=== PATIENT | male | born 1940 | race Caucasian/White ===

== ENCOUNTER → 2018-05-25 08:41 | Outpatient (CLI) | payer MEDICARE, OTHER, SELFPAY ==
--- NOTE | 2018-05-25 | DI.MRI.S_ITS ---
PROCEDURE: MR HEAD/BRAIN WO CON INDICATIONS: DIPLOPIA TECHNIQUE: Non-contrast axial T1 spin echo, axial T2 fast spin echo, sagittal and axial FLAIR, coronal T2 fast spin echo, axial gradient echo, axial diffusion and ADC through the brain. COMPARISON: [facility], CT, HEAD WITHOUT CONTRAST, 11/04/2014, 10:54. FINDINGS: Image quality: Excellent. CSF spaces: Ventricles appear symmetric in size and shape. Basal cisterns are patent. No extra-axial fluid collections. Brain: No intracranial bleeds or mass effects. There is cerebral volume loss for age. There are periventricular and deep white matter chronic small vessel ischemic changes. Brainstem appears normal. Diffusion-weighted images show no acute ischemic insults. No chronic ischemic insults. Normal intravascular flow voids are present. Skull and face: Calvarial bone marrow is normal in signal. Orbits are normal. Sinuses: Sinuses and mastoids are clear. IMPRESSION: 1. No acute intracranial process. 2. Moderate atrophy and chronic microvascular ischemic changes. Dictated by: Milagro Palmer M.D. on 05/25/2018 at 11:21 Approved by: Milagro Palmer M.D. on 05/25/2018 at 11:26
--- NOTE | 2018-05-25 | DI.US.S_ITS ---
PROCEDURE: US CAROTID DOPPLER BI INDICATIONS: DIPLOPIA TECHNIQUE: Color and pulse Doppler interrogation was performed of both carotid systems, with image documentation and velocity measurements. COMPARISON: None. FINDINGS: Stenosis calculations are based on SRU (Society of Radiologists in Ultrasound) criteria. Right side: Brachial blood pressure: 139/80 mm Hg. Common carotid artery peak systolic velocity: 84 cm/sec. Internal carotid artery peak systolic velocity: 57 cm/sec. Internal carotid artery end diastolic velocity: 8 cm/sec. External carotid artery peak systolic velocity: 108 cm/sec. ICA/CCA peak systolic ratio: 1.3. Trivedi scale imaging description: Minimal plaque. Percent internal carotid artery stenosis: Less than 50%. Vertebral artery: Flow direction is antegrade. Left side: Brachial blood pressure: 136/81 mm Hg. Common carotid artery peak systolic velocity: 90 cm/sec. Internal carotid artery peak systolic velocity: 76 cm/sec. Internal carotid artery end diastolic velocity: 17 cm/sec. External carotid artery peak systolic velocity: 98 cm/sec. ICA/CCA peak systolic ratio: 0.9. Trivedi scale imaging description: Moderate plaque. Percent internal carotid artery stenosis: Less than 50%. Vertebral artery: Flow direction is antegrade. IMPRESSION: Less than 50% bilateral internal carotid artery stenosis. Dictated by: Michael Hairston [facility] Interpreted: Vincent Valiente MD on 05/25/2018 at 10:46 Approved by: Michele Valiente M.D. on 05/25/2018 at 12:19
== END ==
PROVIDERS: Family Provider Family Medicine; PCP Family Medicine; Visit Provider Family Medicine
DX: H53.2 Diplopia (principal)
CPT/HCPCS: 70551; 93880

== ENCOUNTER 2019-03-31 11:46 | Day surgery (SDC) | payer MEDICARE, OTHER, SELFPAY ==
[2019-03-24 08:25] VITALS: BMI 34.1
[2019-03-31] VITALS (8 sets, daily range): BP systolic 105–151; BP diastolic 60–82; PULSE 20–113; RESP 12–96; TEMP 36.1–37.1; O2SAT 89–96; BMI 32.8
[2019-03-31] MEDS: metroNIDAZOLE 500 MG/100 ML PIGGYBACK 100 MG IV (05:00)
[2019-03-31] MEDS: LACTATED RINGERS 1,000 ML 42 ML IV (14:23)
[2019-03-31] MEDS: CEFTRIAXONE 2 GM/50 ML FROZ.PIGGY IV (14:54)
--- NOTE | 2019-03-31 15:18 | SUR.OPER ---
Prone on padded OR bed, head in foam head support, gel chest rolls, gel pad under knees, pillow under lower legs, toes free of pressure, arms secured on padded arm boards at <90 degrees abduction. Safety belt at thigh.
[2019-03-31] MEDS: BUPIVACAINE 0.25% W/ EPI (PF) 10 ML VIAL 20 ML INJ (15:30)
[2019-03-31] MEDS: LIDOCAINE 5% OINT 35 GM 1 APPLIC TOP (15:50)
--- NOTE | 2019-03-31 16:35 | PM.OP.1 ---
Operative Date/Time/Diagnoses Date of procedure: 03/31/19 Time of procedure: 14:00 Pre-op diagnosis: External hemorrhoids Post-op diagnosis: same Procedure & Clinicians Procedure: Two: James hemorrhoidectomy of the right posterior and left lateral columns Same procedure as scheduled: Yes Indications: 78-year-old man with history of prolapsing hemorrhoids with intermittent bleeding Surgeon: Wilmer Colon Click Yes if Unassisted: Yes Anesthesia Type: General Operative Notes Findings: No masses within the anal canal, quite large left lateral hemorrhoid. Moderately large right posterior hemorrhoid Closure Type: primary Specimen(s): none sent Estimated Blood Loss (mL): 25 Procedure in detail: Patient was taken to the operating room he was intubated without incident he was rolled into the prone arvin-knife position. The buttock was taped open he was prepped and draped in usual sterile fashion. A time-out was completed. using a lubricated finger digital rectal exam was performed there was a soft fleshy tissue of the left hemorrhoidal column head that had been previously identified in the office. No other masses identified a small gauze sponge was inserted into the anal canal in its entirely and slowly drawn out. This demonstrated significantly prolapsing of the left lateral hemorrhoidal column and a small amount of prolapsing of the right posterior column. Using a Johnson retractor the anus was closely inspected the left lateral hemorrhoidal column was quite large and we proceeded to excise it. taking a small wedge of anoderm a section of tissue including the hemorrhoid was sequentially removed from a superficial to deep direction. just after the anal verge was careful to identify and preserve the fibers of the internal anal sphincter. Care was taken to remove the minimal amount of anal mucosa so as to not stenose the anal canal. I progressed until I was below the level of the dentate line. at this point the hemorrhoidal column attached proximally was grasped at its base with a right angle clamp including the hemorrhoidal vessels. these were then ligated with 2 0 Vicryl utilizing stick tie method. Other hemorrhoidal column was then amputated. The mucosa was then closed using a simple continuous running 2 0 Vicryl suture taking bites of either side of the mucosa as well as the deep side of the underlying tissue to assist in hemostasis. prior to closure hemostasis was excellent, I then inspected the anal canal again. Due to the size of the right posterior column I performed a several layer hemorrhoidectomy using identical technique. A perianal block was then performed using a total of 60 mL of 0.25% bupivacaine with epinephrine. A rolled Gelfoam plug was then placed into the anus with copious amounts 5% lidocaine gel Complications: none Condition: stable Disposition: PACU
[2019-03-31] MEDS: BENZOCAINE/MENTHOL 1 LOZ PKT 1 EACH PO (16:48)
--- NOTE | 2019-03-31 17:16 | SUR.PHASEII ---
Frequent hoarse cough. Throat lozenge provided with some improvement. Anterior lobes clear. IS provided. Verbal instructions given. Pt able to reach 2100. Spouse at bedside.
[2019-03-31] MEDS: ALBUTEROL 2.5 MG/3 ML NEB (ADULT) INH (17:29)
--- NOTE | 2019-03-31 17:29 | SUR.PHASEII ---
Dr. Nuno notified regarding patient status by Gerri. MURRAY for Albuterol neb, which was given.
--- NOTE | 2019-03-31 17:53 | SUR.PHASEII ---
o2 sat 92% RA, Dr Nuno and Isaiah notified. Pt denied dyspnea. OK for patient to discharge. Exp wheeze to rory bases. IS and deep breaths/cough encouraged.
== END 2019-03-31 17:56 | disposition home or self-care (01) ==
PROVIDERS: Family Provider Family Medicine; PCP Family Medicine; Visit Provider Surgery
PROC: (CPT 46260; principal; 2019-03-31 13:00)
DX: K64.2 Third degree hemorrhoids (principal); K64.8 Other hemorrhoids; I25.10 Atherosclerotic heart disease of native coronary artery without angina pectoris; Z87.891 Personal history of nicotine dependence
CPT/HCPCS: 46260; J0696; J1100; J2250; J2704; J3010; J7613

== ENCOUNTER 2019-04-01 12:24 | Emergency (ER) | payer MEDICARE, OTHER, SELFPAY ==
[2019-04-01 12:39] VITALS: BP 142/73; PULSE 56; RESP 20; TEMP 36.8; O2SAT 95; BMI 32.2
--- NOTE | 2019-04-01 13:26 | ED.MALEGU ---
HPI - Male Genitourinary <Valencia Uribe PA-C - Last Filed: 04/01/19 21:39> General Chief complaint: Urogenital-Male Stated complaint: unable to urinate, came for a cath Time Seen by Provider: 04/01/19 13:26 Source: patient Mode of arrival: ambulatory Limitations: no limitations History of Present Illness HPI Narrative: This 78-year-old gentleman had external hemorrhoidectomy done yesterday general anesthesia. He also had a perianal block. He to urinate before he went home yesterday but did not think to mention this, unable to urinate all night and now is feeling significant bladder pressure. He denies any fever, abdominal pain, vomiting, or other new complaints on systems review. Catheter has been placed and he is feeling much better, UO 1250 thus far. Related Data Home Medications Medication Instructions Recorded Confirmed amlodipine 5 mg tablet 5 mg PO BID 03/10/19 04/01/19 simvastatin 40 mg tablet 40 mg PO BEDTIME 03/10/19 04/01/19 aspirin 81 mg tablet,delayed 81 mg PO QPM 03/23/19 04/01/19 release celecoxib 200 mg capsule 200 mg PO QPM cap 03/23/19 04/01/19 doxazosin 8 mg PO QPM 04/01/19 04/01/19 metoprolol tartrate 25 mg PO DAILY 04/01/19 04/01/19 olmesartan [Benicar] 20 mg PO QPM 04/01/19 04/01/19 olmesartan-hydrochlorothiazide 1 tab PO QAM 04/01/19 04/01/19 testosterone cypionate 100 mg IM Q2W 04/01/19 04/01/19 [Depo-Testosterone] Previous Rx's Medication Instructions Recorded acetaminophen 1,000 mg PO Q6H #60 cap 03/31/19 gabapentin 600 mg PO BEDTIME #6 tab 03/31/19 oxycodone See Rx Instructions .ROUTE 03/31/19 .COMPLEX PRN #20 cap polyethylene glycol 3350 [Miralax] 17 gram PO BID #255 gram 03/31/19 Allergies Allergy/AdvReac Type Severity Reaction Status Date / Time No Known Drug Allergies Allergy Verified 03/31/19 12:03 Review of Systems <Valencia rUibe PA-C - Last Filed: 04/01/19 21:39> Review of Systems ROS Unobtainable: All systems reviewed & are unremarkable except as noted in HPI and below PFSH <Valencia Uribe PA-C - Last Filed: 04/01/19 21:39> Medical History Arthritis (Acute) Diverticulosis (Acute) Former smoker (Acute) Hematemesis (Acute ~03/2015) Ulcer (Acute) CAD (coronary artery disease) (Chronic) HLD (hyperlipidemia) (Chronic) History of back problems (Chronic) Hypertension (Chronic) Kidney stones (Chronic 07/10/15) Non-Hodgkin lymphoma (Chronic) GI bleed (Resolved ~03/2015) H. pylori infection (Resolved ~03/2015) Internal hemorrhoid (Resolved) Surgical History S/P hemorrhoidectomy (Acute) H/O wrist surgery (Resolved ~1972) Hx of heart artery stent (Resolved ~2010) Hx of laminectomy (Resolved 09/07/15) Hx of lymph node excision (Resolved ~1988) Previous back surgery (Resolved ~2014) Family History (Updated 03/10/19 @ 12:45 by Margie Jerez RN) Father Hypertension Heart disease Sister Cancer Mother Hypertension Social History (Updated 03/23/19 @ 09:47 by Rina Albrecht LPN) marital status: household members: spouse occupational status: previously employed Smoking Status: Former smoker alcohol intake: current substance use type: does not use Family History (Updated 03/10/19 @ 12:45 by Margie Jerez RN) Father Hypertension Heart disease Sister Cancer Mother Hypertension Social History marital status: household members: spouse occupational status: previously employed Smoking Status: Former smoker alcohol intake: current substance use type: does not use Exam <Valencia Uribe PA-C - Last Filed: 04/01/19 21:39> Narrative Exam Narrative: GENERAL APPEARANCE: Patient sitting comfortably, in no distress. LUNGS: Clear to auscultation bilaterally. HEART: Rate and rhythm regular without murmur, normal S1 and S2, no S3 or S4. ABDOMEN: Soft, nontender, nondistended, +bowel sounds x4 quadrants : Catheter draining dark yellow, clear urine EXTREMITIES: No edema Initial Vital Signs Initial Vital Signs: Vital Signs Temperature 98.3 F 04/01/19 12:39 Pulse Rate 56 L 04/01/19 12:39 Respiratory Rate 20 04/01/19 12:39 Blood Pressure 142/73 H 04/01/19 12:39 Pulse Oximetry 95 04/01/19 12:39 <Francisca Mcmahan DO - Last Filed: 04/03/19 08:29> Initial Vital Signs Initial Vital Signs: Vital Signs Temperature 98.3 F 04/01/19 12:39 Pulse Rate 56 L 04/01/19 12:39 Respiratory Rate 20 04/01/19 12:39 Blood Pressure 142/73 H 04/01/19 12:39 Pulse Oximetry 95 04/01/19 12:39 Course <Valencia Uribe PA-C - Last Filed: 04/01/19 21:39> Additional Information: I have spoken with , who is on-call for Dr. Cui, and he advised patient should be able to be seen for follow-up and voiding trial tomorrow and to call in the morning. Patient is agreeable Orders Ordered: ED Orders 04/01/19 13:24 Urinalysis and Microscopic Stat Vital Signs - 8 hr 04/01/19 14:52 Pulse Rate 72 Respiratory Rate 18 Blood Pressure 131/76 Pulse Oximetry 93 <DO Thao Young Last Filed: 04/03/19 08:29> Orders Ordered: ED Orders 04/01/19 13:24 Urinalysis and Microscopic Stat Vital Signs - 8 hr 04/01/19 14:52 Pulse Rate 72 Respiratory Rate 18 Blood Pressure 131/76 Pulse Oximetry 93 MDM - Male Genitourinary <YAEL Pena Last Filed: 04/01/19 21:39> Lab Data Lab Results 04/01/19 Range/Units 13:24 Urine Color Yellow Urine Appearance Clear Urine pH 5.0 (4.5-8.0) Ur Specific Emmett 1.020 (1.000-1.035) Urine Protein Negative (Negative) Urine Glucose (UA) Negative (Negative) g/dL Urine Ketones Negative (NEGATIVE) Urine Occult Blood Trace-lysed (Negative) Urine Nitrate Negative (Negative) Urine Bilirubin Negative (NEGATIVE) Urine Urobilinogen 0.2 (0.2) E.U./dL Ur Leukocyte Esterase Negative (NEGATIVE) Urine RBC None seen (0-5/HPF) Urine WBC None seen (0-5/HPF) Urine Bacteria None seen (None) Ur Culture Indicated? Cult not indicated Micro UA Comment Microscopic normal <Francisca Marj, DO - Last Filed: 04/03/19 08:29> Lab Data Lab Results 04/01/19 Range/Units 13:24 Urine Color Yellow Urine Appearance Clear Urine pH 5.0 (4.5-8.0) Ur Specific Emmett 1.020 (1.000-1.035) Urine Protein Negative (Negative) Urine Glucose (UA) Negative (Negative) g/dL Urine Ketones Negative (NEGATIVE) Urine Occult Blood Trace-lysed (Negative) Urine Nitrate Negative (Negative) Urine Bilirubin Negative (NEGATIVE) Urine Urobilinogen 0.2 (0.2) E.U./dL Ur Leukocyte Esterase Negative (NEGATIVE) Urine RBC None seen (0-5/HPF) Urine WBC None seen (0-5/HPF) Urine Bacteria None seen (None) Ur Culture Indicated? Cult not indicated Micro UA Comment Microscopic normal Discharge Plan Departure Patient Disposition: Home Clinical Impression: Acute retention of urine Discharge Date/Time: 04/01/19 14:52 Interventions: ED Discharge Assessment Last Done: 04/01/19 14:52 Instructions: DI for Urinary Retention in Men Activity Restrictions/Additional Instructions: I think that your retaining urine due to anesthesia yesterday. Please keep the catheter in. Call your primary care office and let them know that you were seen in the emergency room we spoke with Dr. Richter today and he said that they could see you tomorrow. Return if you have any problems with the catheter or new symptoms in the interim (there was no problem found on your urinalysis today). You last saw Dr. Mcdowell in 2017 so if you do need to see a urologist you are still an established patient with [facility]. Prescriptions: No Action amlodipine 5 mg tablet 5 mg PO BID RF: 0 simvastatin 40 mg tablet 40 mg PO BEDTIME RF: 0 celecoxib [Celebrex] 200 mg capsule 200 mg PO QPM RF: 0 aspirin [Adult Aspirin Regimen] 81 mg tablet,delayed release (DR/EC) 81 mg PO QPM RF: 0 acetaminophen 500 mg capsule 1,000 mg PO Q6H Qty: 60 RF: 0 oxycodone 5 mg capsule See Rx Instructions .ROUTE .COMPLEX PRN (Reason: pain) Qty: 20 RF: 0 gabapentin 600 mg tablet 600 mg PO BEDTIME Qty: 6 RF: 0 polyethylene glycol 3350 [Miralax] 17 gram/dose powder 17 gram PO BID Qty: 255 RF: 0 doxazosin 8 mg tablet 8 mg PO QPM RF: 0 testosterone cypionate [Depo-Testosterone] 200 mg/mL oil 100 mg IM Q2W RF: 0 olmesartan [Benicar] 20 mg tablet 20 mg PO QPM RF: 0 metoprolol tartrate 25 mg tablet 25 mg PO DAILY RF: 0 olmesartan-hydrochlorothiazide 20-12.5 mg tablet 1 tab PO QAM RF: 0 Referrals: Dusty Cui MD [Primary Care Provider] - <Francisca Mcmahan DO - Last Filed: 04/03/19 08:29> Cosign ED Attending Cosignature Attestation: I was immediately available in the department for consultation. Documentation has been reviewed. I agree with assessment and plan.
[2019-04-01 13:50] LABS: Bacteria Urine None Seen; RBC Urine None Seen (0-5/HPF); WBC Urine None Seen (0-5/HPF)
[2019-04-01 13:51] LABS: Appearance Urine UA CLEAR; Bilirubin Urine UA NEGATIVE (NEGATIVE); Color Urine UA YELLOW; Glucose Urine UA NEGATIVE (Negative); Ketones Urine UA NEGATIVE (NEGATIVE); Leukocyte Esterase Urine UA NEGATIVE (NEGATIVE); Nitrite Urine UA NEGATIVE (Negative); Occult Blood Urine UA TRACE-LYSED (Negative); Protein Urine UA NEGATIVE (Negative); Urobilinogen Urine UA 0.2 E.U./dL (0.2)
[2019-04-01 13:57] LABS: Culture Indicated Urine Cult Not Indicated; Urine Comments Microscopic Normal
--- NOTE | 2019-04-01 14:46 | PC.NURSE ---
catheter teaching to and pt.. leg bag placed on pt.. pt verbalized an understanding.
[2019-04-01 14:52] VITALS: BP 131/76; PULSE 72; RESP 18; O2SAT 93
== END 2019-04-01 14:52 | disposition home or self-care (01) ==
PROVIDERS: Emergency Provider Internal Medicine; Family Provider Family Medicine; PCP Family Medicine
DX: R33.8 Other retention of urine (principal)
CPT/HCPCS: 51701; 81001; 99283

== ENCOUNTER 2019-04-07 19:08 | Emergency (ER) | payer MEDICARE, OTHER, SELFPAY ==
[2019-04-07 19:19] VITALS: BP 183/100; PULSE 104; RESP 16; TEMP 37.2; O2SAT 93; BMI 33.7
--- NOTE | 2019-04-07 19:35 | ED.MALEGU ---
HPI - Male Genitourinary <DAY Marrero - Last Filed: 04/07/19 20:27> General Chief complaint: Urogenital-Male Stated complaint: STATES NEEDS A CATHETER PUT IN Time Seen by Provider: 04/07/19 19:25 Source: patient and family Mode of arrival: ambulatory Limitations: no limitations History of Present Illness HPI Narrative: The patient is a 78-year-old male former smoker with history hemorrhoids and urinary retention who presents with the chief complaint urinary retention. He states his catheter was removed this morning and has not urinated since. He complains of abdominal and bladder pressure. He states that the catheter has been in since last week in chart reveal a straight that he was here 4 days ago for urinary retention. He denies any fevers nausea vomiting or diarrhea. He denies any flank pain. Related Data Home Medications Medication Instructions Recorded Confirmed amlodipine 5 mg tablet 5 mg PO BID 03/10/19 04/01/19 simvastatin 40 mg tablet 40 mg PO BEDTIME 03/10/19 04/01/19 aspirin 81 mg tablet,delayed 81 mg PO QPM 03/23/19 04/01/19 release celecoxib 200 mg capsule 200 mg PO QPM cap 03/23/19 04/01/19 doxazosin 8 mg PO QPM 04/01/19 04/01/19 metoprolol tartrate 25 mg PO DAILY 04/01/19 04/01/19 olmesartan [Benicar] 20 mg PO QPM 04/01/19 04/01/19 olmesartan-hydrochlorothiazide 1 tab PO QAM 04/01/19 04/01/19 testosterone cypionate 100 mg IM Q2W 04/01/19 04/01/19 [Depo-Testosterone] Previous Rx's Medication Instructions Recorded acetaminophen 1,000 mg PO Q6H #60 cap 03/31/19 gabapentin 600 mg PO BEDTIME #6 tab 03/31/19 oxycodone See Rx Instructions .ROUTE 03/31/19 .COMPLEX PRN #20 cap polyethylene glycol 3350 [Miralax] 17 gram PO BID #255 gram 03/31/19 Allergies Allergy/AdvReac Type Severity Reaction Status Date / Time No Known Drug Allergies Allergy Verified 03/31/19 12:03 Review of Systems <DAY Marrero - Last Filed: 04/07/19 20:27> Review of Systems GENERAL: Denies chills, fatigue, malaise, fever, sweats. HEENT: Denies sinus pain, ear pain, sore throat, difficulty swallowing, dizziness. RESPIRATORY: Denies dyspnea, cough, wheezing, hemoptysis, sputum. CARDIOVASCULAR: Denies chest pain, palpitations, orthopnea, edema, GASTROINTESTINAL: See HPI : See HPI MUSCULOSKELETAL: denies weakness, joint pain, or bony pain SKIN: Denies rash, skin lesions, or other NEUROLOGIC: Denies weakness, headache, numbness, change in speech, confusion, seizures, incoordination. PSYCHIATRIC: No concerning psychosocial issues. 12 point review of systems is negative except for those stated above PFS <DAY Marrero - Last Filed: 04/07/19 20:27> Medical History Arthritis (Acute) Diverticulosis (Acute) Former smoker (Acute) Hematemesis (Acute ~03/2015) Ulcer (Acute) CAD (coronary artery disease) (Chronic) HLD (hyperlipidemia) (Chronic) History of back problems (Chronic) Hypertension (Chronic) Kidney stones (Chronic 07/10/15) Non-Hodgkin lymphoma (Chronic) GI bleed (Resolved ~03/2015) H. pylori infection (Resolved ~03/2015) Internal hemorrhoid (Resolved) Surgical History S/P hemorrhoidectomy (Acute) H/O wrist surgery (Resolved ~1972) Hx of heart artery stent (Resolved ~2010) Hx of laminectomy (Resolved 09/07/15) Hx of lymph node excision (Resolved ~1988) Previous back surgery (Resolved ~2014) Family History (Updated 03/10/19 @ 12:45 by Margie Jerez RN) Father Hypertension Heart disease Sister Cancer Mother Hypertension Social History marital status: household members: spouse occupational status: previously employed Smoking Status: Former smoker alcohol intake: current substance use type: does not use Family History Father Hypertension Heart disease Sister Cancer Mother Hypertension Social History marital status: household members: spouse occupational status: previously employed Smoking Status: Former smoker alcohol intake: current substance use type: does not use Exam <DAY Marrero - Last Filed: 04/07/19 20:27> Narrative Exam Narrative: GENERAL: This is a well-nourished, well-developed patient, no acute distress HEAD: Atraumatic. Normocephalic. No temporal or scalp tenderness. EYES: Pupils equal round and reactive. Extraocular motions intact. No scleral icterus. No injection or drainage. NECK: Trachea midline. No JVD or lymphadenopathy. Supple, nontender, no meningeal signs. CARDIOVASCULAR: Regular rate and rhythm RESPIRATORY: Clear to auscultation. Breath sounds equal bilaterally. no cough. No increased respiratory effort. GASTROINTESTINAL: Abdomen soft, non-tender, nondistended. No hepato-splenomegaly, or palpable masses. No guarding. active bowel sounds. Evans in place draining clear yellow urine. EXTREMITIES: No clubbing, cyanosis, or edema. No joint tenderness, effusion, or edema noted. BACK: Nontender without deformity or crepitance. No flank tenderness. NEURO: AOx3. SKIN: No rash or erythema. Initial Vital Signs Initial Vital Signs: Vital Signs Temperature 98.9 F 04/07/19 19:19 Pulse Rate 104 H 04/07/19 19:19 Respiratory Rate 16 04/07/19 19:19 Blood Pressure 183/100 H 04/07/19 19:19 Pulse Oximetry 93 04/07/19 19:19 <Francisca Mcmahan DO - Last Filed: 04/08/19 03:02> Initial Vital Signs Initial Vital Signs: Vital Signs Temperature 98.9 F 04/07/19 19:19 Pulse Rate 104 H 04/07/19 19:19 Respiratory Rate 16 04/07/19 19:19 Blood Pressure 183/100 H 04/07/19 19:19 Pulse Oximetry 93 04/07/19 19:19 Course <DAY Marrero - Last Filed: 04/07/19 20:27> Orders Ordered: ED Orders 04/07/19 19:40 Urinalysis and Microscopic Stat Vital Signs - 8 hr 04/07/19 19:19 04/07/19 20:48 Temperature 98.9 F Pulse Rate 104 H 87 Respiratory Rate 16 16 Blood Pressure 183/100 H 166/86 H Pulse Oximetry 93 99 <Francisca Mcmahan DO - Last Filed: 04/08/19 03:02> Orders Ordered: ED Orders 04/07/19 19:40 Urinalysis and Microscopic Stat Vital Signs - 8 hr 04/07/19 19:19 04/07/19 20:48 Temperature 98.9 F Pulse Rate 104 H 87 Respiratory Rate 16 16 Blood Pressure 183/100 H 166/86 H Pulse Oximetry 93 99 MDM - Male Genitourinary <CATRINA Marrero-BC - Last Filed: 04/07/19 20:27> Lab Data Lab Results 04/07/19 Range/Units 19:40 Urine Color Yellow Urine Appearance Clear Urine pH 5.5 (4.5-8.0) Ur Specific [place] 1.015 (1.000-1.035) Urine Protein Negative (Negative) Urine Glucose (UA) Negative (Negative) g/dL Urine Ketones Negative (NEGATIVE) Urine Occult Blood Trace-lysed (Negative) Urine Nitrate Negative (Negative) Urine Bilirubin Negative (NEGATIVE) Urine Urobilinogen 0.2 (0.2) E.U./dL Ur Leukocyte Esterase Negative (NEGATIVE) Urine RBC 5-10/hpf H (0-5/HPF) Urine WBC 0-1/hpf (0-5/HPF) Ur Squamous Epith Cells 0-1 /hpf (0-5/HPF) Urine Bacteria Occasional (0-1) (None) Urine Mucus 1+ H (Negative) Ur Culture Indicated? Cult not indicated MDM Narrative Medical decision making narrative: The patient is a 78-year-old male who presents with chief complaint of urinary retention after having a Evans catheter removed this morning. A Evans was inserted with immediate return of over 1200 cc of clear yellow urine. Urinalysis was obtained and has no signs of infection. Discussed at length follow up with his primary care provider, is discussed referring him to a urologist. Patient has no questions or concerns upon discharge. Discussed return precautions to the emergency department. Hemodynamically stable throughout his stay in the ER. <Francisca Mcmahan DO - Last Filed: 04/08/19 03:02> Lab Data Lab Results 04/07/19 Range/Units 19:40 Urine Color Yellow Urine Appearance Clear Urine pH 5.5 (4.5-8.0) Ur Specific [place] 1.015 (1.000-1.035) Urine Protein Negative (Negative) Urine Glucose (UA) Negative (Negative) g/dL Urine Ketones Negative (NEGATIVE) Urine Occult Blood Trace-lysed (Negative) Urine Nitrate Negative (Negative) Urine Bilirubin Negative (NEGATIVE) Urine Urobilinogen 0.2 (0.2) E.U./dL Ur Leukocyte Esterase Negative (NEGATIVE) Urine RBC 5-10/hpf H (0-5/HPF) Urine WBC 0-1/hpf (0-5/HPF) Ur Squamous Epith Cells 0-1 /hpf (0-5/HPF) Urine Bacteria Occasional (0-1) (None) Urine Mucus 1+ H (Negative) Ur Culture Indicated? Cult not indicated Discharge Plan Departure Patient Disposition: Home Clinical Impression: Acute retention of urine Discharge Date/Time: 04/07/19 20:49 Interventions: ED Discharge Assessment Last Done: 04/07/19 20:48 Instructions: How to Care for Your Evans Catheter -- Male, DI for Urinary Retention in Men Activity Restrictions/Additional Instructions: A removing your Evans catheter this morning did not have the anticipated result. We inserted another Evans catheter. Please keep it clean. We sent off a urine to make sure there is no infection. Please follow up with primary care provider in the morning. I think he had a good idea when he brought up a urology referral. Please come back to the emergency department for any acute concerns. Prescriptions: No Action amlodipine 5 mg tablet 5 mg PO BID RF: 0 simvastatin 40 mg tablet 40 mg PO BEDTIME RF: 0 celecoxib [Celebrex] 200 mg capsule 200 mg PO QPM RF: 0 aspirin [Adult Aspirin Regimen] 81 mg tablet,delayed release (DR/EC) 81 mg PO QPM RF: 0 acetaminophen 500 mg capsule 1,000 mg PO Q6H Qty: 60 RF: 0 oxycodone 5 mg capsule See Rx Instructions .ROUTE .COMPLEX PRN (Reason: pain) Qty: 20 RF: 0 gabapentin 600 mg tablet 600 mg PO BEDTIME Qty: 6 RF: 0 polyethylene glycol 3350 [Miralax] 17 gram/dose powder 17 gram PO BID Qty: 255 RF: 0 doxazosin 8 mg tablet 8 mg PO QPM RF: 0 testosterone cypionate [Depo-Testosterone] 200 mg/mL oil 100 mg IM Q2W RF: 0 olmesartan [Benicar] 20 mg tablet 20 mg PO QPM RF: 0 metoprolol tartrate 25 mg tablet 25 mg PO DAILY RF: 0 olmesartan-hydrochlorothiazide 20-12.5 mg tablet 1 tab PO QAM RF: 0 Referrals: Dusty Cui MD [Primary Care Provider] - <Francisca Mcmahan DO - Last Filed: 04/08/19 03:02> Cosign ED Attending Saraiature Attestation: I was immediately available in the department for consultation. Documentation has been reviewed. I agree with assessment and plan.
--- NOTE | 2019-04-07 19:52 | PC.NURSE ---
Placed by ines Weeks RN
[2019-04-07 19:57] LABS: Appearance Urine UA CLEAR; Bilirubin Urine UA NEGATIVE (NEGATIVE); Color Urine UA YELLOW; Glucose Urine UA NEGATIVE (Negative); Ketones Urine UA NEGATIVE (NEGATIVE); Leukocyte Esterase Urine UA NEGATIVE (NEGATIVE); Nitrite Urine UA NEGATIVE (Negative); Occult Blood Urine UA TRACE-LYSED (Negative); Protein Urine UA NEGATIVE (Negative); Specific Gravity Urine UA 1.015 (1.000-1.035); Urobilinogen Urine UA 0.2 E.U./dL (0.2); pH Urine UA 5.5 (4.5-8.0)
[2019-04-07 20:11] LABS: Bacteria Urine Occasional (0-1); Culture Indicated Urine Cult Not Indicated; Mucus Urine 1+ (Negative); RBC Urine 5-10/HPF (0-5/HPF); Squamous Epithelial Cell Urine 0-1 /HPF (0-5/HPF); WBC Urine 0-1/HPF (0-5/HPF)
--- NOTE | 2019-04-07 20:47 | PC.NURSE ---
Patient given leg bag, gloves, caps, chloraprep swabs, and teaching regarding archuleta care.
[2019-04-07 20:48] VITALS: BP 166/86; PULSE 87; RESP 16; O2SAT 99
== END 2019-04-07 20:49 | disposition home or self-care (01) ==
PROVIDERS: Emergency Provider Nurse Practitioner Family; Family Provider Family Medicine; PCP Family Medicine
DX: R33.8 Other retention of urine (principal)
CPT/HCPCS: 51701; 51798; 81001; 99283

== ENCOUNTER 2019-04-12 14:13 | Inpatient (IN) | payer MEDICARE, OTHER, SELFPAY ==
[2019-04-12] VITALS (17 sets, daily range): BP systolic 116–139; BP diastolic 47–77; PULSE 77–112; RESP 15–96; TEMP 37.7–39.3; O2SAT 24–95; BMI 31.7
--- NOTE | 2019-04-12 14:38 | PM.HP.1 ---
History of Present Illness Date Patient Seen: 04/12/19 Time Patient Seen: 14:39 Chief complaint: SEPSIS Narrative: 78M POD 12 s/p two column Fergusson hemorrhidectomy, post operatively he developed urinary retention POD2 and recieved a catheter in ER. This was temporarily removed but pt was unable to void well and 5 days ago underwent recatheterizaiton - bladder scan showed retained amount of nearly 800ml. This morning pts general course of improvement was reversed he felt quite poor with sweats and fatigue. Temp at home 101.5. Pts called clinic and same day appt was made - There he was febrile to 101.2 with HR 126 on BB, and 142/80. He appeared ill. Pt reports his post op perianal pain has continued to improve nearly each day. Some trismus today but does not feel worse than prior days. Endorses feeling frankly ill. No back ache, no coughs, no sore throat, no rashes, no abdominal pain Walked over to ICU from clinic Patient History Family & Social History Social History: household members spouse Tobacco & Substance use: Tobacco type cigarettes Smoking Status Former smoker alcohol intake current alcohol intake frequency a few times a week Substance Use Type does not use Meds Home Medications Medication Instructions Recorded Confirmed Type amlodipine 5 mg tablet 5 mg PO BID 03/10/19 04/12/19 History simvastatin 40 mg tablet 40 mg PO BEDTIME 03/10/19 04/12/19 History aspirin 81 mg tablet,delayed 81 mg PO QPM 03/23/19 04/12/19 History release celecoxib 200 mg capsule 200 mg PO QPM cap 03/23/19 04/12/19 History acetaminophen 1,000 mg PO Q6H #60 cap 03/31/19 04/12/19 Rx gabapentin 600 mg PO BEDTIME #6 tab 03/31/19 04/12/19 Rx oxycodone See Rx Instructions .ROUTE 03/31/19 04/12/19 Rx .COMPLEX PRN #20 cap polyethylene glycol 3350 [Miralax] 17 gram PO BID #255 gram 03/31/19 04/12/19 Rx doxazosin 8 mg PO QPM 04/01/19 04/12/19 History metoprolol tartrate 25 mg PO DAILY 04/01/19 04/12/19 History olmesartan [Benicar] 20 mg PO QPM 04/01/19 04/12/19 History olmesartan-hydrochlorothiazide 1 tab PO QAM 04/01/19 04/12/19 History testosterone cypionate 100 mg IM Q2W 04/01/19 04/12/19 History [Depo-Testosterone] Allergies Allergy/AdvReac Type Severity Reaction Status Date / Time No Known Drug Allergies Allergy Verified 04/12/19 13:45 Review of Systems Constitutional Constitutional: Denies fever(s) Eyes Eyes: Denies bulging eyes ENT Ears, Nose, Mouth, and Throat: No lip swelling Cardiovascular Cardiovascular: Denies generalize swelling Respiratory Respiratory: Denies stridor Gastrointestinal Gastrointestinal: Denies coffee ground emesis Musculoskeletal Musculoskeletal: Denies loss of height Integumentary/Breasts Skin/Breast: Denies wounds Neurologic Neurologic: Denies abnormal speech and Denies confusion Psychiatric Psychiatric: Denies confusion Endocrine Endocrine: Denies deepening of the voice Hematologic/Lymphatic Hematologic/Lymphatic: Denies lymphadenopathy Allergic/Immunologic Allergic/Immunologic: Denies lip swelling Exam Const General: cooperative and other (fully oriented to time and place) Orientation: alert HENNM Head: normal to inspection Nose: nares normal Mouth: oral mucosae normal and lip normal Eyes Eyelids: eyelids normal Conjunctivae: conjunctivae normal Sclera: sclerae normal Neck Neck: supple and other (No thyromegally) Chest Chest: other (LCTAB , regular respiratory effort) Cardio Heart Sounds: S1 normal, S2 normal, no gallops, no murmurs, no rubs and other (notable tackycardia) GI Other: Rectus diastatis, abd non distetended, dull to percussion, normoactive BS, no HSM, nontender, no masses. perianal skin errythemitous adjacent to hemorrdectomy wounds - appropreate amount. on JONATHON no masses, flutuance or significant tenderness to anal canal. Other: Evans in place, glans reddened. urine concentrated in leg bag. no CVA tenderness Skin General: no rashes or lesions noted and other (flushed) Neuro General: alert and awake Psych Appearance: grossly normal Affect: normal affect Assessment & Plan (1) Sepsis: Current visit: Yes Status: Acute Assessment & Plan narrative: 78 yo man s/p multiple urinary catheterizations for urinary retention since open fergusson hemorrhoidectomy 12 days ago who now presents with fevers, tackycardia on BB, and feeling markedly unwell with concern for infectious source diagnostic of sepsis. He is on 4 antihypertensives at home and remains normotensive, mentating well. Source is ddx urinary/pylonephritis vs perianal. Given overall improvement of perianal pain and abscess of tenderness or fullness on exam - do not strongly suspect post op perianal abscess/infection. Suspect urinary source. Plan: Admit to hosp - in ICU to mobilize resources IV with 1L fluid bolus Blood and urine culture UA CBC, BMP, Mag, LACTATE Starting IV Ceftriaxone and metronidazole after cultures obtained Continue ASA and BB with cardiac status. holding all other antihypertensives Continue catheterization IVF LR 125 after bolus, NPO until trajactory clear Proph - does not meet criteria for PPI, Heparin SQ for DVT
[2019-04-12 15:01] LABS: Hematocrit 55.7 % (41-53); Hemoglobin 18.7 g/dL (13.5-17.5); Mean Corpuscular HGB Conc 33.6 % (30-36); Mean Corpuscular Hemoglobin 34.1 PG (26-34); Mean Corpuscular Volume 101.4 fL (80-100); Platelet Count 167 X10^3/uL (150-400); Red Blood Cell Count 5.49 X10^6/uL (4.5-5.9); White Blood Cell Count 19.5 X10^3/uL (4.5-11.0)
[2019-04-12 15:03] LABS: BUN Creatinine Ratio 17.1 (6-22); Blood Urea Nitrogen 24 mg/dL (9-20); Calcium 9.2 mg/dL (8.4-10.2); Carbon Dioxide 27 mmol/L (22-32); Chloride 98 mmol/L (98-107); Estimated Glomerular Filt Rate 48.9 mL/min (>60); Glucose 155 mg/dL (80-110); Magnesium 1.9 mg/dL (1.6-2.3); Sodium 137 mmol/L (137-145)
[2019-04-12] MEDS: LACTATED RINGERS 1,000 ML 1000 ML IV (15:03)
[2019-04-12 15:04] LABS: Lactate (Lactic Acid) 1.4 mmol/L (0.7-2.1)
[2019-04-12 15:06] LABS: HEMOLYSIS 63 (0-50)
[2019-04-12 15:08] LABS: Potassium 4.1 mmol/L (3.4-5.1)
--- NOTE | 2019-04-12 15:22 | PC.NURSE ---
Direct admit to 101 from surgery office. Pt is AAO x3. Mildly tremulous to BUE ( states he is somewhat tremulous at home but more so presently). Reports not feeling well having fevers at home. He feels this is related to the indwelling catheter he has had since a surgical procedure almost 2 weeks ago. He is making his needs known with clear, logical speech and following commands. T 101.9, HR 110, RR 19, BP 139/77. Oriented to room, bedside shift report, call light.
[2019-04-12] MEDS: LACTATED RINGERS 1,000 ML 125 ML IV (15:34)
[2019-04-12] MEDS: CEFTRIAXONE 2 GM/50 ML FROZ.PIGGY IV (15:34)
[2019-04-12 15:37] LABS: Appearance Urine UA CLEAR; Bilirubin Urine UA NEGATIVE (NEGATIVE); Color Urine UA YELLOW; Glucose Urine UA NEGATIVE (Negative); Ketones Urine UA NEGATIVE (NEGATIVE); Leukocyte Esterase Urine UA 1+ (NEGATIVE); Nitrite Urine UA POSITIVE (Negative); Occult Blood Urine UA 3+ (Negative); Protein Urine UA 1+ (Negative); Urobilinogen Urine UA 0.2 E.U./dL (0.2)
[2019-04-12 15:40] LABS: Add Manual Diff / Slide Review YES
[2019-04-12 15:46] LABS: Neutrophils Absolute Manual 17355 /uL (3000-5900); Total Cells Counted 100
[2019-04-12 15:49] LABS: Macrocytosis 1+
[2019-04-12 15:59] LABS: Bacteria Urine Many (>30); Culture Indicated Urine Specimen Cultured; RBC Urine 5-10/HPF (0-5/HPF); WBC Urine 5-10/HPF (0-5/HPF)
[2019-04-12] MEDS: LACTOBACILLUS ACIDOPHILUS TABLET 1 EACH PO (16:22)
[2019-04-12] MEDS: ACETAMINOPHEN 325 MG TABLET 650 MG PO (16:22)
[2019-04-12] MEDS: metroNIDAZOLE 500 MG/100 ML PIGGYBACK 100 MG IV ×2 (16:22→22:12)
[2019-04-12] MEDS: LACTATED RINGERS 1,000 ML 500 ML IV (16:30)
[2019-04-12] MEDS: ASPIRIN EC 81 MG TABLET PO (18:46)
[2019-04-12] MEDS: OXYCODONE IR 5 MG TABLET PO (19:24)
[2019-04-12] MEDS: IBUPROFEN 200 MG TABLET PO (21:12)
[2019-04-12] MEDS: METOPROLOL IR 25 MG TABLET 12.5 MG PO (21:15)
[2019-04-12] MEDS: HEPARIN 5,000 UNIT/ML VIAL 5000 UNIT SUBCUT (22:12)
--- NOTE | 2019-04-12 22:32 | PC.NURSE ---
Pt received sitting up in bed. Pt alert and oriented. Pt initially tachycardic, given total 2 L LR bolus followed by LR at 125, HR then down to high 90s. Pt febrile throughout shift, up to 102.8, given tylenol and then ibuprofen with temperature down to 100.0. Pt complaining of pain in L buttock. Given tylenol, ice and repositioned with no relief. MD notified and order received for 5 mg PO oxycodone. Given with pain down from 03/10 to 01/10. Pt reports that buttock pain started after hemmorhoidectomy surgery ~ 2 weeks ago. Pt otherwise with no complaints, archuleta catheter in place and draining clear yellow urine. Will continue to monitor, notify MD with changes.
[2019-04-12] MEDS: ACETAMINOPHEN 325 MG TABLET 975 MG PO (23:43)
[2019-04-13] VITALS (12 sets, daily range): BP systolic 125–144; BP diastolic 59–81; PULSE 65–92; RESP 16–25; TEMP 36.8–37.8; O2SAT 92–95
[2019-04-13] MEDS: LACTATED RINGERS 1,000 ML 1250 ML IV (02:46)
[2019-04-13] MEDS: ACETAMINOPHEN 325 MG TABLET 975 MG PO ×4 (06:06→23:57)
[2019-04-13] MEDS: HEPARIN 5,000 UNIT/ML VIAL 5000 UNIT SUBCUT ×3 (06:07→22:06)
[2019-04-13] MEDS: metroNIDAZOLE 500 MG/100 ML PIGGYBACK 100 MG IV (06:48)
[2019-04-13 08:22] LABS: Add Manual Diff / Slide Review NO; Basophils Absolute Auto 100 /uL (0-100); Basophils Percent Auto 0.3 % (0-2); Eosinophils Absolute Auto 0 /uL (0-450); Hematocrit 49.3 % (41-53); Hemoglobin 16.9 g/dL (13.5-17.5); Lymphocytes Absolute Auto 900 /uL (1100-4500); Lymphocytes Percent Auto 3.7 % (25-40); Mean Corpuscular HGB Conc 34.3 % (30-36); Mean Corpuscular Hemoglobin 34.7 PG (26-34); Mean Corpuscular Volume 101.1 fL (80-100); Monocytes Absolute Auto 1400 /uL (0-900); Monocytes Percent Auto 5.6 % (3-14); Neutrophils Absolute Auto 22600 /uL (1500-7000); Neutrophils Percent Auto 90.4 % (50-75); Platelet Count 145 X10^3/uL (150-400); Red Blood Cell Count 4.88 X10^6/uL (4.5-5.9); Red Cell Distribution Width 14.2 % (11.6-14.8)
[2019-04-13 08:46] LABS: BUN Creatinine Ratio 16.4 (6-22); Blood Urea Nitrogen 23 mg/dL (9-20); Calcium 8.4 mg/dL (8.4-10.2); Carbon Dioxide 28 mmol/L (22-32); Chloride 100 mmol/L (98-107); Estimated Glomerular Filt Rate 48.9 mL/min (>60); Glucose 117 mg/dL (80-110); HEMOLYSIS 15 (0-50); Potassium 3.9 mmol/L (3.4-5.1); Sodium 136 mmol/L (137-145)
[2019-04-13] MEDS: OXYCODONE IR 5 MG TABLET PO (08:50)
[2019-04-13] MEDS: DOXAZOSIN 4 MG TABLET 8 MG PO (08:50)
[2019-04-13] MEDS: LACTOBACILLUS ACIDOPHILUS TABLET 1 EACH PO ×2 (08:51→17:36)
[2019-04-13] MEDS: LACTATED RINGERS 500 ML 1000 ML IV (09:30)
--- NOTE | 2019-04-13 10:23 | PM.PN.1 ---
Subjective Date Patient Seen: 04/13/19 Time Patient Seen: 10:23 Interval history: 78-year-old man HD2 admitted with sepsis yesterday. Currently feeling much improved with resolution of tachycardia and fevers overnight. Urine culture now growing gram-negative bacilli in the setting of UA reflecting urinary tract infection. He reports his perianal pain on the left side has also improved. No difficulty eating No abdominal pain Exam Vital Signs (past 8 hours): - 04/13/19 06:01 04/13/19 07:44 04/13/19 08:00 Temperature 99.3 F 98.3 F Pulse Rate 92 H 69 Respiratory Rate 17 16 Blood Pressure 125/59 L Pulse Oximetry 95 95 95 04/13/19 08:14 Temperature Pulse Rate 69 Respiratory Rate 17 Blood Pressure Pulse Oximetry 94 Oxygen Delivery Method Nasal Cannula Oxygen Flow Rate 1.5 Narrative Exam Narrative: Well appearing Mentating well, processing complex thoughts LCTAB RRR Abd soft nontender Urine clear yellow, somewhat concentrated Objective Labs Result Diagrams: 04/13/19 08:10 04/13/19 08:10 Labs: Laboratory Results - last 24 hr 04/12/19 04/12/19 04/12/19 14:20 14:20 14:20 WBC 19.5 H RBC 5.49 Hgb 18.7 H Hct 55.7 H MCV 101.4 H MCH 34.1 H MCHC 33.6 RDW 14.0 Plt Count 167 Neut % (Auto) Not Reportable Lymph % (Auto) Not Reportable [place] % (Auto) Not Reportable Eos % (Auto) Not Reportable Baso % (Auto) Not Reportable Neut # (Auto) Lymph # (Auto) Not Reportable [place] # (Auto) Not Reportable Eos # (Auto) Baso # (Auto) Not Reportable Total Counted 100 Seg Neutrophils % 80.0 H Band Neutrophils % 9.0 H Lymphocytes % (Manual) 7.0 L Monocytes % (Manual) 3.0 Basophils % (Manual) 1.0 Neutrophils # (Manual) 31495 H Nucleated RBCs Not Reportable RBC Morphology Not Reportable Macrocytosis 1+ H Sodium 137 Potassium 4.1 Chloride 98 Carbon Dioxide 27 BUN 24 H Creatinine 1.40 H Estimated GFR 48.9 L BUN/Creatinine Ratio 17.1 Glucose 155 H Lactate 1.4 Calcium 9.2 Magnesium 1.9 Urine Color Urine Appearance Urine pH Ur Specific [place] Urine Protein Urine Glucose (UA) Urine Ketones Urine Occult Blood Urine Nitrate Urine Bilirubin Urine Urobilinogen Ur Leukocyte Esterase Urine RBC Urine WBC Urine Bacteria Ur Culture Indicated? Nasal Screen MRSA (PCR) 04/12/19 04/12/19 04/13/19 14:29 15:20 08:10 WBC RBC Hgb Hct MCV MCH MCHC RDW Plt Count Neut % (Auto) Lymph % (Auto) [place] % (Auto) Eos % (Auto) Baso % (Auto) Neut # (Auto) Lymph # (Auto) [place] # (Auto) Eos # (Auto) Baso # (Auto) Total Counted Seg Neutrophils % Band Neutrophils % Lymphocytes % (Manual) Monocytes % (Manual) Basophils % (Manual) Neutrophils # (Manual) Nucleated RBCs RBC Morphology Macrocytosis Sodium 136 L Potassium 3.9 Chloride 100 Carbon Dioxide 28 BUN 23 H Creatinine 1.40 H Estimated GFR 48.9 L BUN/Creatinine Ratio 16.4 Glucose 117 H Lactate Calcium 8.4 Magnesium Urine Color Yellow Urine Appearance Clear Urine pH 5.0 Ur Specific [place] 1.020 Urine Protein 1+ H Urine Glucose (UA) Negative Urine Ketones Negative Urine Occult Blood 3+ H Urine Nitrate Positive Urine Bilirubin Negative Urine Urobilinogen 0.2 Ur Leukocyte Esterase 1+ H Urine RBC 5-10/hpf H Urine WBC 5-10/hpf H Urine Bacteria Many (>30) H Ur Culture Indicated? Specimen cultured Nasal Screen MRSA (PCR) Negative for mrsa 04/13/19 08:10 WBC 25.0 H RBC 4.88 Hgb 16.9 Hct 49.3 MCV 101.1 H MCH 34.7 H MCHC 34.3 RDW 14.2 Plt Count 145 L Neut % (Auto) 90.4 H Lymph % (Auto) 3.7 L [place] % (Auto) 5.6 Eos % (Auto) 0.0 L Baso % (Auto) 0.3 Neut # (Auto) 59787 H Lymph # (Auto) 900 L [place] # (Auto) 1400 H Eos # (Auto) 0 Baso # (Auto) 100 Total Counted Seg Neutrophils % Band Neutrophils % Lymphocytes % (Manual) Monocytes % (Manual) Basophils % (Manual) Neutrophils # (Manual) Nucleated RBCs RBC Morphology Macrocytosis Sodium Potassium Chloride Carbon Dioxide BUN Creatinine Estimated GFR BUN/Creatinine Ratio Glucose Lactate Calcium Magnesium Urine Color Urine Appearance Urine pH Ur Specific [place] Urine Protein Urine Glucose (UA) Urine Ketones Urine Occult Blood Urine Nitrate Urine Bilirubin Urine Urobilinogen Ur Leukocyte Esterase Urine RBC Urine WBC Urine Bacteria Ur Culture Indicated? Nasal Screen MRSA (PCR) Assessment & Plan Assessment & Plan narrative: 78 yo M HD2 admitted for sepsis with source a catheter associated presumed pylonephritis - Cather in place at time of admission - marked urinary retention after hemorrhoidectomy 13days ago. 1) Sepsis - physiology resolved, a febrile, BM normal, no longer tacky - fluid bolus this am for Low UOP - urine cultures growing gram neg bacilus - stopped metronidazole as urinary source now confirmed, continue ceftriaxone daily - WBC trending up but in setting of improving pt will continue to monitor 2) urinary retention - continue archuleta - restarting hm alpha radha on heparin for DVT proph
[2019-04-13] MEDS: METOPROLOL IR 25 MG TABLET 12.5 MG PO ×2 (11:22→20:38)
[2019-04-13] MEDS: POLYETHYLENE GLYCOL 3350 17 GM POWD.PACK PO ×2 (11:24→20:38)
[2019-04-13] MEDS: ASPIRIN EC 81 MG TABLET PO (11:25)
[2019-04-13] MEDS: LACTATED RINGERS 1,000 ML 125 ML IV ×2 (12:10→20:46)
--- NOTE | 2019-04-13 12:58 | PC.NURSE ---
Addendum entered by Neeraj Cortés R.N. 04/13/19 14:22: RA trial done this AM. SPO2 88% after 20 minutes. Pt is asymptomatic. Reapplied O2 at 1.5LPM via NC. SPO2 94% with O2. Original Note: 0800- SBA up to chair for breakfast. Pt c/o L buttock and rectal pain. Placed a pillow for comfort. After breakfast, pt back to bed r/t pain. Administered PRN oxycodone with good effect. on rounds 09. Reported low UOP, lab results, prelim UA results. Orders received for LR 500 ML IV bolus now. MD states maintaining indwelling catheter for now. Pt reports feeling better today compared to yesterday. Walked to for medium soft/formed BM with small pink elongated clotlike strand. at bedside. Updated on plan of care.
--- NOTE | 2019-04-13 13:48 | P.OP.ENDO_ITS ---
Operative Date/Time/Diagnoses Date of procedure: 04/13/19 Time of procedure: 13:42 Pre-op diagnosis: Colorectal cancer screening Post-op diagnosis: other (Colon polyp times) Procedure & Clinicians Study performed: Screening colonoscopy, cold biopsy forcep polypectomy x1 -left colon Same procedure as scheduled: No (As above) Indications: 78 yo man last screening colonoscopy over 10 years ago, no colon polyps. Presents for routine colon screening Procedure Notes SCOAP/Timeout: completed Procedure in detail: Patient was brought to the endoscopy suite, a time-out was completed. He was sedated with fentanyl and midazolam. The anoderm was in spected there were no significant lesions. A digital rectal exam was performed noting a enlarged but soft prostate. No masses or polyps felt within the canal. 160 cm and the scope was advanced through the rectum rectosigmoid junction into the sigmoid colon. There was substantial diverticular disease within the sigmoid colon. Scope was advanced through the left colon up through the splenic flexure across the triangular folds of the transverse colon through the hepatic flexure and down to the level of the cecum. Patient was status post appendectomy no appendiceal orifice was clearly identified but there was a small recess that I believe was the historic orifice. The gross foot was seen as well as the ileocecal valve. The scope was then slowly withdrawn with the scope withdrawal time of 13 minutes. A small sessile polyp was identified at the distal left colon -which was removed with cold biopsy forceps Prep was adequate Scope withdrawal time: 13 minutes Sedation minutes: 38 Findings: diverticulosis (Extensive within sigmoid colon) and polyp Specimen(s): other (Left colon polyp) Complications: none Impression: -enlarged prostate -sigmoid diverticulosis-marked -single left colon polyp (possibly hamartomatous will evaluate on the Path) Recommendations: Colonscopy in 5 years Plan for aftercare: PACU and home Follow up: as needed Disposition: PACU
[2019-04-13] MEDS: CEFTRIAXONE 2 GM/50 ML FROZ.PIGGY IV (17:36)
[2019-04-13] MEDS: PSYLLIUM HUSK 1 PACKET PO ×2 (17:36→20:38)
--- NOTE | 2019-04-13 19:46 | PC.NURSE ---
1945 - Pt with multiple attempts to have a BM. +Flatus, scant amount of blood with pericare. MD aware of pt urge to have BM, Meds ordered. PT SOB with activity. Using IS independently.
[2019-04-13] MEDS: SIMVASTATIN 40 MG TABLET PO (20:38)
[2019-04-14] VITALS (15 sets, daily range): BP systolic 137–158; BP diastolic 52–89; PULSE 68–92; RESP 15–26; TEMP 36.9–37.6; O2SAT 92–96
[2019-04-14] MEDS: HYDROMORPHONE 0.5 MG INJ IV ×2 (01:53→08:28)
[2019-04-14] MEDS: OXYCODONE IR 5 MG TABLET PO (04:13)
[2019-04-14] MEDS: LACTATED RINGERS 1,000 ML 125 ML IV (04:38)
[2019-04-14 05:17] LABS: Add Manual Diff / Slide Review NO; Basophils Absolute Auto 100 /uL (0-100); Basophils Percent Auto 0.3 % (0-2); Eosinophils Absolute Auto 0 /uL (0-450); Hematocrit 49.1 % (41-53); Hemoglobin 16.5 g/dL (13.5-17.5); Lymphocytes Absolute Auto 1100 /uL (1100-4500); Lymphocytes Percent Auto 4.8 % (25-40); Mean Corpuscular HGB Conc 33.5 % (30-36); Mean Corpuscular Hemoglobin 34.3 PG (26-34); Mean Corpuscular Volume 102.5 fL (80-100); Monocytes Absolute Auto 1300 /uL (0-900); Monocytes Percent Auto 5.7 % (3-14); Neutrophils Absolute Auto 19800 /uL (1500-7000); Neutrophils Percent Auto 89.2 % (50-75); Platelet Count 129 X10^3/uL (150-400); White Blood Cell Count 22.3 X10^3/uL (4.5-11.0)
[2019-04-14 05:24] LABS: BUN Creatinine Ratio 15.4 (6-22); Blood Urea Nitrogen 20 mg/dL (9-20); Calcium 8.3 mg/dL (8.4-10.2); Carbon Dioxide 26 mmol/L (22-32); Chloride 101 mmol/L (98-107); Estimated Glomerular Filt Rate 53.3 mL/min (>60); Glucose 120 mg/dL (80-110); HEMOLYSIS 22 (0-50); Potassium 3.9 mmol/L (3.4-5.1); Sodium 136 mmol/L (137-145)
[2019-04-14] MEDS: HEPARIN 5,000 UNIT/ML VIAL 5000 UNIT SUBCUT ×3 (06:10→21:47)
--- NOTE | 2019-04-14 06:46 | PC.NURSE ---
NOC Shift: Pleasant pt. w/urosepsis AAOX3, having difficulty w/urinating has chronic archuleta until he can be seen by urology in May. Recieving IVF's and IV ABX. VSS, SR 1 AVB on tele. Having difficulty w/bowels, up and down OOB through shift attempting to have bowel movement, only to pass gas and smears. Is on appropriate bowel medications. Has left buttock pain which may be related to enlarged prostrate or prior back injuries. Pt ambulates well w/one PA. Remains on 1.5L NC O2 for decreased sats with acitivity and sleep. TM through shift 99.9.
[2019-04-14] MEDS: ASPIRIN EC 81 MG TABLET PO (08:13)
[2019-04-14] MEDS: METOPROLOL IR 25 MG TABLET 12.5 MG PO ×2 (08:14→20:46)
[2019-04-14] MEDS: LACTOBACILLUS ACIDOPHILUS TABLET 1 EACH PO ×2 (08:14→16:54)
[2019-04-14] MEDS: POLYETHYLENE GLYCOL 3350 17 GM POWD.PACK PO ×2 (08:18→20:46)
[2019-04-14] MEDS: PSYLLIUM HUSK 1 PACKET PO ×3 (08:35→20:46)
--- NOTE | 2019-04-14 09:59 | P.PN_ITS ---
Subjective Date Patient Seen: 04/14/19 Time Patient Seen: 09:58 Interval history: Constitutionally feeling well. Main concern is feeling of marked tenesmus. Often on toilet but evacuating minimal amount. ON JONATHON last night no areas of flucutance or inflamatory masses on anus or distal rectum. tolerates exam. prostate is quite tender. BM soft when they do occur Tolerating a regular diet Passing gas Exam Vital Signs (past 8 hours): - 04/14/19 04:10 04/14/19 04:13 04/14/19 07:25 Temperature 98.9 F 98.9 F 99.7 F H Pulse Rate 85 89 Respiratory Rate 26 H 15 Blood Pressure 137/83 147/83 H Pulse Oximetry 95 93 04/14/19 07:45 Temperature Pulse Rate Respiratory Rate Blood Pressure Pulse Oximetry 95 Oxygen Delivery Method Nasal Cannula Oxygen Flow Rate 1.5 Narrative Exam Narrative: Some diaphoresis, mentating well Crackles at pulm bases on 1.5L NC RRR abd soft nontender minimally distended Objective Labs Result Diagrams: 04/14/19 04:45 04/14/19 04:45 Labs: Laboratory Results - last 24 hr 04/14/19 04/14/19 04:45 04:45 WBC 22.3 H RBC 4.80 Hgb 16.5 Hct 49.1 MCV 102.5 H MCH 34.3 H MCHC 33.5 RDW 14.0 Plt Count 129 L Neut % (Auto) 89.2 H Lymph % (Auto) 4.8 L [place] % (Auto) 5.7 Eos % (Auto) 0.0 L Baso % (Auto) 0.3 Neut # (Auto) 23406 H Lymph # (Auto) 1100 [place] # (Auto) 1300 H Eos # (Auto) 0 Baso # (Auto) 100 Sodium 136 L Potassium 3.9 Chloride 101 Carbon Dioxide 26 BUN 20 Creatinine 1.30 H Estimated GFR 53.3 L BUN/Creatinine Ratio 15.4 Glucose 120 H Calcium 8.3 L Assessment & Plan Assessment & Plan narrative: 78 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 1) pylonephritis - sepsis resolved - continue ceftriaxone and probiotic - cultures with GNR awaiting speciation and sensitivity to narrow abx - WBC falling today 2) urinary retention - on Hm alpha blockade - [facility] of archuleta removal at 0200 04/14/19, if continues to retain can address during day tomorrow 3) TONE - improving with CR falling - Holding ACEI 4)Tenesmus - multiple rectal exams without worrysome features. Considering prostatitis given tenderness DVT - Heparin on heparin for DVT proph
--- NOTE | 2019-04-14 10:51 | CM.DANOTE ---
DCP: Case received, EMR reviewed and met with patient. Introduced self and role. Information regarding baseline health and needs obtained by patient. DCP template completed with information currently available. Patient is a 78 year old male who admitted 04/12 to the care of the hospitalist team. Patient is currently under surgeon's care at this time. PCP: Dr. Cui. Payer: confirmed: Medicare/[employer]. Patient came to hospital secondary to urinary retention and fever. Patient is noted to have Pylonephritis/Sepsis. Met with patient in his room. Alert and oriented, was having some discomfort. Asked patient if he lives alone. Stated that he lives with his , Abby. Had left a message initially before talking to patient, for daughter, Marvin, who is also listed as contact, for patient had been sleeping earlier when this correctional case manager attempted to assess. Patient will be moving to a upstairs room today. P: DCP to continue to follow closely and offer any resources if needed. Fernanda Trevino RN/Elementary Science Teacher
--- NOTE | 2019-04-14 11:35 | PC.NURSE ---
Reviewing lab results for clinical assignment.
[2019-04-14] MEDS: OXYCODONE IR 5 MG TABLET 10 MG PO ×3 (12:13→23:38)
--- NOTE | 2019-04-14 14:22 | PC.NURSE ---
0945- Dr. Rendon on rounds at bedside. Reported pt c/o pain to left buttock; requested modification of pain med regimen. Reported pt with exertional dyspnea and audible wheezing after getting up to bathroom. Reported pt with frequent small BMs. Discussed labs. Reported temperatures and VS. Dr. Rendon ordered decreased rate in IVF. Plan is to remove archuleta catheter tomorrow at 0200 and monitor urination. Cont. IV abx until sensitivities are back.
[2019-04-14] MEDS: LACTATED RINGERS 1,000 ML 50 ML IV (14:39)
[2019-04-14] MEDS: CEFTRIAXONE 2 GM/50 ML FROZ.PIGGY IV (16:54)
[2019-04-14] MEDS: SIMVASTATIN 40 MG TABLET PO (20:46)
[2019-04-14] MEDS: DOXAZOSIN 4 MG TABLET 8 MG PO (20:47)
--- NOTE | 2019-04-14 20:55 | PC.NURSE ---
2044 - Pt continues with frequent trips to the bathroom for BM. Reports repeated small results, some liquid and some small hard formed stool. Bowel meds proved. Reviewed constipation/urge issues with MD. Discussed BPH meds and archuleta removal with pt. Pt verbalized understanding. Call light in reach.
[2019-04-15] VITALS (25 sets, daily range): BP systolic 107–159; BP diastolic 51–91; PULSE 64–130; RESP 13–25; TEMP 35.9–37.8; O2SAT 92–97
--- NOTE | 2019-04-15 | DI.ECHO.S_ITS ---
[place] +---------+ Hospital +---------+ : : [address] : : : : [id number] : : : : Phone: [phone]+ Echocardiogram Report + + :Name: NITA OLIVA Study Date: 04/15/2019 Height: 68 in : :[facility] Exam Location: [facility] Weight: 221 lb : : Gender: Male BSA: 2.1 m2 : :: 1940 Age: 78 yrs BP: 129/66 mmHg: :Reason For Study: AFIB : : Performed By: Andrez Garcia : + + Interpretation Summary The patient was in atrial fibrillation with controlled ventricular rate during the exam. The left ventricle is normal in size. The ejection fraction is estimated to be 55-60%. The right ventricle is borderline dilated. Right ventricular systolic function is mild to moderately reduced. The left atrium is moderately dilated. There is mild to moderate mitral regurgitation. There is mild to moderate tricuspid regurgitation. The right ventricular systolic pressure is estimated to be at least 28 mmHg based on an estimated right atrial pressure of 8 mm Hg. The ascending aorta is mildly enlarged. Procedure: A two-dimensional transthoracic echocardiogram with color flow and Doppler was performed. The study quality was technically adequate. There is no prior echocardiogram noted for this patient. The patient was in atrial fibrillation with controlled ventricular rate during the exam. The patient had a heart rate of 57-88 beats per minute. Left Ventricle: The left ventricle is normal in size. Left ventricular wall thickness is borderline increased. Proximal septal thickening is noted. There is no echo evidence for significant left ventricular outflow tract obstruction. There is no thrombus. The ejection fraction is estimated to be 55-60%. There are no focal wall motion abnormalities. E/E' med: 11.6. Right Ventricle: The right ventricle is borderline dilated. Right ventricular systolic function is mild to moderately reduced. Atria: The left atrium is moderately dilated. Right atrial size is normal. The interatrial septum is intact with no evidence for an atrial septal defect. Mitral Valve: The mitral valve leaflets are slightly calcified. There is mild to moderate mitral annular calcification. There is mild to moderate mitral regurgitation. Aortic Valve: The aortic valve is trileaflet. The aortic valve opens well. There is mild aortic valve sclerosis. There is no aortic valve stenosis. There is trace aortic regurgitation. Tricuspid Valve: The tricuspid valve is normal. There is mild to moderate tricuspid regurgitation. The right ventricular systolic pressure is estimated to be at least 28 mmHg based on an estimated right atrial pressure of 8 mm Hg. Pulmonic Valve: The pulmonic valve is normal in structure and function. There is trace pulmonic regurgitation. Great Vessels: The aortic root is normal size. The ascending aorta is mildly enlarged. The aortic arch is at the upper limits of normal in size. The pulmonary artery is normal size. The IVC is dilated (diameter is greater than 2.1 cm) yet it collapses greater than 50% with a sniff. This suggests a right atrial pressure of 8 mm Hg. Pericardium/ Pleura There is no pericardial effusion. There is no pleural effusion. MMode/2D Measurements & Calculations LVIDd: 4.9 cm LVOT diam: 2.4 cm LVIDs: 3.0 cm Ao root diam: 4.3 cm FS: 39.7 % Aortic Jxn: 3.6 cm EPSS: 1.5 cm asc Aorta Diam: 4.0 cm IVSd: 1.1 cm Ao Arch Diam (Prox Trans): 3.3 cm LVPWd: 1.1 cm LV vega. diameter/BSA (cm/m^2): 2.3 LV sys. diameter/BSA (cm/m^2): 1.4 LA dimension: 4.5 cm RA long axis: 5.6 cm LA A2 area: 24.5 cm2 RA area: 19.4 cm2 LA A4 area: 26.9 cm2 RA vol: 56.6 ml LA length (vol): 6.1 cm RA : 26.5 ml/m2 LA vol: 92.0 ml IVC diam: 2.6 cm LA vol index: 43.1 ml/m2 RVD1 (basal): 4.6 cm RVD2 (mid): 4.6 cm Doppler Measurements & Calculations Ao V2 max: 112.2 cm/sec LVOT Max Jayson: 93.2 cm/sec Ao V2 mean: 83.9 cm/sec LV V1 max P.5 mmHg Ao max P.1 mmHg LV V1 VTI: 17.3 cm Ao mean P.1 mmHg SHERYL(I,D): 3.6 cm2 Ao V2 VTI: 22.7 cm SHERYL(V,D): 3.9 cm2 sev ratio: 0.76 SHERYL indexed to BSA (cm^2/m^2): 1.7 MV E max jayson: 90.6 cm/sec TR max jayson: 222.2 cm/sec MV A max jayson: 2.1 cm/sec TR max P.8 mmHg MV E/A: 43.0 PA V2 max: 82.4 cm/sec Med Peak E' Jayson: 7.8 cm/sec PA V2 mean: 58.7 cm/sec E/E' med: 11.6 PA mean P.5 mmHg Lat Peak E' Jayson: 8.8 cm/sec PA pr(Accel): 51.6 mmHg E/E' lat: 10.2 PA Accel Time: 0.08 sec E/e' average: 10.9 MV dec time: 0.22 sec SV(LVOT): 81.3 ml Reading Physician:CHRISTIAN
--- NOTE | 2019-04-15 | DI.US.S_ITS ---
PROCEDURE: US PERIPH VENOUS LOW EXTREM BI INDICATIONS: EVAL FOR DVT, ON ECHO SOME FEATURES OF PE BUT CR ELEVATED TECHNIQUE: Real-time imaging, as well as color and pulse Doppler interrogation, were performed of the deep veins of both legs from the inguinal ligament to the popliteal fossa. COMPARISON: None. FINDINGS: Right: The common femoral, femoral and popliteal veins are normally compressible, and free of intraluminal thrombus. Color and pulse Doppler demonstrate normal phasic intravascular flow. There is normal augmentation response to distal compression maneuver. Left: The common femoral, femoral and popliteal veins are normally compressible, and free of intraluminal thrombus. Color and pulse Doppler demonstrate normal phasic intravascular flow. There is normal augmentation response to distal compression maneuver. IMPRESSION: No evidence of DVT in visualized bilateral upper extremity veins. Dictated by: Guru Sanchez M.D. on 04/15/2019 at 17:29 Approved by: Guru Sanchez M.D. on 04/15/2019 at 17:30
--- NOTE | 2019-04-15 02:45 | PC.NURSE ---
Addendum entered by Marcy Vásquez R.N. 04/15/19 07:10: 0600 Pt spontaneously went into Afib/Atrial flutter RVR w/trigeminal PVC's HR >130, SBP stable 130's, pt denies S/S, is more SOB, wheezy when OOB to bathroom, directed to use bedside commode only when up due to arrythmia. 12 lead EKG ordered to confirm rythm change, stat BMP ordered w/mag level. Dr. Colon notified by phone of pt condition, rythm change orders recieved to start Diltiazem gtt per protocol no bolus to be given. Pt inpatient status changed to ICU care per protocol Diltiazem gtt. Discussed and informed patient, pt understands. MD to come in to eval. Addendum entered by Marcy Vásquez R.N. 04/15/19 02:55: 0215 Evans catheter D/C'd per MD order. No complications. Original Note: NOC Shift: Pt AAOx3, appearing more fatigued tonight, has been OOB frequently throughout eves shift to the bathroom attempting to have bowel movements, passing small smears and gas only. Continues to have exertional dyspnea with activity, wheezing. Remains on 1.5 L NC. Continues to have left buttock pain, medicated with oxycodone. VSS, SR 1 AVB on tele. Evans patent, to be removed at 0200 per MD order. Pt aware.
[2019-04-15] MEDS: HYDROMORPHONE 0.5 MG INJ IV (03:51)
[2019-04-15] MEDS: SODIUM CHLORIDE 0.9% FLUSH 10 ML IV (03:53)
[2019-04-15 05:47] LABS: Add Manual Diff / Slide Review NO; Basophils Absolute Auto 100 /uL (0-100); Basophils Percent Auto 0.3 % (0-2); Eosinophils Absolute Auto 100 /uL (0-450); Eosinophils Percent Auto 0.7 % (2-4); Hematocrit 52.1 % (41-53); Hemoglobin 17.7 g/dL (13.5-17.5); Lymphocytes Absolute Auto 1700 /uL (1100-4500); Lymphocytes Percent Auto 10.2 % (25-40); Mean Corpuscular HGB Conc 33.9 % (30-36); Mean Corpuscular Hemoglobin 34.6 PG (26-34); Mean Corpuscular Volume 102.3 fL (80-100); Monocytes Absolute Auto 1500 /uL (0-900); Monocytes Percent Auto 8.8 % (3-14); Neutrophils Absolute Auto 13300 /uL (1500-7000); Platelet Count 144 X10^3/uL (150-400); White Blood Cell Count 16.6 X10^3/uL (4.5-11.0)
[2019-04-15 06:10] LABS: BUN Creatinine Ratio 16.9 (6-22); Blood Urea Nitrogen 22 mg/dL (9-20); Carbon Dioxide 27 mmol/L (22-32); Chloride 99 mmol/L (98-107); Estimated Glomerular Filt Rate 53.3 mL/min (>60); Glucose 101 mg/dL (80-110); HEMOLYSIS 50 (0-50); Potassium 4.4 mmol/L (3.4-5.1); Sodium 137 mmol/L (137-145)
[2019-04-15] MEDS: HEPARIN 5,000 UNIT/ML VIAL 5000 UNIT SUBCUT (06:10)
[2019-04-15] MEDS: OXYCODONE IR 5 MG TABLET 10 MG PO ×3 (06:17→20:43)
[2019-04-15 06:45] LABS: Magnesium 1.9 mg/dL (1.6-2.3)
[2019-04-15] MEDS: dilTIAZem 125 MG in DEXTROSE 5 % IN WATER 100 ML IV (06:57)
[2019-04-15] MEDS: PSYLLIUM HUSK 1 PACKET PO ×3 (08:07→22:39)
[2019-04-15] MEDS: POLYETHYLENE GLYCOL 3350 17 GM POWD.PACK PO ×2 (08:07→22:38)
[2019-04-15] MEDS: METOPROLOL IR 25 MG TABLET 12.5 MG PO (08:08)
[2019-04-15] MEDS: LACTOBACILLUS ACIDOPHILUS TABLET 1 EACH PO ×2 (08:08→17:15)
[2019-04-15] MEDS: MAGNESIUM SULFATE 2 GM/50 ML PIGGYBACK IV (08:08)
[2019-04-15] MEDS: ASPIRIN EC 81 MG TABLET PO (08:08)
[2019-04-15] MEDS: LACTATED RINGERS 1,000 ML 50 ML IV (10:45)
[2019-04-15 10:56] LABS: Creatine Kinase 79 U/L (55-170)
[2019-04-15 11:09] LABS: Troponin I 0.056 ng/mL (0.01-0.034)
--- NOTE | 2019-04-15 11:58 | CM.DPC ---
DCP Cont: Met briefly with , Abby, who was in room with patient. Patient was up using commode, then going back to bed. Introduced self and let her know this case finisher's role. Name still on board. Let her and patient know that this case finisher is available for any resources that may be needed. Unclear at this time what discharge needs will be, for he is currently medically unstable. He has been having some heart irregularities as well. P: DCP to continue to follow closely. Briefly explained home health versus skilled, but converstation did not go any further. Anticipate that patient will be here for several more days. At this time, does not have P.T. orders. Will see if this is something that he will need when he becomes more medically stable. Fernanda Trevino RN/Juvenile Counselor
--- NOTE | 2019-04-15 12:02 | PM.PN.1 ---
Subjective Date Patient Seen: 04/15/19 Time Patient Seen: 07:00 Interval history: Events 1) first ever episode of Afib with RVR early this am - Dilt gtt started with good rate control 2) Failed trial of void with bladder volume over 500ml Feeling fatigued, continues to have tenismus, bowl movements soft and partly liquid. passing flatus feeling creases buttock pain with sitting Exam Vital Signs (past 8 hours): - 04/15/19 06:02 04/15/19 06:45 04/15/19 06:51 Temperature 96.7 F L Pulse Rate 130 H 103 H 101 H Respiratory Rate 24 22 24 Blood Pressure 134/51 L 138/70 138/70 Pulse Oximetry 92 93 04/15/19 06:57 04/15/19 07:00 04/15/19 08:00 Temperature Pulse Rate 93 H 82 Respiratory Rate 13 Blood Pressure 138/70 107/58 L Pulse Oximetry 93 95 04/15/19 08:16 04/15/19 09:02 04/15/19 10:00 Temperature Pulse Rate 96 H 67 Respiratory Rate 19 16 Blood Pressure 136/90 138/61 Pulse Oximetry 93 95 94 04/15/19 11:06 Temperature 98.3 F Pulse Rate 64 Respiratory Rate 17 Blood Pressure 129/66 Pulse Oximetry 93 Oxygen Delivery Method Nasal Cannula Oxygen Flow Rate 2 Narrative Exam Narrative: looks fatigueded breathing comfortably Irregularly irregular HR abd soft nontender nondistend Repeat rectal exam: again no significant perianal tenderness - prostate continues to be quite tender. Objective Labs Result Diagrams: 04/15/19 04:55 04/15/19 05:00 Labs: Laboratory Results - last 24 hr 04/15/19 04/15/19 04/15/19 04:55 05:00 10:30 WBC 16.6 H RBC 5.10 Hgb 17.7 H Hct 52.1 MCV 102.3 H MCH 34.6 H MCHC 33.9 RDW 14.0 Plt Count 144 L Neut % (Auto) 80.0 H Lymph % (Auto) 10.2 L [place] % (Auto) 8.8 Eos % (Auto) 0.7 L Baso % (Auto) 0.3 Neut # (Auto) 06250 H Lymph # (Auto) 1700 [place] # (Auto) 1500 H Eos # (Auto) 100 Baso # (Auto) 100 Sodium 137 Potassium 4.4 Chloride 99 Carbon Dioxide 27 BUN 22 H Creatinine 1.30 H Estimated GFR 53.3 L BUN/Creatinine Ratio 16.9 Glucose 101 Calcium 9.0 Magnesium 1.9 Total Creatine Kinase 79 CK-MB (CK-2) TNP CK-MB (CK-2) Rel Index TNP Troponin I 0.056 H Assessment & Plan Assessment & Plan narrative: 78 yo M HD4 admitted for sepsis with source a catheter associated presumed pylonephritis - Cather in place at time of admission - marked urinary retention after hemorrhoidectomy 15days ago. Now with new onset Afib with RVR and concern for prostatitis 1) UTI - continue ceftriaxone and probiotic - cultures with GNR - Hafnia, rare pathogen but 10^6 orgs on catheter culture - real organizm. spoke with lab - speciated 2x to be sure. - abx emprically working, will reach out to ID Spoke with Dr Haider of urology re case - shares concern for prostatits given post procedural urinary retention has now gone on over 2 weeks, explains tenesmus and tender exam. Rec tx for full 6 weeks with abx. Start detrol for spasms. Next trial of void in 2 weeks 14day course for complicated urinary tract infection. Stop detrol 48hrs prior to catheter removal. Continuing doxazosin 2) Afib with RVR cardiology consulted obtaining TSH, trop, echo Continue dilt gtt DVT - Heparin
[2019-04-15 12:18] LABS: Alanine Aminotransferase 30 IU/L (21-72); Albumin 3.2 g/dL (3.5-5.0); Alkaline Phosphatase 93 U/L (38-126); Aspartate Aminotransferase 55 IU/L (17-59); Bilirubin Total 0.5 mg/dL (0.2-1.3); Bilirubin Unconjugated 0.2 mg/dL (0.0-1.1); Globulin 3.2 g/dL (1.7-4.1); HEMOLYSIS 38 (0-50); Total Protein 6.4 g/dL (6.3-8.2)
[2019-04-15] MEDS: TOLTERODINE 1 MG TABLET 2 MG PO ×2 (12:29→22:40)
--- NOTE | 2019-04-15 12:50 | P.CONS_ITS ---
History of Present Illness Date Patient Seen: 04/15/19 Chief complaint: SEPSIS Reason for consult: For atrial fibrillation Narrative: This 78 years old with history of CAD status post drug coated stent placement to the proximal LAD at [facility], essential hypertension, hyperlipidemia, history of non-Hodgkin's lymphoma in 80s status post chemotherapy, recently had hemorrhoidectomy and after the surgery he developed urinary retention which required Evans catheter insertion, got admitted on April 12, 2019 with symptoms of urinary tract infection, developed atrial fibrillation with fast ventricular rate today in a.m. he was started on Cardizem drip. He was transferred to ICU. According to the patient does not feel much palpitation. No previous history of atrial fibrillation. No resting shortness of breath or active chest pain or bleeding or stroke-like symptoms. At present he denies any fever cough. No history of excessive alcohol intake or sleep apnea. He had 2D echo which revealed preserved LV systolic function however right ventricular function mild to moderately reduced without any significant dilatation. Pulmonary artery systolic pressure appears to be 28 mm of mercury. Right atrial pressure was about 8 mm of mercury. There was [id number] MR and [id number] TR. Left atrium is about moderately dilated. [facility] Medical History Arthritis (Acute) Diverticulosis (Acute) Former smoker (Acute) Hematemesis (Acute ~03/2015) Ulcer (Acute) CAD (coronary artery disease) (Chronic) HLD (hyperlipidemia) (Chronic) History of back problems (Chronic) Hypertension (Chronic) Kidney stones (Chronic 07/10/15) Non-Hodgkin lymphoma (Chronic) GI bleed (Resolved ~03/2015) H. pylori infection (Resolved ~03/2015) Internal hemorrhoid (Resolved) Surgical History S/P hemorrhoidectomy (Acute) H/O wrist surgery (Resolved ~1972) Hx of heart artery stent (Resolved ~2010) Hx of laminectomy (Resolved 09/07/15) Hx of lymph node excision (Resolved ~1988) Previous back surgery (Resolved ~2014) Family History Father Hypertension Heart disease Sister Cancer Mother Hypertension Social History marital status: household members: spouse occupational status: previously employed Smoking Status: Former smoker alcohol intake: current substance use type: does not use Family History Father Hypertension Heart disease Sister Cancer Mother Hypertension Social History marital status: household members: spouse occupational status: previously employed Smoking Status: Former smoker alcohol intake: current substance use type: does not use Meds Home Medications Medication Instructions Recorded Confirmed Type amlodipine 5 mg tablet 5 mg PO BID 03/10/19 04/12/19 History simvastatin 40 mg tablet 40 mg PO BEDTIME 03/10/19 04/12/19 History aspirin 81 mg tablet,delayed 81 mg PO QPM 03/23/19 04/12/19 History release celecoxib 200 mg capsule 200 mg PO QPM cap 03/23/19 04/12/19 History acetaminophen 1,000 mg PO Q6H #60 cap 03/31/19 04/12/19 Rx oxycodone See Rx Instructions .ROUTE 03/31/19 04/12/19 Rx .COMPLEX PRN #20 cap polyethylene glycol 3350 [Miralax] 17 gram PO BID #255 gram 03/31/19 04/12/19 Rx doxazosin 8 mg PO QPM 04/01/19 04/12/19 History metoprolol tartrate 25 mg PO DAILY 04/01/19 04/12/19 History olmesartan 20 mg PO QPM 04/01/19 04/12/19 History olmesartan-hydrochlorothiazide 1 tab PO QAM 04/01/19 04/12/19 History testosterone cypionate 100 mg IM Q2W 04/01/19 04/12/19 History Allergies Allergy/AdvReac Type Severity Reaction Status Date / Time No Known Drug Allergies Allergy Verified 04/12/19 13:45 Review of Systems Review of Systems Ten points review of systems were obtained and negative except as stated above. Exam Vital Signs (past 8 hours): - 04/15/19 06:02 04/15/19 06:45 04/15/19 06:51 Temperature 96.7 F L Pulse Rate 130 H 103 H 101 H Respiratory Rate 24 22 24 Blood Pressure 134/51 L 138/70 138/70 Pulse Oximetry 92 93 04/15/19 06:57 04/15/19 07:00 04/15/19 08:00 Temperature Pulse Rate 93 H 82 Respiratory Rate 13 Blood Pressure 138/70 107/58 L Pulse Oximetry 93 95 04/15/19 08:16 04/15/19 09:02 04/15/19 10:00 Temperature Pulse Rate 96 H 67 Respiratory Rate 19 16 Blood Pressure 136/90 138/61 Pulse Oximetry 93 95 94 04/15/19 11:06 04/15/19 12:00 Temperature 98.3 F Pulse Rate 64 Respiratory Rate 17 21 Blood Pressure 129/66 149/80 H Pulse Oximetry 93 94 Oxygen Delivery Method Nasal Cannula Oxygen Flow Rate 2 Const Other: At present not in significant distress. Eyes Other: No significant anemia or jaundice. Neck Other: No apparent JVD. Chest Other: No chest wall tenderness. Resp Other: No obvious crepitations or rhonchi. Cardio Other: S1 variable, P2 not loud, no S3 no S4 no significant murmur. GI Other: Abdomen obese, no significant hepatosplenomegaly or pulsatile mass. Neuro Other: No gross motor or sensory deficit. Extrem Other: Mild bilateral pedal edema. Psych Other: Alert oriented time place and person. Objective Imaging ECG: My impression: EKG on April 15, 2019 at about 5:49 p.m. showed atrial fibrillation with ventricular rate about 105, intermittent PVCs and nonspecific ST-T changes. QTC 451 milliseconds. Labs Result Diagrams: 04/15/19 04:55 04/15/19 05:00 Labs: Laboratory Results - last 24 hr 04/15/19 04/15/19 04/15/19 04:55 05:00 10:30 WBC 16.6 H RBC 5.10 Hgb 17.7 H Hct 52.1 MCV 102.3 H MCH 34.6 H MCHC 33.9 RDW 14.0 Plt Count 144 L Neut % (Auto) 80.0 H Lymph % (Auto) 10.2 L [place] % (Auto) 8.8 Eos % (Auto) 0.7 L Baso % (Auto) 0.3 Neut # (Auto) 32345 H Lymph # (Auto) 1700 [place] # (Auto) 1500 H Eos # (Auto) 100 Baso # (Auto) 100 Sodium 137 Potassium 4.4 Chloride 99 Carbon Dioxide 27 BUN 22 H Creatinine 1.30 H Estimated GFR 53.3 L BUN/Creatinine Ratio 16.9 Glucose 101 Calcium 9.0 Magnesium 1.9 Total Bilirubin Conjugated Bilirubin Unconjugated Bilirubin AST ALT Alkaline Phosphatase Total Creatine Kinase 79 CK-MB (CK-2) TNP CK-MB (CK-2) Rel Index TNP Troponin I 0.056 H Total Protein Albumin Globulin Albumin/Globulin Ratio 04/15/19 10:30 WBC RBC Hgb Hct MCV MCH MCHC RDW Plt Count Neut % (Auto) Lymph % (Auto) [place] % (Auto) Eos % (Auto) Baso % (Auto) Neut # (Auto) Lymph # (Auto) [place] # (Auto) Eos # (Auto) Baso # (Auto) Sodium Potassium Chloride Carbon Dioxide BUN Creatinine Estimated GFR BUN/Creatinine Ratio Glucose Calcium Magnesium Total Bilirubin 0.5 Conjugated Bilirubin 0.0 Unconjugated Bilirubin 0.2 AST 55 ALT 30 Alkaline Phosphatase 93 Total Creatine Kinase CK-MB (CK-2) CK-MB (CK-2) Rel Index Troponin I Total Protein 6.4 Albumin 3.2 L Globulin 3.2 Albumin/Globulin Ratio 1.0 Assessment & Plan (1) Atrial fibrillation: Current visit: Yes Status: Acute (2) New onset atrial fibrillation: Current visit: Yes Status: Acute (3) Coronary artery disease: Current visit: Yes Status: Acute (4) Essential hypertension: Current visit: Yes Status: Acute (5) Dyslipidemia: Current visit: Yes Status: Acute Assessment & Plan narrative: Patient developed AFib with fast ventricular rate this morning. Most likely trigger is underlying urinary tract infection. He denies any history of sleep apnea. His troponin I was abnormal however on 2D echo there is no significant wall motion abnormalities. LV function is preserved. Patient has mild to moderately reduced RV function without any significant pulmonary hypertension. At present he is not hypoxic or tachypneic. Troponin elevation is likely due to demand ischemia. Patient denies any typical anginal pain. Clinically is not in significant heart failure. He has chronic lower extremity swelling. He is on amlodipine. Which can cause lower extremity swelling. No calf tenderness. Patient is more than 74 years old with known history of coronary disease and hypertension hence his CHADS2 vascular s core is 4 and will require anticoagulation for stroke prevention. I discussed the plan with the patient, his as well as our surgery team. We will start him on Eliquis 5 mg twice a day. As duration of AFib less than 48 hours, decided to use IV amiodarone for possible chemical cardioversion. Because of underlying coronary artery disease class 1 C agents are contraindicated. I had discussion regarding CT angio chest however patient has underlying renal insufficiency and clinical suspicion for pulmonary embolism is low hence decided to consider lower extremity venous Doppler to make sure there is no DVT. He was on simvastatin 40 mg a day along with amlodipine at home. To avoid any in teraction with amlodipine and simvastatin will stop simvastatin and replaced with atorvastatin 40 mg daily. Put him back on aspirin 81 mg daily as well. Start metoprolol succinate 25 mg daily to begin with. Hopefully rate will get better with better control of infection. If patient remains in AFib, then it is reasonable to pursue a rate control strategy plus anticoagulation and after at least 3 weeks of anticoagulation, consider DC cardioversion are needed sooner, consider JOANIE cardioversion. All those options were discussed with the patient. Tomorrow my associated Dr. Sebastian will follow the patient. We will also recommend checking TSH. Patient will benefit with perfusion study for CAD risk stratification which can be done later on. Thanks for the cardiology consult.
[2019-04-15] MEDS: APIXABAN 5 MG TABLET PO ×2 (13:20→22:39)
[2019-04-15] MEDS: AMIODARONE 150 MG/100 ML PIGGYBACK 600 MG IV (13:20)
[2019-04-15] MEDS: AMIODARONE 360 MG/200 ML PIGGYBACK 33.333 MG IV (13:35)
--- NOTE | 2019-04-15 14:57 | PC.NURSE ---
Day Shift Note On diltiazem gtt on AM assessment, aflutter RVR in the 110-120s, diltiazem gtt titrated up to 15 mg/hr with rate decreasing to 58-64 bpm. Diltiazem gtt titrated to off at 1015. Unable to void - bladder scan result at 0945 was 568 ml and order then received to place Evans catheter. Catheter placed without issue and secured to left leg due to visible skin breakdown to right side of urethra from previous catheter presence. Up several times this shift with loose stools. Receiving oxycodone for pain control - pain reported to left buttocks. Amiodarone gtt started at [address] Miller - rate continues in the 70-80s aflutter with frequent PVCs. Call light within reach.
[2019-04-15] MEDS: CEFTRIAXONE 2 GM/50 ML FROZ.PIGGY IV (17:15)
[2019-04-15] MEDS: ACETAMINOPHEN 325 MG TABLET 975 MG PO (17:15)
[2019-04-15 17:53] LABS: Creatine Kinase 79 U/L (55-170)
[2019-04-15 18:06] LABS: Troponin I 0.049 ng/mL (0.01-0.034)
[2019-04-15 18:25] LABS: Thyroid Stimulating Hormone 0.92 uIU/mL (0.47-4.68)
[2019-04-15] MEDS: AMIODARONE 360 MG/200 ML PIGGYBACK 16.667 MG IV (19:35)
[2019-04-15] MEDS: ATORVASTATIN 20 MG TABLET 40 MG PO (22:39)
[2019-04-15] MEDS: DOXAZOSIN 4 MG TABLET 8 MG PO (22:39)
--- NOTE | 2019-04-15 23:01 | PC.NURSE ---
halina note pt up to BSC frequently due to urge to have stool. Very small amounts of brown mucoid loose stools. Pt c/o pain in buttocks/rectum area, left more than right. Pt converted to SR with first degree AV block. Currently on Amiodarone gtt at 0.5 mg/min.
[2019-04-15 23:33] LABS: Creatine Kinase 71 U/L (55-170)
[2019-04-16] VITALS (19 sets, daily range): BP systolic 118–170; BP diastolic 52–99; PULSE 66–95; RESP 15–20; TEMP 37.2–38.2; O2SAT 92–95
[2019-04-16] MEDS: HYDROMORPHONE 0.5 MG INJ IV ×2 (03:59→13:46)
[2019-04-16] MEDS: HYDRALAZINE 20 MG/ML VIAL 5 MG IV (05:24)
[2019-04-16] MEDS: OXYCODONE IR 5 MG TABLET 10 MG PO ×2 (06:32→13:17)
--- NOTE | 2019-04-16 06:58 | PC.NURSE ---
c/o intense anal/rectal burning pain. Med with 0.5mg of dilaudid with good relief for 1.5hr, ice pack with questionable results and given which iftikhar swab with poor results. Med this am with 10mg Percolone with questioable results.
[2019-04-16] MEDS: AMIODARONE 360 MG/200 ML PIGGYBACK 16.667 MG IV (07:04)
[2019-04-16 08:26] LABS: Add Manual Diff / Slide Review NO; Basophils Absolute Auto 100 /uL (0-100); Basophils Percent Auto 0.6 % (0-2); Eosinophils Absolute Auto 200 /uL (0-450); Eosinophils Percent Auto 2.3 % (2-4); Hematocrit 46.4 % (41-53); Hemoglobin 15.8 g/dL (13.5-17.5); Lymphocytes Absolute Auto 900 /uL (1100-4500); Lymphocytes Percent Auto 9.4 % (25-40); Mean Corpuscular HGB Conc 34.1 % (30-36); Mean Corpuscular Hemoglobin 34.4 PG (26-34); Monocytes Absolute Auto 800 /uL (0-900); Monocytes Percent Auto 8.5 % (3-14); Neutrophils Absolute Auto 7500 /uL (1500-7000); Neutrophils Percent Auto 79.2 % (50-75); Platelet Count 155 X10^3/uL (150-400); Red Cell Distribution Width 14.3 % (11.6-14.8); White Blood Cell Count 9.5 X10^3/uL (4.5-11.0)
[2019-04-16 08:37] LABS: BUN Creatinine Ratio 16.7 (6-22); Blood Urea Nitrogen 20 mg/dL (9-20); Calcium 8.8 mg/dL (8.4-10.2); Carbon Dioxide 28 mmol/L (22-32); Chloride 100 mmol/L (98-107); Estimated Glomerular Filt Rate 58.4 mL/min (>60); Glucose 111 mg/dL (80-110); HEMOLYSIS < 15 (0-50); Magnesium 2.2 mg/dL (1.6-2.3); Potassium 3.9 mmol/L (3.4-5.1); Sodium 135 mmol/L (137-145)
[2019-04-16] MEDS: TOLTERODINE 1 MG TABLET 2 MG PO ×2 (09:03→21:46)
[2019-04-16] MEDS: POLYETHYLENE GLYCOL 3350 17 GM POWD.PACK PO ×2 (09:03→21:44)
[2019-04-16] MEDS: METOPROLOL ER 25 MG TABLET PO (09:03)
[2019-04-16] MEDS: APIXABAN 5 MG TABLET PO ×2 (09:04→21:45)
[2019-04-16] MEDS: ASPIRIN EC 81 MG TABLET PO (09:04)
--- NOTE | 2019-04-16 10:26 | P.PN_ITS ---
Subjective Date Patient Seen: 04/16/19 Time Patient Seen: 10:25 Interval history: Events: Seen by cardiology yesterday - attempting chemical cardioversion with amiodarone for new onset A fib, newly anticoagulated on Apixaban, Echo with normal LV function, ACS rule out complete S: detrol has reduced sensation of tenesmus significantly. Feeling more comfortably. Up ambulating. Feeling increasingly distended - passing flatus, still with bowel movement but reduced frequency. perianal/ perinal pain about the same mild to moderate. Exam Vital Signs (past 8 hours): - 04/16/19 03:00 04/16/19 04:00 04/16/19 05:00 Temperature 99.0 F Pulse Rate 66 85 87 Respiratory Rate 18 Blood Pressure 118/66 163/91 H 170/99 H Pulse Oximetry 94 04/16/19 05:24 04/16/19 06:00 04/16/19 06:23 Temperature Pulse Rate 86 87 87 Respiratory Rate Blood Pressure 170/99 H 148/85 H 148/85 H Pulse Oximetry 04/16/19 07:34 04/16/19 08:56 Temperature Pulse Rate Respiratory Rate Blood Pressure Pulse Oximetry 95 94 Oxygen Delivery Method Nasal Cannula Oxygen Flow Rate 2 Narrative Exam Narrative: moderatly well appering LcTAB irregular HR abd distended, tympanitic, non tender, soft Periphery warm Evans in place with clear yellow urine Objective Labs Result Diagrams: 04/16/19 08:15 04/16/19 08:15 Labs: Laboratory Results - last 24 hr 04/15/19 04/15/19 04/15/19 10:30 10:30 17:25 WBC RBC Hgb Hct MCV MCH MCHC RDW Plt Count Neut % (Auto) Lymph % (Auto) [place] % (Auto) Eos % (Auto) Baso % (Auto) Neut # (Auto) Lymph # (Auto) [place] # (Auto) Eos # (Auto) Baso # (Auto) Sodium Potassium Chloride Carbon Dioxide BUN Creatinine Estimated GFR BUN/Creatinine Ratio Glucose Calcium Magnesium Total Bilirubin 0.5 Conjugated Bilirubin 0.0 Unconjugated Bilirubin 0.2 AST 55 ALT 30 Alkaline Phosphatase 93 Total Creatine Kinase 79 CK-MB (CK-2) TNP CK-MB (CK-2) Rel Index TNP Troponin I 0.056 H Total Protein 6.4 Albumin 3.2 L Globulin 3.2 Albumin/Globulin Ratio 1.0 TSH 0.92 04/15/19 04/15/19 04/16/19 17:25 23:10 08:15 WBC RBC Hgb Hct MCV MCH MCHC RDW Plt Count Neut % (Auto) Lymph % (Auto) [place] % (Auto) Eos % (Auto) Baso % (Auto) Neut # (Auto) Lymph # (Auto) [place] # (Auto) Eos # (Auto) Baso # (Auto) Sodium 135 L Potassium 3.9 Chloride 100 Carbon Dioxide 28 BUN 20 Creatinine 1.20 Estimated GFR 58.4 L BUN/Creatinine Ratio 16.7 Glucose 111 H Calcium 8.8 Magnesium 2.2 Total Bilirubin Conjugated Bilirubin Unconjugated Bilirubin AST ALT Alkaline Phosphatase Total Creatine Kinase 79 71 CK-MB (CK-2) TNP TNP CK-MB (CK-2) Rel Index TNP TNP Troponin I 0.049 H 0.040 H Total Protein Albumin Globulin Albumin/Globulin Ratio TSH 04/16/19 08:15 WBC 9.5 RBC 4.60 Hgb 15.8 Hct 46.4 MCV 101.0 H MCH 34.4 H MCHC 34.1 RDW 14.3 Plt Count 155 Neut % (Auto) 79.2 H Lymph % (Auto) 9.4 L [place] % (Auto) 8.5 Eos % (Auto) 2.3 Baso % (Auto) 0.6 Neut # (Auto) 7500 H Lymph # (Auto) 900 L [place] # (Auto) 800 Eos # (Auto) 200 Baso # (Auto) 100 Sodium Potassium Chloride Carbon Dioxide BUN Creatinine Estimated GFR BUN/Creatinine Ratio Glucose Calcium Magnesium Total Bilirubin Conjugated Bilirubin Unconjugated Bilirubin AST ALT Alkaline Phosphatase Total Creatine Kinase CK-MB (CK-2) CK-MB (CK-2) Rel Index Troponin I Total Protein Albumin Globulin Albumin/Globulin Ratio TSH Assessment & Plan Assessment & Plan narrative: 78M HD5 admitted for now resolved sepsis with source a catheter associated UTI - Cather in place at time of admission - marked urinary retention after hemorrhoidectomy 03/31/19 Now increasingly clear pt has prostatitis - exquisitely tender prostate on exam - primarly source of perineal discomfort and tenesmus, UA with over 10^6 orgs, explains failure to resolve post procedural urinary retention after 2 weeks. New onset Afib with catacholamines with resolved sepsis and infection Developing ileus from infection/new afib - no hx of abd/pelvic surgery to sugg est pSBO 1) UTI/prostatitis - cultures with GNR - Hafnia, rare pathogen, awaiting UW sensitivities to guide PO abx choice - until this continue ceftriaxone - working well emprically WBC normalized today. - Will need total of 6 week course of abx with prostatitis - On detrol for prostate/rectal spasms - improving - Will attempt catheter removal in 2 weeks after infection well into treatment - Evans stays until then, continue doxazosin Spoke with Dr Haider of urology is assisting by phone 2) Afib with RVR cardiology involved, amiodarone for chemical conversion on Apixaban. From surgery perspective is OK for cardioversion with sedation at cards discression ACS rule out complete TSH nml 3) Ileus in setting of 1 and 2 Starting clear liquid diet Mild enough does not need NGT , no nausea DVT - on full anticoagulation
--- NOTE | 2019-04-16 10:37 | PC.NURSE ---
Addendum entered by Poornmia Lerma R.N. 04/16/19 14:13: left buttock pain intensified to 6-8 even after oxycodone 10mg po. Dilaudid 0.5mg IV given and ice bag to buttock. at bedside Original Note: Dr. jenkins in to see pt. pt stands at bedside for change of position and relieve buttock pain. amiodarone gtt at 16.7ml/hr. HR 90-120's depending on activity. pt denies SOB; some SOB when getting OOB.
[2019-04-16] MEDS: SODIUM CHLORIDE 0.9% FLUSH 10 ML IV (13:46)
--- NOTE | 2019-04-16 16:07 | PM.PN.1 ---
Subjective Date Patient Seen: 04/16/19 Time Patient Seen: 16:07 Interval history: Patient converted to normal sinus rhythm, last night around 9pm. He denies any shortness of breath or chest discomfort. He was asymptomatic while in atrial fibrillation. Echo showed normal ejection fraction and a moderately dilated left atrium.Lower extremity duplex was negative for DVT. Exam Vital Signs (past 8 hours): - 04/16/19 08:24 04/16/19 08:56 04/16/19 13:00 Temperature 98.9 F Pulse Rate 95 H Respiratory Rate 20 Blood Pressure 155/65 H Pulse Oximetry 92 94 92 Oxygen Delivery Method Nasal Cannula Oxygen Flow Rate 1 Narrative Exam Narrative: Ill-appearing pleasant gentleman, in no distress HENMT Head: normocephalic Neck Other: No JVD Resp Effort & Inspection: normal respiratory effort Auscultation: clear to auscultation bilaterally Cardio Rate: regular rate Rhythm: regular rhythm Heart Sounds: no murmurs GI Other: Abdomen is distended Skin Other: No obvious lesions Extrem General: no pedal edema Objective Labs Result Diagrams: 04/16/19 08:15 04/16/19 08:15 Labs: Laboratory Results - last 24 hr 04/15/19 04/15/19 04/15/19 17:25 17:25 23:10 WBC RBC Hgb Hct MCV MCH MCHC RDW Plt Count Neut % (Auto) Lymph % (Auto) [place] % (Auto) Eos % (Auto) Baso % (Auto) Neut # (Auto) Lymph # (Auto) [place] # (Auto) Eos # (Auto) Baso # (Auto) Sodium Potassium Chloride Carbon Dioxide BUN Creatinine Estimated GFR BUN/Creatinine Ratio Glucose Calcium Magnesium Total Creatine Kinase 79 71 CK-MB (CK-2) TNP TNP CK-MB (CK-2) Rel Index TNP TNP Troponin I 0.049 H 0.040 H TSH 0.92 04/16/19 04/16/19 08:15 08:15 WBC 9.5 RBC 4.60 Hgb 15.8 Hct 46.4 MCV 101.0 H MCH 34.4 H MCHC 34.1 RDW 14.3 Plt Count 155 Neut % (Auto) 79.2 H Lymph % (Auto) 9.4 L [place] % (Auto) 8.5 Eos % (Auto) 2.3 Baso % (Auto) 0.6 Neut # (Auto) 7500 H Lymph # (Auto) 900 L [place] # (Auto) 800 Eos # (Auto) 200 Baso # (Auto) 100 Sodium 135 L Potassium 3.9 Chloride 100 Carbon Dioxide 28 BUN 20 Creatinine 1.20 Estimated GFR 58.4 L BUN/Creatinine Ratio 16.7 Glucose 111 H Calcium 8.8 Magnesium 2.2 Total Creatine Kinase CK-MB (CK-2) CK-MB (CK-2) Rel Index Troponin I TSH Assessment & Plan Assessment & Plan narrative: This gentleman has converted back tyo normal sinus rhythm on IV amiodarone. His ECG shows normal QTc. I will switch him to oral amiodarone with 400 mg bid for a week followed by 200 mg bid for a week and 200 mg daily afterwards. Since he was asymptomatic with his atrial fibrillation, it is possible that he's had paroxysmal atrial fibrillation in the past and given his high CHA2DS@Vasc score, recommend continuing anticoagulation. He is currently on apixaban 5 mg bid. Regarding his troponin elevation, without evidence of angina or ECG changes, this could be potentially secondary to renal insufficiency. However, close follow up with his primary public welfare director both for decision making regarding long-term use of amiodarone (likely unnecessary), anticoagulation (potentially lifetime) and outpatient stress test is recommended. Cardiology will sign off. Please call with any questions or concerns.
--- NOTE | 2019-04-16 16:11 | P.PN_ITS ---
Subjective Date Patient Seen: 04/16/19 Time Patient Seen: 16:07 Interval history: Patient converted to normal sinus rhythm, last night around 9pm. He denies any shortness of breath or chest discomfort. He was asymptomatic while in atrial fibrillation. Echo showed normal ejection fraction and a moderately dilated left atrium.Lower extremity duplex was negative for DVT. Exam Vital Signs (past 8 hours): - 04/16/19 08:24 04/16/19 08:56 04/16/19 13:00 Temperature 98.9 F Pulse Rate 95 H Respiratory Rate 20 Blood Pressure 155/65 H Pulse Oximetry 92 94 92 Oxygen Delivery Method Nasal Cannula Oxygen Flow Rate 1 Narrative Exam Narrative: Ill-appearing pleasant gentleman, in no distress HENMT Head: normocephalic Neck Other: No JVD Resp Effort & Inspection: normal respiratory effort Auscultation: clear to auscultation bilaterally Cardio Rate: regular rate Rhythm: regular rhythm Heart Sounds: no murmurs GI Other: Abdomen is distended Skin Other: No obvious lesions Extrem General: no pedal edema Objective Labs Result Diagrams: 04/16/19 08:15 04/16/19 08:15 Labs: Laboratory Results - last 24 hr 04/15/19 04/15/19 04/15/19 17:25 17:25 23:10 WBC RBC Hgb Hct MCV MCH MCHC RDW Plt Count Neut % (Auto) Lymph % (Auto) [place] % (Auto) Eos % (Auto) Baso % (Auto) Neut # (Auto) Lymph # (Auto) [place] # (Auto) Eos # (Auto) Baso # (Auto) Sodium Potassium Chloride Carbon Dioxide BUN Creatinine Estimated GFR BUN/Creatinine Ratio Glucose Calcium Magnesium Total Creatine Kinase 79 71 CK-MB (CK-2) TNP TNP CK-MB (CK-2) Rel Index TNP TNP Troponin I 0.049 H 0.040 H TSH 0.92 04/16/19 04/16/19 08:15 08:15 WBC 9.5 RBC 4.60 Hgb 15.8 Hct 46.4 MCV 101.0 H MCH 34.4 H MCHC 34.1 RDW 14.3 Plt Count 155 Neut % (Auto) 79.2 H Lymph % (Auto) 9.4 L [place] % (Auto) 8.5 Eos % (Auto) 2.3 Baso % (Auto) 0.6 Neut # (Auto) 7500 H Lymph # (Auto) 900 L [place] # (Auto) 800 Eos # (Auto) 200 Baso # (Auto) 100 Sodium 135 L Potassium 3.9 Chloride 100 Carbon Dioxide 28 BUN 20 Creatinine 1.20 Estimated GFR 58.4 L BUN/Creatinine Ratio 16.7 Glucose 111 H Calcium 8.8 Magnesium 2.2 Total Creatine Kinase CK-MB (CK-2) CK-MB (CK-2) Rel Index Troponin I TSH Assessment & Plan Assessment & Plan narrative: This gentleman has converted back tyo normal sinus rhythm on IV amiodarone. His ECG shows normal QTc. I will switch him to oral amiodarone with 400 mg bid for a week followed by 200 mg bid for a week and 200 mg daily afterwards. Since he was asymptomatic with his atrial fibrillation, it is possible that he's had paroxysmal atrial fibrillation in the past and given his high CHA2DS@Vasc score, recommend continuing anticoagulation. He is c urrently on apixaban 5 mg bid. Regarding his troponin elevation, without evidence of angina or ECG changes, this could be potentially secondary to renal insufficiency. However, close follow up with his primary industrial engineering analyst both for decision making regarding long- term use of amiodarone (likely unnecessary), anticoagulation (potentially lifetime) and outpatient stress test is recommended. Cardiology will sign off. Please call with any questions or concerns.
[2019-04-16] MEDS: LACTOBACILLUS ACIDOPHILUS TABLET 1 EACH PO (16:34)
[2019-04-16] MEDS: ACETAMINOPHEN 325 MG TABLET 975 MG PO (16:34)
[2019-04-16] MEDS: AMIODARONE 200 MG TABLET 400 MG PO (17:10)
[2019-04-16] MEDS: CEFTRIAXONE 2 GM/50 ML FROZ.PIGGY IV (17:11)
[2019-04-16] MEDS: POTASSIUM CHLORIDE 20 MEQ/15 ML UDC PO (18:39)
[2019-04-16] MEDS: PSYLLIUM HUSK 1 PACKET PO (21:44)
[2019-04-16] MEDS: DOXAZOSIN 4 MG TABLET 8 MG PO (21:45)
[2019-04-16] MEDS: ATORVASTATIN 20 MG TABLET 40 MG PO (21:45)
--- NOTE | 2019-04-16 22:12 | PC.NURSE ---
admit nurse note pt arrived from ER with IVF at 150 ml/hr and diltiazem gtt at 10 mg/hr; HR 140s. Diltiazem gtt increased to 15 mg/hr, but B/P down to 90s from 140s. Called Dr. Lopez and received orders for IV digoxin. IV diltiazem reduced to 10 mg/hr due to hypotension. HR mostly in 90s, some 80s at rest but up to 140 with standing to void. HR dropping into 60s at 22:15; diltiazem gtt stopped.
--- NOTE | 2019-04-16 22:23 | PC.NURSE ---
halina note Amio gtt stopped after po Amio given. Pt only had a few drops of liquid stool. Pt reports lots of flatus.
[2019-04-17] VITALS (17 sets, daily range): BP systolic 127–182; BP diastolic 62–106; PULSE 69–92; RESP 16–20; TEMP 36.9–37.7; O2SAT 90–96
--- NOTE | 2019-04-17 | DI.RAD.S_ITS ---
PROCEDURE: XR KUB INDICATIONS: distension, eval for constipation TECHNIQUE: One view of the abdomen acquired. COMPARISON: None. FINDINGS: Surgical changes and devices: None. Bowel: Multiple moderately distended air-filled loops of small bowel are identified throughout the abdomen, measuring up to 3.7 cm in diameter. There is relative paucity of gas within the colon compared to the gas within the small bowel. No definite pneumoperitoneum is appreciated. However, the entire upper abdomen is not included on this exam. Soft tissues: No suspicious abdominal calcifications. Visualized solid organ contours appear normal in size. Bones: No suspicious bony lesions. Degenerative changes of the lumbosacral spine and bilateral hips are at least moderate in nature, but not well characterized. IMPRESSION: Small bowel ileus versus developing small bowel obstruction. If the patient's symptoms persist, please consider CT of the abdomen and pelvis with oral and intravenous contrast. Dictated by: Tru Couch M.D. on 04/17/2019 at 13:34 Approved by: Tru Couch M.D. on 04/17/2019 at 13:36
[2019-04-17] MEDS: OXYCODONE IR 5 MG TABLET 10 MG PO ×3 (01:06→10:14)
[2019-04-17] MEDS: LACTATED RINGERS 1,000 ML 50 ML IV ×2 (02:44→22:37)
[2019-04-17] MEDS: HYDRALAZINE 20 MG/ML VIAL 5 MG IV (04:54)
--- NOTE | 2019-04-17 05:06 | PC.NURSE ---
Med for continued anal burning pain x2 and for diastolic of 106.
[2019-04-17] MEDS: SODIUM CHLORIDE 0.9% FLUSH 10 ML IV (08:03)
[2019-04-17] MEDS: HYDROMORPHONE 0.5 MG INJ IV ×2 (08:03→10:45)
[2019-04-17] MEDS: LACTOBACILLUS ACIDOPHILUS TABLET 1 EACH PO ×2 (08:04→18:13)
[2019-04-17] MEDS: AMIODARONE 200 MG TABLET 400 MG PO ×2 (08:52→18:14)
[2019-04-17] MEDS: POTASSIUM CHLORIDE 20 MEQ/15 ML UDC PO (08:52)
[2019-04-17] MEDS: PSYLLIUM HUSK 1 PACKET PO ×3 (08:53→20:58)
[2019-04-17] MEDS: TOLTERODINE 1 MG TABLET 2 MG PO ×2 (08:53→20:58)
[2019-04-17] MEDS: METOPROLOL ER 25 MG TABLET PO (08:53)
[2019-04-17] MEDS: ASPIRIN EC 81 MG TABLET PO (08:53)
[2019-04-17] MEDS: APIXABAN 5 MG TABLET PO ×2 (08:53→20:58)
[2019-04-17] MEDS: POLYETHYLENE GLYCOL 3350 17 GM POWD.PACK PO ×2 (08:53→20:58)
[2019-04-17] MEDS: ACETAMINOPHEN 325 MG TABLET 975 MG PO (12:00)
--- NOTE | 2019-04-17 14:30 | P.PN_ITS ---
Subjective Date Patient Seen: 04/17/19 Time Patient Seen: 12:10 Interval history: 78yo M with complex recent history. Converted to NSR and has remained; cardiology detailed plans going forward and have signed off. Leukocytosis resolving, pt still with quite a bit of pain and discomfort. Abd distended, lots of flatus and some loose stools with poor regulation, no nausea. Pt says he does not know if his abd is bigger than normal as he does have a protuberant abd at baseline. Does not feel SOB but oxygentation poor, to 88% on RA, so now on 2 LNC. Does c/o heartburn and asks for tums. Often feels better standing and OOB than laying. Exam Vital Signs (past 8 hours): - 04/17/19 07:21 04/17/19 09:44 04/17/19 12:00 Temperature 98.9 F 99.8 F H Pulse Rate 87 Respiratory Rate 20 Blood Pressure 136/65 Pulse Oximetry 94 96 04/17/19 12:02 04/17/19 12:53 Temperature 98.4 F Pulse Rate 92 H Respiratory Rate 20 Blood Pressure 127/62 Pulse Oximetry 91 93 Oxygen Delivery Method Nasal Cannula Oxygen Flow Rate 2 Narrative Exam Narrative: AAO, NAD but uncomfortable, overweight male EOMI, MMM, no scleral icterus unlabored 2 LNC protuberant, nt, distended with some tautness, no peritoneal signs MAEW visible skin dry and intact Objective Labs Result Diagrams: 04/16/19 08:15 04/16/19 08:15 Labs: Laboratory Results - last 24 hr 04/17/19 05:06 Magnesium 2.0 Assessment & Plan Assessment & Plan narrative: 78M HD6 admitted for now resolved sepsis with source a catheter associated UTI - Cather in place at time of admission - marked urinary retention after hemorrhoidectomy 03/31/19 -Prostatitis & UTI --> on ceftriaxone, plan for 6 week course --> adding toradol for inflammatory pain --> archuleta to remain in place due to urinary retention for 2 weeks; prn topical lidocaine and neosporin for skin breakdown --> on doxasosin & tolterodine - New onset Afib --> likely 2/2 sepsis --> appreciate cardiology assistance, pt now in sinus rhythm and remains slightly tachycardic, likely due to ongoing discomfort --> per recs, on oral amiodarone taper (400mg BID X1 week, 200mg BID x1 week, and 200mg daily thereafter pending outpatient call center nurse's recs) --> 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 --> ECHO shows normal EF and moderate dilation of L atrium; recs include outpatient stress test --> pt has home call center nurse with whom he can follow up -Ileus from infection/new afib - no hx of abd/pelvic surgery to suggest pSBO --> CLD for now --> abd distended but not uncomfortable for pt, no nausea; is passing quite a bit of flatus and has intermittent episodes of incontinent liquid stools --> will check KUB to ensure no significant stool back up in setting of his prolonged course, decreased activity, and pelvic pain --> encouraged ambulation -Hypoxemia --> 88% SaO2 on RA today so placed on 2 LNC with improvement to 94% while I was in room --> pt awake, alert, and speaking comfortably; this may be in part due to his distended abdomen, no apparent resp depression from meds - encouraged OOB, ambulation
--- NOTE | 2019-04-17 14:35 | CM.DPC ---
DCP: continued: case discuss in Team Rounds with care team wondering about a hospitalist consult. Pt is under care of General Surgery: admitted for urosepis after urinary retention s/p hemorrhoidectomy 03/31/19. Cardiology has been consulting. Surgeon Dr. Ashby was here today and notes that a rare pathogen is growing in the urine with the following for sensitivities: expect need for 6 weeks of antibiotics (unclear if oral or IV will be needed) and a archuleta catheter to remain in at least 2 weeks during this treatment. She also notes ileus and with pt starting on clears. RN coordinator Amina was going to followup re ? of hospitalist consult as well as ? of OT/PT need (if pt medically stable for same). Unclear of outcome...have a message out to her for update. Spoke now with [employer]ERMAN Jen. She reports that Dr. Ashby was approached about consideration of hospitalist consult but she said this was not felt to be needed at this time. Plan: DCP team would welcome an update by the rounding surgeon tomorrow in order to have a clearer sense of what pt will need at d/c. He is under Medicare insurance so home with Iv antibiotics would not be covered (unless there is some coverage by his secondary: for [employer]) Would like PT and OT orders if pt is medically stable for same. Will check in with ICU staff tomorrow morning and follow closely.
[2019-04-17] MEDS: LIDOCAINE 2% (UROJET) 5 ML GEL TOP (16:06)
[2019-04-17] MEDS: KETOROLAC 15 MG/ML VIAL IV ×2 (16:06→22:36)
[2019-04-17] MEDS: NEOMYCIN/POLYMYX/BACITRAC 28.35 GM OINT 1 APPLIC TOP ×2 (16:06→20:58)
[2019-04-17 18:09] LABS: BUN Creatinine Ratio 11.7 (6-22); Blood Urea Nitrogen 14 mg/dL (9-20); Calcium 8.7 mg/dL (8.4-10.2); Carbon Dioxide 29 mmol/L (22-32); Chloride 99 mmol/L (98-107); Estimated Glomerular Filt Rate 58.4 mL/min (>60); Glucose 177 mg/dL (80-110); HEMOLYSIS < 15 (0-50); Potassium 3.8 mmol/L (3.4-5.1); Sodium 136 mmol/L (137-145)
[2019-04-17] MEDS: CEFTRIAXONE 2 GM/50 ML FROZ.PIGGY IV (18:14)
[2019-04-17] MEDS: CALCIUM CARBONATE 500 MG TAB PO (19:03)
--- NOTE | 2019-04-17 19:34 | PC.NURSE ---
Addendum entered by Sara Waller R.N. 04/17/19 22:49: 2230 - Pt with 300cc out of archuleta catheter. A decrease from two prior shifts. Pt denies feeling distention. Archuleta patent without loops or kinks. Pt states well, I don't think I drank as much today. Catheter care provided. Lidocaine and abx ointment applied to meatus. Monitor. Original Note: 1900 - Pt resting in bed. Report heartburn without nausea. RX provided as ordered. Discussed activity. Pt again reports being agreeable to ambulate. States that following next trip to the bathroom. O2 tank available. BP elevated. 182/94, HR 80's. Denies headache. Monitor. Call light in reach.
[2019-04-17] MEDS: ATORVASTATIN 20 MG TABLET 40 MG PO (20:57)
[2019-04-17] MEDS: DOXAZOSIN 4 MG TABLET 8 MG PO (20:57)
[2019-04-18] VITALS (11 sets, daily range): BP systolic 145–169; BP diastolic 67–101; PULSE 65–84; RESP 16–20; TEMP 37–37.4; O2SAT 93–97
--- NOTE | 2019-04-18 | DI.RAD.S_ITS ---
PROCEDURE: XR CHEST 1V INDICATIONS: inc O2 needs TECHNIQUE: One view of the chest was acquired. COMPARISON: [facility], CT, IVP (ABD & PEL WWO CONTRAST), 05/16/2015, 7:22. [facility], CR, CHEST 2 VIEW, 01/21/2017, 9:30. FINDINGS: Surgical changes and devices: None. Lungs and pleura: There is no lung volumes, which does result in difficulty evaluating the lung bases. Vague areas of increased attenuation within the lung bases are present. No lobar consolidation, large effusion, or pneumothorax is identified. There may be a hiatal hernia. Mediastinum: Mediastinal contours appear normal. Heart size is mildly enlarged. The pulmonary vascular markings appear to be slightly increased. There is aortic atherosclerosis. Bones and chest wall: No suspicious bony lesions. Overlying soft tissues appear unremarkable. IMPRESSION: 1. Bibasilar atelectasis versus pneumonia. Aspiration cannot be excluded. 2. Cardiomegaly with mild vascular congestion. 3. Possible hiatal hernia. Dictated by: Tru Couch M.D. on 04/18/2019 at 10:31 Approved by: Tru Couch M.D. on 04/18/2019 at 10:33
[2019-04-18 05:22] LABS: BUN Creatinine Ratio 12.3 (6-22); Blood Urea Nitrogen 16 mg/dL (9-20); Calcium 8.6 mg/dL (8.4-10.2); Carbon Dioxide 30 mmol/L (22-32); Chloride 99 mmol/L (98-107); Estimated Glomerular Filt Rate 53.3 mL/min (>60); Glucose 98 mg/dL (80-110); HEMOLYSIS < 15 (0-50); Potassium 4.1 mmol/L (3.4-5.1); Sodium 136 mmol/L (137-145)
[2019-04-18] MEDS: KETOROLAC 15 MG/ML VIAL IV ×3 (05:49→23:28)
[2019-04-18] MEDS: AMIODARONE 200 MG TABLET 400 MG PO ×2 (08:47→17:34)
[2019-04-18] MEDS: NEOMYCIN/POLYMYX/BACITRAC 28.35 GM OINT 1 APPLIC TOP ×3 (08:47→21:03)
[2019-04-18] MEDS: LACTOBACILLUS ACIDOPHILUS TABLET 1 EACH PO ×2 (08:47→17:34)
[2019-04-18] MEDS: METOPROLOL ER 25 MG TABLET PO (08:47)
[2019-04-18] MEDS: TOLTERODINE 1 MG TABLET 2 MG PO ×2 (08:47→21:03)
[2019-04-18] MEDS: APIXABAN 5 MG TABLET PO ×2 (08:48→21:04)
[2019-04-18] MEDS: POLYETHYLENE GLYCOL 3350 17 GM POWD.PACK PO ×2 (08:48→21:04)
[2019-04-18] MEDS: PSYLLIUM HUSK 1 PACKET PO ×3 (08:48→21:04)
[2019-04-18] MEDS: ASPIRIN EC 81 MG TABLET PO (08:48)
[2019-04-18] MEDS: ACETAMINOPHEN 325 MG TABLET 975 MG PO ×2 (08:49→19:25)
--- NOTE | 2019-04-18 09:11 | CM.DANOTE ---
Addendum entered by Ale Capps LPN 04/18/19 12:55: Spoke with CHANDNI Pickard who reported that Dr. Ashby was seeing pt today but said that Dr. Ashby had not talked with ID specialist and thus would need to defer any questions re the antibiotic plan after hospital d/c to the surgeon who would be seeing pt tomorrow. Will alert the DC shoe planner taking over case tomorrow to same. PT and OPT orders are now in place. Original Note: DCP: continued. Dr. Ashby's progress note from yesterday afternoon is reviewed and would seem to indicate that pt will need a 6 week course of current IV antibiotic. Nursing is to mobilize pt. Met now with pt for discussion of d/c issues and options. Pt and CHANDNI Pickard both say they think that the surgeon will be discharging him in a few days on oral antibiotics but this is a bit uncertain. Requested that both alert this DC Nursery Hand when Dr. Ashby or partner arrives. Plan to discuss dc POC so that appropriate d/c disposition can be set. Went over HH and SNF options with pt so that he is aware and can discuss further with his . Pt may benefit from PT/OT still even though he was up yesterday in the ICU area with nursing. Pt still with resolving ileus, archuleta catheter that will be in place post d/c and a rare infection. P: SNF vs home: Need to discuss POC with the surgeon.
--- NOTE | 2019-04-18 10:20 | PC.NURSE ---
Pt reports pain improving, actually able to sleep last night. Ambulated to BR with slow/steady gait and SBA. Had large/soft BM. Tolerating clear liquids. Denies abd pain and/or tenderness on palpation. C/o pain/irritation at meatus. Applied [place]/lidocaine. Continues to require 2L NC for SPO2 93% at rest. Reports dry cough, non productive. Dr. Ashby rounded. Reported VS, BP, home BP meds not ordered, UOP, cr and GFR, IVF rate. Requested clarification for ICU status. VORB to transfer pt to acute care status, maintain telemetry monitoring. Plan is to mobilize with physical therapy, obtain CXR r/t cont O2 need, wean O2 as tolerated, advance diet. Pt verbalizes understanding of plan. Awaiting orders.
--- NOTE | 2019-04-18 11:13 | P.PN_ITS ---
Subjective Date Patient Seen: 04/18/19 Time Patient Seen: 10:05 Interval history: Feels somewhat better today after a large BM and passing lots of flatus last night. Pt notes some streaks of mucousy blood in this. Slept better last night. Pelvic pain still intermittent. Odin CLD well, drinking quite a bit; good UOP. Exam Vital Signs (past 8 hours): - 04/18/19 04:37 04/18/19 08:00 04/18/19 09:30 Temperature 99.1 F 99.3 F Pulse Rate 65 74 Respiratory Rate 16 16 Blood Pressure 145/73 H 169/101 H Pulse Oximetry 93 93 93 04/18/19 09:39 04/18/19 10:21 Temperature Pulse Rate 84 Respiratory Rate 19 Blood Pressure 159/67 H Pulse Oximetry 93 93 Oxygen Delivery Method Nasal Cannula Oxygen Flow Rate 2 Narrative Exam Narrative: AAO, NAD, obese male EOMI, MMM, no scleral icterus unlabored 2 LNC soft, nt, minimal distension with generally protuberant abdomen MAEW visible skin dry and intact Objective Labs Result Diagrams: 04/16/19 08:15 04/18/19 04:29 Labs: Laboratory Results - last 24 hr 04/17/19 04/18/19 17:48 04:29 Sodium 136 L 136 L Potassium 3.8 4.1 Chloride 99 99 Carbon Dioxide 29 30 BUN 14 16 Creatinine 1.20 1.30 H Estimated GFR 58.4 L 53.3 L BUN/Creatinine Ratio 11.7 12.3 Glucose 177 H 98 Calcium 8.7 8.6 Assessment & Plan Assessment & Plan narrative: 78M HD6 admitted for now resolved sepsis with source a catheter associated UTI - Cather in place at time of admission - marked urinary retention after hemorrhoidectomy 03/31/19 -Prostatitis & UTI --> sepsis resolved, no leukocystosis and afebrile --> on ceftriaxone, plan for 6 week course --> added toradol for inflammatory pain; Cr minimally inc from normal range 1.2 to 1.3 today, will recheck tomorrow --> archuleta to remain in place due to urinary retention for 2 weeks; prn topical lidocaine and neosporin for skin breakdown --> on doxasosin & tolterodine - New onset Afib --> likely 2/2 sepsis --> appreciate cardiology assistance, pt now in sinus rhythm and tachycardia has resolved to 70s --> per recs, on oral amiodarone taper (400mg BID X1 week, 200mg BID x1 week, and 200mg daily thereafter pending outpatient train conductor's recs) --> 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 --> ECHO shows normal EF and moderate dilation of L atrium; recs include outpatient stress test --> pt has home train conductor with whom he can follow up -Ileus from infection/new afib --> had large volume BM and distension is much improved- to FLD & HLIV --> will check incision if more blood in stool, described as bright red streaks, pt comfortable in chair and reticent to move currently --> encouraged ambulation -Hypoxemia --> 93-95% SaO2 on 2 LNC --> pt awake, alert, and speaking comfortably; no apparent resp depression from meds, presumed related to his quite distended abdomen yesterday - check CXR to ensure no contributing pathology - encouraged OOB, ambulation - try to wean O2 today - HTN --> increasing since yesterday, will restart home amlodipine to add to home metoprolol --> still has olmesartan + HCTZ which may also need restarting pending response - reasonable for transfer to floor bed, keep tele while in unit - PT to see for discharge planning eval
[2019-04-18] MEDS: AMLODIPINE 5 MG TABLET PO ×2 (13:27→21:07)
[2019-04-18] MEDS: DOCUSATE 100 MG CAPSULE PO ×2 (13:27→21:05)
--- NOTE | 2019-04-18 14:45 | PT.IIE ---
Current Diagnoses Sepsis, unspecified organism (04/12/19) Hyperlipidemia, unspecified (04/12/19) Essential (primary) hypertension (04/12/19) Atherosclerotic heart disease of [place] coronary artery without angina pectoris (04/12/19) Unspecified atrial fibrillation (04/12/19) Surgical History (Last Reviewed 04/15/19 @ 16:46 by Milly Miller MD) S/P hemorrhoidectomy (Acute) H/O wrist surgery (Resolved ~1972) Hx of heart artery stent (Resolved ~2010) Hx of laminectomy (Resolved 09/07/15) Hx of lymph node excision (Resolved ~1988) Previous back surgery (Resolved ~2014) Medical History (Last Reviewed 04/15/19 @ 16:46 by Milly Miller MD) Arthritis (Acute) Diverticulosis (Acute) Former smoker (Acute) Hematemesis (Acute ~03/2015) Ulcer (Acute) CAD (coronary artery disease) (Chronic) HLD (hyperlipidemia) (Chronic) History of back problems (Chronic) Hypertension (Chronic) Kidney stones (Chronic 07/10/15) Non-Hodgkin lymphoma (Chronic) GI bleed (Resolved ~03/2015) H. pylori infection (Resolved ~03/2015) Internal hemorrhoid (Resolved) Physical Therapy Inpatient Evaluation/Re-Eval M1 PT/OT-IP Prior Functional Status Start: 04/18/19 15:16 Freq: NEEDED Status: Active Protocol: Document 04/18/19 14:45 [facility] (Rec: 04/18/19 15:25 [facility] [id number]) Medical Review Prior Functional Status Mobility and Gait indep. community gait without device Activities of Daily Living and IADL's indep I/ADLs Social History Household Members spouse Living Arrangements House Number of Floors (Floors) 3 or More Floors Number of Stairs To Enter/Railing? 2 SE from garage no rails; 6 steps down no rails to rec room and BR with WI shower; 10 steps up to bedroom with rail on L ascending, but final 2 steps rail ends. Home Environment High Toilet Walk in Shower Tub/Shower Home Equipment Straight Cane Additional Social History Comment Pt presented to ER with fever, sweats, fatigue, found to be septic secondary to catheter associated UTI. Abdominal radiograph showed small bowel ileus or developing SBO. Chest radiograph showed bibasilar atelectasis vs pneumonia. Negative findings for DVT. M2 PT-IP Current Condition Start: 04/18/19 15:16 Freq: NEEDED Status: Active Protocol: Document 04/18/19 14:45 [facility] (Rec: 04/18/19 15:25 [facility] [id number]) Physical Therapy Current Condition Current Condition Evaluation Date 04/18/19 Treatment Diagnosis sepsis, impaired activity tolerance Precautions Other Precautions telemetry, monitor O2 M3 PT-IP Subjective Start: 04/18/19 15:16 Freq: NEEDED Status: Active Protocol: Document 04/18/19 14:45 [facility] (Rec: 04/18/19 15:25 [facility] [id number]) Subjective Physical Therapy Visit Type Type Initial Evaluation Visit Start Time 14:45 Visit Stop Time 15:05 Total Visit Minutes 20 Number of BOX OFFICE AGENT Visits 0 Physical Therapy Visit Comments Patient Comments Denies use of AD, denies pain. Patient Goals to go home M4 PT-IP Mobility and Gait Start: 04/18/19 15:16 Freq: NEEDED Status: Active Protocol: Document 04/18/19 14:45 [facility] (Rec: 04/18/19 15:25 [facility] [id number]) PT-Bed Mobility Assessment Supine to Sit Supine to Sit Independent Sit to Supine Sit to Supine Independent Scooting Scooting to Edge of Bed Independent PT-Transfer Assessment Sit to and From Stand Sit to and from Stand Independent Equipment Transfer Assistive Device Gait Belt Transfers Transfer Destination Bed Transfer Technique Stand Step Pivot Transfer Ability Level of Assist Standby Assistance Gait Assessment Gait Gait Assistance Required: Standby Assistance Distance (Feet) 250 Assistive Devices Assistive Device Gait Belt Gait Deviations General Gait Pattern Within Normal Limits Factors Limiting Gait Function Factors Limiting Gait Function Decreased Activity Tolerance Stair Climbing Assessment Evaluation Level of Assist On Stairs Contact Guard Assistance Devices Stair Climbing Assistive Devices None Technique/Endurance Stair Climbing Direction Ascend and Descend Stair Climbing Technique Step to Step Number of Steps Climbed 3 Query Text: Stair Climbing Set # Repetitions (reps) 1 PT-Balance Assessment Sitting Balance and Reactions Static Sitting Balance Ability Good Dynamic Sitting Balance Ability Good Standing Balance and Reactions Static Standing Balance Ability Fair Dynamic Standing Balance Ability Fair Device Used none M5 PT-IP Objective Assessments Start: 04/18/19 15:16 Freq: NEEDED Status: Active Protocol: Document 04/18/19 14:45 [facility] (Rec: 04/18/19 15:25 [facility] [id number]) Orientation Orientation/Cognition Level of Alertness Alert Gross Range of Motion Lower Extremity ROM Assessment Within Functional Limits Strength Lower Extremity Strength Assessment Within Functional Limits Coordination Assessment Gross Coordination Gross Coordination WNL Sensation Assessment Comments Sensation Comments 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 Muscle Tone Muscle Tone WNL Yes M6 PT-IP Treatment Start: 04/18/19 15:16 Freq: NEEDED Status: Active Protocol: Document 04/18/19 14:45 [facility] (Rec: 04/18/19 15:25 [facility] [id number]) Physical Therapy Treatment Education Education Provided Safety M7 PT-IP Assessment and Plan Start: 04/18/19 15:16 Freq: NEEDED Status: Active Protocol: Document 04/18/19 14:45 [facility] (Rec: 04/18/19 15:25 [facility] [id number]) PT Summary Assessment and Plan Potential Rehabilitation Potential Good Status of Condition at Evaluation Stable Summary Impairments Balance Activity Tolerance Progress Towards Goals Safe For Discharge Assessment Summary Pt with O2 saturation ranging from 91-94% on RA during gait, and NC 86-94 bpm. Pt without loss of balance with level gait. Pt able to tolerate stair without a railing. At this time, pt appears to be near his prior level of function. He may benefit from outpatient physical therapy to progress his activity tolerance and balance, but no further acute PT needs at this time. He is cleared to d/c home when medically stable. Frequency of Treatment Frequency Of Treatment Discharge Recommendations To Nursing Amount of Assist Needed 1 Person Assist Discharge Recommendations PT Discharge Recommendations Home with Assistance Outpatient PT
--- NOTE | 2019-04-18 14:48 | PC.NURSE ---
Addendum entered by Neeraj Cortés R.N. 04/18/19 14:57: Ambulated around nurses station with PT on RA. O2 sat 93-94% while walking. HR 90s-105. Original Note: Removed O2 at 1330. Pt was assisted up to bathroom and to shower on RA. He denies shortness of breath despite being tachypneic mid 20s. Upon finishing with hygiene care, pt has O2 sat 95% on RA with RR 26 and labored but decreases to 19 after resting for a minute. Resting O2 sat on RA ranges between 90-93%. Encouraged pt to use incentive spirometer. He was able to get up to 2000 with 5 consecutive breaths.
[2019-04-18] MEDS: CEFTRIAXONE 2 GM/50 ML FROZ.PIGGY IV (17:33)
[2019-04-18] MEDS: ATORVASTATIN 20 MG TABLET 40 MG PO (21:04)
[2019-04-18] MEDS: DOXAZOSIN 4 MG TABLET 8 MG PO (21:04)
--- NOTE | 2019-04-18 21:25 | PC.NURSE ---
2100 - Pt has been on RA this evening. Sats 92% or greater. Continues to appear SOB with activity. Pt with multiple BM, scant amount of bloody drainage with freeman-care. Pt agreeable to ambulate. SBA, steady gait. Able to take PO medication without difficulty. Catheter care. Meatus with decreased erythema, abx cream with lidocaine applied. Pain and pressure reduced with APAP. Assist to position for comfort. Call light in reach.
[2019-04-19] VITALS (7 sets, daily range): BP systolic 151–159; BP diastolic 72–89; PULSE 66–77; RESP 17–18; TEMP 37–37.5; O2SAT 93–97
[2019-04-19 05:03] LABS: Add Manual Diff / Slide Review NO; Basophils Absolute Auto 100 /uL (0-100); Basophils Percent Auto 0.7 % (0-2); Eosinophils Absolute Auto 300 /uL (0-450); Eosinophils Percent Auto 4.7 % (2-4); Hematocrit 49.4 % (41-53); Hemoglobin 16.8 g/dL (13.5-17.5); Lymphocytes Absolute Auto 1000 /uL (1100-4500); Lymphocytes Percent Auto 13.4 % (25-40); Mean Corpuscular Hemoglobin 34.2 PG (26-34); Mean Corpuscular Volume 100.7 fL (80-100); Monocytes Absolute Auto 1000 /uL (0-900); Monocytes Percent Auto 13.4 % (3-14); Neutrophils Absolute Auto 5000 /uL (1500-7000); Neutrophils Percent Auto 67.8 % (50-75); Platelet Count 190 X10^3/uL (150-400); White Blood Cell Count 7.3 X10^3/uL (4.5-11.0)
[2019-04-19 05:10] LABS: BUN Creatinine Ratio 12.3 (6-22); Blood Urea Nitrogen 16 mg/dL (9-20); Calcium 8.8 mg/dL (8.4-10.2); Carbon Dioxide 32 mmol/L (22-32); Chloride 100 mmol/L (98-107); Estimated Glomerular Filt Rate 53.3 mL/min (>60); Glucose 103 mg/dL (80-110); HEMOLYSIS < 15 (0-50); Sodium 137 mmol/L (137-145)
[2019-04-19] MEDS: KETOROLAC 15 MG/ML VIAL IV ×2 (05:35→14:13)
[2019-04-19] MEDS: LACTOBACILLUS ACIDOPHILUS TABLET 1 EACH PO ×2 (08:43→17:17)
[2019-04-19] MEDS: PSYLLIUM HUSK 1 PACKET PO ×3 (08:43→21:30)
[2019-04-19] MEDS: TOLTERODINE 1 MG TABLET 2 MG PO ×2 (08:43→21:30)
[2019-04-19] MEDS: POLYETHYLENE GLYCOL 3350 17 GM POWD.PACK PO ×2 (08:43→21:30)
[2019-04-19] MEDS: AMLODIPINE 5 MG TABLET PO ×2 (08:43→20:33)
[2019-04-19] MEDS: AMIODARONE 200 MG TABLET 400 MG PO ×2 (08:43→17:18)
[2019-04-19] MEDS: METOPROLOL ER 25 MG TABLET PO (08:44)
[2019-04-19] MEDS: APIXABAN 5 MG TABLET PO ×2 (08:44→20:33)
[2019-04-19] MEDS: DOCUSATE 100 MG CAPSULE PO ×2 (08:44→20:32)
[2019-04-19] MEDS: ASPIRIN EC 81 MG TABLET PO (08:44)
[2019-04-19] MEDS: NEOMYCIN/POLYMYX/BACITRAC 28.35 GM OINT 1 APPLIC TOP ×4 (08:45→21:29)
[2019-04-19] MEDS: OLMESARTAN 20 MG TABLET PO (10:16)
--- NOTE | 2019-04-19 13:03 | OT.IP.TRT ---
Current Diagnoses Sepsis, unspecified organism (04/12/19) Hyperlipidemia, unspecified (04/12/19) Essential (primary) hypertension (04/12/19) Atherosclerotic heart disease of [place] coronary artery without angina pectoris (04/12/19) Unspecified atrial fibrillation (04/12/19) Occupational Therapy Treatment Note M3 OT- IP Subjective and Pain Start: 04/19/19 13:01 Freq: Status: Active Protocol: Document 04/19/19 13:01 [facility] (Rec: 04/19/19 13:03 [facility] [id number]) OT- Subjective Occupational Therapy Visit Type Type Administrative Note Notes Pt independent in the room , only OT suggestion was that pt may want to consider having a shower chair at home, especially since pt still not feeling 100%. Pt has a very supportive to assist pt at home. Therefore discharge OT eval orders. No charge.
--- NOTE | 2019-04-19 14:34 | PC.NURSE ---
Pt transferred to rm 216 via w/c at 1430 in no distress accompanied by coordinator. All belongings gathered and sent with pt. Pt states he will notify his of room change. Report given to CHANDNI Mukherjee.
--- NOTE | 2019-04-19 14:52 | CM.DPC ---
DCP Cont: Spoke to surgeon this morning regarding discharge planning. He stated that it would be hopeful that he can be discharged home on oral antibiotics. He stated that this is pending what the culture shows. P: DCP to continue to follow closely and be available for any resources that may be needed at discharge. Fernanda Trevino RN/Medical Reimbursement Specialist
--- NOTE | 2019-04-19 15:33 | PC.NURSE ---
NO S/SX'S OF DISTRESS. PATIENT HAD LOOSE FLAKEY BROWN STOOL. UP IN RECLINER. REPORT GIVEN TO CHANDNI LOCK FOR LISANDRO SHIFT.
[2019-04-19] MEDS: CEFTRIAXONE 2 GM/50 ML FROZ.PIGGY IV (17:16)
--- NOTE | 2019-04-19 18:01 | PC.NURSE ---
Addendum entered by Therese Muñoz R.N. 04/19/19 21:09: Pt ambulated hallway w/staff w/o incidence. Denies any discomfort HL x 2 intact/patent. F/C patent clear yellow urine. Relatively uneventful evening. Call light w/in reach, pt calls appropriately for needs. Continue w/plan of care. Original Note: Pt sitting in chair. Denies any discomfort. Lungs clear, SpO2 97% RA. Tele showing NSR/first degree AVB per ICU staff. HL x 2 RFA intact/patent. Ambulated loop of hallway. Evans cath patent clear urine. Call light w/in reach. Pt call appropriately for needs.
--- NOTE | 2019-04-19 18:54 | P.PN_ITS ---
Subjective Date Patient Seen: 04/19/19 Time Patient Seen: 08:00 Interval history: Feeling much better after the weekend, having well formed BM, passing flatus, perianal pain resolving. No in NSR on amiodarone. No longer feels distended Exam Vital Signs (past 8 hours): - 04/19/19 11:49 04/19/19 15:30 04/19/19 17:00 Temperature 99 F 98.6 F Pulse Rate 67 69 Respiratory Rate 17 18 Blood Pressure 155/84 H 152/79 H Pulse Oximetry 93 96 97 Oxygen Delivery Method Room Air Oxygen Flow Rate 0 Narrative Exam Narrative: looks well breathing comfortably on RA RRR Abd soft nontender nondistended JONATHON - prostate much less tender, hemrrhoidal excisional sites intact. no perianal erythema. no masses. periphery warm Objective Labs Result Diagrams: 04/19/19 04:45 04/19/19 04:45 Labs: Laboratory Results - last 24 hr 04/19/19 04/19/19 04:45 04:45 WBC 7.3 RBC 4.90 Hgb 16.8 Hct 49.4 MCV 100.7 H MCH 34.2 H MCHC 34.0 RDW 14.0 Plt Count 190 Neut % (Auto) 67.8 Lymph % (Auto) 13.4 L [place] % (Auto) 13.4 Eos % (Auto) 4.7 H Baso % (Auto) 0.7 Neut # (Auto) 5000 Lymph # (Auto) 1000 L [place] # (Auto) 1000 H Eos # (Auto) 300 Baso # (Auto) 100 Sodium 137 Potassium 4.0 Chloride 100 Carbon Dioxide 32 BUN 16 Creatinine 1.30 H Estimated GFR 53.3 L BUN/Creatinine Ratio 12.3 Glucose 103 Calcium 8.8 Assessment & Plan Assessment & Plan narrative: 78M HD7 admitted for now resolved sepsis with source a catheter associated UTI - Cather in place at time of admission - marked urinary retention after hemorrhoidectomy 03/31/19 -Prostatitis & UTI by prostate exam clearly improving - awaiting sensitivities for hafnia organism to send on PO Total of 6 weeks of abx planned CR seems to be at baseling Evans remains for additional w weeks doxazosin and tolterodine helping spasms/obstruction - New onset Afib - now resolved Per cards oral amiodarone taper (400mg BID X1 week, 200mg BID x1 week, and 200mg daily thereafter pending outpatient enterprise applications manager's recs) Anticoagulated on apixaban - Ileus Resolving OK for general diet - HTN progressively adding back home antihypertensives restarting olmesartan PT IS FLOOR STATUS - PLEASE TRANSFER TO ACUTE IF ANY NEED FOR ICU BEDS
[2019-04-19] MEDS: ATORVASTATIN 20 MG TABLET 40 MG PO (20:33)
[2019-04-19] MEDS: DOXAZOSIN 4 MG TABLET 8 MG PO (20:34)
[2019-04-20] VITALS (12 sets, daily range): BP systolic 147–163; BP diastolic 77–90; PULSE 65–77; RESP 18–20; TEMP 36.9–37.2; O2SAT 92–96
--- NOTE | 2019-04-20 01:35 | PC.NURSE ---
Addendum entered by Nayeli Alcala R.N. 04/20/19 06:18: Up to bathroom x 3 this shift for loose brown stool. Complains of 4/10 rectal pain this morning and medicated with scheduled Toradol and barrier cream applied to rectal area. BP improved at 148/82 Original Note: Patient is alert and oriented. Breath sounds CTA with RA sat of 94%. HRR and was SR w/1st degree AVB on 0000 telemetry reading. BP elevated at 162/90. Denies nausea. BT present; up to bathroom and had small loose stool. Indwelling catheter is patent with clear dark yellow urine (catheter due to urinary retention); bleeding from meatus. Able to turn self in bed. Up to bathroom with SBA. Fall risk score is moderate and calls for assist appropriately. Complains of 1/10 burning rectal pain due to hemorrhoidectomy earlier this month but declines offer of any intervention.
[2019-04-20] MEDS: KETOROLAC 15 MG/ML VIAL IV (05:45)
[2019-04-20] MEDS: SODIUM CHLORIDE 0.9% FLUSH 10 ML IV ×3 (05:46→21:17)
--- NOTE | 2019-04-20 08:24 | PM.PN.1 ---
Subjective Date Patient Seen: 04/20/19 Time Patient Seen: 08:24 Interval history: Feeling well. ate quite a bit of food yesterday and now feeling somewhat bloated. Still having flatus. Exam Vital Signs (past 8 hours): - 04/20/19 01:00 04/20/19 01:27 04/20/19 01:35 Temperature 98.5 F Pulse Rate 73 Respiratory Rate 19 Blood Pressure 162/90 H 149/77 H Pulse Oximetry 93 94 04/20/19 05:55 Temperature 98.7 F Pulse Rate 77 Respiratory Rate 19 Blood Pressure 148/82 H Pulse Oximetry 95 Oxygen Delivery Method Room Air Oxygen Flow Rate 0 Narrative Exam Narrative: looks well breathing comfortably RRR Abd soft, nontender, midly distended - not to the degree as was in past days Objective Labs Result Diagrams: 04/19/19 04:45 04/19/19 04:45 Assessment & Plan Assessment & Plan narrative: 78M HD8 admitted for now resolved sepsis with source a catheter associated UTI - Cather in place at time of admission - marked urinary retention after hemorrhoidectomy 03/31/19 -Prostatitis & UTI by prostate exam clearly improving - awaiting sensitivities for hafnia organism to send hm on PO Total of 6 weeks of abx planned CR seems to be at baseline Evans remains for additional 1.5 weeks doxazosin and tolterodine helping spasms/obstruction - New onset Afib - now resolved Per cards oral amiodarone taper (400mg BID X1 week, 200mg BID x1 week, and 200mg daily thereafter 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
[2019-04-20] MEDS: ACETAMINOPHEN 325 MG TABLET 975 MG PO ×2 (09:06→17:38)
[2019-04-20] MEDS: AMIODARONE 200 MG TABLET 400 MG PO ×2 (09:08→17:38)
[2019-04-20] MEDS: LACTOBACILLUS ACIDOPHILUS TABLET 1 EACH PO ×2 (09:08→17:38)
[2019-04-20] MEDS: ASPIRIN EC 81 MG TABLET PO (09:09)
[2019-04-20] MEDS: APIXABAN 5 MG TABLET PO ×2 (09:09→21:17)
[2019-04-20] MEDS: AMLODIPINE 5 MG TABLET PO ×2 (09:09→21:17)
[2019-04-20] MEDS: DOCUSATE 100 MG CAPSULE PO ×2 (09:10→21:17)
[2019-04-20] MEDS: METOPROLOL ER 25 MG TABLET PO (09:10)
[2019-04-20] MEDS: hydroCHLOROthiazide 25 MG TABLET PO (09:10)
[2019-04-20] MEDS: OLMESARTAN 20 MG TABLET PO (09:11)
[2019-04-20] MEDS: PSYLLIUM HUSK 1 PACKET PO ×2 (09:13→21:17)
[2019-04-20] MEDS: TOLTERODINE 1 MG TABLET 2 MG PO ×2 (09:13→21:17)
[2019-04-20] MEDS: NEOMYCIN/POLYMYX/BACITRAC 28.35 GM OINT 1 APPLIC TOP ×2 (09:14→21:17)
[2019-04-20] MEDS: CEFTRIAXONE 2 GM/50 ML FROZ.PIGGY IV (17:38)
--- NOTE | 2019-04-20 18:57 | PC.NURSE ---
Evening notes: Patient sitting up in recliner eating meal, denies chest pain or SOB. Tele SR with 1st degree AVB. RA oxygen mid 90's. He had large BM and then ambulated in hallway with student nurse assist in hallway at 1515. Reports pain to buttocks and urethral meatus while sitting in recliner, will plan to assist him in repositioning for comfort after he finishes meal. IV antibiotic infusing to RFA IV with no difficulty. IV is patent with no redness or swelling. This IV is , IV restart attempted by 2 RN's this evening with no success. He is oriented x 3 & to situation, using call button appropriately for assistance. Fall precautions in place.
--- NOTE | 2019-04-20 20:28 | PC.NURSE ---
Addendum entered by Nikia Esquivel R.N. 04/20/19 20:43: New IV placed by Ila HERNANDEZ RN was in LF hand not RT hand Addendum entered by Nikia Esquivel R.N. 04/20/19 20:39: Ila HERNANDEZ RN able to get IV in RT hand after 2nd attempt. Original Note: Patient needing a new IV placed d/t one that he has now is . This RN tried to place one x2 without success and Gay Segura RN also attempted x3 to get a new IV in patient without any success. Will see if someone from the ED can get one placed. Patient thinks he will be here until Friday and he has iv antibiotics ordered.
--- NOTE | 2019-04-20 20:42 | PC.NURSE ---
New IV placed by Ila HERNANDEZ RN was LF hand not RT hand.
[2019-04-20] MEDS: DOXAZOSIN 4 MG TABLET 8 MG PO (21:16)
[2019-04-20] MEDS: ATORVASTATIN 20 MG TABLET 40 MG PO (21:16)
[2019-04-20] MEDS: POLYETHYLENE GLYCOL 3350 17 GM POWD.PACK PO (21:17)
--- NOTE | 2019-04-20 23:00 | PC.NURSE ---
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 Reports pain 3/10 to urethral meatus/penis as well as his buttocks. Cath care done tonight, antibiotic ointment applied to end of penis where erythemic. Lidocaine ointment tube is empty, I notified night pharmacy that we need more for cath care. Pt reports penis very painful with movement/cath care. Clean pull-up on. Medicated with Tylenol which he reports is sufficient for pain. Pt sat up in chair for majority of evening shift, now back in bed. Fall precautions in place, reminded him to call for any needs/concerns.
[2019-04-21] VITALS (9 sets, daily range): BP systolic 132–158; BP diastolic 71–92; PULSE 63–80; RESP 19–20; TEMP 36.6–37.2; O2SAT 92–97
[2019-04-21] MEDS: ACETAMINOPHEN 325 MG TABLET 975 MG PO ×3 (01:59→16:09)
--- NOTE | 2019-04-21 02:10 | PC.NURSE ---
Addendum entered by Nayeli Alcala R.N. 04/21/19 06:51: Slept well. States pain only 2/10 this morning and declines pain medication. Up to bathroom and had small formed stool small amount dark red blood noted in toilet and small amounts of bright red blood on wipes after wiping. Noted flat rash on back with some scabbed spots; states he has been scratching at back. Original Note: Patient is alert and oriented. Breath sounds CTA with RA sat of 95%. HRR on telemetry with 0000 reading of SR w/1st degree AVB. Denies nausea. No further loose stools; states last BM had form to it but still not normal. Indwelling catheter is patent. Penis is reddened around meatus but without breakdown; intermittent bleeding noted but urine is clear lavelle. Independent with bed mobility. Up to bathroom with SBA and is steady on feet. Fall risk score is moderate. Does complain of 2/10 rectal pain so medicated with Tylenol.
[2019-04-21] MEDS: ASPIRIN EC 81 MG TABLET PO (09:48)
[2019-04-21] MEDS: AMLODIPINE 5 MG TABLET PO ×2 (09:48→20:21)
[2019-04-21] MEDS: OLMESARTAN 20 MG TABLET PO (09:48)
[2019-04-21] MEDS: AMIODARONE 200 MG TABLET 400 MG PO ×2 (09:50→17:43)
[2019-04-21] MEDS: METOPROLOL ER 25 MG TABLET PO (09:52)
[2019-04-21] MEDS: hydroCHLOROthiazide 25 MG TABLET PO (09:52)
[2019-04-21] MEDS: LACTOBACILLUS ACIDOPHILUS TABLET 1 EACH PO ×2 (09:52→17:43)
[2019-04-21] MEDS: TOLTERODINE 1 MG TABLET 2 MG PO ×2 (09:52→20:24)
[2019-04-21] MEDS: APIXABAN 5 MG TABLET PO ×2 (09:53→20:22)
[2019-04-21] MEDS: DOCUSATE 100 MG CAPSULE PO ×2 (09:53→20:21)
[2019-04-21] MEDS: POLYETHYLENE GLYCOL 3350 17 GM POWD.PACK PO ×2 (09:54→20:23)
[2019-04-21] MEDS: PSYLLIUM HUSK 1 PACKET PO ×3 (09:54→20:23)
[2019-04-21] MEDS: NEOMYCIN/POLYMYX/BACITRAC 28.35 GM OINT 1 APPLIC TOP ×3 (09:55→20:25)
[2019-04-21] MEDS: SODIUM CHLORIDE 0.9% FLUSH 10 ML IV ×2 (09:55→20:23)
[2019-04-21] MEDS: LIDOCAINE 2% (UROJET) 5 ML GEL TOP (11:22)
[2019-04-21] MEDS: CEFTRIAXONE 2 GM/50 ML FROZ.PIGGY IV (16:04)
--- NOTE | 2019-04-21 16:29 | PM.PN.1 ---
Subjective Date Patient Seen: 04/21/19 Time Patient Seen: 16:29 Interval history: Well hungery back to baseline Exam Vital Signs (past 8 hours): - 04/21/19 08:30 04/21/19 10:32 04/21/19 12:39 Temperature 98.5 F 98.3 F Pulse Rate 69 80 Respiratory Rate 20 20 Blood Pressure 158/85 H 142/85 H Pulse Oximetry 93 94 97 04/21/19 15:25 Temperature 98.4 F Pulse Rate 66 Respiratory Rate 20 Blood Pressure 139/74 Pulse Oximetry 93 Oxygen Delivery Method Room Air Oxygen Flow Rate 0 Narrative Exam Narrative: NAD RRR Abd soft nontender rotund Objective Labs Result Diagrams: 04/19/19 04:45 04/19/19 04:45 Assessment & Plan Assessment & Plan narrative: 78M HD8 admitted for now resolved sepsis with source a catheter associated UTI - Cather in place at time of admission - marked urinary retention after hemorrhoidectomy 03/31/19 AWAITING SENSITIVITIES - ONCE HAVE CAN DC HOME -Prostatitis & UTI by prostate exam clearly improving - awaiting sensitivities for hafnia organism to send on PO Total of 6 weeks of abx planned CR seems to be at baseline Evans remains for additional 1.5 weeks doxazosin and tolterodine helping spasms/obstruction - New onset Afib - now resolved Per cards oral amiodarone taper (400mg BID X1 week, 200mg BID x1 week, and 200mg daily thereafter 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
[2019-04-21] MEDS: ATORVASTATIN 20 MG TABLET 40 MG PO (20:22)
[2019-04-21] MEDS: DOXAZOSIN 4 MG TABLET 8 MG PO (20:22)
[2019-04-22] VITALS (10 sets, daily range): BP systolic 123–157; BP diastolic 60–84; PULSE 67–72; RESP 18–20; TEMP 36.9–37.1; O2SAT 91–95
--- NOTE | 2019-04-22 00:18 | PC.NURSE ---
Addendum entered by Nayeli Alcala R.N. 04/22/19 05:56: Had blood on wipes and in toilet again tonight when had a BM. Currently states rectal pain burning with severity of 5/10 so medicated with Tylenol (did not want to take Oxycodone). Original Note: Patient is alert and oriented. Breath sounds CTA with RA sat of 92%. HRR with last telemetry reading of SR w/1st degree AVB. Denies nausea. BT present and having formed stools but still mildly distended. Noted to still have rash on back as noted yesterday morning; reports mild itching. Having 2/10 rectal pain but declines pain med. States he is still having some small amounts of bleeding with BM. Indwelling catheter is patent with clear, yellow urine. Independent with bed mobility and is up with SBA; no device to walk. Fall risk score is moderate.
[2019-04-22] MEDS: ACETAMINOPHEN 325 MG TABLET 975 MG PO (05:51)
[2019-04-22] MEDS: ASPIRIN EC 81 MG TABLET PO (09:16)
[2019-04-22] MEDS: AMLODIPINE 5 MG TABLET PO ×2 (09:16→21:59)
[2019-04-22] MEDS: APIXABAN 5 MG TABLET PO (09:16)
[2019-04-22] MEDS: hydroCHLOROthiazide 25 MG TABLET PO (09:16)
[2019-04-22] MEDS: AMIODARONE 200 MG TABLET 400 MG PO ×2 (09:16→17:18)
[2019-04-22] MEDS: LACTOBACILLUS ACIDOPHILUS TABLET 1 EACH PO ×2 (09:16→17:18)
[2019-04-22] MEDS: METOPROLOL ER 25 MG TABLET PO (09:16)
[2019-04-22] MEDS: DOCUSATE 100 MG CAPSULE PO ×2 (09:16→21:59)
[2019-04-22] MEDS: NEOMYCIN/POLYMYX/BACITRAC 28.35 GM OINT 1 APPLIC TOP ×2 (09:17→17:25)
[2019-04-22] MEDS: TOLTERODINE 1 MG TABLET 2 MG PO ×2 (09:17→21:58)
[2019-04-22] MEDS: OLMESARTAN 20 MG TABLET PO (09:17)
[2019-04-22] MEDS: SODIUM CHLORIDE 0.9% FLUSH 10 ML IV ×2 (09:18→22:00)
[2019-04-22] MEDS: PSYLLIUM HUSK 1 PACKET PO ×3 (09:18→22:00)
[2019-04-22] MEDS: POLYETHYLENE GLYCOL 3350 17 GM POWD.PACK PO ×2 (09:18→22:00)
--- NOTE | 2019-04-22 17:51 | P.PN_ITS ---
Subjective Date Patient Seen: 04/22/19 Time Patient Seen: 08:00 Interval history: Events - sensitivities of Hafnia returned - oddly R to ceftriaxone, though pt has had a good clinical response to his initial sepsis and prostatitis. Org is sensitive to levofloxacin and TMP/SMX S - feeling well but with intermitent rectal bleeding after large more firm than usual BM, has bleed multiple tablespoons today with BM throughout the day. No pain. Exam Vital Signs (past 8 hours): - 04/22/19 11:52 04/22/19 15:40 Temperature 98.8 F 98.7 F Pulse Rate 72 67 Respiratory Rate 18 18 Blood Pressure 123/70 137/74 Pulse Oximetry 95 94 Oxygen Delivery Method Room Air Oxygen Flow Rate 0 Narrative Exam Narrative: looks well LCTAB RRR - strong regular pulse - not irreguler abd soft nontneder Blood in anal canal , ozing. Objective Labs Result Diagrams: 04/19/19 04:45 04/19/19 04:45 Labs: Laboratory Results - last 24 hr 04/12/19 14:29 Ref Test (Refrig) Assessment & Plan Assessment & Plan narrative: 78M HD9 admitted for now resolved sepsis with source a catheter associated UTI - Cather in place at time of admission - marked urinary retention after hemorrhoidectomy 03/31/19 -Prostatitis & UTI prostate minimally tender Starting TMP/SMX based on hafnia sensitivities Total of 6 weeks of abx planned Evans remains for additional 1 week doxazosin and tolterodine helping spasms/obstruction - New onset Afib - now resolved Per cards oral amiodarone taper (400mg BID X1 week, 200mg BID x1 week, and 200mg daily thereafter 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 - HTN home antihypertensives Will keep overnight to ensure bleeding stops
[2019-04-22] MEDS: TRIMETH/SULFA 160/800 (DS) TABLET 1 TAB PO (21:58)
[2019-04-22] MEDS: DOXAZOSIN 4 MG TABLET 8 MG PO (21:59)
[2019-04-22] MEDS: ATORVASTATIN 20 MG TABLET 40 MG PO (21:59)
--- NOTE | 2019-04-22 23:53 | PC.NURSE ---
Addendum entered by Nayeli Alcala R.N. 04/23/19 06:31: Has slept entire night. No stools, rectal bleeding or pain. Addendum entered by Nayeli Alcala R.N. 04/22/19 23:56: Also, still has rash on back and remains unchanged. Original Note: Patient is alert and oriented. Breath sounds CTA with RA sat of 95%. HRR and was SR w/1st degree AVB on most recent telemetry reading. Denies nausea. BT present and abdomen is soft. Has been having stools with rectal bleeding but states bleeding lessened since Eliquis d'cd earlier today. Indwelling catheter is patent with pale, yellow urine in bag. Penile tip no longer appears irritated. Currently denies pain. Turns self in bed and receives SBA when out of bed. Fall risk score is moderate; patient calls for assistance appropriately.
[2019-04-23 04:35] VITALS: BP 112/57; PULSE 63; RESP 18; TEMP 37; O2SAT 95
[2019-04-23 08:28] VITALS: O2SAT 96
--- NOTE | 2019-04-23 08:42 | P.DS_ITS ---
History of Present Illness Chief complaint: SEPSIS Narrative: 78M POD 12 s/p two column Ferg[place]on hemorrhidectomy, post operatively he developed urinary retention POD2 and recieved a catheter in ER. This was temporarily removed but pt was unable to void well and 5 days ago underwent recatheterizaiton - bladder scan showed retained amount of nearly 800ml. This morning pts general course of improvement was reversed he felt quite poor with sweats and fatigue. Temp at home 101.5. Pts called clinic and same day appt was made - There he was febrile to 101.2 with HR 126 on BB, and 142/80. He appeared ill. Pt reports his post op perianal pain has continued to improve nearly each day. Some trismus today but does not feel worse than prior days. Endorses feeling frankly ill. No back ache, no coughs, no sore throat, no rashes, no abdominal pain Walked over to ICU from clinic Discharge Providers Date of admission: 04/12/19 14:13 Discharge Date: 04/23/19 Primary care physician: Dusty Evans MD Consults: 04/12/19 15:10 Consult to Respiratory Therapy Evaluate & Treat Comment: Physician Instructions: Evaluate and treat 04/18/19 11:14 Consult to Physical Therapy Evaluate & Treat Comment: Physician Instructions: Evaluate and Treat 04/18/19 12:54 Consult to Occupational Therapy Evaluate & Treat Comment: Physician Instructions: Evaluate and treat Discharge provider: Wilmer Colon Summary Discharge Diagnosis: 1) sepsis without shock 2) Catheter associated UTI (catheter present on admission) with Hafnia 3) Prostatitis 4) Urinary retention 5) New onset non-vavular Afib 6) ileus - resolved 7) HTN Hospital Course: 78 yo man admitted directly from clinic for sepsis - on 03/31/19 he had a 2 column Fergusson hemorroidectomy for large symptomatic external hemorrhoids. He developed post procedural urinary retention and was instramented 2x with archuleta - failed initial attempt at removal. He presented to clinic febrile, tackycardic, and appering acutely ill POD12. He was admitted and given early goal directed therapy for sepsis - he was started on ceftriaxone and he septic physiology resolved within 24hrs. Blood cultures neg x2, urine culture from catheter >10^6 CFU of Hafnia - a GNR. Sensitivies took 1 week to obtain from send out - Sensitive to TMP/SMX and levofloxacin. Pt had significant perineal discomfort and marked tenesmus initially - on JONATHON his operative sites were minimally tender - his prostate was enlarged and markedly tender. His exam and culture + uti in the setting of much longer than expected urinary retention - lead to the dx of prostatitis. During his hospitalization original cath removed - failed void trail and silicone cath inserted. After 1 week tx exam repeated - prostate no longer tender. Required tolterodine for rectal spasms/to tolerate archuleta. Pt had new onset of nonvavular afib thought to be realated to sepsis and infection. ACS rule out completed. Echo showed good LV function with deminished RV function. He was chemically converted by to NSR w amiodarone gtt and switched to PO. Started on BID apixaban for high CHADS2 score. later developed rectal bleeding from hard stool w/ recent anal surgery. Stoppe for 3 days with plans to resume. D/c Plan Hafnia Prostatitis - plan to tx for 6 weeks total (addition 5 weeks po TMP/SMX) Urinary Catheterization - has urology appt 05/04/[address] until then - stop tolterodine 72hrs before New onset afib/anticoag - needs f/u with cards Exam Vital Signs (past 8 hours): - 04/21/19 08:30 04/21/19 10:32 04/21/19 12:39 Temperature 98.5 F 98.3 F Pulse Rate 69 80 Respiratory Rate 20 20 Blood Pressure 158/85 H 142/85 H Pulse Oximetry 93 94 97 04/21/19 15:25 Temperature 98.4 F Pulse Rate 66 Respiratory Rate 20 Blood Pressure 139/74 Pulse Oximetry 93 Oxygen Delivery Method Room Air Oxygen Flow Rate 0 Narrative Exam Narrative: well appearing Abd soft nontender non distended RRR , strong radial pulse Objective Labs Result Diagrams: 04/19/19 04:45 04/19/19 04:45 Discharge Plan Discharge Plan Patient Disposition: Home Discharge Med Rec/Prescriptions Prescriptions: New Bacid (L. acidophilus) 1 billion cell- 250 mg tablet 1 tab PO BIDWM 90 Days Qty: 90 RF: 0 amiodarone 200 mg Tablet 200 mg PO BIDWM Qty: 12 RF: 0 amiodarone 200 mg Tablet 200 mg PO DAILY Qty: 30 RF: 3 atorvastatin [Lipitor] 20 mg Tablet 40 mg PO BEDTIME Qty: 60 RF: 3 metoprolol succinate 25 mg Tablet Extended Release 24 Hr 25 mg PO DAILY Qty: 30 RF: 3 polyethylene glycol 3350 17 gram Powder In Packet 17 gram PO TID Qty: 1 RF: 3 Metamucil Fiber Singles 3.4 gram Powder In Packet 1 packet PO TID Qty: 44 RF: 3 tolterodine [Detrol] 1 mg Tablet 2 mg PO BID Qty: 16 RF: 0 sulfamethoxazole-trimethoprim 800-160 mg Tablet 1 tab PO BID Qty: 70 RF: 0 apixaban 5 mg tablet 5 mg PO BID Qty: 60 RF: 0 Continued amlodipine 5 mg tablet 5 mg PO BID RF: 0 aspirin [Adult Aspirin Regimen] 81 mg tablet,delayed release (DR/EC) 81 mg PO QPM RF: 0 acetaminophen 500 mg capsule 1,000 mg PO Q6H Qty: 60 RF: 0 oxycodone 5 mg capsule See Rx Instructions .ROUTE .COMPLEX PRN (Reason: pain) Qty: 20 RF: 0 doxazosin 8 mg tablet 8 mg PO QPM RF: 0 testosterone cypionate 200 mg/mL oil 100 mg IM Q2W RF: 0 olmesartan 20 mg tablet 20 mg PO QPM RF: 0 olmesartan-hydrochlorothiazide 20-12.5 mg tablet 1 tab PO QAM RF: 0 Discontinued simvastatin 40 mg tablet 40 mg PO BEDTIME RF: 0 celecoxib [Celebrex] 200 mg capsule 200 mg PO QPM RF: 0 polyethylene glycol 3350 [Miralax] 17 gram/dose powder 17 gram PO BID Qty: 255 RF: 0 metoprolol tartrate 25 mg tablet 25 mg PO DAILY RF: 0 Follow up/Referrals: Dusty Evans MD [Primary Care Provider] - (please schedule follow up appo intment with dr evans ) Wilmer Colon MD [Physician] - Discharge Data Primary Care Provider: Dusty Evans Attending Provider: Wilmer Colon Admit Date/Time: 04/12/19 14:13
[2019-04-23] MEDS: AMIODARONE 200 MG TABLET 400 MG PO (08:53)
[2019-04-23] MEDS: LACTOBACILLUS ACIDOPHILUS TABLET 1 EACH PO (09:04)
[2019-04-23] MEDS: METOPROLOL ER 25 MG TABLET PO (09:05)
[2019-04-23] MEDS: ASPIRIN EC 81 MG TABLET PO (09:05)
[2019-04-23] MEDS: DOCUSATE 100 MG CAPSULE PO (09:05)
[2019-04-23] MEDS: hydroCHLOROthiazide 25 MG TABLET PO (09:05)
[2019-04-23] MEDS: AMLODIPINE 5 MG TABLET PO (09:05)
[2019-04-23 09:06] VITALS: BP 125/65; PULSE 72; RESP 19; O2SAT 92
[2019-04-23] MEDS: POLYETHYLENE GLYCOL 3350 17 GM POWD.PACK PO (09:06)
[2019-04-23] MEDS: PSYLLIUM HUSK 1 PACKET PO (09:06)
[2019-04-23] MEDS: TOLTERODINE 1 MG TABLET 2 MG PO (09:06)
[2019-04-23] MEDS: SODIUM CHLORIDE 0.9% FLUSH 10 ML IV (09:07)
[2019-04-23] MEDS: OLMESARTAN 20 MG TABLET PO (09:07)
[2019-04-23] MEDS: TRIMETH/SULFA 160/800 (DS) TABLET 1 TAB PO (09:57)
--- NOTE | 2019-04-23 11:17 | PC.NURSE ---
Day shift: Pt left unit at approx 1115 to private car driven by his spouse. Paperwork signed and all questions answered. Pt has all MD scrips and all personal belongings.
--- NOTE | 2019-04-23 13:00 | CM.DPC ---
DCP: continued: Case received, EMR reviewed and d/c to home order noted. No d/c summary is available but review of yesterday's progress note from Dr. Colon shows that appropriate oral antibiotic therapy is identified and pt was ok'd for home with followup appts if rectal bleeding stopped. Went to room to check in with pt and his and followup on the d/c plan. Room cleaned. CHANDNI Liang confirmed pt did d/c home with his about 1130.
== END 2019-04-23 11:18 | disposition home or self-care (01) | DRG 698 ==
LOC: ICU 04-19 13:25 → AC 04-19 14:07
PROVIDERS: Internal Medicine Cardiovascular Disease; Surgery; Admitting Provider Surgery; Family Provider Family Medicine; PCP Family Medicine; Visit Provider Surgery
DX: T83.511A Infection and inflammatory reaction due to indwelling urethral catheter, initial encounter (principal); A41.9 Sepsis, unspecified organism; R65.20 Severe sepsis without septic shock; N10 Acute pyelonephritis; N17.9 Acute kidney failure, unspecified; N41.0 Acute prostatitis; K56.7 Ileus, unspecified; K62.5 Hemorrhage of anus and rectum; I48.91 Unspecified atrial fibrillation; R09.02 Hypoxemia; Z98.890 Other specified postprocedural states; Z87.891 Personal history of nicotine dependence; R33.9 Retention of urine, unspecified; R19.8 Other specified symptoms and signs involving the digestive system and abdomen; I25.10 Atherosclerotic heart disease of native coronary artery without angina pectoris; I10 Essential (primary) hypertension; E78.5 Hyperlipidemia, unspecified
CPT/HCPCS: 36415; 36592; 71045; 74018; 80048; 80076; 81001; 82550; 83605; 83735; 84443; 84484; 85025; 87040; 87077; 87086; 87797; 93005; 93010; 93306; 93970; 94760; 97161; J0282; J0360; J0696; J1170; J1644; J1885

== ENCOUNTER 2020-01-12 19:31 | Inpatient (IN) | payer MEDICARE, OTHER, SELFPAY ==
[2020-01-12 19:33] VITALS: BMI 31.7
[2020-01-12 19:44] VITALS: BP 129/90; PULSE 110; RESP 20; TEMP 36.7; O2SAT 88; BMI 31.9
[2020-01-12 20:00] VITALS: BP 139/86; PULSE 109; RESP 17; O2SAT 97
[2020-01-12 20:00] LABS: Add Manual Diff / Slide Review NO; Basophils Absolute Auto 100 /uL (0-100); Basophils Percent Auto 0.7 % (0-2); Eosinophils Absolute Auto 0 /uL (0-450); Eosinophils Percent Auto 0.1 % (2-4); Hematocrit 54.7 % (41-53); Hemoglobin 18.4 g/dL (13.5-17.5); Lymphocytes Absolute Auto 1200 /uL (1100-4500); Lymphocytes Percent Auto 8.1 % (25-40); Mean Corpuscular HGB Conc 33.5 % (30-36); Mean Corpuscular Hemoglobin 33.2 PG (26-34); Monocytes Absolute Auto 1800 /uL (0-900); Monocytes Percent Auto 12.2 % (3-14); Neutrophils Absolute Auto 11500 /uL (1500-7000); Neutrophils Percent Auto 78.9 % (50-75); Platelet Count 210 X10^3/uL (150-400); Red Blood Cell Count 5.52 X10^6/uL (4.5-5.9); Red Cell Distribution Width 14.7 % (11.6-14.8); White Blood Cell Count 14.6 X10^3/uL (4.5-11.0)
[2020-01-12 20:01] LABS: INR 1.2 (0.9-1.3); Prothrombin Time 13.8 SECONDS (10.1-12.7)
[2020-01-12 20:02] LABS: PTT Partial Thromboplastin Tim 29 SECONDS (26.4-36.2)
[2020-01-12 20:08] LABS: Alanine Aminotransferase 25 IU/L (<50); Albumin 4.1 g/dL (3.5-5.0); Albumin Globulin Ratio 1.2 (1.0-2.8); Alkaline Phosphatase 92 U/L (38-126); Aspartate Aminotransferase 43 IU/L (17-59); BUN Creatinine Ratio 30.5 (6-22); Bilirubin Total 0.8 mg/dL (0.2-1.3); Blood Urea Nitrogen 64 mg/dL (9-20); Carbon Dioxide 32 mmol/L (22-32); Chloride 103 mmol/L (98-107); Estimated Glomerular Filt Rate 30.5 mL/min (>60); Globulin 3.5 g/dL (1.7-4.1); Glucose 147 mg/dL (80-110); Potassium 3.8 mmol/L (3.4-5.1); Sodium 143 mmol/L (137-145); Total Protein 7.6 g/dL (6.3-8.2)
[2020-01-12] MEDS: SODIUM CHLORIDE 0.9% 500 ML 1000 ML IV (20:08)
[2020-01-12 20:14] LABS: Fractionated Inspired Oxygen 28; HCO3 ABG 32 mmol/L (22-26); Oxygen Saturation ABG 98 % (95-100); PCO2 ABG 42.3 mmHg (35-45); PO2 ABG 96 mmHg (80-100); TCO2 ABG 33 mmol/L (21-31); pH ABG 7.48 (7.35-7.45)
[2020-01-12 20:15] LABS: HEMOLYSIS 49 (0-50)
--- NOTE | 2020-01-12 20:22 | DI.CT.S_ITS ---
PROCEDURE: CT CHEST ABD PEL W CON INDICATIONS: mental status change, weakness, GI bleed, hyperCa++, mets? TECHNIQUE: After the administration of intravenous contrast, 5 mm thick sections acquired from the lung apices to the symphysis. 5 mm coronal and sagittal reformats were performed, with additional 7 mm MIP reformats through the lungs. For radiation dose reduction, the following was used: automated exposure control, adjustment of mA and/or kV according to patient size. COMPARISON: None. FINDINGS: Image quality: Excellent. CHEST: Lungs and pleura: No acute airspace opacities. No pleural effusions or pneumothorax. Central and peripheral airways appear patent and normal in caliber. Mediastinum: Heart size is normal. There is calcification of the coronary vasculature. No pericardial effusion. No mediastinal or hilar adenopathy by size criteria. Thoracic aorta and central pulmonary arteries are normal in size. Esophagus is normal in caliber. No hiatal hernia. Chest wall: No axillary or supraclavicular adenopathy by size criteria. Thyroid gland demonstrates small bilateral nodules bilateral nodules, largest of which is in the right lobe anteriorly measuring 23 mm. Lipoma within the left shoulder girdle is present. ABDOMEN: Solid organs: Liver is normal in size. Multiple low-density hepatic lesions are present, largest of which is in the right hepatic dome laterally measuring 17 mm. Gallbladder is within normal limits. Biliary system is non dilated. Pancreas enhances normally. Spleen is normal in size and enhancement. No adrenal nodules. Kidneys demonstrate normal size and enhancement, without hydronephrosis. Peritoneum and bowel: There is a small hiatal hernia. Stomach and small bowel are within normal limits. Colon is nondistended. Normal appendix. There is moderate thickening of the distal sigmoid colon and rectum. There is mild surrounding pericolonic fat stranding. Nodes and vessels: No retroperitoneal or mesenteric adenopathy by size criteria. Aorta and inferior vena cava are normal in size. Miscellaneous: No ventral hernias. PELVIS: Genitourinary: Bladder wall thickness is normal. Prostate is enlarged. Miscellaneous: No inguinal hernias or adenopathy. Bones: No suspicious bony lesions. Mild chronic appearing L2 and L3 compression fractures are present. There is a 24 mm lucent mass within the right L4 vertebral body. There is a 20 mm lucent focus within the right L5 vertebral body. Scattered smaller low-density foci are seen throughout the remainder of the thoracolumbar spine, pelvis, and proximal femora. 33 mm lucent focus within the right anterior iliac wing. No acute appearing vertebral body compression fractures. IMPRESSION: 1. Bilateral thyroid nodules, which could be further assessed with nonemergent thyroid ultrasound, if clinically indicated. 2. Coronary artery disease. 3. Multiple indeterminate hepatic lesions, suggestive of metastatic disease versus atypical infection (e.g., fungal infection) versus lymphoma. 4. Thickening of the distal sigmoid colon and rectum. Differential considerations include ischemia, infection, inflammation, and neoplasm. Colonoscopy is recommended for further assessment. 5. Multiple lucent foci within the visualized Schwab, consistent with metastatic disease versus multiple myeloma. The Dictated by: Mohan Aguirre M.D. on 01/12/2020 at 21:25 Approved by: Mohan Aguirre M.D. on 01/12/2020 at 21:30
--- NOTE | 2020-01-12 20:22 | DI.CT.S_ITS ---
PROCEDURE: CT HEAD/BRAIN WO CON INDICATIONS: mental status change TECHNIQUE: Noncontrast 4.5 mm thick angled axial sections acquired from the foramen magnum to the vertex, with coronal and sagittal reformats. For radiation dose reduction, the following was used: automated exposure control, adjustment of mA and/or kV according to patient size. COMPARISON: [facility], CT, HEAD WITHOUT CONTRAST, 11/04/2014, 10:54. FINDINGS: Image quality: Excellent. CSF spaces: Basal cisterns are patent. No extra-axial fluid collections. The ventricles are symmetric in size and shape. Brain: No intracranial bleeds or masses. There is cerebral volume loss for age, with resultant ventricular and sulcal prominence. There are periventricular and deep white matter chronic small vessel ischemic changes. There is intracranial internal carotid artery atherosclerosis. Skull and face: Calvarium and visualized facial bones appear intact, without suspicious lesions. Sinuses: Visualized sinuses and mastoids are clear. IMPRESSION: No acute intracranial abnormality. Dictated by: Mohan Aguirre M.D. on 01/12/2020 at 21:24 Approved by: Mohan Aguirre M.D. on 01/12/2020 at 21:24
[2020-01-12 20:30] VITALS: BP 148/90; PULSE 103; RESP 12; O2SAT 95
[2020-01-12 20:33] LABS: NT-proBNP (BNP-Adult 18+) 59 pg/mL (<450)
[2020-01-12 20:38] LABS: Alkaline Phosphatase 92 U/L (38-126); Magnesium 1.6 mg/dL (1.6-2.3); Phosphorous 3.7 mg/dL (2.3-3.7)
[2020-01-12 20:46] LABS: Lactate (Lactic Acid) 1.5 mmol/L (0.7-2.1)
--- NOTE | 2020-01-12 20:56 | ED_ITS ---
HPI - Neuro Symptoms/Deficit General Chief Complaint: Neuro Symptoms/Deficit Stated Complaint: Altered LOC Time Seen by Provider: 01/12/20 19:35 Source: patient, family and EMS Mode of arrival: EMS Limitations: no limitations History of Present Illness HPI Narrative: 79-year-old male former smoker with a history of hypertension, non-Hodgkin's lymphoma, retention of urine, AFib on Eliquis presents by EMS for evaluation of 3 days of rapidly declining mental status and generalized weakness. The patient has had no fever or chills nor nausea, vomiting or diarrhea. He has had 3-4 episodes of dark black stools but denies any emesis. He denies any abdominal pain nor problems urinating. He was recently seen by [facility] primary for worsening back pain and had a referral to Orthopedics. They ended up ordering an MRI which demonstrated some abnormalities that will require an upcoming bone scan. The patient has no known history of cancer. He has no focal neurologic findings such as numbness, tingling or localized weakness. He denies any injury or trauma. He has had no new medications. Patient normally is responsible for pain all the pills at home and ambulates with a cane but has been a bit confused and has required significant assistance with ambulation for the past few days Onset (ago): day(s) Timing confirmed by: spouse Location: altered and other History of same: No Severity: moderate Quality: weak Relieving factors: none Exacerbating factors: none On Anticoagulants: Yes (eliquis) Associated symptoms: confusion Treatments Prior to Arrival: none Related Data Home Medications Medication Instructions Recorded Confirmed amlodipine 5 mg tablet 5 mg PO BID 03/10/19 01/13/20 aspirin 81 mg tablet,delayed 81 mg PO QPM 03/23/19 01/13/20 release doxazosin 8 mg PO QPM 04/01/19 01/13/20 olmesartan 20 mg PO QPM 04/01/19 01/13/20 olmesartan-hydrochlorothiazide 1 tab PO QAM 04/01/19 01/13/20 testosterone cypionate 100 mg IM Q2W 04/01/19 01/13/20 Previous Rx's Medication Instructions Recorded acetaminophen 1,000 mg PO Q6H #60 cap 03/31/19 oxycodone See Rx Instructions .ROUTE 03/31/19 .COMPLEX PRN #20 cap amiodarone 200 mg PO BIDWM #12 tab 04/23/19 amiodarone 200 mg PO DAILY #30 tab 04/23/19 apixaban 5 mg PO BID #60 tab 04/23/19 atorvastatin [Lipitor] 40 mg PO BEDTIME #60 tab 04/23/19 metoprolol succinate 25 mg PO DAILY #30 tab 04/23/19 polyethylene glycol 3350 17 gram PO TID #1 each 04/23/19 psyllium husk (aspartame) 1 packet PO TID #44 each 04/23/19 [Metamucil Fiber Singles] sulfamethoxazole-trimethoprim 1 tab PO BID #70 tab 04/23/19 tolterodine [Detrol] 2 mg PO BID #16 tab 04/23/19 Allergies Allergy/AdvReac Type Severity Reaction Status Date / Time No Known Drug Allergies Allergy Verified 04/12/19 13:45 Review of Systems Constitutional Constitutional: Denies chills, Denies fatigue, Denies fever(s), Denies frequent falls, Denies lethargy and Reports weakness Eyes Eyes: Denies change in vision, Denies eye discharge, Denies irritation and Denies loss of vision ENT Ears, Nose, Mouth, and Throat: Denies change in voice, Denies dizziness, Denies neck pain, Denies sore throat and Denies throat swelling Cardiovascular Cardiovascular: Denies chest pain, Denies irregular heart rhythm, Denies lightheadedness, Denies palpitations, Denies dyspnea, Denies dyspnea on exertion and Denies orthopnea Respiratory Respiratory: Denies cough, Denies dyspnea, Denies dyspnea on exertion and Denies wheezing Gastrointestinal Gastrointestinal: Denies abdominal pain, Denies change in bowel habits, Denies diarrhea, Denies nausea and Denies vomiting Comments: dark stools Genitourinary Genitourinary: Denies hematuria, Denies flank pain, Denies urinary incontinence and Denies urinary urgency Musculoskeletal Musculoskeletal: Reports abnormal gait, Denies back pain, Denies muscle weakness, Denies neck pain, Denies numbness and Denies tingling Integumentary/Breasts Skin/Breast: Denies pruritus, Denies erythema, Denies rash and Denies wounds Neurologic Neurologic: Reports abnormal gait, Denies behavioral changes, Denies confusion, Denies dizziness, Denies frequent falls, Denies loss of vision, Denies numbness, Denies tingling and Reports weakness Psychiatric Psychiatric: Denies anxiety, Denies behavioral changes, Denies confusion, Denies depression, Denies homicidal ideation and Denies suicidal ideation Endocrine Endocrine: Denies fatigue, Denies flushing and Denies palpitations Hematologic/Lymphatic Hematologic/Lymphatic: Denies easy bruising Allergic/Immunologic Allergic/Immunologic: Denies urticaria, Denies throat swelling and Denies wheezing Patient History Medical History Arthritis (Acute) CAD (coronary artery disease) (Chronic) Diverticulosis (Acute) Former smoker (Acute) GI bleed (Resolved ~03/2015) H. pylori infection (Resolved ~03/2015) Hematemesis (Acute ~03/2015) History of back problems (Chronic) HLD (hyperlipidemia) (Chronic) Hypertension (Chronic) Internal hemorrhoid (Resolved) Kidney stones (Chronic 07/10/15) Non-Hodgkin lymphoma (Chronic) Ulcer (Acute) Surgical History H/O wrist surgery (Resolved ~1972) Hx of heart artery stent (Resolved ~2010) Hx of laminectomy (Resolved 09/07/15) Hx of lymph node excision (Resolved ~1988) Previous back surgery (Resolved ~2014) S/P hemorrhoidectomy (Acute) Family History Father Hypertension Heart disease Sister Cancer Mother Hypertension Social History marital status: household members: spouse occupational status: previously employed Smoking Status: Former smoker alcohol intake: current substance use type: does not use Smoking Status: Former smoker alcohol intake frequency: a few times a week Substance Use Type: does not use Exam Narrative Exam Narrative: GENERAL: [79] year old patient appears stated age. He appears unwell, and dry mucous membranes, some confused responses and delayed responses which is abnormal per his HEAD: Atraumatic. Normocephalic. EYES: Pupils equal round and reactive. Extraocular motions intact. No scleral icterus. No injection or drainage. ENT: Dry mucous membranes Nose without bleeding, purulent drainage. Throat without erythema, tonsillar hypertrophy or exudate. Airway patent. NECK: Trachea midline. Non tender CARDIOVASCULAR: tachycardic with regular rhythm without murmurs, gallops, or rubs. RESPIRATORY: Clear to auscultation. Breath sounds equal bilaterally. No wheezes, rales, or rhonchi. GASTROINTESTINAL: Abdomen soft, non-tender, nondistended. RECTAL: heme positive (dark stool) EXTREMITIES: No edema or joint tenderness. BACK: Nontender without deformity or crepitance. No flank tenderness. SKIN: Tenting No rash or erythema of visible areas Initial Vital Signs Initial Vital Signs: Vital Signs Temperature 98.0 F 01/12/20 19:44 Pulse Rate 110 H 01/12/20 19:44 Respiratory Rate 01/12/20 19:44 Blood Pressure 129/90 01/12/20 19:44 Pulse Oximetry 88 L 01/12/20 19:44 Scores GCS [place] coma scale eye opening: Spontaneous [place] coma scale verbal response: Confused [place] coma scale motor response: Obey commands [place] coma scale total score: 14 Course Orders Ordered: ED Orders 01/12/20 19:40 Alkaline Phosphatase Stat Complete Blood Count AUTO DIFF Stat Comprehensive Metabolic Panel Stat Lactate (Lactic Acid) Stat Magnesium Stat NT-proBNP (BNP-Adult 18+) Stat Partial Thromboplastin Time Stat Phosphorous Stat Prothrombin Time INR Stat Type and Screen Stat 01/12/20 19:59 EKG-12 Lead Stat 01/12/20 20:05 Arterial Blood Gas Stat 01/12/20 20:22 CT chest abd pel w con Stat CT head/brain wo con Stat 01/12/20 20:30 Blood Culture Stat Ionized Calcium Stat 01/12/20 21:05 Influenza A & B (PCR) Stat 01/12/20 22:50 Calcium Stat Creatinine & eGFR Stat Sodium Chloride (Normal Saline 0.9%) 1,000 mls @ 125 mls/hr IV CONT BRYANNA Last Admin: 01/13/20 01:57 Dose: 125 mls/hr Documented by: JOHN Discontinued Medications Furosemide (Lasix) 40 mg IV NOW ONE Stop: 01/12/20 22:59 Last Admin: 01/12/20 23:14 Dose: 40 mg Documented by: ARTEM Furosemide (Lasix) 40 mg IV NOW ONE Stop: 01/13/20 01:43 Last Admin: 01/13/20 01:56 Dose: 40 mg Documented by: JOHN Sodium Chloride (Normal Saline 0.9%) 500 mls @ 1,000 mls/hr IV BOLUS ONE Stop: 01/12/20 20:20 Last Infusion: 01/12/20 21:03 Dose: 0 mls/hr Documented by: Admin: 01/12/20 20:08 Dose: 1,000 mls/hr Documented by: ARTEM Sodium Chloride (Normal Saline 0.9%) 1,000 mls @ 1,000 mls/hr IV BOLUS ONE Stop: 01/12/20 23:27 Last Infusion: 01/12/20 23:23 Dose: 0 mls/hr Documented by: Admin: 01/12/20 22:20 Dose: 1,000 mls/hr Documented by: ARTEM Sodium Chloride (Normal Saline 0.9%) 1,000 mls @ 1,000 mls/hr IV BOLUS ONE Stop: 01/13/20 00:23 Last Admin: 01/12/20 23:26 Dose: 1,000 mls/hr Documented by: ARTEM Vital Signs Vital signs: Vital Signs - 8 hr 01/12/20 19:44 01/12/20 20:00 01/12/20 20:30 Temperature 98.0 F Pulse Rate 110 H 109 H 103 H Respiratory Rate 20 17 12 Blood Pressure 129/90 Blood Pressure [Right Arm] 139/86 148/90 H Pulse Oximetry 88 L 97 95 01/12/20 21:56 01/12/20 23:04 Temperature Pulse Rate 103 H 102 H Respiratory Rate 15 15 Blood Pressure Blood Pressure [Right Arm] 162/99 H 171/105 H Pulse Oximetry 97 96 MDM - Neuro Symptoms/Deficit Lab Data Result diagrams: 01/12/20 19:40 01/12/20 22:50 Labs: Lab Results 01/12/20 01/12/20 01/12/20 Range/Units 19:40 19:40 19:40 WBC 14.6 H (4.5-11.0) X10^3/uL RBC 5.52 (4.5-5.9) X10^6/uL Hgb 18.4 H (13.5-17.5) g/dL Hct 54.7 H (41-53) % MCV 99.0 (80-100) fL MCH 33.2 (26-34) PG MCHC 33.5 (30-36) % RDW 14.7 (11.6-14.8) % Plt Count 210 (150-400) X10^3/uL Neut % (Auto) 78.9 H (50-75) % Lymph % (Auto) 8.1 L (25-40) % [place] % (Auto) 12.2 (3-14) % Eos % (Auto) 0.1 L (2-4) % Baso % (Auto) 0.7 (0-2) % Neut # (Auto) 28190 H (5215-4314) /uL Lymph # (Auto) 1200 (6772-7271) /uL [place] # (Auto) 1800 H (0-900) /uL Eos # (Auto) 0 (0-450) /uL Baso # (Auto) 100 (0-100) /uL PT 13.8 H (10.1-12.7) SECONDS INR 1.2 (0.9-1.3) APTT 29 (26.4-36.2) SECONDS ABG pH (7.35-7.45) ABG pCO2 (35-45) mmHg ABG pO2 (80-100) mmHg ABG HCO3 (22-26) mmol/L ABG Total CO2 (21-31) mmol/L ABG O2 Saturation (95-100) % ABG Base Excess (-2-2) mmol/L FiO2 Sodium 143 (137-145) mmol/L Potassium 3.8 (3.4-5.1) mmol/L Chloride 103 (98-107) mmol/L Carbon Dioxide 32 (22-32) mmol/L BUN 64 H (9-20) mg/dL Creatinine 2.10 H (0.66-1.25) mg/dL Estimated GFR 30.5 L (>60) mL/min BUN/Creatinine Ratio 30.5 H (6-22) Glucose 147 H (80-110) mg/dL Lactate (0.7-2.1) mmol/L Calcium 17.0 H* (8.4-10.2) mg/dL Phosphorus (2.3-3.7) mg/dL Magnesium (1.6-2.3) mg/dL Total Bilirubin 0.8 (0.2-1.3) mg/dL AST 43 (17-59) IU/L ALT 25 (<50) IU/L Alkaline Phosphatase 92 (38-126) U/L NT-Pro-B Natriuret Pep (<450) pg/mL Total Protein 7.6 (6.3-8.2) g/dL Albumin 4.1 (3.5-5.0) g/dL Globulin 3.5 (1.7-4.1) g/dL Albumin/Globulin Ratio 1.2 (1.0-2.8) Influenza A (RT-PCR) (NEGATIVE) Influenza B (RT-PCR) (NEGATIVE) Blood Type Antibody Screen 01/12/20 01/12/20 01/12/20 Range/Units 19:40 19:40 19:40 WBC (4.5-11.0) X10^3/uL RBC (4.5-5.9) X10^6/uL Hgb (13.5-17.5) g/dL Hct (41-53) % MCV (80-100) fL MCH (26-34) PG MCHC (30-36) % RDW (11.6-14.8) % Plt Count (150-400) X10^3/uL Neut % (Auto) (50-75) % Lymph % (Auto) (25-40) % [place] % (Auto) (3-14) % Eos % (Auto) (2-4) % Baso % (Auto) (0-2) % Neut # (Auto) (8453-0378) /uL Lymph # (Auto) (9361-3210) /uL [place] # (Auto) (0-900) /uL Eos # (Auto) (0-450) /uL Baso # (Auto) (0-100) /uL PT (10.1-12.7) SECONDS INR (0.9-1.3) APTT (26.4-36.2) SECONDS ABG pH (7.35-7.45) ABG pCO2 (35-45) mmHg ABG pO2 (80-100) mmHg ABG HCO3 (22-26) mmol/L ABG Total CO2 (21-31) mmol/L ABG O2 Saturation (95-100) % ABG Base Excess (-2-2) mmol/L FiO2 Sodium (137-145) mmol/L Potassium (3.4-5.1) mmol/L Chloride (98-107) mmol/L Carbon Dioxide (22-32) mmol/L BUN (9-20) mg/dL Creatinine (0.66-1.25) mg/dL Estimated GFR (>60) mL/min BUN/Creatinine Ratio (6-22) Glucose (80-110) mg/dL Lactate 1.5 (0.7-2.1) mmol/L Calcium (8.4-10.2) mg/dL Phosphorus (2.3-3.7) mg/dL Magnesium (1.6-2.3) mg/dL Total Bilirubin (0.2-1.3) mg/dL AST (17-59) IU/L ALT (<50) IU/L Alkaline Phosphatase (38-126) U/L NT-Pro-B Natriuret Pep 59 (<450) pg/mL Total Protein (6.3-8.2) g/dL Albumin (3.5-5.0) g/dL Globulin (1.7-4.1) g/dL Albumin/Globulin Ratio (1.0-2.8) Influenza A (RT-PCR) (NEGATIVE) Influenza B (RT-PCR) (NEGATIVE) Blood Type O Positive Antibody Screen Negative 01/12/20 01/12/20 01/12/20 Range/Units 19:40 20:05 21:05 WBC (4.5-11.0) X10^3/uL RBC (4.5-5.9) X10^6/uL Hgb (13.5-17.5) g/dL Hct (41-53) % MCV (80-100) fL MCH (26-34) PG MCHC (30-36) % RDW (11.6-14.8) % Plt Count (150-400) X10^3/uL Neut % (Auto) (50-75) % Lymph % (Auto) (25-40) % [place] % (Auto) (3-14) % Eos % (Auto) (2-4) % Baso % (Auto) (0-2) % Neut # (Auto) (1434-0620) /uL Lymph # (Auto) (2288-6742) /uL [place] # (Auto) (0-900) /uL Eos # (Auto) (0-450) /uL Baso # (Auto) (0-100) /uL PT (10.1-12.7) SECONDS INR (0.9-1.3) APTT (26.4-36.2) SECONDS ABG pH 7.48 H (7.35-7.45) ABG pCO2 42.3 (35-45) mmHg ABG pO2 96 (80-100) mmHg ABG HCO3 32 H (22-26) mmol/L ABG Total CO2 33 H (21-31) mmol/L ABG O2 Saturation 98 (95-100) % ABG Base Excess 8.0 H (-2-2) mmol/L FiO2 28 Sodium (137-145) mmol/L Potassium (3.4-5.1) mmol/L Chloride (98-107) mmol/L Carbon Dioxide (22-32) mmol/L BUN (9-20) mg/dL Creatinine (0.66-1.25) mg/dL Estimated GFR (>60) mL/min BUN/Creatinine Ratio (6-22) Glucose (80-110) mg/dL Lactate (0.7-2.1) mmol/L Calcium (8.4-10.2) mg/dL Phosphorus 3.7 (2.3-3.7) mg/dL Magnesium 1.6 (1.6-2.3) mg/dL Total Bilirubin (0.2-1.3) mg/dL AST (17-59) IU/L ALT (<50) IU/L Alkaline Phosphatase 92 (38-126) U/L NT-Pro-B Natriuret Pep (<450) pg/mL Total Protein (6.3-8.2) g/dL Albumin (3.5-5.0) g/dL Globulin (1.7-4.1) g/dL Albumin/Globulin Ratio (1.0-2.8) Influenza A (RT-PCR) Flu a negative (NEGATIVE) Influenza B (RT-PCR) Flu b negative (NEGATIVE) Blood Type Antibody Screen 01/12/20 Range/Units 22:50 WBC (4.5-11.0) X10^3/uL RBC (4.5-5.9) X10^6/uL Hgb (13.5-17.5) g/dL Hct (41-53) % MCV (80-100) fL MCH (26-34) PG MCHC (30-36) % RDW (11.6-14.8) % Plt Count (150-400) X10^3/uL Neut % (Auto) (50-75) % Lymph % (Auto) (25-40) % [place] % (Auto) (3-14) % Eos % (Auto) (2-4) % Baso % (Auto) (0-2) % Neut # (Auto) (3973-9359) /uL Lymph # (Auto) (5109-7100) /uL [place] # (Auto) (0-900) /uL Eos # (Auto) (0-450) /uL Baso # (Auto) (0-100) /uL PT (10.1-12.7) SECONDS INR (0.9-1.3) APTT (26.4-36.2) SECONDS ABG pH (7.35-7.45) ABG pCO2 (35-45) mmHg ABG pO2 (80-100) mmHg ABG HCO3 (22-26) mmol/L ABG Total CO2 (21-31) mmol/L ABG O2 Saturation (95-100) % ABG Base Excess (-2-2) mmol/L FiO2 Sodium (137-145) mmol/L Potassium (3.4-5.1) mmol/L Chloride (98-107) mmol/L Carbon Dioxide (22-32) mmol/L BUN (9-20) mg/dL Creatinine 2.10 H (0.66-1.25) mg/dL Estimated GFR 30.5 L (>60) mL/min BUN/Creatinine Ratio (6-22) Glucose (80-110) mg/dL Lactate (0.7-2.1) mmol/L Calcium 15.7 H* (8.4-10.2) mg/dL Phosphorus (2.3-3.7) mg/dL Magnesium (1.6-2.3) mg/dL Total Bilirubin (0.2-1.3) mg/dL AST (17-59) IU/L ALT (<50) IU/L Alkaline Phosphatase (38-126) U/L NT-Pro-B Natriuret Pep (<450) pg/mL Total Protein (6.3-8.2) g/dL Albumin (3.5-5.0) g/dL Globulin (1.7-4.1) g/dL Albumin/Globulin Ratio (1.0-2.8) Influenza A (RT-PCR) (NEGATIVE) Influenza B (RT-PCR) (NEGATIVE) Blood Type Antibody Screen Point of Care Testing Stool Occult Blood Positive ECG Data Interpretation: sinus tachy, prolonged ND. No ischemia such as ST elevation or depression MDM Narrative Medical decision making narrative: 79-year-old male with a few days of progressive weakness and some confusion is found to be dehydrated with acute kidney injury and critically elevated calcium. Recently he has had significant back pain with referral to Orthopedics who ordered MRI which suggests possibly bony lesions in the lumbar spine. He has taken no new medications, denies any volume loss. Patient given fluids and Lasix with Nephrology consult. Patient does not meet criteria for dialysis or even transfer per Nephrology. Calcium has improved (decreased) during visit. Hospitalist to accept. Will need Medical Oncology consult and perhaps a general surgery consult to address dark rectal blood Critical Care Time Critical Care Time Critical Care Time: Yes Total Critical Care Time: 35 Attestation: The high probability of a clinically significant, sudden or life threatening deterioration of the [CV, renal] system(s) required my full and direct attention, intervention and personal management. The aggregate critical care time was [35] minutes. This time is in addition to time spent performing reported procedures but includes the following: [x] Data Review and interpretation [x] Patient assessment and monitoring of vital signs [x] Documentation [x] Medication orders and management Discharge Plan Departure Patient Disposition: Admitted As Inpatient Clinical Impression: Acute kidney injury, Hypercalcemia, Acute dehydration GI bleed Qualifiers: GI bleed type/associated pathology: unspecified gastrointestinal hemorrhage type Qualified Code(s): K92.2 - Gastrointestinal hemorrhage, unspecified Discharge Date/Time: 01/13/20 00:35 Admit Date/Time: 01/12/20 23:30 Admit Provider: Christina Nunez
[2020-01-12 21:40] LABS: Influenza A - CEPHEID Flu A NEGATIVE (NEGATIVE); Influenza B - CEPHEID Flu B NEGATIVE (NEGATIVE)
[2020-01-12 21:56] VITALS: BP 162/99; PULSE 103; RESP 15; O2SAT 97
[2020-01-12] MEDS: SODIUM CHLORIDE 0.9% 1,000 ML 1000 ML IV ×2 (22:20→23:26)
--- NOTE | 2020-01-12 22:29 | PC.NURSE ---
Pt arrived via [facility]. Pt poor historian. appears to have dried blood on lips, mucus membranes dry. tachycardic.reports bloody stool x 3 days, increased weakness and fatigue. Somulent. easily rouses to voice. oriented x 3. PERRL. h/o afib and takes Eliquis daily. Lives at home with . HR 110's and regular with frequent PVC's, abd SNT. IV in place by EMS and labs drawn and pt T&S'd. +occult blood on guiac by , critical Ca+ level per lab. NS bolus infusing. pt calm and cooperative. incontinent x 1. Oral care provided. Resting in bed eyes closed at side.
[2020-01-12 23:04] VITALS: BP 171/105; PULSE 102; RESP 15; O2SAT 96
[2020-01-12 23:10] LABS: Estimated Glomerular Filt Rate 30.5 mL/min (>60)
[2020-01-12] MEDS: FUROSEMIDE 40 MG/4 ML VIAL IV (23:14)
[2020-01-12 23:20] LABS: Calcium 15.7 mg/dL (8.4-10.2)
[2020-01-13] VITALS (12 sets, daily range): BP systolic 127–203; BP diastolic 80–118; PULSE 96–116; RESP 13–20; TEMP 36.8–37.2; O2SAT 90–98; BMI 31.9
[2020-01-13] LABS: Appearance Urine UA CLEAR; Bacteria Urine None Seen; Bilirubin Urine UA NEGATIVE (NEGATIVE); Glucose Urine UA NEGATIVE (Negative); Ketones Urine UA NEGATIVE (NEGATIVE); Leukocyte Esterase Urine UA NEGATIVE (NEGATIVE); Nitrite Urine UA NEGATIVE (Negative); Occult Blood Urine UA TRACE-INTACT (Negative); Protein Urine UA NEGATIVE (Negative); RBC Urine None Seen (0-5/HPF); Urobilinogen Urine UA 0.2 E.U./dL (0.2); WBC Urine None Seen (0-5/HPF)
[2020-01-13 00:02] LABS: Color Urine UA Straw
[2020-01-13 00:04] LABS: Culture Indicated Urine Cult Not Indicated; Urine Comments Microscopic Normal
--- NOTE | 2020-01-13 01:28 | P.HP_ITS ---
History of Present Illness History of Present Illness Date Patient Seen: 01/13/20 Time Patient Seen: 02:04 Chief complaint: Altered LOC Narrative: The patient is an 79-year-old male with PMH of HTN, CAD (h/o LAD stent), AFIB (AC w/ Eliquis), LVEF 55-60%, [id number] MR, dyslipidemia, non-Hodgkin's lymphoma, chronic back pain (h/o laminectomy) and re mote h/o tobacco dependence. Patient presented to the ED on 01/12/2020 out of concern for a 3 day history of weakness and dark stools. Associated symptoms include generalized muscle weakness, confusion, diminished appetite, decreased UO and back pain (worse from baseline). Back pain is localized to the lumbar spine with raditation / shooting down his right leg. Reports a 1 week history of diarrhea and episodes of bowel incontinence. Patient is AC w/ Eliquis, which was restarted 3 weeks ago. He does have a prior history of a GIB. NO CP or dyspnea. Denies abdominal pain, nausea, vomiting, malaise and myalgia. Denies falls or local injury/trauma. Elevated BP is noted at home. ED Presentation & Work-Up T 98.0 BP 129/90 HR 110 RR 20 SpO2 88% EKG 01/12 19:59. Sinus tachycardia (v-rate 110), low QRS, non-specific T wave abnormalities. Prolonged QTc 500. Labs, 01/12 19:40 WBC 14.6 Lactate 1.5 HGB 18.4 HCT 54.7 PLT 210 PT 13.8 INR 1.2 aPTT 29 Na 143 K 3.8 Mg 1.6 Cl 103 Ca 17.0 (repeat Ca 15.7 01/12 2250) PO4 3.7 Glu 147 CO2 32 BUN 64 Cr 2.1 GFR 30.5 BUN:Cr 30.5 T.Bili 0.8 AST 43 ALT 25 ALP 92 Alb 4.1 ABG pH 7.48 pCO2 42.3 pO2 96 HCO3 32 /a metabolic alkalosis with respiratory compensation In ED patient was treated with... NS 500 ml bolus 01/12 @ 2007 NS 1000 ml bolus 01/12 @ 2220 NS 1000 ml bolus 01/12 @ 2326 Furosemide 40 mg IV 01/[address] HEAD. No acute intracranial findings, such as bleeds or masses. Basal cisterns are patent. No extra- axial fluid collections. Ventricles symmetric in size and shape. Cerebral volume loss for age with resultant ventricular and sulcal prominence. Periventricular and deep white matter chronic small vessel ischemic changes. Intracranial internal carotid atherosclerosis. Calvarium and visualized facial bones appear intact, without suspicious lesions. CT of CHEST / ABDOMEN / PELVIS - Bilateral thyroid nodules, largest in the right lobe anteriorly (23 mm). These could be further assessed with non-emergent thyroid ultrasound (if clinically indicated). - Liver is normal in size. Multiple indeterminate hepatic lesions, suggestive of metastatic disease vs. atypical infection (e.g., fungal infection) vs lymphoma - Moderate thickening of the distal sigmoid colon and rectum. Differential considerations include ischemia, infection, inflammation, and neoplasm. Colonoscopy is recommended for further assessment. - Multiple lucent foci within the visualized [place], consistent with metastatic disease vs. multiple myeloma - Enlarged prostate - Mild chronic appearing L2 and L3 compression fractures. There is a 24 mm lucent mass within the right L4 vertebral body. There is a 20 mm lucent focus within right L5 vertebral body. Patient History Medical History Arthritis (Acute) CAD (coronary artery disease) (Chronic) Diverticulosis (Acute) Former smoker (Acute) GI bleed (Resolved ~03/2015) H. pylori infection (Resolved ~03/2015) Hematemesis (Acute ~03/2015) History of back problems (Chronic) HLD (hyperlipidemia) (Chronic) Hypertension (Chronic) Internal hemorrhoid (Resolved) Kidney stones (Chronic 07/10/15) Non-Hodgkin lymphoma (Chronic) Ulcer (Acute) Surgical History H/O wrist surgery (Resolved ~1972) Hx of heart artery stent (Resolved ~2010) Hx of laminectomy (Resolved 09/07/15) Hx of lymph node excision (Resolved ~1988) Previous back surgery (Resolved ~2014) S/P hemorrhoidectomy (Acute) Family & Social History Family History Father Hypertension Heart disease Sister Cancer Mother Hypertension Social History: household members spouse Safety & Behavioral: Feels Safe in Current Yes Environment Been Physically Hurt or No Threatened By a Person Tobacco & Substance use: Tobacco type cigarettes Smoking Status Former smoker alcohol intake current alcohol intake frequency a few times a week Substance Use Type does not use Meds Home Medications and Allergies Home Medications Medication Instructions Recorded Confirmed Type amlodipine 5 mg tablet 5 mg PO BID 03/10/19 01/21/20 History doxazosin 8 mg PO QPM 04/01/19 01/21/20 History testosterone cypionate 100 mg IM Q2W 04/01/19 01/21/20 History apixaban 5 mg PO BID #60 tab 04/23/19 01/21/20 Rx metoprolol succinate 25 mg PO DAILY #30 tab 04/23/19 01/21/20 Rx tolterodine [Detrol] 2 mg PO BID #16 tab 04/23/19 01/21/20 Rx Fish Oil 1,200 mg PO DAILY 01/17/20 01/21/20 History acetaminophen [Tylenol] 650 mg PO Q6H PRN 01/17/20 01/21/20 History atorvastatin 40 mg PO BEDTIME 01/17/20 01/21/20 History cholecalciferol (vitamin D3) 2,000 unit PO DAILY 01/17/20 01/21/20 History [Vitamin D3] coenzyme Q10 [CoQ-10] 100 mg PO DAILY 01/17/20 01/21/20 History finasteride 5 mg PO DAILY 01/17/20 01/21/20 History aspirin 81 mg PO DAILY #30 tab 01/18/20 01/21/20 Rx docusate sodium [Colace] 100 mg PO BID #60 cap 01/18/20 01/21/20 Rx polyethylene glycol 3350 [Miralax] 17 gram PO DAILY #238 gram 01/18/20 01/21/20 Rx multivitamin with minerals 1 tab PO DAILY 01/21/20 01/21/20 History nystatin 1 applic TOPICAL BID 01/21/20 01/21/20 History oxycodone 5 mg PO Q4H PRN 01/21/20 01/21/20 History pantoprazole 40 mg PO DAILY 01/21/20 01/21/20 History Allergies Allergy/AdvReac Type Severity Reaction Status Date / Time No Known Drug Allergies Allergy Verified 01/21/20 10:09 Review of Systems Review of Systems ROS: Yes All systems reviewed with the patient and are negative except as otherwise documented Exam Vital Signs (past 8 hours): - 02/12/20 19:44 01/12/20 20:00 01/12/20 20:30 Temperature 98.0 F Pulse Rate 110 H 109 H 103 H Respiratory Rate 20 17 12 Blood Pressure 129/90 Blood Pressure [Right Arm] 139/86 148/90 H Pulse Oximetry 88 L 97 95 01/12/20 21:56 01/12/20 23:04 01/13/20 00:34 Temperature Pulse Rate 103 H 102 H 102 H Respiratory Rate 15 15 20 Blood Pressure 193/101 H Blood Pressure [Right Arm] 162/99 H 171/105 H Pulse Oximetry 97 96 98 Oxygen Delivery Method Nasal Cannula Oxygen Flow Rate 2 Narrative Exam Narrative: Constitutional: NAD, ill appearing Neurologic: Awake and alert, Oriented to person, place, and reason for hospital admission Difficulty with expressive speech. Rate of speech is delayed. Patient is forgetful. No facial asymmetry. No unilateral weakness. Head: NC, AT Eyes: PERRL, EOMI, Ears: external ears normal, no otorrhea Nose: external nose normal, no rhinorrhea or epistaxis; nasal cannula in place Throat: Dry MM, oropharynx w/o exudate Neck: no masses, lymphadenopathy Chest / Respiratory: Equal chest rise, unlabored respiratory effort, no tachypnea Breath sounds diminished Heart / CV: S1S2, no murmur Abdomen / GI: round, slightly firm, NT, ND, + BS, Evans catheter present : no suprapubic tenderness, no CVA Peripheral / Vascular: warm to touch, DP and PT pulses palpable, no edema Musc: Diminished ROM and strength in BLE, diminished strength in BUE Skin: no ecchymosis or open lesions Objective Labs Result Diagrams: 01/16/20 05:50 01/18/20 10:10 Labs: Laboratory Results - last 24 hr 01/12/20 01/12/20 01/12/20 19:40 19:40 19:40 WBC 14.6 H RBC 5.52 Hgb 18.4 H Hct 54.7 H MCV 99.0 MCH 33.2 MCHC 33.5 RDW 14.7 Plt Count 210 Neut % (Auto) 78.9 H Lymph % (Auto) 8.1 L [place] % (Auto) 12.2 Eos % (Auto) 0.1 L Baso % (Auto) 0.7 Neut # (Auto) 26378 H Lymph # (Auto) 1200 [place] # (Auto) 1800 H Eos # (Auto) 0 Baso # (Auto) 100 PT 13.8 H INR 1.2 APTT 29 ABG pH ABG pCO2 ABG pO2 ABG HCO3 ABG Total CO2 ABG O2 Saturation ABG Base Excess FiO2 Sodium 143 Potassium 3.8 Chloride 103 Carbon Dioxide 32 BUN 64 H Creatinine 2.10 H Estimated GFR 30.5 L BUN/Creatinine Ratio 30.5 H Glucose 147 H Lactate Calcium 17.0 H* Phosphorus Magnesium Total Bilirubin 0.8 AST 43 ALT 25 Alkaline Phosphatase 92 NT-Pro-B Natriuret Pep Total Protein 7.6 Albumin 4.1 Globulin 3.5 Albumin/Globulin Ratio 1.2 Urine Color Urine Appearance Urine pH Ur Specific [place] Urine Protein Urine Glucose (UA) Urine Ketones Urine Occult Blood Urine Nitrate Urine Bilirubin Urine Urobilinogen Ur Leukocyte Esterase Urine RBC Urine WBC Urine Bacteria Ur Culture Indicated? Micro UA Comment Influenza A (RT-PCR) Influenza B (RT-PCR) Blood Type Antibody Screen 01/12/20 01/12/20 01/12/20 19:40 19:40 19:40 WBC RBC Hgb Hct MCV MCH MCHC RDW Plt Count Neut % (Auto) Lymph % (Auto) [place] % (Auto) Eos % (Auto) Baso % (Auto) Neut # (Auto) Lymph # (Auto) [place] # (Auto) Eos # (Auto) Baso # (Auto) PT INR APTT ABG pH ABG pCO2 ABG pO2 ABG HCO3 ABG Total CO2 ABG O2 Saturation ABG Base Excess FiO2 Sodium Potassium Chloride Carbon Dioxide BUN Creatinine Estimated GFR BUN/Creatinine Ratio Glucose Lactate 1.5 Calcium Phosphorus Magnesium Total Bilirubin AST ALT Alkaline Phosphatase NT-Pro-B Natriuret Pep 59 Total Protein Albumin Globulin Albumin/Globulin Ratio Urine Color Urine Appearance Urine pH Ur Specific [place] Urine Protein Urine Glucose (UA) Urine Ketones Urine Occult Blood Urine Nitrate Urine Bilirubin Urine Urobilinogen Ur Leukocyte Esterase Urine RBC Urine WBC Urine Bacteria Ur Culture Indicated? Micro UA Comment Influenza A (RT-PCR) Influenza B (RT-PCR) Blood Type O Positive Antibody Screen Negative 01/12/20 01/12/20 01/12/20 19:40 20:05 21:05 WBC RBC Hgb Hct MCV MCH MCHC RDW Plt Count Neut % (Auto) Lymph % (Auto) [place] % (Auto) Eos % (Auto) Baso % (Auto) Neut # (Auto) Lymph # (Auto) [place] # (Auto) Eos # (Auto) Baso # (Auto) PT INR APTT ABG pH 7.48 H ABG pCO2 42.3 ABG pO2 96 ABG HCO3 32 H ABG Total CO2 33 H ABG O2 Saturation 98 ABG Base Excess 8.0 H FiO2 28 Sodium Potassium Chloride Carbon Dioxide BUN Creatinine Estimated GFR BUN/Creatinine Ratio Glucose Lactate Calcium Phosphorus 3.7 Magnesium 1.6 Total Bilirubin AST ALT Alkaline Phosphatase 92 NT-Pro-B Natriuret Pep Total Protein Albumin Globulin Albumin/Globulin Ratio Urine Color Urine Appearance Urine pH Ur Specific [place] Urine Protein Urine Glucose (UA) Urine Ketones Urine Occult Blood Urine Nitrate Urine Bilirubin Urine Urobilinogen Ur Leukocyte Esterase Urine RBC Urine WBC Urine Bacteria Ur Culture Indicated? Micro UA Comment Influenza A (RT-PCR) Flu a negative Influenza B (RT-PCR) Flu b negative Blood Type Antibody Screen 01/12/20 01/12/20 22:50 23:54 WBC RBC Hgb Hct MCV MCH MCHC RDW Plt Count Neut % (Auto) Lymph % (Auto) [place] % (Auto) Eos % (Auto) Baso % (Auto) Neut # (Auto) Lymph # (Auto) [place] # (Auto) Eos # (Auto) Baso # (Auto) PT INR APTT ABG pH ABG pCO2 ABG pO2 ABG HCO3 ABG Total CO2 ABG O2 Saturation ABG Base Excess FiO2 Sodium Potassium Chloride Carbon Dioxide BUN Creatinine 2.10 H Estimated GFR 30.5 L BUN/Creatinine Ratio Glucose Lactate Calcium 15.7 H* Phosphorus Magnesium Total Bilirubin AST ALT Alkaline Phosphatase NT-Pro-B Natriuret Pep Total Protein Albumin Globulin Albumin/Globulin Ratio Urine Color Straw Urine Appearance Clear Urine pH 6.0 Ur Specific [place] 1.010 Urine Protein Negative Urine Glucose (UA) Negative Urine Ketones Negative Urine Occult Blood Trace-intact Urine Nitrate Negative Urine Bilirubin Negative Urine Urobilinogen 0.2 Ur Leukocyte Esterase Negative Urine RBC None seen Urine WBC None seen Urine Bacteria None seen Ur Culture Indicated? Cult not indicated Micro UA Comment Microscopic normal Influenza A (RT-PCR) Influenza B (RT-PCR) Blood Type Antibody Screen Assessment & Plan Assessment & Plan narrative: Patient is being admitted under inpatient status for hypercalcemia and TONE Severe hypercalcemia, acute, present on admission, active - Suspected due to underlying malignancy. CT imaging w/ concern for metastatic disease. H/O non-Hodgkin's lymphoma (currently does not follow w/ oncology) - Neuro checks Q4H - Received 2500 ml IVF bolus in ED. Continue IVF at 125 ml/hr. - Receive 40 mg IV furosemide in ED. Will give another dose of 40 mg IV x1 now (needs lasix 1 mg/kg Q12-24H) - Consider giving calcitonin in am 4-8 iu/kg Q12-24H (when pharmacy is open) - Labs: ionized calcium, iPTH, 25D and 1,25D - Additional labs drawn in ED, pending, to be followed ionized calcium, free and total PSA - I&Os - Monitor for e-lyte and metabolic abnormalities - Repeat EKG in am Melena, acute, present on admission, active - Hgb 18.4 on presentation - Guiac stool positive in ED - Consult general surgery - Hold Eliquis - Protonix 40 mg BID TONE, present on admission, active - sCr 2.1 (baseline Cr 1.2-1.3), suspected to be in the setting of dehydration and hypercalcemia - Hold olmesartan-HCTZ Acute respiratory failure w/ hypoxia, acute, present on admission, active - Flu A/B negative - WBC 14.6 mildly elevated. Check PCT - RT / RATE - DuoNeb prn - Supplemental O2 prn, wean if able Leukocytosis WBC 14.6, acute, present on admission, active - Reactive ?? recently finished medrol dose pack - Check PCT - Blood Cx pending - UA negative - Hold off on starting abx at this time Essential HTN, chronic condition, present on admission, active - BP elevated, likely a sequela of hypercalcemia - Trend BP, will treat w/ prn agents for SBP > 180 mmHg - Resume home anti-hypertensive agents Thyroid nodules (CT finding), acute, present on admission, active - Consider thyroid ultrasound Back pain, [id number], present on admission, active - Tylenol and oxy IR prn PAF, rate controlled, chronic condition, present on admission, active - Eliquis on hold - Asked nurses to verify home dose of amiodarone and toprol XL, have not been re-ordered Full Code. Patient reports having a health directive. Designated DPOA is his . Home medications reviewed and reconciled accordingly VTE prophylaxis w/ SCDs Quality VTE Deep Vein Thrombosis/Pulmonary Embolism Present on Admission: No
[2020-01-13] MEDS: FUROSEMIDE 40 MG/4 ML VIAL IV (01:56)
[2020-01-13] MEDS: SODIUM CHLORIDE 0.9% 1,000 ML 125 ML IV (01:57)
--- NOTE | 2020-01-13 02:21 | PC.ADMIT ---
[email or web address] Hi L[place] Admission Note: Pt arrived to unit without issues. Slider board used due to patient weakness. Pt alert and oriented x4, quite the historian. Pt reports back pain 08/10. HANSARD REPORTER notified. Pt BP 170/112, Khalilova HANSARD REPORTER notified and aware. Pt on 2L O2 at this time and O2 sats running at 93%. Skin check done with CHANDNI Cueva. Evans intact and draining yellow urine. Pt has no complaints at this time. The patient,Jeremiah Martinez,79 y/o, was given written information regarding hospital policies, unit procedures and contact persons. Patient's smoking status: Former smoker. Vital Signs - 8 hr 01/12/20 19:44 01/12/20 20:00 01/12/20 20:30 Temperature 98.0 F Pulse Rate 110 H 109 H 103 H Respiratory Rate 20 17 12 Blood Pressure 129/90 Blood Pressure [Right Arm] 139/86 148/90 H Pulse Oximetry 88 L 97 95 01/12/20 21:56 01/12/20 23:04 01/13/20 00:34 Temperature Pulse Rate 103 H 102 H 102 H Respiratory Rate 15 15 20 Blood Pressure 193/101 H Blood Pressure [Right Arm] 162/99 H 171/105 H Pulse Oximetry 97 96 98 01/13/20 01:00 Temperature 99.0 F Pulse Rate 96 H Respiratory Rate 20 Blood Pressure 170/112 H Blood Pressure [Right Arm] Pulse Oximetry 93
[2020-01-13] MEDS: OXYCODONE IR 5 MG TABLET PO ×2 (04:27→12:11)
[2020-01-13 07:09] LABS: Add Manual Diff / Slide Review NO; Basophils Absolute Auto 100 /uL (0-100); Basophils Percent Auto 0.6 % (0-2); Eosinophils Absolute Auto 0 /uL (0-450); Eosinophils Percent Auto 0.1 % (2-4); Hematocrit 53.7 % (41-53); Lymphocytes Absolute Auto 1100 /uL (1100-4500); Lymphocytes Percent Auto 7.5 % (25-40); Mean Corpuscular HGB Conc 33.6 % (30-36); Mean Corpuscular Hemoglobin 33.4 PG (26-34); Mean Corpuscular Volume 99.5 fL (80-100); Monocytes Absolute Auto 1400 /uL (0-900); Monocytes Percent Auto 9.3 % (3-14); Neutrophils Absolute Auto 12100 /uL (1500-7000); Neutrophils Percent Auto 82.5 % (50-75); Platelet Count 187 X10^3/uL (150-400); Red Cell Distribution Width 14.5 % (11.6-14.8); White Blood Cell Count 14.7 X10^3/uL (4.5-11.0)
[2020-01-13 07:22] LABS: Albumin 3.7 g/dL (3.5-5.0); Blood Urea Nitrogen 56 mg/dL (9-20); Carbon Dioxide 31 mmol/L (22-32); Chloride 102 mmol/L (98-107); Estimated Glomerular Filt Rate 32.3 mL/min (>60); Glucose 114 mg/dL (80-110); HEMOLYSIS < 15 (0-50); Sodium 144 mmol/L (137-145)
[2020-01-13 07:23] LABS: Magnesium 1.2 mg/dL (1.6-2.3)
[2020-01-13 07:33] LABS: Calcium 15.6 mg/dL (8.4-10.2)
[2020-01-13 07:39] LABS: Procalcitonin < 0.05 ng/mL (<0.5)
[2020-01-13] MEDS: ZOLEDRONIC ACID 4 MG in SODIUM CHLORIDE 0.9% 100 ML 315 ML IV (09:34)
[2020-01-13] MEDS: CALCITONIN,SALMON 400 UNITS/2 ML MDV 300 UNITS IM (09:34)
[2020-01-13] MEDS: PANTOPRAZOLE 40 MG VIAL IV ×2 (09:41→20:40)
[2020-01-13] MEDS: METOPROLOL ER 25 MG TABLET PO (09:42)
[2020-01-13] MEDS: AMLODIPINE 5 MG TABLET PO ×2 (09:43→20:40)
[2020-01-13] MEDS: POTASSIUM CHLORIDE 20 MEQ TAB 40 MEQ PO (09:57)
[2020-01-13] MEDS: MAGNESIUM SULFATE 2 GM/50 ML PIGGYBACK IV (10:28)
--- NOTE | 2020-01-13 11:04 | PC.NURSE ---
Day shift: Elevated BP of approx 200/[address] Davila. Also reported HR in the 110's to 120's. Pt is on Tele. Pt denies any chest pain or head ache. Will retake vitals at 1200 and report back to MD. Will continue to monitor. Pt asleep at this time. Will offer pain meds when he wakes back up as elevated BP may be r/t pain. Call light in reach. Door to room open. Bed alarm is on. Pt agrees to not get OOB w/o help from staff.
[2020-01-13 13:36] LABS: BUN Creatinine Ratio 27.5 (6-22); Blood Urea Nitrogen 55 mg/dL (9-20); Carbon Dioxide 31 mmol/L (22-32); Chloride 102 mmol/L (98-107); Estimated Glomerular Filt Rate 32.3 mL/min (>60); Glucose 138 mg/dL (80-110); Potassium 3.2 mmol/L (3.4-5.1); Sodium 144 mmol/L (137-145)
[2020-01-13 13:43] LABS: HEMOLYSIS 15 (0-50)
[2020-01-13 13:47] LABS: Calcium 15.3 mg/dL (8.4-10.2)
--- NOTE | 2020-01-13 13:53 | PC.NURSE ---
Day shift: Dr Davila made aware of calcium level of 15.3 at this time.
--- NOTE | 2020-01-13 15:15 | DIET.PN ---
Dietary Progress Note Assessment: 79y M admitted for worsening mental status and weakness referred to nutrition for poor appetite. Pt assigned heart healthy diet, orderred salmon, rice, veggies for dinner. Sending ONS Nepro to support kidney safe PRO and kcal intake as pt reports poor appetite. HT: 172.7cm WT: 95.2kg UBW: 100kg (-5% in 6 mo) BMI: 31.9 Labs: Hgb 18 H c positive guaiac, eGFR 32 L, Cr 2.0 H, Ca 15.3 HH Nutrition Diagnosis: altered nutrition related lab values (eGFR, Creatinine, Hgb, Calcium) r/t acute kidney injury, possible metastatic dz aeb CT scan suspicious for met dz, Hgb 18 H c positive guaiac, eGFR 32 L, Cr 2.0 H, Ca 15.3 HH. Interventions: 1. Recc ONS Nepro kidney formulation tid until POs can be assessed to meet EERs Diet Order: Heart Healthy EER: 1900kcal, 95g PRO (1g/kg per elder), 2.1L fluids Monitoring/Evaluations: ONS tolerance, POs
[2020-01-13] MEDS: DOXAZOSIN 4 MG TABLET 8 MG PO (17:53)
[2020-01-13] MEDS: SODIUM CHLORIDE 0.9% 1,000 ML 200 ML IV ×2 (17:53→22:13)
--- NOTE | 2020-01-13 20:25 | PM.PN.1 ---
Subjective Subjective Date Patient Seen: 01/13/20 Time Patient Seen: 08:30 Interval history: Patient was seen and evaluated over the course of today. He was admitted with multiple metastatic lesions in his liver, spine, possibly from colorectal source given thickening on CT imaging and severe hypercalcemia. His calcium has slowly improved from 17 to in the 15s with fluids. He did not improve much calcitonin and this was not continued. He was given a dose of zometa. Further workup including PTH and vitamin D are pending, but these are send out tests and will not come back soon. Patient has a history of lymphoma many years ago that was treated and he has had no recent evidence of recurrence. He has had back pain over the past few years but his states he has declined quite rapidly recently over the past few weeks. He was seeing orthopedic surgery (Dr. Hare) who ordered an MRI which was done a week ago. He was also given steroids after that reportedly for pain. Will look at this MRI to see if there is any benefit of decadron if there is edema in his cord. Will also try and touch base with Dr. Hare tomorrow. Had extensive discussion today regarding his abdominal pathologies with the patient and family. Also expressed the likelihood that this is a metastatic malignancy however we cannot truly know unless we obtain a biopsy. They understand that the priority at this time is to correct his calcium, figure out what is causing his high calcium, and then see about further evaluation of his liver and spinal lesions. I did discuss the case with surgery (given guiaic + stools) and they did not recommend further evaluation at this time given clinical scenario. Exam Vital Signs (past 8 hours): - 01/13/20 16:06 01/13/20 17:53 01/13/20 20:01 Temperature 98.6 F 98.9 F Pulse Rate 116 H 105 H 106 H Respiratory Rate 20 20 Blood Pressure 145/89 H 127/80 150/91 H Pulse Oximetry 93 92 Oxygen Delivery Method Nasal Cannula Oxygen Flow Rate 2 Objective Labs Result Diagrams: 01/13/20 06:45 01/13/20 13:10 Labs: Laboratory Results - last 24 hr 01/12/20 01/12/20 01/12/20 19:40 19:40 19:40 WBC RBC Hgb Hct MCV MCH MCHC RDW Plt Count Neut % (Auto) Lymph % (Auto) [place] % (Auto) Eos % (Auto) Baso % (Auto) Neut # (Auto) Lymph # (Auto) [place] # (Auto) Eos # (Auto) Baso # (Auto) ABG pH ABG pCO2 ABG pO2 ABG HCO3 ABG Total CO2 ABG O2 Saturation ABG Base Excess FiO2 Sodium Potassium Chloride Carbon Dioxide BUN Creatinine Estimated GFR BUN/Creatinine Ratio Glucose Lactate 1.5 Calcium Phosphorus Magnesium Alkaline Phosphatase NT-Pro-B Natriuret Pep 59 Albumin Procalcitonin Urine Color Urine Appearance Urine pH Ur Specific [place] Urine Protein Urine Glucose (UA) Urine Ketones Urine Occult Blood Urine Nitrate Urine Bilirubin Urine Urobilinogen Ur Leukocyte Esterase Urine RBC Urine WBC Urine Bacteria Ur Culture Indicated? Micro UA Comment Influenza A (RT-PCR) Influenza B (RT-PCR) Blood Type O Positive Antibody Screen Negative 01/12/20 01/12/20 01/12/20 19:40 20:03 21:05 WBC RBC Hgb Hct MCV MCH MCHC RDW Plt Count Neut % (Auto) Lymph % (Auto) [place] % (Auto) Eos % (Auto) Baso % (Auto) Neut # (Auto) Lymph # (Auto) [place] # (Auto) Eos # (Auto) Baso # (Auto) ABG pH 7.48 H ABG pCO2 42.3 ABG pO2 96 ABG HCO3 32 H ABG Total CO2 33 H ABG O2 Saturation 98 ABG Base Excess 8.0 H FiO2 28 Sodium Potassium Chloride Carbon Dioxide BUN Creatinine Estimated GFR BUN/Creatinine Ratio Glucose Lactate Calcium Phosphorus 3.7 Magnesium 1.6 Alkaline Phosphatase 92 NT-Pro-B Natriuret Pep Albumin Procalcitonin Urine Color Urine Appearance Urine pH Ur Specific [place] Urine Protein Urine Glucose (UA) Urine Ketones Urine Occult Blood Urine Nitrate Urine Bilirubin Urine Urobilinogen Ur Leukocyte Esterase Urine RBC Urine WBC Urine Bacteria Ur Culture Indicated? Micro UA Comment Influenza A (RT-PCR) Flu a negative Influenza B (RT-PCR) Flu b negative Blood Type Antibody Screen 01/12/20 01/12/20 01/13/20 22:50 23:54 06:45 WBC RBC Hgb Hct MCV MCH MCHC RDW Plt Count Neut % (Auto) Lymph % (Auto) [place] % (Auto) Eos % (Auto) Baso % (Auto) Neut # (Auto) Lymph # (Auto) [place] # (Auto) Eos # (Auto) Baso # (Auto) ABG pH ABG pCO2 ABG pO2 ABG HCO3 ABG Total CO2 ABG O2 Saturation ABG Base Excess FiO2 Sodium Potassium Chloride Carbon Dioxide BUN Creatinine 2.10 H Estimated GFR 30.5 L BUN/Creatinine Ratio Glucose Lactate Calcium 15.7 H* Phosphorus Magnesium Alkaline Phosphatase NT-Pro-B Natriuret Pep Albumin Procalcitonin < 0.05 Urine Color Straw Urine Appearance Clear Urine pH 6.0 Ur Specific [place] 1.010 Urine Protein Negative Urine Glucose (UA) Negative Urine Ketones Negative Urine Occult Blood Trace-intact Urine Nitrate Negative Urine Bilirubin Negative Urine Urobilinogen 0.2 Ur Leukocyte Esterase Negative Urine RBC None seen Urine WBC None seen Urine Bacteria None seen Ur Culture Indicated? Cult not indicated Micro UA Comment Microscopic normal Influenza A (RT-PCR) Influenza B (RT-PCR) Blood Type Antibody Screen 01/13/20 01/13/20 01/13/20 06:45 06:45 06:45 WBC 14.7 H RBC 5.40 Hgb 18.0 H Hct 53.7 H MCV 99.5 MCH 33.4 MCHC 33.6 RDW 14.5 Plt Count 187 Neut % (Auto) 82.5 H Lymph % (Auto) 7.5 L [place] % (Auto) 9.3 Eos % (Auto) 0.1 L Baso % (Auto) 0.6 Neut # (Auto) 72695 H Lymph # (Auto) 1100 [place] # (Auto) 1400 H Eos # (Auto) 0 Baso # (Auto) 100 ABG pH ABG pCO2 ABG pO2 ABG HCO3 ABG Total CO2 ABG O2 Saturation ABG Base Excess FiO2 Sodium 144 Potassium 3.0 L Chloride 102 Carbon Dioxide 31 BUN 56 H Creatinine 2.00 H Estimated GFR 32.3 L BUN/Creatinine Ratio 28.0 H Glucose 114 H Lactate Calcium 15.6 H* Phosphorus 4.0 H Magnesium 1.2 L Alkaline Phosphatase NT-Pro-B Natriuret Pep Albumin 3.7 Procalcitonin Urine Color Urine Appearance Urine pH Ur Specific [place] Urine Protein Urine Glucose (UA) Urine Ketones Urine Occult Blood Urine Nitrate Urine Bilirubin Urine Urobilinogen Ur Leukocyte Esterase Urine RBC Urine WBC Urine Bacteria Ur Culture Indicated? Micro UA Comment Influenza A (RT-PCR) Influenza B (RT-PCR) Blood Type Antibody Screen 01/13/20 13:10 WBC RBC Hgb Hct MCV MCH MCHC RDW Plt Count Neut % (Auto) Lymph % (Auto) [place] % (Auto) Eos % (Auto) Baso % (Auto) Neut # (Auto) Lymph # (Auto) [place] # (Auto) Eos # (Auto) Baso # (Auto) ABG pH ABG pCO2 ABG pO2 ABG HCO3 ABG Total CO2 ABG O2 Saturation ABG Base Excess FiO2 Sodium 144 Potassium 3.2 L Chloride 102 Carbon Dioxide 31 BUN 55 H Creatinine 2.00 H Estimated GFR 32.3 L BUN/Creatinine Ratio 27.5 H Glucose 138 H Lactate Calcium 15.3 H* Phosphorus Magnesium Alkaline Phosphatase NT-Pro-B Natriuret Pep Albumin Procalcitonin Urine Color Urine Appearance Urine pH Ur Specific [place] Urine Protein Urine Glucose (UA) Urine Ketones Urine Occult Blood Urine Nitrate Urine Bilirubin Urine Urobilinogen Ur Leukocyte Esterase Urine RBC Urine WBC Urine Bacteria Ur Culture Indicated? Micro UA Comment Influenza A (RT-PCR) Influenza B (RT-PCR) Blood Type Antibody Screen Quality VTE Deep Vein Thrombosis/Pulmonary Embolism Present on Admission: No
[2020-01-13] MEDS: ATORVASTATIN 20 MG TABLET 40 MG PO (20:49)
--- NOTE | 2020-01-13 21:56 | PC.NURSE ---
Pt had relatively uneventful evening. Denies discomfort. Lungs diminished at bases, SpO2 94% 2L Tele shows a-fib at 1999 also NSR /BBB per ICU staff. Evans cath [patent clear yellow urine, 1150cc. Call light w/in reach, bed alarm on for pt safety. ' Continue w/plan of care.
[2020-01-14] VITALS (8 sets, daily range): BP systolic 103–136; BP diastolic 65–87; PULSE 93–105; RESP 14–20; TEMP 36.7–37.4; O2SAT 90–95
[2020-01-14] MEDS: SODIUM CHLORIDE 0.9% 1,000 ML 200 ML IV ×3 (03:40→16:21)
[2020-01-14 06:34] LABS: Add Manual Diff / Slide Review NO; Basophils Absolute Auto 100 /uL (0-100); Basophils Percent Auto 0.6 % (0-2); Eosinophils Absolute Auto 0 /uL (0-450); Eosinophils Percent Auto 0.3 % (2-4); Hematocrit 45.7 % (41-53); Hemoglobin 15.6 g/dL (13.5-17.5); Lymphocytes Absolute Auto 700 /uL (1100-4500); Lymphocytes Percent Auto 5.4 % (25-40); Mean Corpuscular HGB Conc 34.2 % (30-36); Mean Corpuscular Hemoglobin 33.9 PG (26-34); Mean Corpuscular Volume 99.1 fL (80-100); Monocytes Absolute Auto 700 /uL (0-900); Monocytes Percent Auto 5.3 % (3-14); Neutrophils Absolute Auto 11900 /uL (1500-7000); Neutrophils Percent Auto 88.4 % (50-75); Platelet Count 148 X10^3/uL (150-400); Red Blood Cell Count 4.62 X10^6/uL (4.5-5.9); Red Cell Distribution Width 14.6 % (11.6-14.8); White Blood Cell Count 13.5 X10^3/uL (4.5-11.0)
[2020-01-14 06:42] LABS: Alanine Aminotransferase 18 IU/L (<50); Albumin 2.8 g/dL (3.5-5.0); Alkaline Phosphatase 66 U/L (38-126); Aspartate Aminotransferase 25 IU/L (17-59); Bilirubin Total 0.6 mg/dL (0.2-1.3); Bilirubin Unconjugated 0.6 mg/dL (0.0-1.1); Blood Urea Nitrogen 56 mg/dL (9-20); Carbon Dioxide 31 mmol/L (22-32); Chloride 107 mmol/L (98-107); Estimated Glomerular Filt Rate 32.3 mL/min (>60); Globulin 2.9 g/dL (1.7-4.1); Glucose 119 mg/dL (80-110); HEMOLYSIS 19 (0-50); Magnesium 1.5 mg/dL (1.6-2.3); Potassium 3.1 mmol/L (3.4-5.1); Sodium 144 mmol/L (137-145); Total Protein 5.7 g/dL (6.3-8.2)
--- NOTE | 2020-01-14 06:44 | PC.NURSE ---
Critical value Calcium: 13.3, notified DOMITILA Nunez by phone
[2020-01-14 06:45] LABS: Calcium 13.3 mg/dL (8.4-10.2)
[2020-01-14] MEDS: POTASSIUM CHLORIDE 20 MEQ TAB 40 MEQ PO (08:40)
[2020-01-14] MEDS: AMLODIPINE 5 MG TABLET PO ×2 (08:41→20:18)
[2020-01-14] MEDS: MAGNESIUM SULFATE 2 GM/50 ML PIGGYBACK IV (08:41)
[2020-01-14] MEDS: METOPROLOL ER 25 MG TABLET PO (08:41)
[2020-01-14] MEDS: PANTOPRAZOLE 40 MG VIAL IV ×2 (08:41→20:18)
[2020-01-14] MEDS: OXYCODONE IR 5 MG TABLET PO (09:58)
--- NOTE | 2020-01-14 11:02 | PC.NURSE ---
Day shift: Per conversation w/ Dr Davila the Evans cath to stay in another 24hrs. Need accurate input and output to manage Pt's high calcium levels.
--- NOTE | 2020-01-14 14:24 | CM.DANOTE ---
DCP Assessment: EMR reviewed: Patient is a 79 yr old male who was admitted as an IP on 01/12/2020. Patient PCP is Dr Cui. CM/RN attempted to meet with patient at the bed side. Patient was not able to participate in meeting due to exhaustion and inability to stay awake. CM/Rn spoke with patients RN and was informed that patient is still working on getting electrolyte balanced. CM left voice mail for patients Abby Martinez at [phone] to discuss d/c plan. Patient according to EMR is I with all ADL's at base line. patient currently live with his in a split level home and ambulates with cane. I: Medicare and for life. Plan: D/C plan undetermined at this time. Not able to talk with patient or patients . CM department will attempt to follow up with patient and patients to determine if patient will need HH or SNF placement at D/C. Emilee Zamorano RN. Discharge Planning/Care Management Advanced directive, confirm from FAMILY Start: 01/13/20 01:18 Freq: Q24H Status: Active Protocol: Document 01/14/20 09:44 YAD (Rec: 01/14/20 09:44 YAD [id number]) Advance Directive, confirm on record Time 09:44 Person contacted Patient Copy received No CM Discharge Assessment Start: 01/14/20 14:14 Freq: Status: Active Protocol: Document 01/14/20 14:15 HS (Rec: 01/14/20 14:24 HS [id number]) Discharge Planning Assessment Assigned Senior It Assistant Emilee Zamorano RN DPOA/Assigned Designee Name Abby Martinez () Contact Information [phone] Advance Directives? No Advance Directives on File No History Provided By Medical Record Has Patient been admitted in last 30 No days? Prior Living Arrangements House Comment home is split level multiple levels of stairs Household Members spouse Independent with ADL's Yes Is patient alert and oriented? No: patient was unable to participate in CM visit due to exhaustion Caregiver for Another No DME Already Rented / Owned Cane Patient/Family Preference Home with Home Health Comment D/C plan undetermined at this time. plan is Home with HH vs SNF depending on patient and patients family preference. Discharge Plan Home Transportation Arrangement Spouse or other family members Additional Comment not at this time will need to determine patient preferences Whiteboard Updated in Patient Room with Yes name and ext. # of Senior It Assistant Review Status In Process Next Review Type Continued Stay Review
--- NOTE | 2020-01-14 15:26 | P.PN_ITS ---
Subjective Subjective Date Patient Seen: 01/14/20 Time Patient Seen: 15:26 Interval history: The patient is an 79-year-old male with PMH of HTN, CAD (h/o LAD stent), AFIB (AC w/ Eliquis), LVEF 55-60%, [id number] MR, dyslipidemia, non-Hodgkin's lymphoma, chronic back pain (h/o laminectomy) and remote h/o tobacco dependence. He was admitted with multiple metastatic lesions in his liver, spine, possibly from colorectal source given thickening on CT imaging and severe hypercalcemia. He denies any fevers or chills, nausea or vomiting. He does not feel very hungry at this time. He continues to feel generalized malaise, but denies focal weakness or numbness. His calcium has slowly improved from 17 on admission to in the 13.3 this morning. He received one dose of calcitonin but this did not seem to help with his calcium level so this was discontinued. He was also given one dose of zometa. Further workup including PTH and vitamin D are pending. Patient has a history of lymphoma many years ago that was treated and he has had no recent evidence of recurrence. He has had back pain over the past few years but his states he has declined quite rapidly recently over the past few weeks. He was seeing orthopedic surgery (Dr. Hare) who ordered an MRI which was done a week ago. That MRI was obtained, and did show evidence metastasis in T2 and T1, severe L3-L4 central canal stenosis with compression of the nerve roots of the cauda equina, severe foraminal narrowing of the L3-L5 nerve roots, and a chronic appearing L2 compression fracture. I discussed with Dr. Hare today over the phone. He said there is no urgent findings on the MRI and he does not require steroids for edema or cord compression and that it was to try and help with his pain. Dr. Hare will try and see the patient on Friday when he returns if the patient is still here. He recommended that if the patient has pain when he is able to ambulate that a back brace may be of assistance to help with ambulation. Exam Vital Signs (past 8 hours): - 01/14/20 08:00 01/14/20 08:27 01/14/20 10:07 Temperature 98.5 F Pulse Rate 100 H 105 H Respiratory Rate 14 Blood Pressure 132/84 113/77 Pulse Oximetry 93 94 01/14/20 12:00 Temperature 98.5 F Pulse Rate 98 H Respiratory Rate 19 Blood Pressure 103/65 Pulse Oximetry 92 Oxygen Delivery Method Nasal Cannula Oxygen Flow Rate 2 Narrative Exam Narrative: GENERAL APPEARANCE: Ill-appearing, lethargic elderly male but in no acute distress SKIN: Inspection of the skin reveals no rashes, ulcerations or petechiae. HEENT: The sclerae were anicteric and conjunctivae were pink and moist. Extraocular movements were intact and pupils were equal, round with normal accommodation. External inspection of the ears and nose showed no scars, lesions, or masses. Lips, teeth, and gums showed normal mucosa. The oral mucosa, hard and soft palate, tongue and posterior pharynx were unremarkable. NECK: Supple and symmetric. There was no thyroid enlargement, and no tenderness, or masses were felt. There was no cervical lymphadenopathy that was palpable. CHEST: Normal AP diameter and normal contour without any kyphoscoliosis. LUNGS: Auscultation of the lungs revealed no wheezes, rhonchi, or rales. CARDIOVASCULAR: There was a regular rate and rhythm without any murmurs, gallops, rubs. Peripheral pulses were 2+ and symmetric. ABDOMEN: Soft and nontender with normal bowel sounds. No ascites was noted. There was no palpable lymphadenopathy in his groin. MUSCULOSKELETAL: There was no tenderness or effusions noted. Muscle strength and tone were normal. EXTREMITIES: No cyanosis, clubbing. There is trace peripheral edema. NEUROLOGIC: Alert and oriented x 3. Lethargic and globally weak. Sensation to touch was normal. Objective Labs Result Diagrams: 01/14/20 06:05 01/14/20 06:05 Labs: Laboratory Results - last 24 hr 01/12/20 01/14/20 01/14/20 20:03 06:05 06:05 WBC 13.5 H RBC 4.62 Hgb 15.6 Hct 45.7 MCV 99.1 MCH 33.9 MCHC 34.2 RDW 14.6 Plt Count 148 L Neut % (Auto) 88.4 H Lymph % (Auto) 5.4 L [place] % (Auto) 5.3 Eos % (Auto) 0.3 L Baso % (Auto) 0.6 Neut # (Auto) 80743 H Lymph # (Auto) 700 L [place] # (Auto) 700 Eos # (Auto) 0 Baso # (Auto) 100 ABG pH 7.48 H ABG pCO2 42.3 ABG pO2 96 ABG HCO3 32 H ABG Total CO2 33 H ABG O2 Saturation 98 ABG Base Excess 8.0 H FiO2 28 Sodium 144 Potassium 3.1 L Chloride 107 Carbon Dioxide 31 BUN 56 H Creatinine 2.00 H Estimated GFR 32.3 L BUN/Creatinine Ratio 28.0 H Glucose 119 H Calcium 13.3 H* Magnesium 1.5 L Total Bilirubin 0.6 Conjugated Bilirubin 0.0 Unconjugated Bilirubin 0.6 AST 25 ALT 18 Alkaline Phosphatase 66 Total Protein 5.7 L Albumin 2.8 L Globulin 2.9 Albumin/Globulin Ratio 1.0 Assessment & Plan Assessment & Plan narrative: The patient is an 79-year-old male with PMH of HTN, CAD (h/o LAD stent), AFIB (AC w/ Eliquis), LVEF 55-60%, mild-to- moderate MR, dyslipidemia, non-Hodgkin's lymphoma, chronic back pain (h/o laminectomy) and remote h/o tobacco dependence. He was admitted with multiple metastatic lesions in his liver, spine, possibly from colorectal source given thickening on CT imaging and severe hypercalcemia. 1. Severe hypercalcemia, acute, present on admission, active - Suspected that this is due to underlying malignancy. CT imaging w/ concern for metastatic disease. He has a history of non-Hodgkin's lymphoma in the remote past. -patient received a few doses of IV Lasix, and remains on 200 cc of fluid per hour. -calcitonin was given x1, without significant improvement in his calcium level. This medication was not continued. -PTH, and vitamin-D levels are currently pending -patient was given 1 dose of Zometa -continue strict I&O, Evans catheter is currently in place. 2. Back pain, multiple spinal metastases, liver metastases, present on admission - - He has had back pain over the past few years but his states he has declined quite rapidly recently over the past few weeks. He was seeing orthopedic surgery (Dr. Hare) who ordered an MRI which was done a week ago. That MRI show evidence metastasis in T2 and T1, severe L3-L4 central canal stenosis with compression of the nerve roots of the cauda equina, severe foraminal narrowing of the L3-L5 nerve roots, and a chronic appearing L2 compression fracture. I discussed with Dr. Hare today over the phone. He said there is no urgent findings on the MRI and he does not require steroids for edema or cord compression and that it was to try and help with his pain. Dr. Hare will try and see the patient on Friday when he returns if the patient is still here. He r ecommended that if the patient has pain when he is able to ambulate that a back brace may be of assistance to help with ambulation. - CT findings with 24 mm lucent mass within the right L4 vertebral body. There is a 20 mm lucent focus within the right L5 vertebral body. Scattered smaller low-density foci are seen throughout the remainder of the thoracolumbar spine, pelvis, and proximal femora. 33 mm lucent focus within the right anterior iliac wing. -continue oxycodone and Tylenol as needed for current pain management -may need increased pain control once ambulatory. As noted above patient may benefit from a back brace per Dr. Hare. -Dr. Hare may be able to assist with a bone biopsy if there is one accessible. He did recommend a complete bone scan. The earliest this could be arranged is friday. -There is distal colon and sigmoid thickening on his CT imaging, this would fit with a primary colon cancer as a possible diagnosis of his likely malignancy. 3. Melena, acute, present on admission, active - Hgb 18.4 on presentation - Guiac stool positive in ED - general surgery and did not wish to perform colonoscopy or endoscopy during this admission given patient's stability, lack of anemia, and other medical co- morbidities. - Hold Eliquis - Protonix 40 mg BID - would recommend outpatient colonoscopy, preferrably with gastroenterology, as this may reveal the source of his malignancy. 4. TONE, present on admission, active - Cr 2.1 (baseline Cr 1.2-1.3) on admission, suspected to be in the setting of dehydration and hypercalcemia. He has only slightly improved to 2.0. - Hold olmesartan-HCTZ - continue to follow Creatinine. - continue IVF for treatment of hypercalcemia as noted above. 5. Possible Acute respiratory failure w/ hypoxia, acute, present on admission, active - initially presented with O2 saturation of 88% on room air. He remains at 92% today on 2L. Etiology unclear at this time. This may be due to generalized weakness in the setting of hypercalcemia, malignancy. He may also have a component of sleep apnea leading to desaturations. - Flu A/B negative - RT eval and treat - DuoNeb prn - Supplemental O2 prn, wean if able 6. Hypomagnesemia, acute, active - continue repletion as necessary. 7. Hypokalemia, acute, active. - continue repletion as necessary, working to correct Mg level as well. 8. Leukocytosis WBC 14.6, acute, present on admission, active - likely reactive secondary to recent steroid use for low back pain - Blood Cx no growth today - UA negative -no antibiotics are necessary at this time. 9. Essential HTN, chronic condition, present on admission, active - BP elevated, likely a sequela of hypercalcemia - Trend BP, will treat w/ prn agents for SBP > 180 mmHg - Resume home anti-hypertensive agents except as noted above 10. Thyroid nodules (CT finding), acute, present on admission, active - Consider thyroid ultrasound 11. Paroxysmal atrial fibrillation, rate controlled, chronic condition, present on admission, active - Eliquis on hold given melena -patient is not currently on home amiodarone 12. toxic metabolic encephalopathy, present on admission - secondary to hypercalcemia - continue management as noted above. - CT head was negative for acute pathologies. Full Code. Patient reports having a health directive. Designated DPOA is his . Home medications reviewed and reconciled accordingly VTE prophylaxis w/ SCDs Dispo: Once improved from hypercalcemia, he will need to start PT/OT as he may require significant rehab after hospitalization given weakness and spinal lesions. Quality VTE Deep Vein Thrombosis/Pulmonary Embolism Present on Admission: No
[2020-01-14] MEDS: DOXAZOSIN 4 MG TABLET 8 MG PO (16:37)
[2020-01-14] MEDS: ATORVASTATIN 20 MG TABLET 40 MG PO (20:18)
[2020-01-15] VITALS (10 sets, daily range): BP systolic 141–165; BP diastolic 76–98; PULSE 93–107; RESP 12–20; TEMP 36.3–37.6; O2SAT 89–94
[2020-01-15] MEDS: SODIUM CHLORIDE 0.9% 1,000 ML 200 ML IV ×3 (00:36→10:20)
[2020-01-15] MEDS: OXYCODONE IR 5 MG TABLET PO ×2 (02:13→09:30)
[2020-01-15 06:09] LABS: Add Manual Diff / Slide Review NO; Basophils Absolute Auto 100 /uL (0-100); Basophils Percent Auto 0.6 % (0-2); Eosinophils Absolute Auto 200 /uL (0-450); Eosinophils Percent Auto 1.7 % (2-4); Hematocrit 42.4 % (41-53); Hemoglobin 14.6 g/dL (13.5-17.5); Lymphocytes Absolute Auto 900 /uL (1100-4500); Lymphocytes Percent Auto 8.7 % (25-40); Mean Corpuscular HGB Conc 34.3 % (30-36); Mean Corpuscular Hemoglobin 33.7 PG (26-34); Mean Corpuscular Volume 98.2 fL (80-100); Monocytes Absolute Auto 800 /uL (0-900); Monocytes Percent Auto 7.1 % (3-14); Neutrophils Absolute Auto 8700 /uL (1500-7000); Neutrophils Percent Auto 81.9 % (50-75); Platelet Count 130 X10^3/uL (150-400); Red Blood Cell Count 4.32 X10^6/uL (4.5-5.9); White Blood Cell Count 10.6 X10^3/uL (4.5-11.0)
[2020-01-15 06:13] LABS: Alanine Aminotransferase 20 IU/L (<50); Albumin 2.6 g/dL (3.5-5.0); Albumin Globulin Ratio 0.9 (1.0-2.8); Alkaline Phosphatase 64 U/L (38-126); Aspartate Aminotransferase 24 IU/L (17-59); BUN Creatinine Ratio 27.2 (6-22); Bilirubin Total 0.4 mg/dL (0.2-1.3); Bilirubin Unconjugated 0.4 mg/dL (0.0-1.1); Blood Urea Nitrogen 49 mg/dL (9-20); Calcium 11.3 mg/dL (8.4-10.2); Carbon Dioxide 28 mmol/L (22-32); Chloride 110 mmol/L (98-107); Estimated Glomerular Filt Rate 36.5 mL/min (>60); Globulin 2.9 g/dL (1.7-4.1); Glucose 100 mg/dL (80-110); HEMOLYSIS 20 (0-50); Magnesium 1.4 mg/dL (1.6-2.3); Potassium 3.2 mmol/L (3.4-5.1); Sodium 143 mmol/L (137-145); Total Protein 5.5 g/dL (6.3-8.2)
[2020-01-15 06:50] LABS: TSH w/ Reflex to FT4 0.67 uIU/mL (0.47-4.68)
[2020-01-15] MEDS: PANTOPRAZOLE 40 MG VIAL IV ×2 (08:06→20:07)
[2020-01-15] MEDS: AMLODIPINE 5 MG TABLET PO ×2 (09:30→20:07)
[2020-01-15] MEDS: METOPROLOL ER 25 MG TABLET PO (09:30)
--- NOTE | 2020-01-15 10:27 | PC.NURSE ---
Addendum entered by Unique Laboy R.N. 01/15/20 13:46: MRI - after return from MRI, pt lab and urine collected, repositioned upright for lunch w/spouse at bedside. Original Note: AM NOTE - PT OBSERVED OPEN MOUTH SNORING DURING BEDSIDE SHIFT REPORT, DOES AWAKEN FOR VITALS, SPEECH PATTERN AND MOVEMENTS ARE DELAYED, RESPONSES ARE APPROPRIATE, 2.5l SAT 94% WITH SOME UPPER AIRWAY EXPIR WHEEZES, HR 106, +BT, BLISS WITH CLEAR, YELLOW URINE. LATER ASSISTED UPRIGHT FOR BREAKFAST, POOR APPETITE, OFFERED BOOST TO SIP MID MEAL.
--- NOTE | 2020-01-15 10:53 | ONC.CONS ---
History of Present Illness - Data of Consult Patient: new to practice Consult date: 01/15/20 Requesting Physician: Andreina Ariza MD Primary Care Provider: Dusty Cui MD - Consult Narrative Reason for consult: Metastatic cancer of unknown primary Narrative: Jeremiah Martinez is a 79 year old male with medical history of non-Hodgkin's lymphoma, hypertension, atrial fibrillation on Eliquis, and chronic kidney disease. He was admitted to the hospital due to rapidly declining mental status on 11/19/2020. He was found to have severe hypercalcemia of 17 on admission. Admission head CT was without acute intracranial abnormality. CT chest abdomen pelvis showed bilateral thyroid nodules, multiple indeterminate hepatic lesions, thickening of the distal sigmoid colon and rectum, and multiple lucent foci in bones: a 24 mm lucent mass within the right L4 vertebral body, a 20 mm lucent focus within the right L5 vertebral body, and smaller low-density foci throughout the reminder of the thoracolumnar spine, pelvis, and proximal femur, as well as a 33 mm lucent focus within the right anterior iliac wing. Patient has received intravenous fluids, calcitonin, and Zometa infusion after he was admitted to the hospital. His serum calcium level has been decreasing. Today the serum calcium level was 11.3. When I saw the patient, he appeared awake and alert. He is complaining right-sided hip pain and right-sided upper abdomen and right-sided rib pain especially upon inspiration. He is also complaining lower back pain. Patient denies any fever or chills. Denies nausea vomiting. Patient has some shortness of breath but no chest pain. He recalled that he developed right hip pain as well as pain across the lower back since about October of 2019. He especially complained of the right hip pain and he was not able to walk because of the pain. Patient did not remember what type of non-Hodgkin's lymphoma he had in the past. He remembered he received chemotherapy but not radiation therapy. CC: DOMITILA Dawkins Patient reports pain?: Yes - Pain Details Pain Intensity: 6 Pain Scale Used: Numeric (1 - 10) Home Medications and Allergies Home Medications Medication Instructions Recorded Confirmed Type amlodipine 5 mg tablet 5 mg PO BID 03/10/19 01/13/20 History aspirin 81 mg tablet,delayed 81 mg PO QPM 03/23/19 01/13/20 History release acetaminophen 1,000 mg PO Q6H #60 cap 03/31/19 01/13/20 Rx oxycodone See Rx Instructions .ROUTE 03/31/19 01/13/20 Rx .COMPLEX PRN #20 cap doxazosin 8 mg PO QPM 04/01/19 01/13/20 History olmesartan 20 mg PO QPM 04/01/19 01/13/20 History olmesartan-hydrochlorothiazide 1 tab PO QAM 04/01/19 01/13/20 History testosterone cypionate 100 mg IM Q2W 04/01/19 01/13/20 History amiodarone 200 mg PO BIDWM #12 tab 04/23/19 01/13/20 Rx amiodarone 200 mg PO DAILY #30 tab 04/23/19 01/13/20 Rx apixaban 5 mg PO BID #60 tab 04/23/19 01/13/20 Rx atorvastatin [Lipitor] 40 mg PO BEDTIME #60 tab 04/23/19 01/13/20 Rx metoprolol succinate 25 mg PO DAILY #30 tab 04/23/19 01/13/20 Rx polyethylene glycol 3350 17 gram PO TID #1 each 04/23/19 01/13/20 Rx psyllium husk (aspartame) 1 packet PO TID #44 each 04/23/19 01/13/20 Rx [Metamucil Fiber Singles] sulfamethoxazole-trimethoprim 1 tab PO BID #70 tab 04/23/19 01/13/20 Rx tolterodine [Detrol] 2 mg PO BID #16 tab 04/23/19 01/13/20 Rx Allergies Allergy/AdvReac Type Severity Reaction Status Date / Time No Known Drug Allergies Allergy Verified 04/12/19 13:45 Medical History - Medical, Surgical, Family History Medical History: Medical History (Last Reviewed 01/13/20 @ 03:26 by DOMITILA Dawkins) Arthritis CAD (coronary artery disease) Diverticulosis Former smoker GI bleed Onset Date: ~03/2015 H. pylori infection Onset Date: ~03/2015 Hematemesis Onset Date: ~03/2015 History of back problems HLD (hyperlipidemia) Hypertension Internal hemorrhoid Kidney stones Onset Date: 07/10/15 Non-Hodgkin lymphoma Ulcer Surgical History: Surgical History (Last Reviewed 01/13/20 @ 03:26 by DOMITILA Dawkins) H/O wrist surgery Onset Date: ~1972 Hx of heart artery stent Onset Date: ~2010 Hx of laminectomy Onset Date: 09/07/15 Hx of lymph node excision Onset Date: ~1988 Previous back surgery Onset Date: ~2014 S/P hemorrhoidectomy Family History: Family History (Last Reviewed 01/13/20 @ 03:26 by DOMITILA Dawkins) Father Hypertension Heart disease Sister Cancer Mother Hypertension - Social History Smoking Status: Former smoker Exam Vital signs: Vital Signs Temp Pulse Resp BP Pulse Ox 01/15/20 08:43 89 L 01/15/20 08:00 99.1 F 102 H 17 154/89 H 94 01/15/20 06:39 99 H 01/15/20 05:18 92 01/15/20 04:15 99.7 F H 107 H 12 165/90 H 89 L 01/15/20 00:10 99.3 F 105 H 14 155/96 H 92 01/14/20 20:00 99.0 F 100 H 20 125/68 95 01/14/20 16:00 98.0 F 100 H 20 136/87 95 01/14/20 12:00 98.5 F 98 H 19 103/65 92 Intake and Output 01/14/20 01/15/20 01/15/20 23:59 07:59 15:59 Intake Total 2150 / 5170 1611.667 / 2661.667 1050 / 2661.667 Output Total 450 / 1750 1250 / 1250 Balance 1700 / 3420 361.667 / 4945.446 2318 / 1411.667 Intake: IV 1999 / 3999 936.667 / 0817.305 6935 / 1936.667 Sodium Chloride 0.9% 1,000 ml @ 2000 / 4000 936.667 / 5364.740 7546 / 1936.667 200 mls/hr IV CONT BRYANNA Rx#: [id number] Oral 150 / 1170 675 / 725 50 / 725 Output: Urine Amount (Catheter) 450 / 1750 1250 / 1250 Other: Percent Meal Consumed 100% 25% Weight 92 kg Patient Weight 01/15/20 23:59 Weight 92 kg 01/15/20 11:45 ECOG 2 Narrative: Gen: WDWN, obese, chronically ill, appeared tired, NAD, pleasant and cooperative. HEENT: NCAT, EOMI, PERRLA, anicteric sclera. O2 via nasal cannula noted. Neck: Supple, I did not appreciate any enlarged neck or supraclavicular lymph nodes.. Respiratory: CTAB, no wheezes audible. No JVD. Right-sided chest tenderness noted upon palpation. Cardiovascular: RRR, S1 and S2 normal, no M/G/R. Abdomen: Soft, mild nonspecific abdominal pain noted especially over the right upper quadrant. No palpable hepato splenomegaly. Extremities: No LE pitting edema. Lymphatic: no palpable lymph nodes in the neck, axillae, or groins. Neurological: AOx3, CN II-XII grossly intact. No focal motor or sensory deficit. Psychiatric: Some known and, but easily awakable. Cooperative Results - Labs Laboratory Last Values WBC 10.6 X10^3/uL (4.5-11.0) 01/15/20 05:50 RBC 4.32 X10^6/uL (4.5-5.9) L 01/15/20 05:50 Hgb 14.6 g/dL (13.5-17.5) 01/15/20 05:50 Hct 42.4 % (41-53) 01/15/20 05:50 MCV 98.2 fL (80-100) 01/15/20 05:50 MCH 33.7 PG (26-34) 01/15/20 05:50 MCHC 34.3 % (30-36) 01/15/20 05:50 RDW 14.0 % (11.6-14.8) 01/15/20 05:50 Plt Count 130 X10^3/uL (150-400) L 01/15/20 05:50 Neut % (Auto) 81.9 % (50-75) H 01/15/20 05:50 Lymph % (Auto) 8.7 % (25-40) L 01/15/20 05:50 [place] % (Auto) 7.1 % (3-14) 01/15/20 05:50 Eos % (Auto) 1.7 % (2-4) L 01/15/20 05:50 Baso % (Auto) 0.6 % (0-2) 01/15/20 05:50 Neut # (Auto) 8700 /uL (3417-1669) H 01/15/20 05:50 Lymph # (Auto) 900 /uL (0934-0742) L 01/15/20 05:50 [place] # (Auto) 800 /uL (0-900) 01/15/20 05:50 Eos # (Auto) 200 /uL (0-450) 01/15/20 05:50 Baso # (Auto) 100 /uL (0-100) 01/15/20 05:50 PT 13.8 SECONDS (10.1-12.7) H 01/12/20 19:40 INR 1.2 (0.9-1.3) 01/12/20 19:40 APTT 29 SECONDS (26.4-36.2) 01/12/20 19:40 ABG pH 7.48 (7.35-7.45) H 01/12/20 20:03 ABG pCO2 42.3 mmHg (35-45) 01/12/20 20:03 ABG pO2 96 mmHg (80-100) 01/12/20 20:03 ABG HCO3 32 mmol/L (22-26) H 01/12/20 20:03 ABG Total CO2 33 mmol/L (21-31) H 01/12/20 20:03 ABG O2 Saturation 98 % (95-100) 01/12/20 20:03 ABG Base Excess 8.0 mmol/L (-2-2) H 01/12/20 20:03 FiO2 28 01/12/20 20:03 Sodium 143 mmol/L (137-145) 01/15/20 05:50 Potassium 3.2 mmol/L (3.4-5.1) L 01/15/20 05:50 Chloride 110 mmol/L (98-107) H 01/15/20 05:50 Carbon Dioxide 28 mmol/L (22-32) 01/15/20 05:50 BUN 49 mg/dL (9-20) H 01/15/20 05:50 Creatinine 1.80 mg/dL (0.66-1.25) H 01/15/20 05:50 Estimated GFR 36.5 mL/min (>60) L 01/15/20 05:50 BUN/Creatinine Ratio 27.2 (6-22) H 01/15/20 05:50 Glucose 100 mg/dL (80-110) 01/15/20 05:50 Lactate 1.5 mmol/L (0.7-2.1) 01/12/20 19:40 Calcium 11.3 mg/dL (8.4-10.2) H 01/15/20 05:50 Phosphorus 4.0 mg/dL (2.3-3.7) H 01/13/20 06:45 Magnesium 1.4 mg/dL (1.6-2.3) L 01/15/20 05:50 Total Bilirubin 0.4 mg/dL (0.2-1.3) 01/15/20 05:50 Conjugated Bilirubin 0.0 md/dL (0.0-0.3) 01/15/20 05:50 Unconjugated Bilirubin 0.4 mg/dL (0.0-1.1) 01/15/20 05:50 AST 24 IU/L (17-59) 01/15/20 05:50 ALT 20 IU/L (<50) 01/15/20 05:50 Alkaline Phosphatase 64 U/L (38-126) 01/15/20 05:50 NT-Pro-B Natriuret Pep 59 pg/mL (<450) 01/12/20 19:40 Total Protein 5.5 g/dL (6.3-8.2) L 01/15/20 05:50 Albumin 2.6 g/dL (3.5-5.0) L 01/15/20 05:50 Globulin 2.9 g/dL (1.7-4.1) 01/15/20 05:50 Albumin/Globulin Ratio 0.9 (1.0-2.8) L 01/15/20 05:50 Procalcitonin < 0.05 ng/mL (<0.5) 01/13/20 06:45 TSH 0.67 uIU/mL (0.47-4.68) 01/15/20 05:50 Urine Color Straw 01/12/20 23:54 Urine Appearance Clear 01/12/20 23:54 Urine pH 6.0 (4.5-8.0) 01/12/20 23:54 Ur Specific [place] 1.010 (1.000-1.035) 01/12/20 23:54 Urine Protein Negative (Negative) 01/12/20:54 Urine Glucose (UA) Negative g/dL (Negative) 01/12/20 23:54 Urine Ketones Negative (NEGATIVE) 01/12/20:54 Urine Occult Blood Trace-intact (Negative) 01/12/20:54 Urine Nitrate Negative (Negative) 01/12/20:54 Urine Bilirubin Negative (NEGATIVE) 01/12/20:54 Urine Urobilinogen 0.2 E.U./dL (0.2) 01/12/20:54 Ur Leukocyte Esterase Negative (NEGATIVE) 01/12/20:54 Urine RBC None seen (0-5/HPF) 01/12/20: Urine WBC None seen (0-5/HPF) 01/12/20:54 Urine Bacteria None seen (None) 01/12/20:54 Ur Culture Indicated? 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 He developed right hip pain as well as pain across the lower back since 2018. He was admitted to the hospital because of severe hypercalcemia on 01/12/2020. Multiple metastatic bone lesions involving rib, multiple levels of vertebra, pelvis as well as multiple possible lesions in the liver on CT scan on admission. Assessment: Patient's severe hypercalcemia has been decreasing after patient was given fluids, Zometa, and calcitonin. The etiology of the hypercalcemia most likely is related to the underlying malignancy. The multiple lesions in the bone as well as the possible lesions in the liver are consistent with metastatic cancer. The differential diagnosis is wide, including multiple myeloma, primary hyperparathyroidism, or other unknown malignancy. In my opinion, a tissue diagnosis is the most important at this moment. I would recommend obtaining blood samples to test for multiple myeloma. If it is highly suspicious, I would recommend bone marrow aspiration biopsy; otherwise I would recommend biopsy from the right pelvic bone soft tissue mass. Please schedule follow up visit with me after discharge. Plan: 1. Continue current management for hypercalcemia 2. Whole body bone scan 3. Serum SPEP, IFIX, SFLC, LDH, B2M 4. Urine: UPEP, IFIX 5. If M-spike present, recommend BMA/Bx (I can arrange to get it done at our Clinic) 6. If M-spike negative, recommend CT guided bx of right pelvis bone lesion Thanks for involving me in the care of Singh Jones. I will follow prn. Call me any time. 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 when kidney function improves, consider repeat CT scan with liver protocol.
--- NOTE | 2020-01-15 11:09 | DI.NM.S_ITS ---
PROCEDURE: NM BONE SCAN WHOLE BODY RADIOPHARMACEUTICAL: 24.1 mCi Tc-99m MDP IV. INDICATIONS: multiple mets to bone and spine TECHNIQUE: Delayed whole-body scintigrams were obtained approximately 3-4 hours after intravenous injection of radiotracer. Anterior and posterior views were acquired from vertex to feet. COMPARISON: [facility], MR, MR HEAD/BRAIN WO/W CON, 01/15/2020, 11:30. [facility], CT, CT CHEST ABD PEL W CON, 01/12/2020, 20:46. FINDINGS: There are multiple foci of increased activity involving the calvarium, lower thoracic (T12 at midline spine), lumbar spine (L1, L4 and L5), the right 10th rib, iliac bones bilaterally right greater than left, and right femoral neck, consistent with metastases. On the comparison CT, there numerous lytic bone lesions. IMPRESSION: Multiple foci of abnormal uptake as described, consistent osseous metastases. The Bone scan is likely underestimated the severity of metastatic disease as more lytic lesions are visible on CT. Dictated by: Sharda Gaines M.D. on 01/17/2020 at 18:16 Approved by: Sharda Gaines M.D. on 01/17/2020 at 18:26
--- NOTE | 2020-01-15 11:13 | DI.MRI.S_ITS ---
PROCEDURE: MR HEAD/BRAIN WO/W CON INDICATIONS: multi mets to bone and liver, unknown primary TECHNIQUE: Noncontrast axial T1 spin echo, axial T2 fast spin echo, sagittal and axial FLAIR, coronal T2 fast spin echo, axial gradient echo, axial diffusion and ADC through the brain. After the administration of contrast, axial and coronal 3D VIBE or T1 spin echo with fat saturation through the brain. COMPARISON: [facility], CT, CT CHEST ABD PEL W CON, 01/12/2020, 20:46. [facility], CT, CT HEAD/BRAIN WO CON, 01/12/2020, 20:43. FINDINGS: Image quality: Excellent. CSF Spaces: Basal cisterns are patent. No extra-axial fluid collections. Ventricles are normal in size and shape. Brain: No midline shift. No intracranial bleeds or masses. No abnormal intracranial enhancement. The brainstem appears normal. Diffusion-weighted images demonstrate no acute ischemic insults. No chronic ischemic insults. Normal intravascular flow voids are present. 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 Orbits appear normal. Sinuses: Sinuses and mastoids appear clear. IMPRESSION: 1. Age related volume loss and moderate small vessel ischemic change. 2. No evidence acute stroke, hemorrhage, or intracranial mass. 3. 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 Dictated by: Kenan Best M.D. on 01/15/2020 at 12:42 Approved by: Kenan Best M.D. on 01/15/2020 at 12:48
--- NOTE | 2020-01-15 12:03 | P.PN_ITS ---
Subjective Subjective Date Patient Seen: 01/15/20 Interval history: Jeremiah Martinez is an 79-year-old male with past medical history significant for CAD status post stent to LAD, hypertension, hyperlipidemia, atrial fibrillation on Eliquis, [id number] mitral regurgitation, non-Hodgkin's lymphoma, former smoker, and chronic back pain who presented to the ED with progressive worsening confusion and weakness who was found to have severe hypercalcemia with multiple metastatic lesions to liver and spine. The patient is resting in bed comfortably. He continues to endorse right hip and low back pain that is well controlled on oxycodone. He endorses intermittent confusion and hallucinations for which he knows are not real and may be related to the narcotics versus cancer versus hypercalcemia. He also reports fatigue. Discussed goals of care for which the patient reports that he would rather be awake, alert, and able to converse with his loved ones and be in mild to moderate pain than in little pain and sleeping most of the time. He has no other complaints and denies headache, chest pain, shortness of breath, abdominal pain, nausea, vomiting, fever, chills, dysuria, diarrhea or constipation. He endorses a poor appetite and generalized weakness. Plan for physical therapy today. Exam Vital Signs (past 8 hours): - 01/15/20 04:15 01/15/20 05:18 01/15/20 06:39 Temperature 99.7 F H Pulse Rate 107 H 99 H Respiratory Rate 12 Blood Pressure 165/90 H Pulse Oximetry 89 L 92 01/15/20 08:00 01/15/20 08:43 Temperature 99.1 F Pulse Rate 102 H Respiratory Rate 17 Blood Pressure 154/89 H Pulse Oximetry 94 89 L Oxygen Delivery Method Room Air Oxygen Flow Rate 2.5 Narrative Exam Narrative: General: Elderly male sitting in bed and in no acute distress, appears chronically ill, somnolent and falling asleep mid sentence but otherwise man ropriately interactive. HEENT: Normocephalic, atraumatic. External ears without defect. Pupils equal, round, and reactive to light. Anicteric sclerae, moist conjunctivae, and no lid lag. Dry oral mucosa. Neck: Supple with full range of motion. No jugular venous distension. No lymphadenopathy or thyromegaly. Cardiovascular: Regular rate and rhythm without murmurs, rubs, or gallops appreciated. Reproducible chest pain on right chest wall with palpation. Pulmonary: Clear to auscultation bilaterally without crackles, wheezes, or rhonchi. Normal respiratory effort with no use of accessory muscles. Abdomen: Soft, bowel sounds present, nontender, nondistended. No hepatosplenomegaly or masses appreciated. Extremities: No clubbing, cyanosis, or edema. Reproducible right hip pain upon palpation. Skin: Normal temperature, turgor, and texture; no rash, ulcers, or subcutaneous nodules appreciated. Neurological: Cranial nerves grossly intact. Psychiatric: Somnolent but arousable. Appears to be alert and oriented to at least person and place. Patient endorses confusion at times and hallucinations. Objective Labs Result Diagrams: 01/16/20 05:50 01/16/20 05:50 Labs: Laboratory Results - last 24 hr 01/15/20 01/15/20 01/15/20 05:50 05:50 05:50 WBC 10.6 RBC 4.32 L Hgb 14.6 Hct 42.4 MCV 98.2 MCH 33.7 MCHC 34.3 RDW 14.0 Plt Count 130 L Neut % (Auto) 81.9 H Lymph % (Auto) 8.7 L [place] % (Auto) 7.1 Eos % (Auto) 1.7 L Baso % (Auto) 0.6 Neut # (Auto) 8700 H Lymph # (Auto) 900 L [place] # (Auto) 800 Eos # (Auto) 200 Baso # (Auto) 100 Sodium 143 Potassium 3.2 L Chloride 110 H Carbon Dioxide 28 BUN 49 H Creatinine 1.80 H Estimated GFR 36.5 L BUN/Creatinine Ratio 27.2 H Glucose 100 Calcium 11.3 H Magnesium 1.4 L Total Bilirubin 0.4 Conjugated Bilirubin 0.0 Unconjugated Bilirubin 0.4 AST 24 ALT 20 Alkaline Phosphatase 64 Total Protein 5.5 L Albumin 2.6 L Globulin 2.9 Albumin/Globulin Ratio 0.9 L TSH 0.67 Assessment & Plan Assessment & Plan narrative: Jeremiah Martinez is an 79-year-old male with past medical history significant for CAD status post stent to LAD, hypertension, hyperlipidemia, atrial fibrillation on Eliquis, [id number] mitral regurgitation, non-Hodgkin's lymphoma, former smoker, and chronic back pain who presented to the ED with progressive worsening confusion and weakness who was found to have severe hypercalcemia with multiple metastatic lesions to liver and spine. 1. Acute severe hypercalcemia, secondary to malignancy of unknown origin, present on admission. Resolving. -Suspected that this is due to underlying malignancy of unknown origin. He has a history of non-Hodgkin's lymphoma in the remote past. -CT chest, abdomen and pelvis with contrast demonstrated bilateral thyroid nodules, coronary artery disease, multiple indeterminate hepatic lesions, suggestive of metastatic disease, thickening of the distal sigmoid colon and rectum and multiple lucent foci within the visualized spine, consistent with metastatic disease versus multiple myeloma. -Initial calcium level 17.0. Calcium level trending down now 11.3. -Received calcitonin 300 units IM x 1, zoledronic acid 4 mg IV x1, furosemide 40 mg IV x2 with steady improvement in his calcium. This medication was not continued. -iPTH level normal at 16. Vitamin D level inadvertently not ordered and has now been sent. UPEP with immunofixation, SPEP with immunofixation and free kappa and lambda light chains pending. 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 -Continue strict I&O and daily weight. -Continue IV fluids with normal saline decreased from 200 mL/hr to 125 mL/hr. Continue to monitor for signs of fluid overload including hypoxemia and shortness of breath. 2. Acute metabolic encephalopathy, present on admission. Resolving. -Secondary to hypercalcemia. -MR brain with contrast demonstrated probable tiny calvarial metastatic lesions, however, noncontributory to metabolic encephalopathy. No masses, CVA or hemorrhage. -Continue management as noted above. 3. Acute kidney injury on chronic kidney disease stage 3, present on admission. Acute kidney injuries resolving. -Suspected to be in the setting of dehydration and hypercalcemia. -Initial creatinine 2.1. Baseline Cr 1.2-1.3. Creatinine continues to trend mindi n now 1.8 with treatment of hypercalcemia and dehydration as above. -Held olmesartan/HCTZ. -Continue IV fluids as above. 4. 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 Active. -He has had back pain over the past few years but his states he has declined quite rapidly recently over the past few weeks. He was seeing orthopedic surgery (Dr. Hare) who ordered an MRI which was done a week ago. That MRI show evidence metastasis in T2 and T1, severe L3-L4 central canal stenosis with compression of the nerve roots of the cauda equina, severe foraminal narrowing of the L3-L5 nerve roots, and a chronic appearing L2 compression fracture. Previous provider discussed patient with Dr. Hare who did related that there are no urgent findings on the MRI and he does not require steroids for edema or cord compression and that it was to try and help with his pain. Dr. Hare will plan to see the patient 1st thing next week when he returns if the patient is still here. He recommended that if the patient has pain when he is able to ambulate that a back brace may be of assistance to help with ambulation. Dr. Hare may be able to assist with a bone biopsy if there is one accessible. -CT chest abdomen and pelvis with contrast demonstrated 33 mm lucent focus within the right anterior iliac wing. 24 mm lucent mass within the right L4 vertebral body, 20 mm lucent focus within the right L5 vertebral body and scattered smaller low-density foci are seen throughout the remainder of the thoracolumbar spine, pelvis, and proximal femur -Continue oxycodone 5-325 mg every 6 hours as needed for current pain management. Pain is currently well controlled but may need increased pain control once ambulatory. As noted above patient may benefit from a back brace per Dr. Hare. -Ordered nuclear medicine full body bone scan, pending. 5. Acute melena, present on admission. Resolved. -Initial hemoglobin 18.4 on admission. Hemoglobin trended downward with IV fluid resuscitation and is stable at 14.6. -Guaiac stool positive in ED. -General surgery and did not wish to perform colonoscopy or endoscopy during this admission given patient's hemodynamic stability, lack of anemia, and other medical co-morbidities. Recommend outpatient upper and lower endoscopy, preferrably with gastroenterology, in near future. -Held Eliquis initially due to melena. Restarted Eliquis 5 mg twice daily due to high risk of VTE with malignancy and paroxysmal atrial fibrillation. Continue to monitor blood counts and for signs of bleeding closely. -Continue Protonix 40 mg PO daily. 6. Acute hypomagnesemia, not present on admission. Active. -Secondary to hemodilution from IV fluids. Patient has received several doses of magnesium sulfate IV. -Continue to monitor magnesium level daily and replete as necessary. 7. Acute hypokalemia, not present on admission. Active. -Secondary to hemodilution from IV fluids. Patient has received several doses of potassium chloride IV. -Continue to monitor potassium level daily and replete as necessary. 8. Paroxysmal atrial fibrillation on Eliquis, chronic, present on admission. Stable. -Initially held Eliquis due to possible melena as above. Restarted Eliquis 5 mg twice daily due to high risk of VTE with malignancy and paroxysmal atrial fibrillation. -Continue metoprolol succinate 25 mg daily for rate control. Patient med reconciliation listed amiodarone as home medication but patient is no longer taking this. 9. Acute leukocytosis, present on admission. Resolved. -Likely reactive secondary to recent steroid use for low back pain -Initial WBC 14.6. WBC trended down and normalized. -Blood cultures x2 have no growth to date. Urinalysis negative. No antibiotics indicated at this time. 10. Hypertension, chronic, present on admission. Stable. -Blood pressure in a [place] elevated and likely a sequela of hypercalcemia. -Continue home amlodipine 5 mg twice daily and metoprolol succinate 25 mg daily. Held olmesartan/hydrochlorothiazide. 11. Acute hypoxemic respiratory failure ruled out. -Initially presented with oxygen saturation of 88% on room air. Goal oxygen saturation 88-92%. Continue supplemental oxygen as necessary to main oxygen saturations 88-92%. -Of note, patient may have a component of sleep apnea leading to desaturations. Code status: Full Code. Patient reports having a health directive. Designated DPOA is his . VTE prophylaxis: SCDs and Eliquis Disposition: Patient will likely discharge to snf facility in several days once hypercalcemia has resolved and malignancy workup has been pursued. Quality VTE Deep Vein Thrombosis/Pulmonary Embolism Present on Admission: No
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
--- NOTE | 2020-01-15 15:00 | PT.IIE ---
Current Diagnoses Hypercalcemia (01/12/20) Surgical History (Last Reviewed 01/13/20 @ 03:26 by DOMITILA Dawkins) H/O wrist surgery (Resolved ~1972) Hx of heart artery stent (Resolved ~2010) Hx of laminectomy (Resolved 09/07/15) Hx of lymph node excision (Resolved ~1988) Previous back surgery (Resolved ~2014) S/P hemorrhoidectomy (Acute) Medical History (Last Reviewed 01/13/20 @ 03:26 by DOMITILA Dawkins) Arthritis (Acute) CAD (coronary artery disease) (Chronic) Diverticulosis (Acute) Former smoker (Acute) GI bleed (Resolved ~03/2015) H. pylori infection (Resolved ~03/2015) Hematemesis (Acute ~03/2015) History of back problems (Chronic) HLD (hyperlipidemia) (Chronic) Hypertension (Chronic) Internal hemorrhoid (Resolved) Kidney stones (Chronic 07/10/15) Non-Hodgkin lymphoma (Chronic) Ulcer (Acute) Physical Therapy Inpatient Evaluation/Re-Eval M1 PT/OT-IP Prior Functional Status Start: 01/15/20 15:46 Freq: NEEDED Status: Active Protocol: Document 01/15/20 15:00 AB (Rec: 01/15/20 16:16 AB [id number]) Medical Review Prior Functional Status Medical History Reviewed Yes Communication very sleepy but able to answer questions appropriately Mobility and Gait spouse stated that elías yee modified independent with all mobilities and ambulation using a SPC but has been getting weaker and has been using a FWW for the last 3 days. stated that she has been assisting pt with getting up from the bed/toilet as well. Social History Household Members spouse Living Arrangements House Number of Floors (Floors) 3 or More Floors Number of Stairs To Enter/Railing? has 2 steps without rails to enter from the garage has 5 steps down to bedroom level without rails Home Environment High Toilet,Walk in Shower Home Equipment Front Wheel Walker,Straight Cane,Hand Held Shower M2 PT-IP Current Condition Start: 01/15/20 15:46 Freq: NEEDED Status: Active Protocol: Document 01/15/20 15:00 AB (Rec: 01/15/20 16:16 AB [id number]) Physical Therapy Current Condition Current Condition Evaluation Date 01/15/20 Treatment Diagnosis hypercalcemia;spinal metastases, liver metastases; difficulty in walking Onset Date 01/12/2020 Precautions Other Precautions O2 sat M3 PT-IP Subjective Start: 01/15/20 15:46 Freq: NEEDED Status: Active Protocol: Document 01/15/20 15:00 AB (Rec: 01/15/20 16:16 AB [id number]) Subjective Physical Therapy Visit Type Type Initial Evaluation Visit Start Time 15:00 Visit Stop Time 15:43 Total Visit Minutes 43 Number of EMPLOYEE BENEFITS ATTORNEY Visits 0 Physical Therapy Visit Comments Patient Comments pt agreeable to do PT Therapy Pain Assessment Pain Present Pain Present Denied Pain M4 PT-IP Mobility and Gait Start: 01/15/20 15:46 Freq: NEEDED Status: Active Protocol: Document 01/15/20 15:00 AB (Rec: 01/15/20 16:16 AB [id number]) PT-Bed Mobility Assessment Rolling Type of Rolling Log Rolling Level of Assist Maximal Assistance,2 Person Assistance Supine to Sit Supine to Sit Maximum Assistance,2 Person Assistance Sit to Supine Sit to Supine Moderate Assistance,2 Person Assistance Scooting Scooting Up and Down in Bed Maximum Assistance PT-Transfer Assessment Sit to and From Stand Sit to and from Stand Moderate Assistance,2 Person Assistance,Use of Upper Extremities Equipment Transfer Assistive Device Gait Belt,Front Wheeled Walker Orthotic/Prosthetic Devices or Brace: No Comments Mobility Comments pt agreeable to do PT. spouse in room with pt. pt educated on log roll bed mobility and completed with max A x 2 and max cues . pt was able to sit on EOB with initial min A but able to sit SBA after repositionining. completed sit to stand mod A x 2 and max cues. ambulated ~ 3 ft forward and then backwards using FWW mod A x 2 and max cues. pt (+) UE shakiness and stated that he is tire. pt completed sit to supine mod A ax 2 and max cues. positioned pt in bed. call light and table placed within reach. Gait Assessment Gait Gait Assistance Required: Moderate Assistance,2 Person Assist Distance (Feet) 6 Able to Maintain Weight Bearing Status Yes During Gait Assistive Devices Assistive Device Gait Belt,Front Wheeled Walker Orthotic/Prosthetic Devices or Brace: No Gait Deviations General Gait Pattern Antalgic,Decreased Stride Length,Decreased Feet Clearance,Step-to Gait Factors Limiting Gait Function Factors Limiting Gait Function Decreased Activity Tolerance, Decreased Strength,Poor Balance,Poor Safety Awareness, Respiratory Distress Comments Gait Comments pls refer to mobility section for details PT-Balance Assessment Sitting Balance and Reactions Static Sitting Balance Ability Good Dynamic Sitting Balance Ability Fair Standing Balance and Reactions Static Standing Balance Ability Poor Dynamic Standing Balance Ability Poor Device Used FWW M5 PT-IP Objective Assessments Start: 01/15/20 15:46 Freq: NEEDED Status: Active Protocol: Document 01/15/20 15:00 AB (Rec: 01/15/20 16:16 AB [id number]) Orientation Orientation/Cognition Level of Alertness Alert Orientation Name,Age,Birthday,Place, Situation Language Function Ability No Deficits Noted Safety Awareness Decreased Safety Awareness Gross Range of Motion Lower Extremity ROM Assessment Within Functional Limits Strength Lower Extremity Strength Assessment Right Impaired Hip 3+/5 Knee 3+/5 Coordination Assessment Gross Coordination Gross Coordination WNL Muscle Tone Muscle Tone WNL Yes M6 PT-IP Treatment Start: 01/15/20 15:46 Freq: NEEDED Status: Active Protocol: Document 01/15/20 15:00 AB (Rec: 01/15/20 16:16 AB [id number]) Physical Therapy Treatment Education Education Provided Safety M7 PT-IP Assessment and Plan Start: 01/15/20 15:46 Freq: NEEDED Status: Active Protocol: Document 01/15/20 15:00 AB (Rec: 01/15/20 16:16 AB [id number]) PT Summary Assessment and Plan Potential Rehabilitation Potential Fair Status of Condition at Evaluation Evolving Summary Impairments Pain,ROM,Strength,Balance, Coordination,Sensation,Tone, Cognition,Bed Mobility, Transfers,Gait,Activity Tolerance Assessment Summary pt requiring 2 person mod to max A and max cues with mobility. pt with decrease activity tolerance affectig mobility. pt at this time will require SNF rehab to improve strength function. 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
[2020-01-15 15:02] LABS: PSA Free % 28 % (calc) (> 25); PSA, Total 13.1 ng/mL (< 4.1)
--- NOTE | 2020-01-15 15:12 | OT.IP.EVAL ---
Current Diagnoses Hypercalcemia (01/12/20) Past Medical History (Last Reviewed 01/13/20 @ 03:26 by DOMITILA Dawkins) Arthritis (Acute) CAD (coronary artery disease) (Chronic) Diverticulosis (Acute) Former smoker (Acute) GI bleed (Resolved ~03/2015) H. pylori infection (Resolved ~03/2015) Hematemesis (Acute ~03/2015) History of back problems (Chronic) HLD (hyperlipidemia) (Chronic) Hypertension (Chronic) Internal hemorrhoid (Resolved) Kidney stones (Chronic 07/10/15) Non-Hodgkin lymphoma (Chronic) Ulcer (Acute) Surgical History (Last Reviewed 01/13/20 @ 03:26 by DOMITILA Dawkins) H/O wrist surgery (Resolved ~1972) Hx of heart artery stent (Resolved ~2010) Hx of laminectomy (Resolved 09/07/15) Hx of lymph node excision (Resolved ~1988) Previous back surgery (Resolved ~2014) S/P hemorrhoidectomy (Acute) Occupational Therapy Inpatient Evaluation/Re-Eval M1 PT/OT-IP Prior Functional Status Start: 01/15/20 15:46 Freq: NEEDED Status: Active Protocol: Document 01/15/20 15:00 AB (Rec: 01/15/20 16:16 AB [id number]) Medical Review Prior Functional Status Medical History Reviewed Yes Communication very sleepy but able to answer questions appropriately Mobility and Gait spouse stated that pt was modified independent with all mobilities and ambulation using a SPC but has been getting weaker and has been using a FWW for the last 3 days. stated that she has been assisting pt with getting up from the bed/toilet as well. Social History Household Members spouse Living Arrangements House Number of Floors (Floors) 3 or More Floors Number of Stairs To Enter/Railing? has 2 steps without rails to enter from the garage has 5 steps down to bedroom level without rails Home Environment High Toilet,Walk in Shower Home Equipment Front Wheel Walker,Straight Cane,Hand Held Shower M1 PT/OT-IP Prior Functional Status Start: 01/15/20 15:50 Freq: NEEDED Status: Active Protocol: Document 01/15/20 15:50 [facility] (Rec: 01/15/20 16:21 [facility] [id number]) Medical Review Prior Functional Status Medical History Reviewed Yes Communication Independent. Mobility and Gait Per pt one week ago, pt was able to use SPC, now having to use FWW. Activities of Daily Living and IADL's Prior to this past week, pt able to do basic ADl's. Per for these past few days has not changed clothes and needing assist to stand form the toilet. Social History Household Members spouse Living Arrangements House Number of Floors (Floors) 3 or More Floors Number of Stairs To Enter/Railing? Pt has 2 steps with refrigerator and cabinet to help hold to from the garage and two steps from the front and no rails. 5 steps down with no rails to rec. room. Home Environment High Toilet,Walk in Shower Home Equipment Front Wheel Walker,Straight Cane M2 OT-IP Current Condition Start: 01/15/20 15:50 Freq: Status: Active Protocol: Document 01/15/20 15:50 [facility] (Rec: 01/15/20 16:21 [facility] [id number]) Occupational Therapy Current Condition Current Condition Evaluation Date 01/15/20 Treatment Diagnosis Severe Hypercalcemia, decreased mobility Diagnosis Onset Date 01/12/20 Post Operative Precautions Lumbar Precautions Log Roll,No Twisting,Limit Bending,Lifting Restriction of 10 lbs,Gait Belt above Incisional Area Other Precautions Due to back pain- multiple spinal metastates to do lumbar precautions. Weight Bearing Status Weight Bearing Status Weight Bear as Tolerated M3 OT- IP Subjective and Pain Start: 01/15/20 15:50 Freq: Status: Active Protocol: Document 01/15/20 15:50 [facility] (Rec: 01/15/20 16:21 [facility] [id number]) OT- Subjective Occupational Therapy Visit Type Type Initial Evaluation Visit Start Time 15:12 Visit Stop Time 15:43 Total Visit Minutes 31 Occupational Therapy Visit Comments Patient Comments Pt very tired and but agreeable to try to get up. PT, , and FINE ARTIST also present in the room. Patient/Caregiver Goals Pt's uncertain of plan for pt pending medical progress and status but realizes that she may not be able to provide enough care for the pt. OT Pain Assessment Pain When Pain Assessed At Rest Pain Present Pain Present Denied Pain M4 OT- IP ADL's Start: 01/15/20 15:50 Freq: Status: Active Protocol: Document 01/15/20 15:50 [facility] (Rec: 01/15/20 16:21 [facility] [id number]) OT [id number] Comments OT Self-Feeding Comments Not at meal time. OT ADL-Grooming Comments OT Grooming Comments Pt refusing at this time, due to too tired. OT ADL-Dressing General Eval Lower Body Dressing Ability Total Assistance Areas Needing Assistance Socks OT ADL-Toileting General Evaluation Toileting Ability Total Assistance Areas Needing Assistance Empty Catheter or Colostomy OT ADL-Bathing Comments OT Bathing Comments Not at this time, due to fatigue and decreased mobility would benefit from sponge bath. M6 OT- IP Functional Cognition Start: 01/15/20 15:50 Freq: Status: Active Protocol: Document 01/15/20 15:50 [facility] (Rec: 01/15/20 16:21 [facility] [id number]) Cognitive Factors Limiting Selfcare Function Cognitive Ability Level of Alertness Alert,Confusional State Patient Orientation Name Attention Span Ability Capable of Focused Attention, Unable to Sustain Attention Ability to Follow Commands Able to Follow One Step Commands with Increased Time, Able to Follow One Step Commands with Repetition Problem Solving Ability Unable to Identify Errors, Needs Assist to Identify Solutions Cognitive Comments Cognitive Assessment Comments Pt very fatigues and sleepy and having a hard time to keep his eyes open and follow commands at this time. OT- Vision and Hearing OT- Hearing Assessment OT- Hearing Assessment WFL M7 OT- IP Mobility and Balance Start: 01/15/20 15:50 Freq: Status: Active Protocol: Document 01/15/20 15:50 [facility] (Rec: 01/15/20 16:21 [facility] [id number]) OT- Bed Mobility Assessment Rolling Type of Rolling Roll to Left Level of Assistance Maximum Assistance,2 Person Assistance,Bedrails Supine to Sit Supine to Sit Assist Maximum Assistance,2 Person Assistance,Bedrails Sit to Supine Sit to Supine Assist Moderate Assistance,1 Person Assistance,Bedrails OT-Transfer Assessment Sit to and From Stand Sit to and from Stand Moderate Assistance,2 Person Assistance Devices Transfer Assistive Devices Gait Belt,Front Wheeled Walker Comments Mobility Comments Pt needing when coming to stand needing assist to block his feet and MODA X 2 to stand . MAX A X 2 for log rolling and to get upright and back into bed mainly just assist to get his left leg into the bed . OT- Balance Assessment Sitting Balance and Reactions Static Sitting Balance Ability Good Standing Balance and Reactions Static Standing Balance Ability Poor M8 OT- IP Objective Assessments Start: 01/15/20 15:50 Freq: Status: Active Protocol: Document 01/15/20 15:50 [facility] (Rec: 01/15/20 16:21 [facility] [id number]) OT Gross Range of Motion Upper Extremity Range of Motion Assessment Within Functional Limits OT Strength Upper Extremity Strength Assessment Within Functional Limits M9 OT- IP Assessment and Plan Start: 01/15/20 15:50 Freq: Status: Active Protocol: Document 01/15/20 15:50 [facility] (Rec: 01/15/20 16:21 [facility] [id number]) OT Summary Assessment and Plan Potential Rehabilitation Potential Fair Analytic Complexity at Evaluation Low Summary OT Impairments Balance,Functional Cognition, Functional Mobility,Grooming, Dressing,Toileting,Bathing, Toilet Transfers,Shower Transfers,Activity Tolerance Progress Towards Goals Slow Progress due to Medical Issues,Slow Progress due to Activity Tolerance Assessment Summary Pt MOD complexity due to now needing assist extensive for all ADl and functional mobility needs, 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 Pending medical progress, and caregiver training, pt may need skilled rehab versus home with . Goals Self-Feeding Goal Independent Grooming Goal Standby Assistance Dressing Goal Minimal Assistance Toileting Goal Minimal Assistance Bathing Goal Moderate Assistance Toilet Transfer Goal Standby Assistance Shower Transfer Goal Contact Guard Assistance Patient/Caregiver Education Goal Caregiver Independent Assisting Patient Days to Meet Goals 7 Frequency of Treatment Frequency Of Treatment Once a Day Treatment Plan OT Treatment Plan ADL Training,Functional Cognition Training,Functional Mobility,Patient/Family Education,Discharge Planning Discharge Recommendations OT Discharge Recommendations SNF Rehab Home Equipment Needs BSC, shower chair
[2020-01-15 15:13] LABS: Ionized Calcium > 7.0
[2020-01-15 15:15] LABS: Parathyroid Hormone Int 16 pg/mL (14-64)
[2020-01-15] MEDS: DOXAZOSIN 4 MG TABLET 8 MG PO (17:05)
[2020-01-15] MEDS: MAGNESIUM SULFATE 2 GM/50 ML PIGGYBACK IV (17:59)
[2020-01-15] MEDS: SODIUM CHLORIDE 0.9% 1,000 ML 125 ML IV (18:02)
[2020-01-15] MEDS: POTASSIUM CHLORIDE 40 MEQ in SODIUM CHLORIDE 0.9% 500 ML 130 ML IV (20:05)
[2020-01-15] MEDS: ATORVASTATIN 20 MG TABLET 40 MG PO (20:07)
[2020-01-16] VITALS (7 sets, daily range): BP systolic 145–162; BP diastolic 70–103; PULSE 86–96; RESP 17–20; TEMP 36.7–37.3; O2SAT 93–96
[2020-01-16] MEDS: NYSTATIN CREAM 30 GM 1 APPLIC TOP ×2 (02:04→10:00)
[2020-01-16] MEDS: SODIUM CHLORIDE 0.9% 1,000 ML 125 ML IV ×2 (06:16→15:52)
[2020-01-16 06:18] LABS: Add Manual Diff / Slide Review NO; Basophils Absolute Auto 100 /uL (0-100); Basophils Percent Auto 0.6 % (0-2); Eosinophils Absolute Auto 300 /uL (0-450); Eosinophils Percent Auto 2.9 % (2-4); Hemoglobin 14.3 g/dL (13.5-17.5); Lymphocytes Absolute Auto 1300 /uL (1100-4500); Lymphocytes Percent Auto 14.2 % (25-40); Mean Corpuscular Hemoglobin 33.7 PG (26-34); Mean Corpuscular Volume 99.2 fL (80-100); Monocytes Absolute Auto 900 /uL (0-900); Monocytes Percent Auto 9.9 % (3-14); Neutrophils Absolute Auto 6900 /uL (1500-7000); Neutrophils Percent Auto 72.4 % (50-75); Platelet Count 126 X10^3/uL (150-400); Red Blood Cell Count 4.24 X10^6/uL (4.5-5.9); Red Cell Distribution Width 14.6 % (11.6-14.8); White Blood Cell Count 9.5 X10^3/uL (4.5-11.0)
[2020-01-16 06:24] LABS: Alanine Aminotransferase 20 IU/L (<50); Albumin 2.7 g/dL (3.5-5.0); Albumin Globulin Ratio 0.9 (1.0-2.8); Alkaline Phosphatase 73 U/L (38-126); Aspartate Aminotransferase 25 IU/L (17-59); BUN Creatinine Ratio 23.5 (6-22); Bilirubin Total 0.4 mg/dL (0.2-1.3); Bilirubin Unconjugated 0.4 mg/dL (0.0-1.1); Blood Urea Nitrogen 40 mg/dL (9-20); Calcium 10.1 mg/dL (8.4-10.2); Carbon Dioxide 28 mmol/L (22-32); Chloride 109 mmol/L (98-107); Globulin 2.9 g/dL (1.7-4.1); Glucose 107 mg/dL (80-110); HEMOLYSIS 16 (0-50); Magnesium 1.6 mg/dL (1.6-2.3); Potassium 3.1 mmol/L (3.4-5.1); Sodium 141 mmol/L (137-145); Total Protein 5.6 g/dL (6.3-8.2)
[2020-01-16] MEDS: OXYCODONE IR 5 MG TABLET PO (09:24)
[2020-01-16] MEDS: PANTOPRAZOLE 40 MG VIAL IV (09:24)
[2020-01-16] MEDS: METOPROLOL ER 25 MG TABLET PO (09:25)
[2020-01-16] MEDS: AMLODIPINE 5 MG TABLET PO ×2 (09:25→20:08)
--- NOTE | 2020-01-16 10:34 | PT.IPTN ---
Current Diagnoses Hypercalcemia (01/12/20) Physical Therapy Treatment Note M2 PT-IP Current Condition Start: 01/15/20 15:46 Freq: NEEDED Status: Active Protocol: Document 01/15/20 15:00 AB (Rec: 01/15/20 16:16 AB [id number]) Physical Therapy Current Condition Current Condition Evaluation Date 01/15/20 Treatment Diagnosis hypercalcemia;spinal metastases, liver metastases; difficulty in walking Onset Date 01/12/2020 Precautions Other Precautions O2 sat M3 PT-IP Subjective Start: 01/15/20 15:46 Freq: NEEDED Status: Active Protocol: Document 01/16/20 10:34 [facility] (Rec: 01/16/20 12:34 [facility] [id number]) Subjective Physical Therapy Visit Type Type Treatment Note Visit Start Time 10:34 Visit Stop Time 11:00 Total Visit Minutes 26 Notes Co-treated with PT Unique Number of ICE CREAM MACHINE OPERATOR Visits 1 Physical Therapy Visit Comments Patient Comments pt agreeable to do PT Therapy Pain Assessment Pain When Pain Assessed During Mobility Pain Present Pain Present Pain Reported Location Back Intensity 5 Scale Used Numeric (1 - 10) M4 PT-IP Mobility and Gait Start: 01/15/20 15:46 Freq: NEEDED Status: Active Protocol: Document 01/16/20 10:34 [facility] (Rec: 01/16/20 12:34 [facility] [id number]) PT-Bed Mobility Assessment Supine to Sit Supine to Sit Moderate Assistance,2 Person Assistance,Head of Bed Elevated,Bedrails Scooting Scooting Up and Down in Bed Moderate Assistance PT-Transfer Assessment Sit to and From Stand Sit to and from Stand Minimal Assistance,2 Person Assistance,Use of Upper Extremities Equipment Transfer Assistive Device Gait Belt,Front Wheeled Walker Orthotic/Prosthetic Devices or Brace: No Transfers Transfer Destination Chair,Bedside Commode Transfer Ability Level of Assist Minimal Assistance,2 Person Assistance Comments Mobility Comments Pt agreed to transfer to BSC as per request of nursing. Pt required Mod A supine to sit and then to EOB, pt was able to wt shift onto hip to assist with getting to EOB. Pt then required cues for hand placement and Min A x2 sit- stand. Pt was able to take small steps and pivot to left onto BSC. Pt required tactile cues to get to arms of BSC for safe descent on to commode. FENCE MAKING MACHINE OPERATOR performed pericare while therapist assisted pt CGA for standing balance. Pt then ambulated ~5ft to chair requiring Min A x2 while pt managed walker and therapists managed IV pole and O2 line. Pt on 2L with SpO2 remaining at 94% and HR ranged from 104- 120 bpm. Left pt in chair with all needs within reach and chair alarm on. Gait Assessment Gait Gait Assistance Required: Minimum Assistance,2 Person Assist Distance (Feet) 5 Able to Maintain Weight Bearing Status Yes During Gait Assistive Devices Assistive Device Gait Belt,Front Wheeled Walker Orthotic/Prosthetic Devices or Brace: No Gait Deviations General Gait Pattern Antalgic,Decreased Stride Length,Decreased Feet Clearance,Step-to Gait Factors Limiting Gait Function Factors Limiting Gait Function Decreased Activity Tolerance, Decreased Strength,Poor Balance,Poor Safety Awareness, Respiratory Distress Comments Gait Comments pls refer to mobility section for details M5 PT-IP Objective Assessments Start: 01/15/20 15:46 Freq: NEEDED Status: Active Protocol: Document 01/15/20 15:00 AB (Rec: 01/15/20 16:16 AB [id number]) Orientation Orientation/Cognition Level of Alertness Alert Orientation Name,Age,Birthday,Place, Situation Language Function Ability No Deficits Noted Safety Awareness Decreased Safety Awareness Gross Range of Motion Lower Extremity ROM Assessment Within Functional Limits Strength Lower Extremity Strength Assessment Right Impaired Hip 3+/5 Knee 3+/5 Coordination Assessment Gross Coordination Gross Coordination WNL Muscle Tone Muscle Tone WNL Yes M6 PT-IP Treatment Start: 01/15/20 15:46 Freq: NEEDED Status: Active Protocol: Document 01/15/20 15:00 AB (Rec: 01/15/20 16:16 AB [id number]) Physical Therapy Treatment Education Education Provided Safety M7 PT-IP Assessment and Plan Start: 01/15/20 15:46 Freq: NEEDED Status: Active Protocol: Document 01/16/20 10:34 [facility] (Rec: 01/16/20 12:34 [facility] [id number]) PT Summary Assessment and Plan Potential Rehabilitation Potential Fair Status of Condition at Evaluation Evolving Summary Impairments Pain,ROM,Strength,Balance, Coordination,Sensation,Tone, Cognition,Bed Mobility, Transfers,Gait,Activity Tolerance Assessment Summary Pt improving with mobility requiring 2 person Min A and max cues with transfers and mobility. Pt able to transfer to BSC then ambulate ~5ft while managing the FWW with Min A x2. Pt will benefit from SNF rehab to improve strength and activity tolerance for functional mobility and safety . Goals Bed Mobility Goal Standby Assistance Transfer Goal Standby Assistance,Front Wheeled Walker Gait Goal Standby Assistance,Front Wheel Walker Gait Distance 100 Other Goals up/down 5 steps SPC/SUPERVISOR PARTICLEBOARD min A Days to Meet Goals 10 Frequency of Treatment Frequency Of Treatment Once a Day Treatment Plan Physical Therapy Treatment Plan Bed Mobility Training,Transfer Training,Gait Training, Therapeutic Exercise,Balance Retraining,Discharge Planning, Neuromuscular Re-ed Recommendations To Nursing Amount of Assist Needed 2 Person Assist Discharge Recommendations PT Discharge Recommendations SNF Rehab
--- NOTE | 2020-01-16 11:11 | PC.NURSE ---
AM NOTE - pt asleep with open mouth breathing, 2l 94%, awakens easily for vitals and feels hungry for breakfast, pt speech is clearer this am and responses are less delayed and are appropriate to questions, states he is aware at times of being confused, particulary at night feels disoriented at times, this am I'm glad to see the sun when looking out window, discussed care today and mobilization, pt eager to try oob, did have soft bm this am, bs w/upper expir wheezes, dim bases, some scrotal edema and redness, heel seat fitter in this am an bath completed,nystatin to scrotal area, states back discomfort 6 on scale 0/10 this am, given 5mg po oxycodone with breakfast, phys therapy in after breakfast and pt was assisted to dangle, using fww, stood w/x2 assist and was able to take steps to the bsc and had a large bm, then ambul in room from bed to window with phys therapy and then to chair w/alarm set.
--- NOTE | 2020-01-16 13:08 | P.PN_ITS ---
Subjective Subjective Date Patient Seen: 01/16/20 Interval history: Jeremiah Martinez is an 79-year-old male with past medical history significant for CAD status post stent to LAD, hypertension, hyperlipidemia, atrial fibrillation on Eliquis, [id number] mitral regurgitation, non-Hodgkin's lymphoma, former smoker, and chronic back pain who presented to the ED with progressive worsening confusion and weakness who was found to have severe hypercalcemia with multiple metastatic lesions to liver and spine. The patient is resting in bedside chair comfortably. He is much more awake, alert and mentating clearly. He has no complaints and denies headache, chest pain, shortness of breath, abdominal pain, nausea, vomiting, fever, chills, dysuria, diarrhea or constipation. He his appetite has slightly improved. He is voiding and eliminating without difficulty. Patient continues to have generalized weakness and requires assistance with ambulation. Continue physical therapy. Exam Vital Signs (past 8 hours): - 01/16/20 07:50 01/16/20 07:58 Temperature 98.4 F Pulse Rate 92 H Respiratory Rate 17 Blood Pressure 162/91 H Pulse Oximetry 96 95 Oxygen Delivery Method Nasal Cannula Oxygen Flow Rate 3 Narrative Exam Narrative: General: Elderly male sitting in bed and in no acute distress, appears chronically ill, awake and alert, appropriately interactive. HEENT: Normocephalic, atraumatic. External ears without defect. Pupils equal, round, and reactive to light. Anicteric sclerae, moist conjunctivae, and no lid lag. Moist oral mucosa. Neck: Supple with full range of motion. No jugular venous distension. No lymphadenopathy or thyromegaly. Cardiovascular: Regular rate and rhythm without murmurs, rubs, or gallops appreciated. Reproducible chest pain on right chest wall with palpation. Pulmonary: Clear to auscultation bilaterally without crackles, wheezes, or rhonchi. Normal respiratory effort with no use of accessory muscles. Abdomen: Soft, bowel sounds present, nontender, nondistended. No hepatosplenomegaly or masses appreciated. Extremities: No clubbing, cyanosis, or edema. Reproducible right hip pain upon palpation. Skin: Normal temperature, turgor, and texture; no rash, ulcers, or subcutaneous nodules appreciated. Neurological: Cranial nerves grossly intact. Psychiatric: Appears to be alert and oriented to at least person and place. Patient is much more awake, alert, and mentating clearly. Objective Labs Result Diagrams: 01/16/20 05:50 01/17/20 05:35 Labs: Laboratory Results - last 24 hr 01/12/20 01/12/20 01/12/20 20:30 20:30 20:30 WBC RBC Hgb Hct MCV MCH MCHC RDW Plt Count Neut % (Auto) Lymph % (Auto) [place] % (Auto) Eos % (Auto) Baso % (Auto) Neut # (Auto) Lymph # (Auto) [place] # (Auto) Eos # (Auto) Baso # (Auto) Sodium Potassium Chloride Carbon Dioxide BUN Creatinine Estimated GFR BUN/Creatinine Ratio Glucose Calcium Ionized Calcium Quoc > 7.0 Magnesium Total Bilirubin Conjugated Bilirubin Unconjugated Bilirubin AST ALT Alkaline Phosphatase Total Protein Albumin Globulin Albumin/Globulin Ratio Prostate Specific Ag 13.1 H Free PSA 3.7 % Free PSA Calc 28 PTH Intact 16 01/16/20 01/16/20 05:50 05:50 WBC 9.5 RBC 4.24 L Hgb 14.3 Hct 42.0 MCV 99.2 MCH 33.7 MCHC 34.0 RDW 14.6 Plt Count 126 L Neut % (Auto) 72.4 Lymph % (Auto) 14.2 L [place] % (Auto) 9.9 Eos % (Auto) 2.9 Baso % (Auto) 0.6 Neut # (Auto) 6900 Lymph # (Auto) 1300 [place] # (Auto) 900 Eos # (Auto) 300 Baso # (Auto) 100 Sodium 141 Potassium 3.1 L Chloride 109 H Carbon Dioxide 28 BUN 40 H Creatinine 1.70 H Estimated GFR 39.0 L BUN/Creatinine Ratio 23.5 H Glucose 107 Calcium 10.1 Ionized Calcium Quoc Magnesium 1.6 Total Bilirubin 0.4 Conjugated Bilirubin 0.0 Unconjugated Bilirubin 0.4 AST 25 ALT 20 Alkaline Phosphatase 73 Total Protein 5.6 L Albumin 2.7 L Globulin 2.9 Albumin/Globulin Ratio 0.9 L Prostate Specific Ag Free PSA % Free PSA Calc PTH Intact Assessment & Plan Assessment & Plan narrative: Jeremiah Martinez is an 79-year-old male with past medical history significant for CAD status post stent to LAD, hypertension, hyperlipidemia, atrial fibrillation on Eliquis, [id number] mitral regurgitation, non-Hodgkin's lymphoma, former smoker, and chronic back pain who presented to the ED with progressive worsening confusion and weakness who was found to have severe hypercalcemia with multiple metastatic lesions to liver and spine. 1. Acute severe hypercalcemia, secondary to malignancy of unknown origin, present on admission. Resolving. -Suspected that this is due to underlying malignancy of unknown origin. He has a history of non-Hodgkin's lymphoma in the remote past. -CT chest, abdomen and pelvis with contrast demonstrated bilateral thyroid nodules, coronary artery disease, multiple indeterminate hepatic lesions, suggestive of metastatic disease, thickening of the distal sigmoid colon and rectum and multiple lucent foci within the visualized spine, consistent with metastatic disease versus multiple myeloma. -Initial calcium level 17.0. Calcium level trending down now 10.1. -Received calcitonin 300 units IM x 1, zoledronic acid 4 mg IV x1, furosemide 40 mg IV x2 with steady improvement in his calcium. This medication was not continued. -iPTH level normal at 16. Vitamin D level inadvertently not ordered and has now been sent. Ordered UPEP with immunofixation, SPEP with immunofixation and free kappa and lambda light chains which are send out tests and pending. 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 -Continue strict I&O and daily weight. -Discontinued IV fluids as patient appears to be adequately hydrated and calcium level has normalized Continue to monitor for signs of fluid overload including hypoxemia and shortness of breath. -Ordered nuclear medicine full body bone scan, pending. -Consulted Oncology, Dr. Cooney, for further evaluation of primary malignancy. We appreciate his time and care of the patient. 2. Acute metabolic encephalopathy, present on admission. Resolved. -Secondary to hypercalcemia. -MR brain with contrast demonstrated probable tiny calvarial metastatic lesions, however, noncontributory to metabolic encephalopathy. No masses, CVA or hemorrhage. -Continue management as noted above. 3. Acute kidney injury on chronic kidney disease stage 3, present on admission. Acute kidney injuries resolving. -Suspected to be in the setting of dehydration and hypercalcemia. -Initial creatinine 2.1. Baseline Cr 1.2-1.3. Creatinine continues to trend down now 1.8 with treatment of hypercalcemia and dehydration as above. -Held olmesartan/HCTZ. -Continue IV fluids as above. 4. 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 Active. -He has had back pain over the past few years but his states he has declined quite rapidly recently over the past few weeks. He was seeing orthopedic surgery (Dr. Hare) who ordered an MRI which was done a week ago. That MRI show evidence metastasis in T2 and T1, severe L3-L4 central canal stenosis with compression of the nerve roots of the cauda equina, severe foraminal narrowing of the L3-L5 nerve roots, and a chronic appearing L2 compression fracture. Previous provider discussed patient with Dr. Hare who did related that there are no urgent findings on the MRI and he does not require steroids for edema or cord compression and that it was to try and help with his pain. Dr. Hare will plan to see the patient 1st thing next week when he returns if the patient is still here. He recommended that if the patient has pain when he is able to ambulate that a back brace may be of assistance to help with ambulation. Dr. Hare may be able to assist with a bone biopsy if there is one accessible. -CT chest abdomen and pelvis with contrast demonstrated 33 mm lucent focus within the right anterior iliac wing. 24 mm lucent mass within the right L4 vertebral body, 20 mm lucent focus within the right L5 vertebral body and scattered smaller low-density foci are seen throughout the remainder of the thoracolumbar spine, pelvis, and proximal femur -Continue oxycodone 5-325 mg every 6 hours as needed for current pain nehemiah gement. Pain is currently well controlled but may need increased pain control once ambulatory. As noted above patient may benefit from a back brace per Dr. Hare. -Ordered nuclear medicine full body bone scan, pending. 5. Acute melena, present on admission. Resolved. -Initial hemoglobin 18.4 on admission. Hemoglobin trended downward with IV fluid resuscitation and is stable at 14.6. -Guaiac stool positive in ED. -General surgery and did not wish to perform colonoscopy or endoscopy during this admission given patient's hemodynamic stability, lack of anemia, and other medical co-morbidities. Recommend outpatient upper and lower endoscopy, preferrably with gastroenterology, in near future. -Held Eliquis initially due to melena. Restarted Eliquis 5 mg twice daily due to high risk of VTE with malignancy and paroxysmal atrial fibrillation. Continue to monitor blood counts and for signs of bleeding closely. -Continue Protonix 40 mg PO daily. 6. Acute hypomagnesemia, not present on admission. Active. -Secondary to hemodilution from IV fluids. Patient has received several doses of magnesium sulfate IV. -Continue to monitor magnesium level daily and replete as necessary. 7. Acute hypokalemia, not present on admission. Active. -Secondary to hemodilution from IV fluids. Patient has received several doses of potassium chloride IV. -Continue to monitor potassium level daily and replete as necessary. 8. Paroxysmal atrial fibrillation on Eliquis, chronic, present on admission. St able. -Initially held Eliquis due to possible melena as above. Restarted Eliquis 5 mg twice daily due to high risk of VTE with malignancy and paroxysmal atrial fibrillation. -Continue metoprolol succinate 25 mg daily for rate control. Patient med reconciliation listed amiodarone as home medication but patient is no longer taking this. 9. Acute leukocytosis, present on admission. Resolved. -Likely reactive secondary to recent steroid use for low back pain. -Initial WBC 14.6. WBC trended down and normalized. -Blood cultures x2 have no growth to date. Urinalysis negative. No antibiotics indicated at this time. 10. Hypertension, chronic, present on admission. Stable. -Blood pressure initially elevated and likely a sequela of hypercalcemia. -Continue home amlodipine 5 mg twice daily and metoprolol succinate 25 mg daily. Held olmesartan/hydrochlorothiazide. 11. Acute hypoxemic respiratory failure ruled out. -Initially presented with oxygen saturation of 88% on room air. Goal oxygen saturation 88-92%. Continue supplemental oxygen as necessary to main oxygen saturations 88-92%. -Of note, patient may have a component of sleep apnea leading to desaturations. Code status: Full Code. Patient reports having a health directive. Designated DPOA is his . VTE prophylaxis: SCDs and Eliquis Disposition: Patient will likely discharge to fdc facility for continued rehabilitation in 1-2 after nuclear medicine full body bone scan. Quality VTE Deep Vein Thrombosis/Pulmonary Embolism Present on Admission: No
--- NOTE | 2020-01-16 14:03 | CM.DPC ---
DCP Cont: It is noted that P.T. is recommending that patient go to skilled. Called patient's , Abby. stated, yes, I know that he will need correction. Asked about some facilities, and mentioned, she is familiar with [facility], and [facility], but is not sure, would like to discuss with her daughter who works at [facility], for she can ask one of the nurses there. Mentioned that patient could potentially be discharged tomorrow, and asked Abby if referrals can be sent to [facility] and [facility] for now. stated, would be ok to send, but would still like to do some research. Spoke to Nany at [facility], she did get referral. Stated, 'her only concern, is if patient goes on chemo, due to the cost, otherwise, should not be a problem. She will hold on to referral. Faxed clinicals to [facility] as well. Farnaz will be in admissions at [facility] tomorrow, confirmed this with recreation aide, but referral has been sent, including H&P, face sheet, and P.T. notes. P: DCP to continue to follow. There is a chance that patient could be discharged tomorrow. Follow up with , and [facility], as well. Will also need to know if patient will require any chemo drugs, for this can change the plan. Will complete PASSR. Fernanda Trevino RN/[employer]
[2020-01-16] MEDS: POTASSIUM CHLORIDE 60 MEQ in SODIUM CHLORIDE 0.9% 500 ML 88.333 ML IV (14:22)
[2020-01-16] MEDS: DOXAZOSIN 4 MG TABLET 8 MG PO (17:17)
--- NOTE | 2020-01-16 18:37 | PC.NURSE ---
PATIENTS BLISS IS LEAKING AT [facility],CAP PLACED NO LONGER LEAKING
[2020-01-16] MEDS: MAGNESIUM SULFATE 2 GM/50 ML PIGGYBACK IV (20:06)
[2020-01-16] MEDS: ATORVASTATIN 20 MG TABLET 40 MG PO (20:08)
[2020-01-16] MEDS: APIXABAN 5 MG TABLET PO (20:08)
[2020-01-17] VITALS (8 sets, daily range): BP systolic 116–166; BP diastolic 64–82; PULSE 66–95; RESP 17–22; TEMP 36.5–37.9; O2SAT 93–95
[2020-01-17] MEDS: NYSTATIN CREAM 30 GM 1 APPLIC TOP (00:30)
[2020-01-17] MEDS: OXYCODONE IR 5 MG TABLET PO ×2 (05:17→11:44)
[2020-01-17 06:10] LABS: BUN Creatinine Ratio 23.1 (6-22); Blood Urea Nitrogen 37 mg/dL (9-20); Calcium 9.4 mg/dL (8.4-10.2); Carbon Dioxide 28 mmol/L (22-32); Chloride 108 mmol/L (98-107); Estimated Glomerular Filt Rate 41.8 mL/min (>60); Glucose 108 mg/dL (80-110); HEMOLYSIS < 15 (0-50); Magnesium 1.6 mg/dL (1.6-2.3); Potassium 3.3 mmol/L (3.4-5.1); Sodium 140 mmol/L (137-145)
[2020-01-17] MEDS: PANTOPRAZOLE 40 MG PACKET PO (08:54)
[2020-01-17] MEDS: SODIUM CHLORIDE 0.9% FLUSH 10 ML IV ×3 (08:54→21:21)
[2020-01-17] MEDS: POTASSIUM CHLORIDE 20 MEQ TAB 40 MEQ PO ×2 (08:57→17:56)
[2020-01-17] MEDS: METOPROLOL ER 25 MG TABLET PO (08:57)
[2020-01-17] MEDS: APIXABAN 5 MG TABLET PO ×2 (08:57→21:21)
[2020-01-17] MEDS: AMLODIPINE 5 MG TABLET PO ×2 (08:57→21:21)
--- NOTE | 2020-01-17 10:12 | OT.IP.TRT ---
Current Diagnoses Hypercalcemia (01/12/20) Occupational Therapy Treatment Note M2 OT-IP Current Condition Start: 01/15/20 15:50 Freq: Status: Active Protocol: Document 01/15/20 15:50 [facility] (Rec: 01/15/20 16:21 [facility] [id number]) Occupational Therapy Current Condition Current Condition Evaluation Date 01/15/20 Treatment Diagnosis Severe Hypercalcemia, decreased mobility Diagnosis Onset Date 01/12/20 Post Operative Precautions Lumbar Precautions Log Roll,No Twisting,Limit Bending,Lifting Restriction of 10 lbs,Gait Belt above Incisional Area Other Precautions Due to back pain- multiple spinal metastates to do lumbar precautions. Weight Bearing Status Weight Bearing Status Weight Bear as Tolerated M3 OT- IP Subjective and Pain Start: 01/15/20 15:50 Freq: Status: Active Protocol: Document 01/17/20 09:54 [facility] (Rec: 01/17/20 10:11 [facility] [id number]) OT- Subjective Occupational Therapy Visit Type Type Treatment Note Visit Start Time 08:52 Visit Stop Time 09:52 Total Visit Minutes 60 Occupational Therapy Visit Comments Patient Comments Pt agreeable to try to shower today. Patient/Caregiver Goals Pt wanting to get stronger and be able to do things for himself again. OT Pain Assessment Pain When Pain Assessed At Rest Pain Present Pain Present Pain Reported Location Back Intensity 7 Scale Used Numeric (1 - 10) M4 OT- IP ADL's Start: 01/15/20 15:50 Freq: Status: Active Protocol: Document 01/17/20 09:54 [facility] (Rec: 01/17/20 10:11 [facility] [id number]) OT [id number] General Evaluation Self-Feeding Ability Independent OT ADL-Grooming General Evaluation Grooming Ability Standby Assistance Comments OT Grooming Comments VC to point out items in front of him and for set-up while sitting from the recliner. OT ADL-Oral Care General Eval Oral Care Ability Independent OT ADL-Dressing General Eval Lower Body Dressing Ability Maximum Assistance Areas Needing Assistance Socks Comments OT Dressing Comments Due to fatigue, pt mainly just able to assist to lift his feet up so therapist able to assist to mack/doff his socks. OT ADL-Toileting General Evaluation Toileting Ability Moderate Assistance Devices Toileting Assistive Devices Grab Bars Comments OT Toileting Comments Pt needing MODA for completeness for hygiene. Pt able to wipe but getting fatigues after wiping several times after a bowel movement. OT ADL-Bathing Bathing Type Bathing Type Shower General Evaluation Bathing Ability Maximal Assistance Areas Needing Assistance Wash/Dry Upper Body,Wash/Dry Back,Wash/Dry Perineal Area, Wash/Dry Lower Extremities Devices Bathing Equipment Hand Held Shower Sprayer, Shower Chair with Arms,Grab Bars Comments OT Bathing Comments Pt able to wash his chest, arms, top of legs, and able to assist to wash his hair. Pt getting too tired and needing assist for therapist and aid to complete the task. MODA to stand while aid assisting for pericare needs. M6 OT- IP Functional Cognition Start: 01/15/20 15:50 Freq: Status: Active Protocol: Document 01/17/20 09:54 [facility] (Rec: 01/17/20 10:11 [facility] [id number]) Cognitive Factors Limiting Selfcare Function Cognitive Ability Level of Alertness Alert Patient Orientation Name,Place,Situation Attention Span Ability Capable of Focused Attention, Unable to Sustain Attention Ability to Follow Commands Able to Follow One Step Commands with Increased Time, Able to Follow One Step Commands with Repetition Memory Description Short Term Impaired Safety Awareness Decreased Ability to Apply Precautions,Underestimates Need for Assistance Problem Solving Ability Unable to Identify Errors, Needs Assist to Identify Solutions Cognitive Comments Cognitive Assessment Comments Pt needing reminders to do back precautions. To keep the FWW close to his while he is walking. Pt needing vc to help sequence through the tasks of ADl's for bathing and grooming today. M7 OT- IP Mobility and Balance Start: 01/15/20 15:50 Freq: Status: Active Protocol: Document 01/17/20 09:54 [facility] (Rec: 01/17/20 10:11 [facility] [id number]) OT- Bed Mobility Assessment Rolling Type of Rolling Roll to Right Level of Assistance Standby Assistance,Bedrails Supine to Sit Supine to Sit Assist Moderate Assistance,1 Person Assistance OT-Transfer Assessment Sit to and From Stand Sit to and from Stand Moderate Assistance,1 Person Assistance Transfers Transfer Ability Minimal Assistance,Moderate Assistance,1 Person Assistance Technique Transfer Destination Bed,Chair,Shower Stall,Toilet Transfer Technique Stand Step Pivot Devices Transfer Assistive Devices Gait Belt,Front Wheeled Walker Comments Mobility Comments MODA to stand from lower surfaces and at times left foot needing to be blocked when coming to stand. MODA for balance while stepping over the threshold of the shower. OT- Balance Assessment Sitting Balance and Reactions Static Sitting Balance Ability Good Dynamic Sitting Balance Ability Fair Standing Balance and Reactions Static Standing Balance Ability Fair Dynamic Standing Balance Ability Poor M8 OT- IP Objective Assessments Start: 01/15/20 15:50 Freq: Status: Active Protocol: Document 01/15/20 15:50 [facility] (Rec: 01/15/20 16:21 [facility] [id number]) OT Gross Range of Motion Upper Extremity Range of Motion Assessment Within Functional Limits OT Strength Upper Extremity Strength Assessment Within Functional Limits M9 OT- IP Assessment and Plan Start: 01/15/20 15:50 Freq: Status: Active Protocol: Document 01/17/20 09:54 [facility] (Rec: 01/17/20 10:11 [facility] [id number]) OT Summary Assessment and Plan Potential Rehabilitation Potential Fair Analytic Complexity at Evaluation Low Summary OT Impairments Balance,Functional Cognition, Functional Mobility,Grooming, Dressing,Toileting,Bathing, Toilet Transfers,Shower Transfers,Activity Tolerance Progress Towards Goals Progressing Toward Goals Assessment Summary Much improvement noted from pt especially for overall activity tolerance. Pt would benefit from skilled rehab to work on safety awareness, balance, activity tolerance so able maximize his independence with all basic ADL and functional mobility needs. However if pt continues to progress and feels capable to handle pt after caregiver training, possible that pt could home with home health. Goals Self-Feeding Goal Independent Grooming Goal Independent Dressing Goal Standby Assistance Toileting Goal Standby Assistance Bathing Goal Minimal Assistance Toilet Transfer Goal Standard Toilet Shower Transfer Goal Contact Guard Assistance Patient/Caregiver Education Goal Demonstrate Energy Conservation and Pacing, Caregiver Independent Assisting Patient Days to Meet Goals 5 Frequency of Treatment Frequency Of Treatment Once a Day Treatment Plan OT Treatment Plan ADL Training,Functional Cognition Training,Functional Mobility,Patient/Family Education,Discharge Planning Other Treatment Recommendations and Next Stand with FWW for groomign Treatment Focus needs. Discharge Recommendations OT Discharge Recommendations SNF Rehab versus Home with assist and HH Home Equipment Needs BSC, shower chair Transportation Needs at Discharge Private Vehicle
--- NOTE | 2020-01-17 10:22 | CM.DPC ---
Addendum entered by Emilee Bundy R.N. 01/17/20 14:11: [facility] came over to meet with patient and patients family to determine if they will be able to accept patient at D/C. [facility] stated that they will be able to accept if patient wont need a lot of medical tests and a clear plan is in place for follow up for his cancer treatments. CM department will follow up in the AM to determine if [facility] is a viable option for D/C [facility] has said they will accept patient at D/C. CM Spoke with patients and patient and they feel they are not ready for D/C. CM/RN explained that biopsy's can be handled on an out patient basis and they do not need to be in the hospital for those services. Patient stated understanding but stated they would like to talk to Dr. Hdz to get more information and a better understanding of what is going to happen. CM/Rn spoke with Dr. Hdz and she plans on stopping by patients room to talk with patient about plan of care. Patient and patients hesitant to choose SNF placement since they are uncomfortable going home at this time. CM/RN let them know [facility] has accepted patient and that [facility] is still reviewing for determination on if they will accept or not. CM department to follow up tomorrow 01/18/2020 in the morning to get plan of D/C either home with family assistance or SNF option most likely to [facility] tomorrow. Emilee Bundy RN Original Note: DCP continued: EMR Reviewed: CM/Rn called [facility] this morning and to discuss patient possible going to SNF tomorrow after bone scan this evening. May is reviewing and since patient is not on Chemo medication currently and may not depending on results of tests and needed biopsy they will look to see if they can accept tomorrow. CM/RN received a call back from Farnaz at [facility] and they can accept patient when patient is ready for D/C. CM/RN called and left a voice message for patients Abby at [phone] to get final choice for SNF. CM/Rn will call back again this after noon if CM does not hear back. During AM rounds PT stated patient is doing better and might be able to go home at D/C with assistance from family. PT is reviewing today and CM/Rn will check their recommendations this afternoon to determine if SNF placement is needed. Emilee Bundy RN.
--- NOTE | 2020-01-17 10:25 | PT-IP ANOTE ---
Per RN pt just returned to bed and requested I let him rest until later.
--- NOTE | 2020-01-17 11:26 | PT.IPTN ---
Current Diagnoses Hypercalcemia (01/12/20) Physical Therapy Treatment Note M2 PT-IP Current Condition Start: 01/15/20 15:46 Freq: NEEDED Status: Active Protocol: Document 01/15/20 15:00 AB (Rec: 01/15/20 16:16 AB [id number]) Physical Therapy Current Condition Current Condition Evaluation Date 01/15/20 Treatment Diagnosis hypercalcemia;spinal metastases, liver metastases; difficulty in walking Onset Date 01/12/2020 Precautions Other Precautions O2 sat M3 PT-IP Subjective Start: 01/15/20 15:46 Freq: NEEDED Status: Active Protocol: Document 01/17/20 11:26 CLB (Rec: 01/17/20 12:16 CLB [id number]) Subjective Physical Therapy Visit Type Type Treatment Note Visit Start Time 11:26 Visit Stop Time 11:49 Total Visit Minutes 23 Number of SENIOR PROJECT MANAGER Visits 2 Physical Therapy Visit Comments Patient Comments pt agreeable to get out of bed to ambulate and sit in chair for lunch. Therapy Pain Assessment Pain When Pain Assessed During Mobility Pain Present Pain Present Pain Reported Location Back Intensity 7 Scale Used Numeric (1 - 10) M4 PT-IP Mobility and Gait Start: 01/15/20 15:46 Freq: NEEDED Status: Active Protocol: Document 01/17/20 11:26 CLB (Rec: 01/17/20 12:16 CLB [id number]) PT-Bed Mobility Assessment Rolling Type of Rolling Log Rolling,Roll to Right Level of Assist Contact Guard Assistance,1 Person Assistance Supine to Sit Supine to Sit Minimal Assistance,1 Person Assistance,Head of Bed Elevated Scooting Scooting Up and Down in Bed Standby Assistance PT-Transfer Assessment Sit to and From Stand Sit to and from Stand Minimal Assistance,1 Person Assistance,Use of Upper Extremities Equipment Transfer Assistive Device Gait Belt,Front Wheeled Walker Orthotic/Prosthetic Devices or Brace: No Transfers Transfer Destination Chair,Toilet Transfer Technique Stand Step Pivot Transfer Ability Level of Assist Minimal Assistance,1 Person Assistance Comments Mobility Comments Pt required Min A supine to sit and was able to scoot to EOB SBA. Pt stood with Min A from bed then ambulated to toilet requiring cues for proper positioning in front of toilet. Pt used wall rail to lower to toilet after assisting with doffing brief. Pt required assist from TWO WAY RADIO INSTALLER for completeing pericare. Pt ambulated to sink requiring CGA as pt washed hands. Pt feeling fatigued requiring him to sit in chair. Left pt in chair with all needs within reach and chair alarm on. Gait Assessment Gait Gait Assistance Required: Minimum Assistance,1 Person Assist Distance (Feet) 30 Able to Maintain Weight Bearing Status Yes During Gait Assistive Devices Assistive Device Gait Belt,Front Wheeled Walker Orthotic/Prosthetic Devices or Brace: No Gait Deviations General Gait Pattern Antalgic,Decreased Stride Length,Decreased Feet Clearance,Step-to Gait Factors Limiting Gait Function Factors Limiting Gait Function Decreased Activity Tolerance, Decreased Strength,Poor Balance,Poor Safety Awareness, Respiratory Distress Comments Gait Comments Pt ambulated from bed to toilet ~10ft, then ambulated to sink ~13ft, after washing hands pt walked to chair ~7ft. Due to pt's activity tolerance pt needed to sit due to fatigue. Stair Climbing Assessment Comments Stair Climbing Comments Pt unable to climb stairs at this time due to weakness. Pt has several steps to get to bathroom at home from livingroom. M5 PT-IP Objective Assessments Start: 01/15/20 15:46 Freq: NEEDED Status: Active Protocol: Document 01/15/20 15:00 AB (Rec: 01/15/20 16:16 AB [id number]) Orientation Orientation/Cognition Level of Alertness Alert Orientation Name,Age,Birthday,Place, Situation Language Function Ability No Deficits Noted Safety Awareness Decreased Safety Awareness Gross Range of Motion Lower Extremity ROM Assessment Within Functional Limits Strength Lower Extremity Strength Assessment Right Impaired Hip 3+/5 Knee 3+/5 Coordination Assessment Gross Coordination Gross Coordination WNL Muscle Tone Muscle Tone WNL Yes M6 PT-IP Treatment Start: 01/15/20 15:46 Freq: NEEDED Status: Active Protocol: Document 01/15/20 15:00 AB (Rec: 01/15/20 16:16 AB [id number]) Physical Therapy Treatment Education Education Provided Safety M7 PT-IP Assessment and Plan Start: 01/15/20 15:46 Freq: NEEDED Status: Active Protocol: Document 01/17/20 11:26 CLB (Rec: 01/17/20 12:16 CLB [id number]) PT Summary Assessment and Plan Potential Rehabilitation Potential Fair Status of Condition at Evaluation Evolving Summary Impairments Pain,ROM,Strength,Balance, Coordination,Sensation,Tone, Cognition,Bed Mobility, Transfers,Gait,Activity Tolerance Assessment Summary Pt requiring one person assist for all mobility but continues to require Min A for supine-sit, sit-stand and gait. Pt would benefit from SNF rehab to increase activity tolerance and strength for functional mobility. Goals Bed Mobility Goal Standby Assistance Transfer Goal Standby Assistance,Front Wheeled Walker Gait Goal Standby Assistance,Front Wheel Walker Gait Distance 100 Other Goals up/down 5 steps SPC/DESKTOP PUBLISHING OPERATOR min A Days to Meet Goals 10 Frequency of Treatment Frequency Of Treatment Once a Day Treatment Plan Physical Therapy Treatment Plan Bed Mobility Training,Transfer Training,Gait Training, Therapeutic Exercise,Balance Retraining,Discharge Planning, Neuromuscular Re-ed Recommendations To Nursing Amount of Assist Needed 1 Person Assist Discharge Recommendations PT Discharge Recommendations SNF Rehab
--- NOTE | 2020-01-17 16:38 | PM.PN.1 ---
Subjective Subjective Date Patient Seen: 01/17/20 Interval history: Jeremiah Martinez is an 79-year-old male with past medical history significant for CAD status post stent to LAD, hypertension, hyperlipidemia, atrial fibrillation on Eliquis, [id number] mitral regurgitation, non-Hodgkin's lymphoma, former smoker, and chronic back pain who presented to the ED with progressive worsening confusion and weakness who was found to have severe hypercalcemia with multiple metastatic lesions to liver and spine. The patient is resting in bedside chair comfortably. His family is present at bedside including his and daughter. Discussed the patient's metastatic disease with unknown primary malignancy, the lab tests that have been sent out and are pending (usually take 5-7 days) which will dictate what is biopsied to get a tissue diagnosis in the future, and plan for follow-up with Dr. Cooney in the next week or so to discuss lab test results and arrange for tissue biopsy. All questions have been answered. The patient's confusion is resolved and he continues to mentate clearly. His hip and right ribcage pain is well controlled. He has no complaints and denies headache, chest pain, shortness of breath, abdominal pain, nausea, vomiting, fever, chills, dysuria, diarrhea or constipation. He his appetite has slightly improved. He is voiding via Evans catheter which will be removed and eliminating without difficulty. Patient is up ambulating with assistance. Continue physical and occupation therapy. Exam Vital Signs (past 8 hours): - 01/17/20 13:00 Temperature 98.1 F Pulse Rate 81 Respiratory Rate 20 Blood Pressure 131/70 Pulse Oximetry 94 Oxygen Delivery Method Room Air Oxygen Flow Rate 0 Narrative Exam Narrative: General: Elderly male sitting in bed and in no acute distress, appears chronically ill, awake and alert, appropriately interactive. HEENT: Normocephalic, atraumatic. External ears without defect. Pupils equal, round, and reactive to light. Anicteric sclerae, moist conjunctivae, and no lid lag. Moist oral mucosa. Neck: Supple with full range of motion. No jugular venous distension. No lymphadenopathy or thyromegaly. Cardiovascular: Regular rate and rhythm without murmurs, rubs, or gallops appreciated. Reproducible chest pain on right chest wall with palpation. Pulmonary: Clear to auscultation bilaterally without crackles, wheezes, or rhonchi. Normal respiratory effort with no use of accessory muscles. Abdomen: Soft, bowel sounds present, nontender, nondistended. No hepatosplenomegaly or masses appreciated. Extremities: No clubbing, cyanosis, or edema. Reproducible right hip pain upon palpation. Skin: Normal temperature, turgor, and texture; no rash, ulcers, or subcutaneous nodules appreciated. Neurological: Cranial nerves grossly intact. Psychiatric: Appears to be alert and oriented to at least person and place. Patient is much more awake, alert, and mentating clearly. Objective Labs Result Diagrams: 01/16/20 05:50 01/17/20 05:35 Labs: Laboratory Results - last 24 hr 01/17/20 05:35 Sodium 140 Potassium 3.3 L Chloride 108 H Carbon Dioxide 28 BUN 37 H Creatinine 1.60 H Estimated GFR 41.8 L BUN/Creatinine Ratio 23.1 H Glucose 108 Calcium 9.4 Magnesium 1.6 Assessment & Plan Assessment & Plan narrative: Jeremiah Martinez is an 79-year-old male with past medical history significant for CAD status post stent to LAD, hypertension, hyperlipidemia, atrial fibrillation on Eliquis, [id number] mitral regurgitation, non-Hodgkin's lymphoma, former smoker, and chronic back pain who presented to the ED with progressive worsening confusion and weakness who was found to have severe hypercalcemia with multiple metastatic lesions to liver and spine. 1. Acute severe hypercalcemia, secondary to malignancy of unknown origin, present on admission. Resolving. -Suspected that this is due to underlying malignancy of unknown origin. He has a history of non-Hodgkin's lymphoma in the remote past. -CT chest, abdomen and pelvis with contrast demonstrated bilateral thyroid nodules, coronary artery disease, multiple indeterminate hepatic lesions, suggestive of metastatic disease, thickening of the distal sigmoid colon and rectum and multiple lucent foci within the visualized spine, consistent with metastatic disease versus multiple myeloma. -Initial calcium level 17.0. Calcium level trending down now 10.1. -Received calcitonin 300 units IM x 1, zoledronic acid 4 mg IV x1, furosemide 40 mg IV x2 with steady improvement in his calcium. This medication was not continued. -iPTH level normal at 16. Vitamin D level inadvertently not ordered and has now been sent. Ordered UPEP with immunofixation, SPEP with immunofixation and free kappa and lambda light chains which are send out tests and pending. 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 -Continue strict I&O and daily weight. -Discontinued IV fluids as patient appears to be adequately hydrated and calcium level has normalized. Continue to encourage fluid intake. -Ordered nuclear medicine full body bone scan pending and will be performed today. -Consulted Oncology, Dr. Cooney, for further evaluation of primary malignancy. We appreciate his time and care of the patient. Plan for outpatient follow-uo in the next week to review laboratory send out test results and arrange for tissue biopsy. 2. Acute metabolic encephalopathy, present on admission. Resolved. -Secondary to hypercalcemia. -MR brain with contrast demonstrated probable tiny calvarial metastatic lesions, however, noncontributory to metabolic encephalopathy. No masses, CVA or hemorrhage. -Continue management as noted above. 3. Acute kidney injury on chronic kidney disease stage 3, present on admission. Acute kidney injuries resolving. -Suspected to be in the setting of dehydration and hypercalcemia. -Initial creatinine 2.1. Baseline Cr 1.2-1.3. Creatinine continues to trend down now 1.6 with treatment of hypercalcemia and dehydration as above. -Held olmesartan/HCTZ. -Continue IV fluids as above. 4. 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 Active. -He has had back pain over the past few years but his states he has declined quite rapidly recently over the past few weeks. He was seeing orthopedic surgery (Dr. Hare) who ordered an MRI which was done a week ago. That MRI show evidence metastasis in T2 and T1, severe L3-L4 central canal stenosis with compression of the nerve roots of the cauda equina, severe foraminal narrowing of the L3-L5 nerve roots, and a chronic appearing L2 compression fracture. Previous provider discussed patient with Dr. Hare who did related that there are no urgent findings on the MRI and he does not require steroids for edema or cord compression and that it was to try and help with his pain. Dr. Hare will plan to see the patient 1st thing next week when he returns if the patient is still here. He recommended that if the patient has pain when he is able to ambulate that a back brace may be of assistance to help with ambulation. Dr. Hare may be able to assist with a bone biopsy if there is one accessible. -CT chest abdomen and pelvis with contrast demonstrated 33 mm lucent focus within the right anterior iliac wing. 24 mm lucent mass within the right L4 vertebral body, 20 mm lucent focus within the right L5 vertebral body and scattered smaller low-density foci are seen throughout the remainder of the thoracolumbar spine, pelvis, and proximal femur -Continue oxycodone 5-325 mg every 6 hours as needed for current pain management. Pain is currently well controlled but may need increased pain control once ambulatory. As noted above patient may benefit from a back brace per Dr. Hare. -Ordered nuclear medicine full body bone scan, pending. 5. Acute melena, present on admission. Resolved. -Initial hemoglobin 18.4 on admission. Hemoglobin trended downward with IV fluid resuscitation and is stable at 14.6. -Guaiac stool positive in ED. -General surgery and did not wish to perform colonoscopy or endoscopy during this admission given patient's hemodynamic stability, lack of anemia, and other medical co-morbidities. Recommend outpatient upper and lower endoscopy, preferrably with gastroenterology, in near future. -Held Eliquis initially due to melena. Restarted Eliquis 5 mg twice daily due to high risk of VTE with malignancy and paroxysmal atrial fibrillation. Continue to monitor blood counts and for signs of bleeding closely. -Continue Protonix 40 mg PO daily. 6. Acute hypomagnesemia, not present on admission. Active. -Secondary to hemodilution from IV fluids. Patient has received several doses of magnesium sulfate IV. -Continue to monitor magnesium level daily and replete as necessary. 7. Acute hypokalemia, not present on admission. Active. -Secondary to hemodilution from IV fluids. Patient has received several doses of potassium chloride IV. -Continue to monitor potassium level daily and replete as necessary. 8. Paroxysmal atrial fibrillation on Eliquis, chronic, present on admission. Stable. -Initially held Eliquis due to possible melena as above. Restarted Eliquis 5 mg twice daily due to high risk of VTE with malignancy and paroxysmal atrial fibrillation. -Continue metoprolol succinate 25 mg daily for rate control. Patient med reconciliation listed amiodarone as home medication but patient is no longer taking this. 9. Acute leukocytosis, present on admission. Resolved. -Likely reactive secondary to recent steroid use for low back pain. -Initial WBC 14.6. WBC trended down and normalized. -Blood cultures x2 have no growth to date. Urinalysis negative. No antibiotics indicated at this time. 10. Hypertension, chronic, present on admission. Stable. -Blood pressure initially elevated and likely a sequela of hypercalcemia. -Continue home amlodipine 5 mg twice daily and metoprolol succinate 25 mg daily. Held olmesartan/hydrochlorothiazide. 11. Acute hypoxemic respiratory failure ruled out. -Initially presented with oxygen saturation of 88% on room air. Goal oxygen saturation 88-92%. Continue supplemental oxygen as necessary to main oxygen saturations 88-92%. -Of note, patient may have a component of sleep apnea leading to desaturations. Code status: Full Code. Patient reports having a health directive. Designated DPOA is his . VTE prophylaxis: SCDs and Eliquis Disposition: Patient will likely discharge to half-way facility for continued rehabilitation versus home with home health tomorrow. Quality VTE Deep Vein Thrombosis/Pulmonary Embolism Present on Admission: No
[2020-01-17] MEDS: DOXAZOSIN 4 MG TABLET 8 MG PO (17:56)
[2020-01-17 19:12] LABS: Lactate Dehydrogenase 510 U/L (313-618)
[2020-01-17] MEDS: ATORVASTATIN 20 MG TABLET 40 MG PO (21:21)
[2020-01-18 00:44] VITALS: BP 153/76; PULSE 72; RESP 19; TEMP 36.9; O2SAT 94
[2020-01-18] MEDS: OXYCODONE IR 5 MG TABLET PO ×2 (00:48→05:07)
--- NOTE | 2020-01-18 04:51 | PC.NURSE ---
DOMITILA Nunez notified pt. C/O pain 06/09. Pt. requesting his Oxycodone ordered to administered Oxycodone early. Will implement order & monitor.
--- NOTE | 2020-01-18 05:09 | PC.NURSE ---
Pt. declined Morphine, 5 mg. Oxycodone admin. early per hospitalist ordered DOMITILA Nunez.
[2020-01-18 05:22] VITALS: BP 158/76; PULSE 89; RESP 19; TEMP 36.7; O2SAT 92
[2020-01-18 08:00] VITALS: BP 155/74; PULSE 70; RESP 18; TEMP 37.6; O2SAT 93
--- NOTE | 2020-01-18 09:15 | CM.DPC ---
Addendum entered by Ale Capps LPN 01/18/20 10:31: Met now with pt, his and his daughter Marvin. All say they are pleased that [facility] can accept pt and confirm that they anticipate a short rehab/recovery stay with plan for a d/c afterwards to home setting and continued oncology followup. PASRR: reviewed, faxed to [facility], copy to scan folder, original to snf packet. van will be here at 1130. Snf specific orders remain in process. CHANDNI Liang is alerted to same. Dr. Hdz states she will complete these before 1130. Addendum entered by Ale Capps LPN 01/18/20 09:17: Spoke with Farnaz/SAMANTA: confirmed that pt had been accepted. VM left for [facility]/admissions phone to see about acceptance status. Spoke by phone with and let her know that Dr. Hdz is discharging her today. She confirms primary snf choice is [facility] and especially as much of his followup appts will need to be in [place]. [facility] has called back. Can accept pt, can provide transport to appt with Dr. De La Rosa but any recommended procedures from there will need to be followed up after the snf stay. Original Note: DCP: continued: case received, d/c order noted (no d/c summary yet and snf d/c orders are not completed yet). Was updated by Dr. Hdz on her discussions with the pt and family. Followed up: EMR reviewed.
[2020-01-18] MEDS: POTASSIUM CHLORIDE 20 MEQ TAB 40 MEQ PO (09:40)
[2020-01-18] MEDS: AMLODIPINE 5 MG TABLET PO (09:41)
[2020-01-18] MEDS: APIXABAN 5 MG TABLET PO (09:42)
[2020-01-18] MEDS: METOPROLOL ER 25 MG TABLET PO (09:42)
[2020-01-18] MEDS: SODIUM CHLORIDE 0.9% FLUSH 10 ML IV (10:12)
[2020-01-18] MEDS: PANTOPRAZOLE 40 MG TABLET PO (10:20)
--- NOTE | 2020-01-18 10:48 | PM.DS.1 ---
History of Present Illness History of Present Illness Date Patient Seen: 01/13/20 Chief complaint: Altered LOC Narrative: Written by Christina RAMESH: The patient is an 79-year-old male with PMH of HTN, CAD (h/o LAD stent), AFIB (AC w/ Eliquis), LVEF 55-60%, [id number] MR, dyslipidemia, non-Hodgkin's lymphoma, chronic back pain (h/o laminectomy) and remote h/o tobacco dependence. Patient presented to the ED on 01/12/2020 out of concern for a 3 day history of weakness and dark stools. Associated symptoms include generalized muscle weakness, confusion, diminished appetite, decreased UO and back pain (worse from baseline). Back pain is localized to the lumbar spine with raditation / shooting down his right leg. Reports a 1 week history of diarrhea and episodes of bowel incontinence. Patient is AC w/ Eliquis, which was restarted 3 weeks ago. He does have a prior history of a GIB. NO CP or dyspnea. Denies abdominal pain, nausea, vomiting, malaise and myalgia. Denies falls or local injury/trauma. Elevated BP is noted at home. ED Presentation & Work-Up T 98.0 BP 129/90 HR 110 RR 20 SpO2 88% EKG 01/12 19:59. Sinus tachycardia (v-rate 110), low QRS, non-specific T wave abnormalities. Prolonged QTc 500. Labs, 01/12 19:40 WBC 14.6 Lactate 1.5 HGB 18.4 HCT 54.7 PLT 210 PT 13.8 INR 1.2 aPTT 29 Na 143 K 3.8 Mg 1.6 Cl 103 Ca 17.0 (repeat Ca 15.7 01/12 2250) PO4 3.7 Glu 147 CO2 32 BUN 64 Cr 2.1 GFR 30.5 BUN:Cr 30.5 T.Bili 0.8 AST 43 ALT 25 ALP 92 Alb 4.1 ABG pH 7.48 pCO2 42.3 pO2 96 HCO3 32 /a metabolic alkalosis with respiratory compensation In ED patient was treated with... NS 500 ml bolus 01/12 @ 2007 NS 1000 ml bolus 01/12 @ 2220 NS 1000 ml bolus 01/12 @ 2326 Furosemide 40 mg IV 01/[address] HEAD. No acute intracranial findings, such as bleeds or masses. Basal cisterns are patent. No extra- axial fluid collections. Ventricles symmetric in size and shape. Cerebral volume loss for age with resultant ventricular and sulcal prominence. Periventricular and deep white matter chronic small vessel ischemic changes. Intracranial internal carotid atherosclerosis. Calvarium and visualized facial bones appear intact, without suspicious lesions. CT of CHEST / ABDOMEN / PELVIS - Bilateral thyroid nodules, largest in the right lobe anteriorly (23 mm). These could be further assessed with non-emergent thyroid ultrasound (if clinically indicated). - Liver is normal in size. Multiple indeterminate hepatic lesions, suggestive of metastatic disease vs. atypical infection (e.g., fungal infection) vs lymphoma - Moderate thickening of the distal sigmoid colon and rectum. Differential considerations include ischemia, infection, inflammation, and neoplasm. Colonoscopy is recommended for further assessment. - Multiple lucent foci within the visualized Schwab, consistent with metastatic disease vs. multiple myeloma - Enlarged prostate - Mild chronic appearing L2 and L3 compression fractures. There is a 24 mm lucent mass within the right L4 vertebral body. There is a 20 mm lucent focus within right L5 vertebral body. Discharge Providers Provider Date of admission: 01/12/20 23:30 Discharge Date: 01/18/20 Primary care physician: Dusty Cui MD Consults: 01/13/20 02:20 Consult to Dietitian, Adult Routine Comment: Reason For Exam: poor appetite 01/13/20 04:10 Consult to General Surgery Routine Comment: Consulting Provider: Sony Ramirez Reason for consultation: melena AND thickening of distal sigmoid colon and rectum on CT imaging 01/15/20 09:03 Consult to Oncology Routine Comment: Consulting Provider: Arturo Cooney Reason for consultation: Hypercalcemia, unknow primary CA mult mets liver and spine 01/15/20 10:11 Consult to Occupational Therapy Evaluate & Treat Comment: Physician Instructions: Evaluate and treat Consult to Physical Therapy Evaluate & Treat Comment: Physician Instructions: Evaluate and Treat Discharge provider: Annita Hdz DO Summary Hospital Course Discharge Diagnosis: 1. Acute severe hypercalcemia, secondary to malignancy of unknown origin, present on admission. Resolved. 2. Acute metabolic encephalopathy, present on admission. Resolved. 3. Acute kidney injury on chronic kidney disease stage 3, present on admission. Acute kidney injury likely resolved. 4. 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 Acute portion resolved. 5. Acute melena, present on admission. Resolved. 6. Acute hypomagnesemia, not present on admission. Active. 7. Acute hypokalemia, not present on admission. Resolved. 8. Paroxysmal atrial fibrillation on Eliquis, chronic, present on admission. Stable. 9. Acute leukocytosis, present on admission. Resolved. 10. Hypertension, chronic, present on admission. Stable. 11. Acute hypoxemic respiratory failure ruled out. Hospital Course: Jeremiah Martinez is an 79-year-old male with past medical history significant for CAD status post stent to LAD, hypertension, hyperlipidemia, atrial fibrillation on Eliquis, [id number] mitral regurgitation, non-Hodgkin's lymphoma, former smoker, and chronic back pain who presented to the ED with progressive worsening confusion and weakness who was found to have severe hypercalcemia with multiple metastatic lesions to liver and spine. 1. Acute severe hypercalcemia, secondary to malignancy of unknown origin, present on admission. Resolved. -Suspected that this is due to underlying malignancy of unknown origin. He has a history of non-Hodgkin's lymphoma in the remote past. -CT chest, abdomen and pelvis with contrast demonstrated bilateral thyroid nodules, coronary artery disease, multiple indeterminate hepatic lesions, suggestive of metastatic disease, thickening of the distal sigmoid colon and rectum and multiple lucent foci within the visualized spine, consistent with metastatic disease versus multiple myeloma. -Initial calcium level 17.0. Calcium level trending down now 10.1. -Received calcitonin 300 units IM x 1, zoledronic acid 4 mg IV x1, furosemide 40 mg IV x2 with steady improvement in his calcium. This medication was not continued. -TSH normal at 0.67, iPTH level normal at 16 and LDH normal at 510. Vitamin D level, UPEP with immunofixation, SPEP with immunofixation, beta 2 microglobulin and free kappa and lambda light chains which are send out tests and pending. 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 -Continued strict I&O and daily weight. -Discontinued IV fluids as patient appears to be adequately hydrated and calcium level has normalized. Continue to encourage fluid intake. -Nuclear medicine full body bone scan demonstrated There are multiple foci of increased activity involving the calvarium, lower thoracic (T12 at midline spine), lumbar spine (L1, L4 and L5), the right 10th rib, iliac bones bilaterally right greater than left, and right femoral neck, consistent with metastases. On the comparison CT, there numerous lytic bone lesions. -Consulted Oncology, Dr. Cooney, for further evaluation of primary malignancy. We appreciate his time and care of the patient. Plan for outpatient follow-up in the next 1 week to review laboratory send out test results and arrange for tissue biopsy in the next several weeks. -Recommend repeat BMP and magnesium in 5-7 days to reassess creatinine, hypercalcemia, hypokalemia and hypomagnesemia. 2. Acute metabolic encephalopathy, present on admission. Resolved. -Secondary to hypercalcemia. -MR brain with contrast demonstrated probable tiny calvarial metastatic lesions, however, noncontributory to metabolic encephalopathy. No masses, CVA or hemorrhage. -Continued management as noted above. 3. Acute kidney injury on chronic kidney disease stage 3, present on admission. Acute kidney injury likely resolved. -Suspected to be in the setting of dehydration and hypercalcemia. -Initial creatinine 2.1. Unclear baseline creatinine as last creatinine was 1.3 in 03/2019. Creatinine trended down with treatment of hypercalcemia and dehydration as above and now 1.7 and appears to be stable and possibly his new baseline. -Discontinued olmesartan/HCTZ. -Continued IV fluids as above. -Recommend repeat BMP and magnesium in 5-7 days to reassess kidney function with creatinine, hypercalcemia, hypokalemia and hypomagnesemia. 4. 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 Acute portion resolved. -He has had back pain over the past few years but his states he has declined quite rapidly recently over the past few weeks. He was seeing orthopedic surgery (Dr. Hare) who ordered an MRI which was done a week ago. That MRI show evidence metastasis in T2 and T1, severe L3-L4 central canal stenosis with compression of the nerve roots of the cauda equina, severe foraminal narrowing of the L3-L5 nerve roots, and a chronic appearing L2 compression fracture. Previous provider discussed patient with Dr. Hare who did related that there are no urgent findings on the MRI and he does not require steroids for edema or cord compression and that it was to try and help with his pain. Dr. Hare will plan to see the patient 1st thing next week when he returns if the patient is still here. He recommended that if the patient has pain when he is able to ambulate that a back brace may be of assistance to help with ambulation. Dr. Hare may be able to assist with a bone biopsy if there is one accessible. -CT chest abdomen and pelvis with contrast demonstrated 33 mm lucent focus within the right anterior iliac wing. 24 mm lucent mass within the right L4 vertebral body, 20 mm lucent focus within the right L5 vertebral body and scattered smaller low-density foci are seen throughout the remainder of the thoracolumbar spine, pelvis, and proximal femur -Continued oxycodone 5-325 mg every 4-6 hours as needed for current pain management. Pain is currently well controlled but may need increased pain control once ambulatory. As noted above patient may benefit from a back brace per Dr. Hare. -Nuclear medicine full body bone scan demonstrated There are multiple foci of increased activity involving the calvarium, lower thoracic (T12 at midline spine), lumbar spine (L1, L4 and L5), the right 10th rib, iliac bones bilaterally right greater than left, and right femoral neck, consistent with metastases. On the comparison CT, there numerous lytic bone lesions. 5. Acute melena, present on admission. Resolved. -Initial hemoglobin 18.4 on admission. Hemoglobin trended downward with IV fluid resuscitation and is stable at 14.6. -Guaiac stool positive in ED. -General surgery and did not wish to perform colonoscopy or endoscopy during this admission given patient's hemodynamic stability, lack of anemia, and other medical co-morbidities. Recommend outpatient upper and lower endoscopy, preferrably with gastroenterology, in near future. -Held Eliquis initially due to melena. Restarted Eliquis 5 mg twice daily due to high risk of VTE with malignancy and paroxysmal atrial fibrillation. Continued to monitor blood counts and for signs of bleeding closely. Patient has had no recurrence of melena or overt signs of bleeding. -Continued Protonix 40 mg PO daily. 6. Acute hypomagnesemia, not present on admission. Active. -Likely secondary to hemodilution from IV fluids. Patient has received several doses of magnesium sulfate IV and magnesium chloride 128 mg x 1. . -Continued to monitor magnesium level daily and replete as necessary. -Recommend repeat BMP and magnesium in 5-7 days to reassess creatinine, hypercalcemia, hypokalemia and hypomagnesemia. Potassium and magnesium levels will need to be monitored closely as an outpatient. 7. Acute hypokalemia, not present on admission. Resolved. Likely secondary to hemodilution from IV fluids. Patient has received several doses of potassium chloride IV and PO. -Continued to monitor potassium level daily and replete as necessary. -Recommend repeat BMP and magnesium in 5-7 days to reassess creatinine, hypercalcemia, hypokalemia and hypomagnesemia. Potassium and magnesium levels will need to be monitored closely as an outpatient. 8. Paroxysmal atrial fibrillation on Eliquis, chronic, present on admission. Stable. -Initially held Eliquis due to possible melena as above. Restarted Eliquis 5 mg twice daily due to high risk of VTE with malignancy and paroxysmal atrial fibrillation. -Continued metoprolol succinate 25 mg daily for rate control. Patient's med reconciliation listed amiodarone as home medication but patient is no longer taking this medication. 9. Acute leukocytosis, present on admission. Resolved. -Likely reactive secondary to recent steroid use for low back pain. -Initial WBC 14.6. WBC trended down and normalized. -Blood cultures x 2 have no growth to date. Urinalysis negative. No antibiotics indicated at this time. 10. Hypertension, chronic, present on admission. Stable. -Blood pressure initially elevated and likely a sequela of hypercalcemia. -Continued home amlodipine 5 mg twice daily and metoprolol succinate 25 mg daily. Discontinued olmesartan/hydrochlorothiazide for now. 11. Acute hypoxemic respiratory failure ruled out. -Initially presented with oxygen saturation of 88% on room air. Goal oxygen saturation 88-92%. Continue supplemental oxygen as necessary to main oxygen saturations 88-92%. -Of note, patient may have a component of sleep apnea leading to desaturations. Recommended outpatient sleep study. Exam Vital Signs (past 8 hours): - 01/18/20 05:22 01/18/20 08:00 Temperature 98.0 F 99.6 F Pulse Rate 89 70 Respiratory Rate 19 18 Blood Pressure 158/76 H 155/74 H Pulse Oximetry 92 93 Oxygen Delivery Method Room Air Oxygen Flow Rate 0 Narrative Exam Narrative: General: Elderly male sitting in bed and in no acute distress, appears chronically ill, awake and alert, appropriately interactive. HEENT: Normocephalic, atraumatic. External ears without defect. Pupils equal, round, and reactive to light. Anicteric sclerae, moist conjunctivae, and no lid lag. Moist oral mucosa. Neck: Supple with full range of motion. No jugular venous distension. No lymphadenopathy or thyromegaly. Cardiovascular: Regular rate and rhythm without murmurs, rubs, or gallops appreciated. Reproducible chest pain on right chest wall with palpation. Pulmonary: Clear to auscultation bilaterally with occasional expiratory wheeze. No rhonchi or crackles. Normal respiratory effort with no use of accessory muscles. Abdomen: Soft, bowel sounds present, nontender, nondistended. No hepatosplenomegaly or masses appreciated. Extremities: No clubbing, cyanosis, or edema. Reproducible right hip pain upon palpation. Skin: Normal temperature, turgor, and texture; no rash, ulcers, or subcutaneous nodules appreciated. Neurological: Cranial nerves grossly intact. Psychiatric: Slightly teary-eyed with depressed mood and normal affect. Alert oriented x3. Confusion resolved. Objective Labs Result Diagrams: 01/16/20 05:50 01/18/20 10:10 Labs: Laboratory Results - last 24 hr 01/17/20 05:35 Lactate Dehydrogenase 510 Discharge Plan Discharge Plan Patient Disposition: SNF Transfer to: [facility] Under care of provider: financial reporting director Discharge orders & Medications Prescriptions: New oxycodone 5 mg Tablet 5 mg PO Q4-6H PRN (Reason: Pain, Moderate (4-6)) Qty: 20 RF: 0 pantoprazole 40 mg Tablet,Delayed Release (Dr/Ec) 40 mg PO 0600 Qty: 30 RF: 0 docusate sodium [Colace] 100 mg capsule 100 mg PO BID Qty: 60 RF: 0 polyethylene glycol 3350 [Miralax] 17 gram/dose powder 17 gram PO DAILY Qty: 238 RF: 0 aspirin 81 mg tablet,delayed release (DR/EC) 81 mg PO DAILY Qty: 30 RF: 0 Continued amlodipine 5 mg tablet 5 mg PO BID RF: 0 atorvastatin 40 mg tablet 40 mg PO BEDTIME RF: 0 acetaminophen [Tylenol] 325 mg Tablet 325 mg PO DIRECTED RF: 0 finasteride 5 mg tablet 5 mg PO DAILY RF: 0 multivitamin Tablet 1 tab PO DAILY RF: 0 coenzyme Q10 [CoQ-10] 100 mg Capsule 100 mg PO DAILY RF: 0 cholecalciferol (vitamin D3) [Vitamin D3] 50 mcg (2,000 unit) Capsule 2,000 unit PO DAILY RF: 0 Fish Oil 1,200 MG 1,200 mg PO DAILY RF: 0 doxazosin 8 mg tablet 8 mg PO QPM RF: 0 testosterone cypionate 200 mg/mL oil 100 mg IM Q2W RF: 0 metoprolol succinate 25 mg Tablet Extended Release 24 Hr 25 mg PO DAILY Qty: 30 RF: 3 polyethylene glycol 3350 17 gram Powder In Packet 17 gram PO TID Qty: 1 RF: 3 tolterodine [Detrol] 1 mg Tablet 2 mg PO BID Qty: 16 RF: 0 apixaban 5 mg tablet 5 mg PO BID Qty: 60 RF: 0 Discontinued aspirin [Adult Aspirin Regimen] 81 mg tablet,delayed release (DR/EC) 81 mg PO QPM RF: 0 celecoxib 200 mg capsule 200 mg PO BID RF: 0 olmesartan [Benicar] 20 mg tablet 20 mg PO QPM RF: 0 oxycodone-acetaminophen 5-325 mg tablet 1 tab PO Q4-6H PRN (Reason: PAIN) RF: 0 olmesartan-hydrochlorothiazide 20-12.5 mg tablet 1 tab PO QAM RF: 0 amiodarone 200 mg Tablet 200 mg PO DAILY Qty: 30 RF: 3 Metamucil Fiber Singles 3.4 gram Powder In Packet 1 packet PO TID Qty: 44 RF: 3 sulfamethoxazole-trimethoprim 800-160 mg Tablet 1 tab PO BID Qty: 70 RF: 0 Other Ambulatory Orders: Basic Metabolic Panel (Stat) Timeframe: 5 Days Facility: [facility] - Location: Laboratory Ordered By: Annita Hdz Magnesium (Stat) Timeframe: 5 Days Facility: [facility] - Location: Laboratory Ordered By: Annita Hdz Follow up/Referrals: Dusty Cui MD [Primary Care Provider] - Arturo Cooney MD [Physician] - 1 Week Diet/Activity/Treatments Diet: Diet as Tolerated, Low-fat, Low-sodium and Low-cholesterol Activity: Activity as tolerated with forward wheeled walker and physical and occupational therapy [facility] Reason for rehabilitation: Recovery r/t decondition Rehab type: Physical therapy and Occupational therapy Discharge Data Primary Care Provider: Dusty Cui Quality VTE Deep Vein Thrombosis/Pulmonary Embolism Present on Admission: No
[2020-01-18 11:34] LABS: BUN Creatinine Ratio 20.6 (6-22); Blood Urea Nitrogen 35 mg/dL (9-20); Calcium 9.1 mg/dL (8.4-10.2); Carbon Dioxide 26 mmol/L (22-32); Chloride 104 mmol/L (98-107); Glucose 178 mg/dL (80-110); HEMOLYSIS < 15 (0-50); Magnesium 1.3 mg/dL (1.6-2.3); Potassium 3.9 mmol/L (3.4-5.1); Sodium 138 mmol/L (137-145)
[2020-01-18 11:40] VITALS: BP 144/77; PULSE 60; RESP 18; TEMP 37.7; O2SAT 95
[2020-01-18] MEDS: MAGNESIUM CHLORIDE 64 MG TABLET 128 MG PO (11:54)
--- NOTE | 2020-01-18 12:03 | PC.NURSE ---
Day shift: Pt has all personal belongings. Paperwork in SNF packet with SNF person. scripts in packet. Report given to eVlma.
--- NOTE | 2020-01-18 12:34 | PT.IPTN ---
Current Diagnoses Hypomagnesemia (01/12/20) Hypercalcemia (01/12/20) Hypokalemia (01/12/20) Acute kidney failure, unspecified (01/12/20) Physical Therapy Treatment Note M2 PT-IP Current Condition Start: 01/15/20 15:46 Freq: NEEDED Status: Discharge Protocol: Document 01/15/20 15:00 AB (Rec: 01/15/20 16:16 AB [id number]) Physical Therapy Current Condition Current Condition Evaluation Date 01/15/20 Treatment Diagnosis hypercalcemia;spinal metastases, liver metastases; difficulty in walking Onset Date 01/12/2020 Precautions Other Precautions O2 sat M3 PT-IP Subjective Start: 01/15/20 15:46 Freq: NEEDED Status: Discharge Protocol: Document 01/18/20 12:26 NFW (Rec: 01/18/20 12:34 NFW [id number]) Subjective Physical Therapy Visit Type Type Treatment Note Visit Start Time 10:08 Visit Stop Time 10:26 Total Visit Minutes 18 Number of PRESSURIZER Visits 0 Physical Therapy Visit Comments Patient Comments Having pain in right leg. Rating 8/10. Therapy Pain Assessment Pain Present Pain Present Pain Reported M4 PT-IP Mobility and Gait Start: 01/15/20 15:46 Freq: NEEDED Status: Discharge Protocol: Document 01/18/20 12:26 NFW (Rec: 01/18/20 12:34 NFW [id number]) PT-Transfer Assessment Sit to and From Stand Sit to and from Stand Contact Guard Assistance,1 Person Assistance Equipment Transfer Assistive Device Gait Belt,Front Wheeled Walker Orthotic/Prosthetic Devices or Brace: No Transfers Transfer Destination Chair Transfer Technique Stand Step Pivot Transfer Ability Level of Assist Contact Guard Assistance,1 Person Assistance Comments Mobility Comments CG assist with transitional activities. Feeling overall stronger but concerned about pain in right leg. Gait Assessment Gait Gait Assistance Required: Contact Guard Assist,1 Person Assist Distance (Feet) 80 Able to Maintain Weight Bearing Status Yes During Gait Assistive Devices Assistive Device Gait Belt,Front Wheeled Walker Orthotic/Prosthetic Devices or Brace: No Gait Deviations General Gait Pattern Antalgic,Decreased Stride Length,Decreased Feet Clearance Factors Limiting Gait Function Factors Limiting Gait Function Decreased Activity Tolerance, Decreased Strength,Poor Balance,Poor Safety Awareness, Respiratory Distress Comments Gait Comments Pt ambulated to sink to wash hands then down towards nursing station then back. Pleased with his improved ability in distance. M5 PT-IP Objective Assessments Start: 01/15/20 15:46 Freq: NEEDED Status: Discharge Protocol: Document 01/15/20 15:00 AB (Rec: 01/15/20 16:16 AB [id number]) Orientation Orientation/Cognition Level of Alertness Alert Orientation Name,Age,Birthday,Place, Situation Language Function Ability No Deficits Noted Safety Awareness Decreased Safety Awareness Gross Range of Motion Lower Extremity ROM Assessment Within Functional Limits Strength Lower Extremity Strength Assessment Right Impaired Hip 3+/5 Knee 3+/5 Coordination Assessment Gross Coordination Gross Coordination WNL Muscle Tone Muscle Tone WNL Yes M6 PT-IP Treatment Start: 01/15/20 15:46 Freq: NEEDED Status: Discharge Protocol: Document 01/15/20 15:00 AB (Rec: 01/15/20 16:16 AB [id number]) Physical Therapy Treatment Education Education Provided Safety M7 PT-IP Assessment and Plan Start: 01/15/20 15:46 Freq: NEEDED Status: Discharge Protocol: Document 01/18/20 12:26 NFW (Rec: 01/18/20 12:34 NFW [id number]) PT Summary Assessment and Plan Potential Rehabilitation Potential Fair Status of Condition at Evaluation Evolving Summary Impairments Pain,ROM,Strength,Balance, Coordination,Sensation,Tone, Cognition,Bed Mobility, Transfers,Gait,Activity Tolerance Assessment Summary Improved in gait requiring CGA . Continues to need assist with up and down from bed. Goals Bed Mobility Goal Standby Assistance Transfer Goal Standby Assistance,Front Wheeled Walker Gait Goal Standby Assistance,Front Wheel Walker Gait Distance 100 Other Goals up/down 5 steps SPC/GRAB JACK MAN min A Days to Meet Goals 9 Frequency of Treatment Frequency Of Treatment Once a Day Treatment Plan Physical Therapy Treatment Plan Bed Mobility Training,Transfer Training,Gait Training, Therapeutic Exercise,Balance Retraining,Discharge Planning, Neuromuscular Re-ed Recommendations To Nursing Amount of Assist Needed 1 Person Assist Discharge Recommendations PT Discharge Recommendations SNF Rehab
[2020-01-18 14:57] LABS: Free Kappa Light Chain 24.5 mg/L (3.3-19.4); Free Kappa/ Lambda Ratio 1.11 (0.26-1.65); Free Lambda 22.2 mg/L (5.7-26.3)
[2020-01-18 23:11] LABS: Albumin 2.4 g/dL (3.8-4.8); Alpha 1 Globulin 0.3 g/dL (0.2-0.3); Alpha 2 Globulin 0.8 g/dL (0.5-0.9); Beta 1 Globulin 0.2 g/dL (0.4-0.6); Gamma Globulin 0.8 g/dL (0.8-1.7); Protein, Total 4.8 g/dL (6.1-8.1)
[2020-01-20 15:08] LABS: Beta-2-Microglobulin 4.92 mg/L (< 2.52)
[2020-01-21 19:39] LABS: Albumin 100 %; Protein/ Creatinine Ratio 203 mg/g creat (22-128); Total Urine Protein 11 mg/dL (5-25); Urine Creatinine, Random 54 mg/dL (20-320); Urine Protein Interpretation Normal pattern.
[2020-01-22 14:12] LABS: 1 25 Dihydroxy Vitamin D 8 pg/mL (18-72)
== END 2020-01-18 12:09 | DRG 843 ==
LOC: ED 23:27 → AC 23:30
PROVIDERS: Internal Medicine; Admitting Provider Nurse Practitioner Gerontology; Emergency Provider Emergency Medicine; Family Provider Family Medicine; PCP Family Medicine; Referring Provider Emergency Medicine; Visit Provider Nurse Practitioner Gerontology
DX: C80.1 Malignant (primary) neoplasm, unspecified (principal); G93.41 Metabolic encephalopathy; N17.9 Acute kidney failure, unspecified; K92.1 Melena; E83.52 Hypercalcemia; C79.51 Secondary malignant neoplasm of bone; C78.7 Secondary malignant neoplasm of liver and intrahepatic bile duct; E86.0 Dehydration; I10 Essential (primary) hypertension; E04.1 Nontoxic single thyroid nodule; M54.9 Dorsalgia, unspecified; Z85.72 Personal history of non-Hodgkin lymphomas; Z87.891 Personal history of nicotine dependence; E83.42 Hypomagnesemia; E87.6 Hypokalemia; I25.10 Atherosclerotic heart disease of native coronary artery without angina pectoris; Z79.01 Long term (current) use of anticoagulants; I48.0 Paroxysmal atrial fibrillation
CPT/HCPCS: 36415; 36600; 51701; 70450; 70553; 71260; 74177; 78306; 80048; 80053; 80069; 80076; 81001; 82232; 82272; 82310; 82330; 82565; 82652; 82784; 82805; 82962; 83605; 83615; 83735; 83880; 83883; 83970; 84075; 84100; 84145; 84153; 84154; 84155; 84156; 84165; 84166; 84443; 85025; 85610; 85730; 86334; 86335; 86850; 86900; 86901; 87040; 87502; 93005; 94760; 96361; 96374; 97116; 97162; 97166; 97530; 97535; 99205; 99215; 99233; 99285; 99291; A9503; C9113; J0630; J1940; J3480; J3489; Q9967

== ENCOUNTER → 2020-01-21 08:29 | Outpatient (CLI) | payer MEDICARE, OTHER, SELFPAY ==
[2020-01-13 02:19] VITALS: BMI 31.9
--- NOTE | 2020-01-24 11:27 | ONC.MSW ---
Description: Referral Status Activity: Pt had called scheduling and inquired re: getting scheduled. Dr. Cooney had seen him while he was inpt on 01/15/20, as the on-call oncologist. DENTAL FLOSS PACKER reviewed the EMR and referral status, clarified that we never received a referral, prior-auth, demographics or clinicals. Called Dr. Cui's office and requested the above, the medical receptionist states that they will need to see him since he is post-inpt, then they will forward his referral and info. DENTAL FLOSS PACKER provided my direct contact info for f/u.
--- NOTE | 2020-01-26 10:04 | ONC.MSW ---
Description: Navigation T/C re: obtaining referral Activity: Family have called several times over the last few days expressing frustration that pt cannot be scheduled yet, due to our clinic not yet having received a referral or clinicals from his PCP. This SANDWICH MACHINE OPERATOR has spoken to Dr. Cui's office 3-times, including this morning-he is unwilling to provide a referral until after he has seen the pt this coming Friday. SANDWICH MACHINE OPERATOR updated , Abby, who had also called this morning, who states that they had been given misinformation from prior to his d/c that oncology would just call over to [facility] and get (him)scheduled, and that we had everything that we needed. SANDWICH MACHINE OPERATOR explained the process of needing a referral and prior-auth, as well as records, in order to schedule him for a new pt consult visit. Called Abby back again and confirmed a time for him to be seen by Dr. Cooney on 02/02, 9:40am check-in time with a 10:00am consult visit. Dr. Cui's office will fax us the referral on Friday, no prior auth needed. Schedulers will f/u to obtain the chart note from Dr. Cui's visit prior to pt's scheduled appt on 02/02.
== END ==
PROVIDERS: Family Provider Family Medicine; PCP Family Medicine; Referring Provider Nurse Practitioner; Visit Provider Nurse Practitioner
DX: I48.91 Unspecified atrial fibrillation (principal)
CPT/HCPCS: 93005

== ENCOUNTER 2020-01-21 09:51 | Emergency (ER) | payer MEDICARE, OTHER, SELFPAY ==
[2020-01-13 02:19] VITALS: BMI 31.9
[2020-01-21 09:55] VITALS: BP 167/92; PULSE 103; RESP 26; TEMP 36.6; O2SAT 95; BMI 31.3
--- NOTE | 2020-01-21 10:00 | DI.RAD.S_ITS ---
PROCEDURE: XR CHEST 1V INDICATIONS: sent by [facility] for DC TECHNIQUE: One view of the chest was acquired. COMPARISON: [facility], , XR CHEST 1V, 04/18/2019, 11:19. FINDINGS: Surgical changes and devices: None. Lungs and pleura: Lungs are clear. No pleural effusions or pneumothorax. Mediastinum: Mediastinal contours appear normal. Heart is enlarged. Bones and chest wall: No suspicious bony lesions. Overlying soft tissues appear unremarkable. IMPRESSION: No acute cardiopulmonary disease process. Dictated by: Gayle June MD, PhD on 01/21/2020 at 10:20 Approved by: Gayle June MD, PhD on 01/21/2020 at 10:21
--- NOTE | 2020-01-21 10:07 | ED_ITS ---
HPI - General Adult General Chief complaint: Arrhythmia/Palpitations Stated complaint: heart attack symptoms-sent by provider Time Seen by Provider: 01/21/20 09:51 Source: patient Mode of arrival: Ambulatory Limitations: no limitations History of Present Illness HPI narrative: 79M former smoker with extensive cardiac history including prior stent presents with hiccups over the course of the night and very little in terms of other symptoms. He denies chest pain, SOB, N/V. Per his PCP he reported some jaw discomfort at some time, but is unclear about the time line. He had an outpatient EKG which noted sinus tach at 102 with occasional PVCs and was sent here for workup out of an abundance of caution due to his cardiac history. Patient has no symptoms currently. He denies any recent exertional fatigue or dyspnea. During these episodes patient has had no chest pain, shortness of breath nor cough, nausea, vomiting or any obvious provocation or palliation. Onset (ago): hour(s) Pain Consistency: now resolved Relieving factors: none Exacerbating factors: none Associated symptoms: other Treatments prior to arrival: none Related Data Home Medications Medication Instructions Recorded Confirmed amlodipine 5 mg tablet 5 mg PO BID 03/10/19 01/21/20 doxazosin 8 mg PO QPM 04/01/19 01/21/20 testosterone cypionate 100 mg IM Q2W 04/01/19 01/21/20 Fish Oil 1,200 mg PO DAILY 01/17/20 01/21/20 acetaminophen [Tylenol] 650 mg PO Q6H PRN 01/17/20 01/21/20 atorvastatin 40 mg PO BEDTIME 01/17/20 01/21/20 cholecalciferol (vitamin D3) 2,000 unit PO DAILY 01/17/20 01/21/20 [Vitamin D3] coenzyme Q10 [CoQ-10] 100 mg PO DAILY 01/17/20 01/21/20 finasteride 5 mg PO DAILY 01/17/20 01/21/20 multivitamin with minerals 1 tab PO DAILY 01/21/20 01/21/20 nystatin 1 applic TOPICAL BID 01/21/20 01/21/20 oxycodone 5 mg PO Q4H PRN 01/21/20 01/21/20 pantoprazole 40 mg PO DAILY 01/21/20 01/21/20 Previous Rx's Medication Instructions Recorded apixaban 5 mg PO BID #60 tab 04/23/19 metoprolol succinate 25 mg PO DAILY #30 tab 04/23/19 tolterodine [Detrol] 2 mg PO BID #16 tab 04/23/19 aspirin 81 mg PO DAILY #30 tab 01/18/20 docusate sodium [Colace] 100 mg PO BID #60 cap 01/18/20 polyethylene glycol 3350 [Miralax] 17 gram PO DAILY #238 gram 01/18/20 Allergies Allergy/AdvReac Type Severity Reaction Status Date / Time No Known Drug Allergies Allergy Verified 01/21/20 10:09 Review of Systems Constitutional Constitutional: Denies chills, Denies fatigue, Denies fever(s), Denies frequent falls, Denies lethargy and Denies weakness Eyes Eyes: Denies change in vision, Denies eye discharge, Denies irritation and Denies loss of vision ENT Ears, Nose, Mouth, and Throat: Denies change in voice, Denies dizziness, Denies neck pain, Denies sore throat and Denies throat swelling Cardiovascular Cardiovascular: Denies chest pain, Denies irregular heart rhythm, Denies lightheadedness, Denies palpitations, Denies dyspnea, Denies dyspnea on exertion and Denies orthopnea Respiratory Respiratory: Denies cough, Denies dyspnea, Denies dyspnea on exertion and Denies wheezing Gastrointestinal Gastrointestinal: Denies abdominal pain, Denies change in bowel habits, Denies diarrhea, Denies nausea and Denies vomiting Comments: hiccups Genitourinary Genitourinary: Denies hematuria, Denies flank pain, Denies urinary incontinence and Denies urinary urgency Musculoskeletal Musculoskeletal: Denies back pain, Denies muscle weakness, Denies neck pain, Denies numbness and Denies tingling Integumentary/Breasts Skin/Breast: Denies pruritus, Denies erythema, Denies rash and Denies wounds Neurologic Neurologic: Denies behavioral changes, Denies confusion, Denies dizziness, Denies frequent falls, Denies loss of vision, Denies numbness, Denies tingling and Denies weakness Psychiatric Psychiatric: Denies anxiety, Denies behavioral changes, Denies confusion, Denies depression, Denies homicidal ideation and Denies suicidal ideation Endocrine Endocrine: Denies fatigue, Denies flushing and Denies palpitations Hematologic/Lymphatic Hematologic/Lymphatic: Denies easy bruising Allergic/Immunologic Allergic/Immunologic: Denies urticaria, Denies throat swelling and Denies wheezing Patient History Medical History Arthritis (Acute) CAD (coronary artery disease) (Chronic) Diverticulosis (Acute) Former smoker (Acute) GI bleed (Resolved ~03/2015) H. pylori infection (Resolved ~03/2015) Hematemesis (Acute ~03/2015) History of back problems (Chronic) HLD (hyperlipidemia) (Chronic) Hypertension (Chronic) Internal hemorrhoid (Resolved) Kidney stones (Chronic 07/10/15) Non-Hodgkin lymphoma (Chronic) Ulcer (Acute) Surgical History H/O wrist surgery (Resolved ~1972) Hx of heart artery stent (Resolved ~2010) Hx of laminectomy (Resolved 09/07/15) Hx of lymph node excision (Resolved ~1988) Previous back surgery (Resolved ~2014) S/P hemorrhoidectomy (Acute) Family History Father Hypertension Heart disease Sister Cancer Mother Hypertension Social History marital status: household members: spouse occupational status: previously employed Smoking Status: Former smoker alcohol intake: current substance use type: does not use Smoking Status: Former smoker alcohol intake frequency: a few times a week Substance Use Type: does not use Exam Narrative Exam Narrative: GENERAL: [79] year old patient appears stated age. Well- nourished, well-developed patient, in no obvious distress. HEAD: Atraumatic. Normocephalic. EYES: Pupils equal round and reactive. Extraocular motions intact. No scleral icterus. No injection or drainage. ENT: Nose without bleeding, purulent drainage. Throat without erythema, tonsillar hypertrophy or exudate. Airway patent. NECK: Trachea midline. Non tender CARDIOVASCULAR: Mildly tachycardic with occasional PVCs rhythm without murmurs, gallops, or rubs. RESPIRATORY: Clear to auscultation. Breath sounds equal bilaterally. No wheezes, rales, or rhonchi. GASTROINTESTINAL: Abdomen soft, non-tender, nondistended. EXTREMITIES: No edema or joint tenderness. BACK: Nontender without deformity or crepitance. No flank tenderness. NEURO: AOx3. SKIN: No rash or erythema of visible areas Initial Vital Signs Initial Vital Signs: Vital Signs Temperature 97.9 F 01/21/20 09:55 Pulse Rate 103 H 01/21/20 09:55 Respiratory Rate 26 H 01/21/20 09:55 Blood Pressure 167/92 H 01/21/20 09:55 Pulse Oximetry 95 01/21/20 09:55 Course Orders Ordered: ED Orders 01/21/20 10:00 XR chest 1V Stat 01/21/20 10:02 Complete Blood Count AUTO DIFF Stat Comprehensive Metabolic Panel Stat Lipase Stat Troponin & CK Cardiac Panel Stat 01/21/20 10:58 EKG-12 Lead Stat 01/21/20 12:00 Troponin I Stat Discontinued Medications Aspirin (Aspirin Chew) 324 mg PO NOW ONE Stop: 01/21/20 10:00 Last Admin: 01/21/20 10:20 Dose: Not Given Documented by: KBROTEM Sodium Chloride (Normal Saline 0.9%) 1,000 mls @ 150 mls/hr IV CONT BRYNANA Last Admin: 01/21/20 10:20 Dose: Not Given Documented by: KBROTEM Vital Signs Vital signs: Vital Signs - 8 hr 01/21/20 11:00 01/21/20 11:30 01/21/20 12:00 Pulse Rate 82 85 90 Respiratory Rate 27 H 29 H 16 Blood Pressure [Left Arm] 148/65 H 153/78 H 156/73 H Pulse Oximetry 93 92 92 01/21/20 12:30 Pulse Rate 89 Respiratory Rate 16 Blood Pressure [Left Arm] 144/79 H Pulse Oximetry 95 Medical Decision Making Lab Data Result diagrams: 01/21/20 10:02 01/21/20 10:02 Labs: Lab Results 01/21/20 01/21/20 01/21/20 Range/Units 10:02 10:02 12:00 WBC 11.1 H (4.5-11.0) X10^3/uL RBC 4.42 L (4.5-5.9) X10^6/uL Hgb 14.8 (13.5-17.5) g/dL Hct 43.3 (41-53) % MCV 97.8 (80-100) fL MCH 33.5 (26-34) PG MCHC 34.3 (30-36) % RDW 14.9 H (11.6-14.8) % Plt Count 169 (150-400) X10^3/uL Neut % (Auto) 74.6 (50-75) % Lymph % (Auto) 12.9 L (25-40) % Hawkins % (Auto) 9.5 (3-14) % Eos % (Auto) 2.0 (2-4) % Baso % (Auto) 1.0 (0-2) % Neut # (Auto) 8300 H (3065-7375) /uL Lymph # (Auto) 1400 (3778-5310) /uL Hawkins # (Auto) 1100 H (0-900) /uL Eos # (Auto) 200 (0-450) /uL Baso # (Auto) 100 (0-100) /uL Sodium 140 (137-145) mmol/L Potassium 3.8 (3.4-5.1) mmol/L Chloride 104 (98-107) mmol/L Carbon Dioxide 25 (22-32) mmol/L BUN 27 H (9-20) mg/dL Creatinine 1.90 H (0.66-1.25) mg/dL Estimated GFR 34.3 L (>60) mL/min BUN/Creatinine Ratio 14.2 (6-22) Glucose 134 H (80-110) mg/dL Calcium 8.5 (8.4-10.2) mg/dL Total Bilirubin 0.6 (0.2-1.3) mg/dL AST 31 (17-59) IU/L ALT 30 (<50) IU/L Alkaline Phosphatase 132 H D (38-126) U/L Total Creatine Kinase 44 L (55-170) U/L CK-MB (CK-2) TNP CK-MB (CK-2) Rel Index TNP Troponin I 0.073 H 0.068 H (0.01-0.034) ng/mL Total Protein 6.7 (6.3-8.2) g/dL Albumin 3.4 L (3.5-5.0) g/dL Globulin 3.3 (1.7-4.1) g/dL Albumin/Globulin Ratio 1.0 (1.0-2.8) Lipase 318 H (23-300) U/L ECG Data Attestation: I personally reviewed and interpreted this ECG as follows: Interpretation: EKG is normal sinus rhythm rate [ 98] and free of any signs of ischemia or ectopy. No ST segmental elevation or depression. No T wave inversions. IN 226 (1st degree block) QRS 88 QT 350 MDM Narrative Medical decision making narrative: Patient with nonischemic EKG x2, troponin i ndeterminate x2 without change and without cardiac complaints evaluated for multiple hours. History, physical, labs, and EKG are not suggestive of ischemic disease. Return precautions given and follow-up instructions related to patient. Questions have been answered to his apparent satisfaction Discharge Plan Departure Patient Disposition: Home Clinical Impression: Atypical chest pain Discharge Date/Time: 01/21/20 13:20 Instructions: DI for Atypical Chest Pain Activity Restrictions/Additional Instructions: *You have been diagnosed with [ hiccups ] *What to do: *Take medications as directed *Follow up with your primary care provider in 2-3 days, call for an appointment. Let them know you were seen in the Emergency Department and that we ask that you be seen in follow up *Return to ER if you should have any new, worsening or concerning symptoms Prescriptions: No Action amlodipine 5 mg tablet 5 mg PO BID RF: 0 atorvastatin 40 mg tablet 40 mg PO BEDTIME RF: 0 acetaminophen [Tylenol] 325 mg Tablet 650 mg PO Q6H PRN (Reason: pain) RF: 0 finasteride 5 mg tablet 5 mg PO DAILY RF: 0 coenzyme Q10 [CoQ-10] 100 mg Capsule 100 mg PO DAILY RF: 0 cholecalciferol (vitamin D3) [Vitamin D3] 50 mcg (2,000 unit) Capsule 2,000 unit PO DAILY RF: 0 Fish Oil 1,200 MG 1,200 mg PO DAILY RF: 0 docusate sodium [Colace] 100 mg capsule 100 mg PO BID Qty: 60 RF: 0 polyethylene glycol 3350 [Miralax] 17 gram/dose powder 17 gram PO DAILY Qty: 238 RF: 0 aspirin 81 mg tablet,delayed release (DR/EC) 81 mg PO DAILY Qty: 30 RF: 0 nystatin 100,000 unit/gram Cream 1 applic TOPICAL BID RF: 0 multivitamin with minerals Tablet 1 tab PO DAILY RF: 0 pantoprazole 40 mg tablet,delayed release (DR/EC) 40 mg PO DAILY RF: 0 oxycodone 5 mg tablet 5 mg PO Q4H PRN (Reason: pain) RF: 0 doxazosin 8 mg tablet 8 mg PO QPM RF: 0 testosterone cypionate 200 mg/mL oil 100 mg IM Q2W RF: 0 metoprolol succinate 25 mg Tablet Extended Release 24 Hr 25 mg PO DAILY Qty: 30 RF: 3 tolterodine [Detrol] 1 mg Tablet 2 mg PO BID Qty: 16 RF: 0 apixaban 5 mg tablet 5 mg PO BID Qty: 60 RF: 0 Referrals: Dusty Cui MD [Primary Care Provider] -
--- NOTE | 2020-01-21 10:09 | PC.NURSE ---
Pt sent to ED after he had an outpatient ekg. Pt denies any symptoms,no chest pain,SOB or dizziness. Pt has hx stent placement.
[2020-01-21 10:12] LABS: Add Manual Diff / Slide Review NO; Basophils Absolute Auto 100 /uL (0-100); Eosinophils Absolute Auto 200 /uL (0-450); Hematocrit 43.3 % (41-53); Hemoglobin 14.8 g/dL (13.5-17.5); Lymphocytes Absolute Auto 1400 /uL (1100-4500); Lymphocytes Percent Auto 12.9 % (25-40); Mean Corpuscular HGB Conc 34.3 % (30-36); Mean Corpuscular Hemoglobin 33.5 PG (26-34); Mean Corpuscular Volume 97.8 fL (80-100); Monocytes Absolute Auto 1100 /uL (0-900); Monocytes Percent Auto 9.5 % (3-14); Neutrophils Absolute Auto 8300 /uL (1500-7000); Neutrophils Percent Auto 74.6 % (50-75); Platelet Count 169 X10^3/uL (150-400); Red Blood Cell Count 4.42 X10^6/uL (4.5-5.9); Red Cell Distribution Width 14.9 % (11.6-14.8); White Blood Cell Count 11.1 X10^3/uL (4.5-11.0)
[2020-01-21 10:23] LABS: Alanine Aminotransferase 30 IU/L (<50); Albumin 3.4 g/dL (3.5-5.0); Alkaline Phosphatase 132 U/L (38-126); Aspartate Aminotransferase 31 IU/L (17-59); BUN Creatinine Ratio 14.2 (6-22); Bilirubin Total 0.6 mg/dL (0.2-1.3); Blood Urea Nitrogen 27 mg/dL (9-20); Calcium 8.5 mg/dL (8.4-10.2); Carbon Dioxide 25 mmol/L (22-32); Chloride 104 mmol/L (98-107); Creatine Kinase 44 U/L (55-170); Estimated Glomerular Filt Rate 34.3 mL/min (>60); Globulin 3.3 g/dL (1.7-4.1); Glucose 134 mg/dL (80-110); HEMOLYSIS < 15 (0-50); Lipase 318 U/L (23-300); Potassium 3.8 mmol/L (3.4-5.1); Sodium 140 mmol/L (137-145); Total Protein 6.7 g/dL (6.3-8.2)
[2020-01-21 10:30] VITALS: BP 157/78; PULSE 60; RESP 28; O2SAT 93
[2020-01-21 10:35] LABS: Troponin I 0.073 ng/mL (0.01-0.034)
[2020-01-21 11:00] VITALS: BP 148/65; PULSE 82; RESP 27; O2SAT 93
[2020-01-21 11:30] VITALS: BP 153/78; PULSE 85; RESP 29; O2SAT 92
[2020-01-21 12:00] VITALS: BP 156/73; PULSE 90; RESP 16; O2SAT 92
[2020-01-21 12:30] VITALS: BP 144/79; PULSE 89; RESP 16; O2SAT 95
[2020-01-21 12:36] LABS: Troponin I 0.068 ng/mL (0.01-0.034)
== END 2020-01-21 13:20 | disposition home or self-care (01) ==
PROVIDERS: Emergency Provider Emergency Medicine; Family Provider Family Medicine; PCP Family Medicine
DX: R07.89 Other chest pain (principal); I25.10 Atherosclerotic heart disease of native coronary artery without angina pectoris; I48.91 Unspecified atrial fibrillation
CPT/HCPCS: 36415; 71045; 80053; 82550; 83690; 84484; 85025; 93005; 99284

== ENCOUNTER → 2020-02-03 11:51 | Oncology outpatient (ONC) | payer MEDICARE, OTHER, SELFPAY ==
[2020-01-13 02:19] VITALS: BMI 31.9
--- NOTE | 2020-02-03 10:36 | ONC.CONS ---
History of Present Illness - Data of Consult Patient: new to practice Consult date: 02/03/20 Primary Care Provider: Dusty Cui MD - Consult Narrative Narrative: Jeremiah Martinez is a 79 year old male Dec, 2019 very mobbile Jan 2020 major decline. not like in new evce. Left sholder pain. left pper shoudler pain, 10/10, it is getting worse Energy level, is improving, at home, using and walker. no shortness of breath. no chest pain. he is on cardiac cath technologist, Emanuel no abdomianl pain poor appetite we loss about 10 lbs. no blood in the urine one year ago, prostatitis. urologist did cysto, kayleigh roque. Dr. Herr CC: Arturo Cooney MD Home Medications and Allergies Home Medications Medication Instructions Recorded Confirmed Type amlodipine 5 mg tablet 5 mg PO BID 03/10/19 02/03/20 History doxazosin 8 mg PO QPM 04/01/19 02/03/20 History testosterone cypionate 100 mg IM Q2W 04/01/19 02/03/20 History apixaban 5 mg PO BID #60 tab 04/23/19 02/03/20 Rx metoprolol succinate 25 mg PO DAILY #30 tab 04/23/19 02/03/20 Rx tolterodine [Detrol] 2 mg PO BID #16 tab 04/23/19 02/03/20 Rx acetaminophen [Tylenol] 650 mg PO Q6H PRN 01/17/20 02/03/20 History atorvastatin 40 mg PO BEDTIME 01/17/20 02/03/20 History cholecalciferol (vitamin D3) 2,000 unit PO DAILY 01/17/20 02/03/20 History [Vitamin D3] coenzyme Q10 [CoQ-10] 100 mg PO DAILY 01/17/20 02/03/20 History finasteride 5 mg PO DAILY 01/17/20 02/03/20 History aspirin 81 mg PO DAILY #30 tab 01/18/20 02/03/20 Rx multivitamin with minerals 1 tab PO DAILY 01/21/20 02/03/20 History oxycodone 5 mg PO Q4H PRN 01/21/20 02/03/20 History celecoxib 100 mg PO DAILY 02/03/20 02/03/20 History doxazosin 8 mg DAILY 02/03/20 02/03/20 History olmesartan-hydrochlorothiazide 1 tab PO DAILY 02/03/20 02/03/20 History [Benicar HCT] Allergies Allergy/AdvReac Type Severity Reaction Status Date / Time No Known Drug Allergies Allergy Verified 01/21/20 10:09 Medical History - Medical, Surgical, Family History Medical History: Medical History (Last Reviewed 01/21/20 @ 10:18 by Rogelio Gonzalez DO) Arthritis CAD (coronary artery disease) Diverticulosis Former smoker GI bleed Onset Date: ~03/2015 H. pylori infection Onset Date: ~03/2015 Hematemesis Onset Date: ~03/2015 History of back problems HLD (hyperlipidemia) Hypertension Internal hemorrhoid Kidney stones Onset Date: 07/10/15 Non-Hodgkin lymphoma Ulcer Surgical History: Surgical History (Last Reviewed 01/21/20 @ 10:18 by Rogelio Gonzalez DO) H/O wrist surgery Onset Date: ~1972 Hx of heart artery stent Onset Date: ~2010 Hx of laminectomy Onset Date: 09/07/15 Hx of lymph node excision Onset Date: ~1988 Previous back surgery Onset Date: ~2014 S/P hemorrhoidectomy Family History: Family History (Last Reviewed 01/21/20 @ 10:18 by Rogelio Gonzalez DO) Father Hypertension Heart disease Sister Cancer Mother Hypertension - Social History Smoking Status: Former smoker Results - Imaging Additional studies: Procedures Endoscopic polypectomy of large intestine (04/21/15) Esophagogastroduodenoscopy [EGD] with closed biopsy (04/21/15) Other cystoscopy (07/10/15) Transurethral clearance of bladder (07/10/15)
[2020-02-03 10:53] VITALS: BP 142/85; PULSE 72; RESP 18; TEMP 36.9; O2SAT 98
[2020-02-03 12:13] LABS: Add Manual Diff / Slide Review NO; Basophils Absolute Auto 100 /uL (0-100); Basophils Percent Auto 1.2 % (0-2); Eosinophils Absolute Auto 0 /uL (0-450); Eosinophils Percent Auto 0.5 % (2-4); Hematocrit 43.5 % (41-53); Hemoglobin 15.1 g/dL (13.5-17.5); Lymphocytes Absolute Auto 900 /uL (1100-4500); Lymphocytes Percent Auto 13.8 % (25-40); Mean Corpuscular HGB Conc 34.7 % (30-36); Mean Corpuscular Hemoglobin 33.5 PG (26-34); Mean Corpuscular Volume 96.4 fL (80-100); Monocytes Absolute Auto 700 /uL (0-900); Monocytes Percent Auto 10.3 % (3-14); Neutrophils Absolute Auto 4900 /uL (1500-7000); Neutrophils Percent Auto 74.2 % (50-75); Platelet Count 232 X10^3/uL (150-400); Red Blood Cell Count 4.51 X10^6/uL (4.5-5.9); Red Cell Distribution Width 14.4 % (11.6-14.8); White Blood Cell Count 6.7 X10^3/uL (4.5-11.0)
[2020-02-03 12:29] LABS: Alanine Aminotransferase 50 IU/L (<50); Albumin 3.8 g/dL (3.5-5.0); Alkaline Phosphatase 177 U/L (38-126); Aspartate Aminotransferase 36 IU/L (17-59); BUN Creatinine Ratio 20.6 (6-22); Bilirubin Total 0.6 mg/dL (0.2-1.3); Blood Urea Nitrogen 35 mg/dL (9-20); Calcium 10.1 mg/dL (8.4-10.2); Carbon Dioxide 28 mmol/L (22-32); Chloride 103 mmol/L (98-107); Globulin 3.8 g/dL (1.7-4.1); Glucose 132 mg/dL (80-110); HEMOLYSIS < 15 (0-50); Potassium 4.1 mmol/L (3.4-5.1); Sodium 140 mmol/L (137-145); Total Protein 7.6 g/dL (6.3-8.2)
[2020-02-03 13:00] LABS: Prostate Specific Antigen 6.17 ng/mL (0.10-4.00)
[2020-02-03 13:02] LABS: Testosterone 313 ng/dL (71.8-623)
--- NOTE | 2020-02-03 14:02 | ONC.SCHED ---
Got patient scheduled with Dr. Twila Herr on 02/08/20 @ 9:30 in [place]. I left message for patient stating his apt. was in [place] not realizing that Dr. Herr works out of [place], I right away called back to double check because the patient said he sees Dr. Herr in [place]. The apt. is for sure in [place]. I called both the patient and [facility] back to make that very clear. I left a VM for patient and spoke with his nurse at [facility]. I asked his nurse to make sure to let pt. know that his apt. will be in [place]. The is an urgent referral. Also, the patient came with his daughter who was very unhappy with her experience at the hospital and even here at the clinic. She did not say why. She was not very nice to myself or myself. I had to speak with Dr. Cooney about this referral as it's urgent (per Dr. Cooney) and he said daughter was not very nice to him. I will let Tamara Pak know.
--- NOTE | 2020-02-03 18:20 | ONC.PN ---
PN -Subjective Interval history: ID/CC: 79 year old male with metastatic carcinoma of unknown primary Oncology History: Jeremiah Martinez is a 79 year old male with medical history of non-Hodgkin's lymphoma, hypertension, atrial fibrillation on Eliquis, and chronic kidney disease. He was admitted to the hospital due to rapidly declining mental status on 11/19/2020. He was found to have severe hypercalcemia of 17 on admission. Admission head CT was without acute intracranial abnormality. CT chest abdomen pelvis showed bilateral thyroid nodules, multiple indeterminate hepatic lesions, thickening of the distal sigmoid colon and rectum, and multiple lucent foci in bones: a 24 mm lucent mass within the right L4 vertebral body, a 20 mm lucent focus within the right L5 vertebral body, and smaller low-density foci throughout the reminder of the thoracolumnar spine, pelvis, and proximal femur, as well as a 33 mm lucent focus within the right anterior iliac wing. Patient has received intravenous fluids, calcitonin, and Zometa infusion after he was admitted to the hospital. His serum calcium level has been decreasing. When I saw the patient as an inpatient consult, he appeared awake and alert. He was complaining right-sided hip pain and right-sided upper abdomen and right-sided rib pain especially upon inspiration. He was also complaining lower back pain. Patient denies any fever or chills. Denies nausea vomiting. Patient has some shortness of breath but no chest pain. He recalled that he developed right hip pain as well as pain across the lower back since about October of 2019. He especially complained of the right hip pain and he was not able to walk because of the pain. Patient did not remember what type of non-Hodgkin's lymphoma he had in the past. He remembered he received chemotherapy but not radiation therapy. On 01/15/2020 serum protein electrophoresis showed 1 or more fractions outside the reference interval. Immunofixation studies reviewed 1 true wheeze concentration bands migrating in the gamma region which was of too low a concentration to definitely identify. Serum free light chain ratio was normal at 1.11. Urinary protein electrophoresis showed normal pattern. Patient's prostate specific antigen was found to be elevated at 13.1 on 01/12/2020. Serum protein 1, 25 dihydroxyvitamin D was 8. On 01/15/2020, patient underwent bone scan it showed multiple foci of abnormal uptake consistent with osseous metastasis. He also underwent brain MRI on the same day that showed age-related volume loss and moderate small-vessel ischemic change and no evidence of acute stroke, hemorrhage, or intracranial mass. Multiple probable tiny calvarial metastatic lesions were noted. He was discharged from the hospital on 01/17/2020. On discharge, serum calcium level has normalized to 9.4. Interim Events: Patient came in here today in wheelchair. However he said at home he is using cane or walker but not wheelchair. He is accompanied by his daughter to the clinic. According to patient's daughter, Jeremiah was very functional in December 2019 but there after he has shown significant decline by the end of January 2020. Nothing like he was at new year. Since discharge, patient has developed left shoulder pain, which sometimes can be as severe as 10/10 and it is getting progressively worse. In addition patient said that his appetite has decreased and he has lost about 10 lb. Patient denies shortness of breath, denies chest pain. He also denies blood in the stool or blood in the urine. Patient admitted that about 1 year ago, patient has had cystoscopy by Dr. Herr for ?prostate inflammation. - Patient Self-Reported Symptoms SR Constitution: Weight loss/gain, Fatigue/Malaise, Night Sweats SR ears, nose, mouth, throat issues: Hoarseness SR Cardiovascular issues: Palpitations SR Skin issues: Blistering or peeling SR Gastrointestinal issues: Poor or no appetite SR Musculoskeletal issues: Muscle weakness SR Neuro issues: Tremors or shaking, Difficulty balancing - Additional ROS All systems PM: reviewed and no additional remarkable complaints except as stated Home Medications and Allergies Home Medications Medication Instructions Recorded Confirmed Type amlodipine 5 mg tablet 5 mg PO BID 03/10/19 02/03/20 History doxazosin 8 mg PO QPM 04/01/19 02/03/20 History testosterone cypionate 100 mg IM Q2W 04/01/19 02/03/20 History apixaban 5 mg PO BID #60 tab 04/23/19 02/03/20 Rx metoprolol succinate 25 mg PO DAILY #30 tab 04/23/19 02/03/20 Rx tolterodine [Detrol] 2 mg PO BID #16 tab 04/23/19 02/03/20 Rx acetaminophen [Tylenol] 650 mg PO Q6H PRN 01/17/20 02/03/20 History atorvastatin 40 mg PO BEDTIME 01/17/20 02/03/20 History cholecalciferol (vitamin D3) 2,000 unit PO DAILY 01/17/20 02/03/20 History [Vitamin D3] coenzyme Q10 [CoQ-10] 100 mg PO DAILY 01/17/20 02/03/20 History finasteride 5 mg PO DAILY 01/17/20 02/03/20 History aspirin 81 mg PO DAILY #30 tab 01/18/20 02/03/20 Rx multivitamin with minerals 1 tab PO DAILY 01/21/20 02/03/20 History oxycodone 5 mg PO Q4H PRN 01/21/20 02/03/20 History celecoxib 100 mg PO DAILY 02/03/20 02/03/20 History doxazosin 8 mg DAILY 02/03/20 02/03/20 History olmesartan-hydrochlorothiazide 1 tab PO DAILY 02/03/20 02/03/20 History [Benicar HCT] oxycodone-acetaminophen 1 tab PO Q6H PRN #100 tab 02/03/20 Rx Allergies Allergy/AdvReac Type Severity Reaction Status Date / Time No Known Drug Allergies Allergy Verified 01/21/20 10:09 Exam Vital signs: Vital Signs Temp Pulse Resp BP Pulse Ox 02/03/20 10:53 98.4 F 72 18 142/85 H 98 Intake and Output 02/03/20 02/03/20 02/03/20 07:59 15:59 23:59 Other: Weight 85.9 kg Patient Weight 02/03/20 23:59 Weight 85.9 kg Narrative: ECOG 2 Gen: WDWN, obese, chronically ill, appeared tired, NAD, pleasant and cooperative. HEENT: NCAT, EOMI, PERRLA, anicteric sclera. Neck: Supple, no palpable enlarged neck or supraclavicular lymph nodes.. Respiratory: CTAB, no wheezes audible. No JVD. Cardiovascular: RRR, S1 and S2 normal, no M/G/R. Abdomen: Soft, mild nonspecific abdominal pain. No palpable hepatosplenomegaly. Extremities: No LE pitting edema. Lymphatic: no palpable lymph nodes in the neck, axillae. Neurological: AOx3, CN II-XII grossly intact. No focal motor or sensory deficit. Psychiatric: AOx3, Cooperative Results - Labs Laboratory Last Values WBC 6.7 X10^3/uL (4.5-11.0) 02/03/20 12:02 RBC 4.51 X10^6/uL (4.5-5.9) 02/03/20 12:02 Hgb 15.1 g/dL (13.5-17.5) 02/03/20 12:02 Hct 43.5 % (41-53) 02/03/20 12:02 MCV 96.4 fL (80-100) 02/03/20 12:02 MCH 33.5 PG (26-34) 02/03/20 12:02 MCHC 34.7 % (30-36) 02/03/20 12:02 RDW 14.4 % (11.6-14.8) 02/03/20 12:02 Plt Count 232 X10^3/uL (150-400) 02/03/20 12:02 Neut % (Auto) 74.2 % (50-75) 02/03/20 12:02 Lymph % (Auto) 13.8 % (25-40) L 02/03/20 12:02 [place] % (Auto) 10.3 % (3-14) 02/03/20 12:02 Eos % (Auto) 0.5 % (2-4) L 02/03/20 12:02 Baso % (Auto) 1.2 % (0-2) 02/03/20 12:02 Neut # (Auto) 4900 /uL (8632-6630) 02/03/20 12:02 Lymph # (Auto) 900 /uL (3561-7252) L 02/03/20 12:02 [place] # (Auto) 700 /uL (0-900) 02/03/20 12:02 Eos # (Auto) 0 /uL (0-450) 02/03/20 12:02 Baso # (Auto) 100 /uL (0-100) 02/03/20 12:02 Sodium 140 02/03/20 12:23 Potassium 4.1 02/03/20 12:23 Chloride 103 02/03/20 12:23 Carbon Dioxide 28 02/03/20 12:23 BUN 35 02/03/20 12:23 Creatinine 1.7 02/03/20 12:23 Estimated GFR 39.0 02/03/20 12:23 BUN/Creatinine Ratio 20.6 02/03/20 12:23 Glucose 132 02/03/20 12:23 Calcium 10.1 02/03/20 12:23 Total Bilirubin 0.6 mg/dL (0.2-1.3) 02/03/20 12:02 AST 36 IU/L (17-59) 02/03/20 12:02 ALT 50 IU/L (<50) H 02/03/20 12:02 Alkaline Phosphatase 177 U/L (38-126) H 02/03/20 12:02 Total Protein 7.6 g/dL (6.3-8.2) 02/03/20 12:02 Albumin 3.8 g/dL (3.5-5.0) 02/03/20 12:02 Globulin 3.8 g/dL (1.7-4.1) 02/03/20 12:02 Albumin/Globulin Ratio 1.0 (1.0-2.8) 02/03/20 12:02 Prostate Specific Ag 6.17 ng/mL (0.10-4.00) H 02/03/20 12:02 Testosterone Level 313 ng/dL (71.8-623) 02/03/20 12:02 - Imaging Additional studies: Procedures Endoscopic polypectomy of large intestine (04/21/15) Esophagogastroduodenoscopy [EGD] with closed biopsy (04/21/15) Other cystoscopy (07/10/15) Transurethral clearance of bladder (07/10/15) Assessment and Plan (1) 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 In January 2020, he presented with mental status changes and hypercalcemia and was found to have widespread osseous metastatic disease of unknown primary. He was also found to have indeterminate hepatic lesions and thickening of the distal sigmoid colon and rectum on CT chest abdomen and pelvis performed 01/12/2020. Patient admitted that he has been using testosterone injection 100 mg every 2 weeks for years. Assessment : I talked with the patient and patient's daughter that the protein electrophoresis of the serum as well as the urine did not detect apparent monoclonal proteins in the blood. In addition serum free light chain ratio was also within the normal range. The results suggest that the metastatic bone lesions are most likely not caused by plasma cell malignancy. At this moment, the obvious elevated serum PSA level suggests possible malignant prostate cancer with bone metastasis. For definitive diagnosis, I would refer the patient to urologist for possible prostate biopsy. Patient previously had cystoscopy by Dr. Herr and he prefered he be seen by Dr. Herr again. Plan: CBC, CMP, PSA/T Recommend stop Testosterone Refer to Urologist Dr. Herr for evaluation of possible prostate cancer RTC in 2 weeks for follow up visit.
--- NOTE | 2020-02-08 16:41 | ONC.SCHED ---
Spoke with daughter who wanted more lab records so I gave her medical records fax number to request them. Also, Janet from [facility] called and my fax to Dr. Herr for pt visit there was sent to Janet at [facility] to see Dr. Roldan over there. I'm not sure and neither was Janet or Carmenza's office is patient is transferring care over there. Waiting to hear back from Janet.
== END ==
PROVIDERS: Family Provider Family Medicine; PCP Family Medicine; Referring Provider Family Medicine; Visit Provider Internal Medicine Hematology & Oncology
DX: C80.1 Malignant (primary) neoplasm, unspecified (principal); C79.51 Secondary malignant neoplasm of bone; K76.9 Liver disease, unspecified; I48.91 Unspecified atrial fibrillation; I12.9 Hypertensive chronic kidney disease with stage 1 through stage 4 chronic kidney disease, or unspecified chronic kidney disease; N18.9 Chronic kidney disease, unspecified; Z85.72 Personal history of non-Hodgkin lymphomas; Z79.01 Long term (current) use of anticoagulants
CPT/HCPCS: 36415; 80053; 84153; 84403; 85025; 99215

== ENCOUNTER → 2020-08-25 13:20 | Outpatient (CLI) | payer MEDICARE, OTHER, SELFPAY ==
[2020-01-13 02:19] VITALS: BMI 31.9
--- NOTE | 2020-08-25 13:25 | DI.RAD.S_ITS ---
PROCEDURE: XR LUMBAR SPINE 2-3V INDICATIONS: HIP/ LOW BACK PAIN TECHNIQUE: 3 views of the lumbar spine were acquired. COMPARISON: [facility], CT, CT CHEST ABDOMEN PELVIS WITHOUT CONTRAST, 02/21/2020, 23:53. [facility], CR, L-SPINE 2-3 VIEWS, 04/05/2015, 9:53. FINDINGS: Bones: 5 [id number] vertebrae are present. There is stable bony alignment. No acute vertebral body compression fractures. Stable appearance of anterior compression deformities at L2. Mixed sclerotic appearance of the posterior elements of L4 and L5 compatible with metastatic disease seen on comparison CT. Moderate multilevel lumbar spondylosis. Soft tissues: Overlying bowel gas pattern is normal. No suspicious soft tissue calcifications. IMPRESSION: Lumbar spine without acute radiographic abnormality. Stable anterior compression deformity at L2. Stable appearance of osseous metastatic lesions involving the L4 and L5 vertebral bodies. Multilevel lumbar spondylosis. Dictated by: Maxime Mayfield M.D. on 08/25/2020 at 17:18 Approved by: Maxime Mayfield M.D. on 08/25/2020 at 17:22
--- NOTE | 2020-08-25 13:25 | DI.RAD.S_ITS ---
PROCEDURE: XR HIP W PEL IF DONE LT MIN 4V INDICATIONS: HIP/ LOW BACK PAIN CHRONIC TECHNIQUE: AP pelvis with lateral view(s) of the bilateral hip(s). COMPARISON: [facility], CT, CT CHEST ABDOMEN PELVIS WITHOUT CONTRAST, 02/21/2020, 23:53. [facility], CR, HIP 2V RIGHT, 04/05/2015, 9:53. FINDINGS: Bones: Bilateral hip without acute fracture. Scattered lucencies involving the pelvic ring, bilateral femoral head, and right iliac crest compatible with metastatic disease seen on comparison studies. Lower lumbar spondylosis also noted. Ill-defined appearance of the lower lumbar pedicles compatible with osseous metastatic lesions seen on comparison CT. There is also moderate osteoarthrosis involving the bilateral hip joints. Soft tissues: The visualized bowel gas pattern is normal. No suspicious soft tissue calcifications. IMPRESSION: Bilateral hips without acute fracture or dislocation. Moderate bilateral hip osteoarthrosis. Redemonstration of numerous lytic lesions involving the lower lumbar spine, pelvic ring/pelvis, and bilateral femoral heads compatible with known osseous metastatic disease. Dictated by: Maxime Mayfield M.D. on 08/25/2020 at 17:13 Approved by: Maxime Mayfield M.D. on 08/25/2020 at 17:17
== END ==
PROVIDERS: Family Provider Family Medicine; PCP Family Medicine; Referring Provider Family Medicine; Visit Provider Family Medicine
DX: M54.5 Low back pain (principal); M16.0 Bilateral primary osteoarthritis of hip; C79.51 Secondary malignant neoplasm of bone; C80.1 Malignant (primary) neoplasm, unspecified; M25.559 Pain in unspecified hip
CPT/HCPCS: 72100; 73522

== ENCOUNTER → 2020-09-15 15:39 | Outpatient (CLI) | payer MEDICARE, OTHER, SELFPAY ==
[2020-01-13 02:19] VITALS: BMI 31.9
--- NOTE | 2020-09-15 | DI.US.S_ITS ---
PROCEDURE: US ABD AORTA ANEURYSM SCREEN INDICATIONS: hypertension, Personal history of nicotine dependence TECHNIQUE: Real time scanning was performed of the aorta and iliac arteries, with image documentation. COMPARISON: [facility], CT, CT CHEST ABDOMEN PELVIS WITHOUT CONTRAST, 02/21/2020, 23:53. FINDINGS: Aorta: Proximal aortic diameter measures 2.6 x 1.7 cm. Mid-aorta measures 1.4 x 1.4 cm. Distal aortic diameter is 1.4 x 1.4 cm. Iliac arteries: Right common iliac artery measures 0.6 cm. Left common iliac artery measures 0.6 cm. IMPRESSION: No abdominal aortic aneurysm. Dictated by: Marco Gaffney M.D. on 09/15/2020 at 17:06 Approved by: Marco Gaffney M.D. on 09/15/2020 at 17:08
--- NOTE | 2020-09-15 | DI.US.S_ITS ---
PROCEDURE: US PERIP VENOUS LOW EXTREM LT INDICATIONS: Personal history of nicotine dependence TECHNIQUE: Real-time imaging, as well as color and pulse Doppler interrogation, were performed of the lower extremity deep veins from the inguinal ligament to the popliteal fossa. COMPARISON: [facility], PERIP VENOUS LOW EXTREM BI, 04/15/2019, 16:38. [facility], ABD AORTA ANEURYSM SCREEN, 09/15/2020, 16:14. FINDINGS: The common femoral, femoral and popliteal veins are normally compressible, and free of intraluminal thrombus. Color and pulse Doppler demonstrate normal phasic intraluminal flow. There is normal augmentation response to distal compression maneuver. IMPRESSION: Negative for deep venous thrombosis. Dictated by: Fuentes Burns M.D. on 09/15/2020 at 16:51 Approved by: Fuentes Burns M.D. on 09/15/2020 at 16:52
== END ==
PROVIDERS: Family Provider Family Medicine; PCP Family Medicine; Referring Provider Family Medicine; Visit Provider Family Medicine
DX: Z13.6 Encounter for screening for cardiovascular disorders (principal); I10 Essential (primary) hypertension; Z87.891 Personal history of nicotine dependence
CPT/HCPCS: 76706; 93971

== ENCOUNTER → 2021-12-13 12:04 | Outpatient (CLI) | payer MEDICARE, OTHER, SELFPAY ==
[2020-01-13 02:19] VITALS: BMI 31.9
--- NOTE | 2021-12-13 12:08 | DI.RAD.S_ITS ---
PROCEDURE: XR SHOULDER RT MIN 2V INDICATIONS: SHOULDER PAIN TECHNIQUE: 3 views of the shoulder were acquired. COMPARISON: [facility], CR, XR CHEST 1 VIEW, 11/03/2020, 18:17. FINDINGS: Bones: No fractures or dislocations. Healed right 7th posterior lateral rib fracture redemonstrated. No suspicious bony lesions. Visualized ribs appear intact. Moderate joint narrowing with periarticular osteophyte formation of the acromioclavicular and glenohumeral joint Soft tissues: No suspicious soft tissue calcifications. IMPRESSION: Moderate acromioclavicular and glenohumeral joint degeneration. Dictated by: Michael MANZANARES Interpreted: Milagro Palmer MD on 12/13/2021 at 12:21 Transcribed by: ELMA on 12/13/2021 at 12:22 Approved by: Milagro Palmer M.D. on 12/13/2021 at 14:29
== END ==
PROVIDERS: Family Provider Family Medicine; PCP Family Medicine; Referring Provider Family Medicine; Visit Provider Family Medicine
DX: M25.511 Pain in right shoulder (principal); M19.011 Primary osteoarthritis, right shoulder
CPT/HCPCS: 73030

== ENCOUNTER → 2022-09-19 13:04 | Outpatient (CLI) | payer MEDICARE, OTHER, SELFPAY ==
[2020-01-13 02:19] VITALS: BMI 31.9
--- NOTE | 2022-09-19 | DI.RAD.S_ITS ---
PROCEDURE: XR HIP W PEL IF DONE ALEM MIN 4V INDICATIONS: C83.39 TECHNIQUE: AP pelvis with lateral view(s) of the bilateral hip(s). COMPARISON: [facility], , XR HIP W PEL IF DONE ALEM 3TO4V, 08/25/2020, 13:17. FINDINGS: Bones: No fractures or dislocations. Pelvic ring appears intact. No suspicious bony lesions. Moderate bilateral acetabular joint space narrowing present. No evidence of fracture. Degenerative changes noted lower lumbar spine. Soft tissues: The visualized bowel gas pattern is normal. No suspicious soft tissue calcifications. IMPRESSION: Moderate bilateral hip osteoarthritis Approved by: Corbin Gallagher M.D. on 09/19/2022 at 17:44
--- NOTE | 2022-09-19 | DI.RAD.S_ITS ---
PROCEDURE: XR LUMBAR SPINE 2-3V INDICATIONS: Pain TECHNIQUE: 3 views of the lumbar spine were acquired. COMPARISON: [facility], CR, XR LUMBAR SPINE 2-3V, 08/25/2020, 13:17. FINDINGS: Bones: L3 wedge-shaped compression fracture, stable from the prior exam. Diffuse disc space narrowing and hypertrophic facet joints present particularly lower lumbar spine. Compression fracture asymmetric to the right noted at L4 also stable. Soft tissues: Overlying bowel gas pattern is normal. No suspicious soft tissue calcifications. Atherosclerotic vascular calcification noted in the aorta and splenic artery. IMPRESSION: Multilevel degenerative changes, stable from 08/25/2020 Approved by: Corbin Gallagher M.D. on 09/19/2022 at 18:37
== END ==
PROVIDERS: Family Provider Family Medicine; PCP Family Medicine; Referring Provider Family Medicine; Visit Provider Family Medicine
DX: C83.39 Diffuse large B-cell lymphoma, extranodal and solid organ sites (principal); M47.816 Spondylosis without myelopathy or radiculopathy, lumbar region; M16.0 Bilateral primary osteoarthritis of hip; M54.50 Low back pain, unspecified
CPT/HCPCS: 72100; 73522

== ENCOUNTER 2023-07-02 12:35 | Inpatient (IN) | payer MEDICARE, OTHER, SELFPAY ==
[2020-01-13 02:19] VITALS: BMI 31.9
[2023-06-17 13:50] VITALS: BMI 33.7
[2023-07-02] VITALS (16 sets, daily range): BP systolic 108–138; BP diastolic 51–80; PULSE 78–92; RESP 14–20; TEMP 35.7–37.1; O2SAT 91–96; BMI 33.7
[2023-07-02] MEDS: LACTATED RINGERS 1,000 ML 84 ML IV (13:08)
--- NOTE | 2023-07-02 13:54 | PM.PREOP ---
Pre-operative Note COVID-19 Criteria for continued procedure: Expected advancement of disease process, Possibility delay results in more complex future surgery or treatment, Increased loss of function, Continuing or worsening of significant or severe pain, Deterioration of the patient's condition or overall health and Delay expected to result in less-positive ultimate med/surg outcome Interval Note History & Physical reviewed/Exam performed by Physician: Yes Changes to H&P: No
--- NOTE | 2023-07-02 14:21 | SUR.OPER ---
Prone on spine table, head in foam head support, padded chest and pelvic supports, gel pad at knees, lower legs supported by pillows; nipples, genitalia and toes free of pressure, arms secured on foam padded arm boards at <90 degrees abduction. Tape over blanket at thigh secured to table.
[2023-07-02] MEDS: CEFAZOLIN 2 GM/100 ML PREMIX 100 ML IV ×2 (14:45→22:30)
[2023-07-02] MEDS: BUPIVACAINE LIPOSOME 266 MG/20 ML VIAL INJ (15:00)
[2023-07-02] MEDS: BUPIVACAINE 0.25% W/ EPI (PF) 10 ML VIAL 60 ML INJ (15:06)
--- NOTE | 2023-07-02 16:36 | PM.OP.1 ---
Operative Date/Time/Diagnoses Date of procedure: 07/02/23 Time of procedure: 14:30 Pre-op diagnosis: 1. L3-4 spondylolisthesis 2. 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 L3-4 Postero-lateral and posterior interbody fusion 2. L3-4 interbody cage placement. 3. L3-4 decompressive laminectomy with bilateral facetecomies 4. L3-4 Posterior non-segmental instrumentation 5. [place] of bone marrow from iliac crest 6. Utilization of microsurgical technique and operating microscope Same procedure as scheduled: Yes Indications: Patient has been having chronic back pain and worsening lumbar radiculopathy and symptoms of neurogenic claudication. Patient failed multiple conservative management with worsening pain weakness and numbness in his lower extremity. Patient has been having difficulty performing activity of daily living. After discussing risks benefits of treatment options, patient elected proceed with surgery. Surgeon: Channing Hare Bow Machine Operator: Leonora Buchanan Click Yes if Unassisted: No Anesthesia Type: General Operative Notes Closure Type: primary Specimen(s): none sent Prosthetic devices, grafts, tissues, transplants, or devices: GLobus revolve screws, Rise cage Blood products transfused: none Procedure in detail: Patient was seen in the preoperative area. Risks and benefits of the surgery was discussed with the patient. Informed consent was obtained from the patient and placed in the chart. Surgical site was marked. Patient was taken to the operative room. General anesthesia was administered. Prophylactic antibiotic was given to the patient less than 30 min before the incision was made. Patient was placed into a prone position on the Kendrick table. Patient's back was then prepped and draped in the sterile fashion. Time-out was performed at this time. Using AP and lateral C-arm imaging the interval between L3-4 was identified and marked on patient's back. A 2 inch incision 2 in from midline was made on the left side first. The fascia was incised in line with skin incision. Globus MARS retractors was placed inside the incision and docked onto the L3 lamina. Using microsurgical technique and operating microscope, a L3 laminectomy and L3-4 facetectomy was performed using a Kerrison rongeur. The laminectomy and facetectomy was performed in order to decompress patient's cauda equina as well as the nerve roots exiting at the L3-4 level. The disc space at L3-4 was identified. And a total diskectomy was performed at L3-4 level. The endplates were decorticated using a rasp and shaver. The total diskectomy and decortication was performed at L3-4 level in order to to accomplish a L3-4 fusion. The local bone from the laminectomy and facetectomy was saved for local bone grafting. After the total diskectomy and decortication was completed, Globus Viacell bone graft material was combined with local bone that was harvested earlier. At this time, a separate skin is incision was made over the iliac crest. A Jamshidi needle was inserted into the iliac crest through a separate skin incision. 5 cc of bone marrow aspiration was obtained through the separate skin incision using a Jamshidi needle from the iliac crest. The bone marrow aspiration was combined with local bone and theTrifecta bone grafting material. The bone grafting material was placed into the L3-4 interbody space along with a expandable cage. The cage was expanded to its maximum height using the torque limiting screwdriver. At this time a mirror image incision was made on the right side. The fascia was incised in line with the skin incision. Globus MARS retractor was inserted and docked onto the L3-4 posterolateral gutter. Using the power drill, posterior-lateral decortication was performed at L3-4 level until bleeding cortical bone was identified. The remaining bone grafting material was placed into the L3-4 posterior lateral gutter he order to accomplish posterolateral fusion at the L3-4 level. Using the double C-arm technique, pedicle screws were placed into the L3-4 pedicles bilaterally. This was done by placing the Jamshidi needle into the pedicles, then placing the guidewires over the Jamshidi needle, and finally placing the cannulated screws over the guidewires bilaterally. After the pedicle screws were placed, 2 titanium rods was locked into the heads of the pedicle screws using locking caps and torque limiting screwdriver. After all the hardware was placed, and confirmed with AP and lateral C-arm imaging, the wound was then irrigated with sterile normal saline and packed with Ray-Jefe gauze for 3 min to accomplish hemostasis. After the gauze was removed the deep fascia was closed with #1 Vicryl suture. The subcutaneous layer was closed with 2-0 Vicryl. The skin was closed with skin azalea. Patient tolerated the procedure well. There were no complications. The Operation could not have been safely performed without compromising the technical result or length of the procedure, without the assistance of a skilled neurosurgical physician assistant. The neurosurgical physician assistant was medically necessary for proper positioning, retraction and manipulation of instruments, proper exposure, surgical preparation, and manipulation of tissue. Complications: none Post-operative Condition: stable Disposition: PACU Plan for aftercare: Admit to inpatient hospital
[2023-07-02] MEDS: OXYCODONE IR 5 MG TABLET PO ×3 (17:10→21:34)
[2023-07-02] MEDS: ACETAMINOPHEN 325 MG TABLET 650 MG PO (17:55)
[2023-07-02] MEDS: LACTATED RINGERS 1,000 ML 125 ML IV (17:55)
[2023-07-02] MEDS: HYDROMORPHONE 0.5 MG INJ IV (19:46)
[2023-07-02] MEDS: APIXABAN 5 MG TABLET 2.5 MG PO (20:21)
[2023-07-02] MEDS: DOXAZOSIN 2 MG TABLET 8 MG PO (20:22)
[2023-07-02] MEDS: SENNOSIDES 8.6 MG TABLET 17.2 MG PO (20:23)
[2023-07-02] MEDS: METOPROLOL ER 25 MG TABLET PO (20:23)
[2023-07-02] MEDS: AMLODIPINE 5 MG TABLET PO (20:23)
[2023-07-02] MEDS: ATORVASTATIN 20 MG TABLET 40 MG PO (20:24)
[2023-07-02] MEDS: DOCUSATE 100 MG CAPSULE PO (20:24)
[2023-07-02] MEDS: hydrOXYzine pamoate 25 MG CAPSULE PO (21:34)
[2023-07-03] VITALS (7 sets, daily range): BP systolic 122–143; BP diastolic 62–65; PULSE 53–74; RESP 16–20; TEMP 36.5–36.8; O2SAT 93–96
[2023-07-03] MEDS: OXYCODONE IR 5 MG TABLET PO ×5 (00:39→21:52)
[2023-07-03] MEDS: hydrOXYzine pamoate 25 MG CAPSULE PO ×3 (04:29→21:53)
[2023-07-03] MEDS: LACTATED RINGERS 1,000 ML 125 ML IV (06:00)
[2023-07-03] MEDS: CEFAZOLIN 2 GM/100 ML PREMIX 100 ML IV (06:01)
--- NOTE | 2023-07-03 07:51 | P.PN_ITS ---
Subjective Subjective Date Patient Seen: 07/03/23 Time Patient Seen: 07:51 Interval history: Back pain is [id number]. Denies fever or chills. No nausea or vomiting Exam Vital Signs (past 8 hours): Oxygen Delivery Method Room Air Oxygen Flow Rate 2 Narrative Exam Narrative: 83-year-old male resting comfortably in bed in no apparent distress. Motor functions intact bilateral lower extremities. Const General: cooperative and comfortable Nutritional Appearance: obese (BMI 33.8) Orientation: alert Resp Effort & Inspection: normal respiratory effort and able to speak in complete sentences [facility] Medical History Arthritis Bradycardia (2022) CAD (coronary artery disease) CKD (chronic kidney disease), stage III Diverticulosis Easy bruisability Former smoker GI bleed (~03/2015) H. pylori infection (~03/2015) Hematemesis (~03/2015) History of back problems History of COVID-19 (~2021) HLD (hyperlipidemia) Hypertension Internal hemorrhoid Kidney stones (07/10/15) Non-Hodgkin lymphoma Ulcer Surgical History H/O wrist surgery (~1972) Hx of bilateral cataract extraction Hx of heart artery stent (~2010) Hx of laminectomy (09/07/15) Hx of lymph node excision (~1988) S/P hemorrhoidectomy Family History Father Hypertension Heart disease Sister Cancer Mother Hypertension Social History marital status: household members: spouse occupational status: previously employed Smoking Status: Former smoker alcohol intake: current substance use type: does not use Assessment & Plan Post-op Postoperative Procedures: Procedures Operation Date: 07/02/23 14:45 Actual Procedure Side Surgeon p L3-4 TLIF Channing Hare MD Postoperative day: 1 Postoperative status: doing well Postoperative plan narrative: Mobilize with physical therapy, limit bending, twisting, lifting Multimodal pain management Disposition likely home today or tomorrow Quality VTE Deep Vein Thrombosis/Pulmonary Embolism Present on Admission: No
[2023-07-03] MEDS: ASPIRIN EC 81 MG TABLET PO (09:03)
[2023-07-03] MEDS: APIXABAN 5 MG TABLET 2.5 MG PO ×2 (09:03→21:54)
[2023-07-03] MEDS: METOPROLOL ER 25 MG TABLET PO (09:04)
[2023-07-03] MEDS: AMLODIPINE 5 MG TABLET PO ×2 (09:04→21:54)
[2023-07-03] MEDS: DOCUSATE 100 MG CAPSULE PO ×2 (09:04→21:53)
[2023-07-03] MEDS: OXYBUTYNIN 5 MG ER TAB 10 MG PO (09:04)
[2023-07-03] MEDS: FINASTERIDE 5 MG TABLET PO (09:05)
[2023-07-03] MEDS: MULTIVITAMIN 1 TABLET 1 TAB PO (09:05)
[2023-07-03] MEDS: CHOLECALCIFEROL (VITAMIN D3) 1,000 UNIT TABLET 2000 UNIT PO (09:05)
--- NOTE | 2023-07-03 10:26 | PT.IIE ---
Current Diagnoses Other spondylosis with radiculopathy, lumbar region (07/02/23) Spinal stenosis, lumbar region without neurogenic claudication (07/02/23) Surgery Performed Operation Date: 07/02/23 14:45 Actual Procedures p L3-4 TLIF - Channing Hare MD Surgical History (Last Reviewed 07/03/23 @ 07:51 by Jerry Albrecht PA-C) H/O wrist surgery (~1972) Hx of bilateral cataract extraction Hx of heart artery stent (~2010) Hx of laminectomy (09/07/15) Hx of lymph node excision (~1988) S/P hemorrhoidectomy Medical History (Last Reviewed 07/03/23 @ 07:51 by Jerry Albrecht PA-C) Arthritis Bradycardia (2022) CAD (coronary artery disease) CKD (chronic kidney disease), stage III Diverticulosis Easy bruisability Former smoker GI bleed (~03/2015) H. pylori infection (~03/2015) Hematemesis (~03/2015) History of back problems History of COVID-19 (~2021) HLD (hyperlipidemia) Hypertension Internal hemorrhoid Kidney stones (07/10/15) Non-Hodgkin lymphoma Ulcer Physical Therapy Inpatient Evaluation/Re-Eval M1 PT/OT-IP Prior Functional Status Start: 07/03/23 13:05 Freq: NEEDED Status: Active Protocol: Document 07/03/23 10:26 AB (Rec: 07/03/23 13:22 AB [id number]) Medical Review Prior Functional Status Medical History Reviewed Yes Communication able to make needs known Mobility and Gait pt stated that he is modified independent with all mobilities and ambulation without AD indoors but uses a hurrycane for outdoor mobility Social History Household Members spouse Living Arrangements House Number of Floors (Floors) One Floor Number of Stairs To Enter/Railing? 1 step bilateral bars on edge of door Home Environment High Toilet,Tub/Shower Home Equipment Front Wheel Walker,Four Wheel Walker,Hand Held Shower,Grab Bars Near Toilet,Grab Bars In Shower Additional Social History Comment pt's spouse is limited with physical assistance that she can provide for pt; pt stated that his daughter may assist him pt has a sliding shower chair pt has a hurrycane M2 PT-IP Current Condition Start: 07/03/23 13:05 Freq: NEEDED Status: Active Protocol: Document 07/03/23 10:26 AB (Rec: 07/03/23 13:22 AB [email or web address]) Physical Therapy Current Condition Current Condition Evaluation Date 07/03/23 Treatment Diagnosis s/p L3-4 TLIF; difficulty in walking Onset Date 07/02/23 M3 PT-IP Subjective Start: 07/03/23 13:05 Freq: NEEDED Status: Active Protocol: Document 07/03/23 10:26 AB (Rec: 07/03/23 13:22 AB [email or web address]) Subjective Physical Therapy Visit Type Type Initial Evaluation Visit Start Time 10: Visit Stop Time 11:18 Total Visit Minutes 52 Number of VENTILATOR SPECIALIST Visits 0 Physical Therapy Visit Comments Patient Comments agreeable to do PT Therapy Pain Assessment Pain When Pain Assessed At Rest Pain Present Pain Present Pain Reported Location back Intensity 3 Scale Used Numeric (0 - 10) Pain Management Techniques Modification of Treatment,Re- positioning,Timing of Activity with Medications M4 PT-IP Mobility and Gait Start: 07/03/23 13:05 Freq: NEEDED Status: Active Protocol: Document 07/03/23 10:26 AB (Rec: 07/03/23 13:22 AB [email or web address]) PT-Bed Mobility Assessment Rolling Type of Rolling Log Rolling Level of Assist Maximal Assistance Supine to Sit Supine to Sit Maximum Assistance,1 Person Assistance PT-Transfer Assessment Sit to and From Stand Sit to and from Stand Minimal Assistance,1 Person Assistance,Use of Upper Extremities Equipment Transfer Assistive Device Gait Belt,Front Wheeled Walker Orthotic/Prosthetic Devices or Brace: No Transfers Transfer Destination Chair Transfer Technique ambulated Transfer Ability Level of Assist Minimal Assistance,1 Person Assistance,Use of Upper Extremities Comments Mobility Comments pt agreeable to do PT. educated on back precautions and log roll bed mobility. BP in supine: 129/68. O2 sat with 2L/min: 93% at room air: 90% completed log roll supine to sit max A and max cues. able to sit on EOB SBA. BP: 137/66 . O2 sat 89-90% at 2 L/min. informed nurse and stated that pt can go up to 3L/min of O2. completed sit to stand from the EOB min A and ambulated towards the chair using FWW CGA to min A. no c/o dizziness /lightheadedness pt sat on the chair. O2 sat checked: 87 % with 3L/min O2 and increased to 89% after deep breathing. pt requesting to use the toilet. completed sit to stand from the chair min A. pt with diffficulty completing task and has increase posterior trunk lean needing min A for steadiness. OT took over toileting needs. pt sat back on the chair after toileting and handwashing. educated on sit<>stand techniques. pt completed CGA with max cues and repeated and without cues needed. Left pt with OT. caregiver training set up at 130pm today. Gait Assessment Gait Gait Assistance Required: Contact Guard Assist,Minimum Assistance Distance (Feet) 30 Able to Maintain Weight Bearing Status Yes During Gait Assistive Devices Assistive Device Gait Belt,Front Wheeled Walker Orthotic/Prosthetic Devices or Brace: No Gait Deviations General Gait Pattern Decreased Stride Length, Decreased Feet Clearance,Step- to Gait Factors Limiting Gait Function Factors Limiting Gait Function Decreased Activity Tolerance, Decreased Strength,Limited Range of Motion,Pain,Poor Balance,Poor Safety Awareness PT-Balance Assessment Sitting Balance and Reactions Static Sitting Balance Ability Normal Dynamic Sitting Balance Ability Good Standing Balance and Reactions Static Standing Balance Ability Fair Dynamic Standing Balance Ability Fair Device Used FWW M5 PT-IP Objective Assessments Start: 07/03/23 13:05 Freq: NEEDED Status: Active Protocol: Document 07/03/23 10:26 AB (Rec: 07/03/23 13:22 AB [id number]) Orientation Orientation/Cognition Level of Alertness Alert Orientation Name,Place,Situation Language Function Ability No Deficits Noted Safety Awareness Understands Safety Issues Memory Description No Deficits Noted Strength Lower Extremity Strength Assessment Right Impaired Hip 4-/5 Knee 4-/5 Sensation Assessment Sensation Gross Sensation WNL Muscle Tone Muscle Tone WNL Yes M6 PT-IP Treatment Start: 07/03/23 13:05 Freq: NEEDED Status: Active Protocol: Document 07/03/23 10:26 AB (Rec: 07/03/23 13:22 AB [email or web address]) Physical Therapy Treatment Education Education Provided Precautions,Weight Bearing Status,Post-Op Packet,Safety M7 PT-IP Assessment and Plan Start: 07/03/23 13:05 Freq: NEEDED Status: Active Protocol: Document 07/03/23 10:26 AB (Rec: 07/03/23 13:22 AB [email or web address]) PT Summary Assessment and Plan Potential Rehabilitation Potential Good Status of Condition at Evaluation Evolving Summary Impairments Pain,ROM,Strength,Balance, Coordination,Sensation,Tone, Cognition,Bed Mobility, Transfers,Gait,Activity Tolerance Assessment Summary Pt s/p L3-4 TLIF POD 1. pt requiring max A for bed mobility and min A for transfers and ambulation using FWW. pt stated that his spouse is limited with the assistance she can provide him but his daughter may also assist if needed. caregiver training set up at 130pm today and will assess progress. Currently, pt is needing O2 and O2 sat decreases to 87% with activity. decrease actvity tolerance also affecting mobility level. Goals Bed Mobility Goal Standby Assistance Transfer Goal Standby Assistance,Front Wheeled Walker Gait Goal Standby Assistance,Front Wheel Walker Gait Distance 150 Other Goals improve bed mobility, transfers, ambulation using FWW 300 ft up/down 1 step using FWW SBA Days to Meet Goals 5 Frequency of Treatment Frequency Of Treatment Twice a Day Treatment Plan Physical Therapy Treatment Plan Bed Mobility Training,Transfer Training,Gait Training, Therapeutic Exercise,Balance Retraining,Post Op Education, Discharge Planning,Hot or Cold Pack,Neuromuscular Re-ed, Coordination Retraining,Manual Therapy Other Recommendations and Next Treatment caregiver training 07/03/23 @1 Focus pm Precautions Lumbar Precautions Log Roll,No Twisting,Limit Bending,Lifting Restriction of 10 lbs,Gait Belt above Incisional Area Recommendations To Nursing Amount of Assist Needed 1 Person Assist Discharge Recommendations PT Discharge Recommendations Home with 23/06 Assist Available,Home Health,SNF Rehab,Home vs SNF Transportation Needs at Discharge Private Vehicle,Wheelchair/ Cabulance
--- NOTE | 2023-07-03 11:30 | OT.IP.EVAL ---
Current Diagnoses Other spondylosis with radiculopathy, lumbar region (07/02/23) Spinal stenosis, lumbar region without neurogenic claudication (07/02/23) Surgery Performed Operation Date: 07/02/23 14:45 Actual Procedures p L3-4 TLIF - Channing Hare MD Past Medical History (Last Reviewed 07/03/23 @ 07:51 by Jerry Albrecht PA-C) Arthritis Bradycardia (2022) CAD (coronary artery disease) CKD (chronic kidney disease), stage III Diverticulosis Easy bruisability Former smoker GI bleed (~03/2015) H. pylori infection (~03/2015) Hematemesis (~03/2015) History of back problems History of COVID-19 (~2021) HLD (hyperlipidemia) Hypertension Internal hemorrhoid Kidney stones (07/10/15) Non-Hodgkin lymphoma Ulcer Surgical History (Last Reviewed 07/03/23 @ 07:51 by ALISA PhilippeC) H/O wrist surgery (~1972) Hx of bilateral cataract extraction Hx of heart artery stent (~2010) Hx of laminectomy (09/07/15) Hx of lymph node excision (~1988) S/P hemorrhoidectomy Occupational Therapy Inpatient Evaluation/Re-Eval M2 OT-IP Current Condition Start: 07/03/23 12:47 Freq: Status: Active Protocol: Document 07/03/23 10:28 [facility] (Rec: 07/03/23 13:17 [facility] [id number]) Occupational Therapy Current Condition Current Condition Evaluation Date 07/03/23 Treatment Diagnosis S/P L3-4 TLIF Diagnosis Onset Date 07/02/23 Post Operative Precautions Lumbar Precautions Log Roll,No Twisting,Limit Bending,Lifting Restriction of 10 lbs,Gait Belt above Incisional Area M3 OT- IP Subjective and Pain Start: 07/03/23 12:47 Freq: Status: Active Protocol: Document 07/03/23 10:28 [facility] (Rec: 07/03/23 13:17 [facility] [id number]) OT- Subjective Occupational Therapy Visit Type Type Initial Evaluation Visit Start Time 10:28 Visit Stop Time 11:30 Total Visit Minutes 62 Occupational Therapy Visit Comments Patient Comments Pt agreed to get up. Patient/Caregiver Goals To go home, but open to going to skilled rehab as a last resort if needed. OT Pain Assessment Pain When Pain Assessed During Mobility Pain Present Pain Present Pain Reported Location back Intensity 3 Scale Used Numeric (0 - 10) M4 OT- IP ADL's Start: 07/03/23 12:47 Freq: Status: Active Protocol: Document 07/03/23 10:28 [facility] (Rec: 07/03/23 13:17 [facility] [id number]) OT ADL-Grooming Comments OT Grooming Comments Pt able to wash his hands while standing with the FWW. OT ADL-Dressing General Eval Lower Body Dressing Ability Maximum Assistance Comments OT Dressing Comments Able to show and pt able to practice use of software engineer kernel and sock aid. OT ADL-Toileting General Evaluation Toileting Ability Standby Assistance Comments OT Toileting Comments Pt able to do own hygiene needs, educated for use of wet wipes and pt states also has a urinal at home to use. OT ADL-Bathing Comments OT Bathing Comments Pt has a sliding shower chair system at home. M5 OT- IP IADL's Start: 07/03/23 12:47 Freq: Status: Active Protocol: Document 07/03/23 10:28 [facility] (Rec: 07/03/23 13:17 [facility] [id number]) OT-Instrumental Activities of Daily Living Deficits IADL Deficits Identified Deficits Home Safety Awareness Awareness of Need for Assistance at Home Good Awareness Home Safety Comments Pt has supportive and daughter who will be assisting him when home. M6 OT- IP Functional Cognition Start: 07/03/23 12:47 Freq: Status: Active Protocol: Document 07/03/23 10:28 [facility] (Rec: 07/03/23 13:17 [facility] [id number]) Cognitive Factors Limiting Selfcare Function Cognitive Ability Level of Alertness Alert Patient Orientation Name,Age,Place,Situation Attention Span Ability Capable of Focused Attention, Capable of Sustained Attention Ability to Follow Commands Able to Follow One Step Commands Cognitive Comments Cognitive Assessment Comments Pt able to follow commands for ADl and mobility needs from his back precautions. OT- Vision and Hearing OT- Hearing Assessment OT- Hearing Assessment WFL OT- Vision Assessment Visual Acuity Glasses All The Time M7 OT- IP Mobility and Balance Start: 07/03/23 12:47 Freq: Status: Active Protocol: Document 07/03/23 10:28 [facility] (Rec: 07/03/23 13:17 [facility] [id number]) OT- Bed Mobility Assessment Supine to Sit Supine to Sit Assist Maximum Assistance OT-Transfer Assessment Sit to and From Stand Sit to and from Stand Minimal Assistance Transfers Transfer Ability Contact Guard Assistance Technique Transfer Destination Bed,Chair Transfer Technique Stand Step Pivot Devices Transfer Assistive Devices Gait Belt,Front Wheeled Walker Comments Mobility Comments MAXDaquan for bed mobility and would benefit from a bed rail or possibly to sleep in his lift chair initially of placement of FWW help next to the bed to use as a bed rail. MOMO to stand and CGA to help lower to the toilet. CGA with use of FWW. Pt on 2L O2 and at 93% and dropped to 87% when moving and nurse agreed to have O2 turned up to 3L and pt at 90% at the lowest. Pt replaced back on 2L and at 95% , nursing notified. OT- Balance Assessment Sitting Balance and Reactions Static Sitting Balance Ability Good Dynamic Sitting Balance Ability Good Standing Balance and Reactions Static Standing Balance Ability Fair Dynamic Standing Balance Ability Fair M8 OT- IP Objective Assessments Start: 07/03/23 12:47 Freq: Status: Active Protocol: Document 07/03/23 10:28 [facility] (Rec: 07/03/23 13:17 [facility] [id number]) OT- Coordination Assessment Comments Coordination Comments Tremulous for bilateral hands. M9 OT- IP Assessment and Plan Start: 07/03/23 12:47 Freq: Status: Active Protocol: Document 07/03/23 10:28 [facility] (Rec: 07/03/23 13:17 [facility] [id number]) OT Summary Assessment and Plan Potential Rehabilitation Potential Good Analytic Complexity at Evaluation Low Summary OT Impairments Pain,Balance,Functional Mobility,Grooming,Dressing, Toileting,Bathing,Toilet Transfers,Shower Transfers Progress Towards Goals Progressing Toward Goals,Slow Progress due to Pain Assessment Summary Pt low complexity and main barriers are a step, needing extensive assist for bed mobility needs, would benefit from assist for ADL's and pt states to obtain LB dressing equipment. At this time pt is MAX A for bed mobility needs and too great for his to assist him at this time. Pt is open to skilled rehab if needed as his eldest daughter works at [employer]. Pt's family coming this PM to do family training with [employer]. Pt still on O2 at this time. Therefore pending progress home with / and home health versus short skilled rehab stay. Goals Grooming Goal Independent Dressing Goal Standby Assistance Toileting Goal Independent Bathing Goal Standby Assistance Toilet Transfer Goal Independent Shower Transfer Goal Standby Assistance Patient/Caregiver Education Goal Demonstrate Post-Op Precautions,Caregiver Independent Assisting Patient Days to Meet Goals 10 Frequency of Treatment Frequency Of Treatment Once a Day Treatment Plan OT Treatment Plan ADL Training,Functional Mobility,Patient/Family Education,Discharge Planning Other Treatment Recommendations and Next Shower Treatment Focus Discharge Recommendations OT Discharge Recommendations Home with 24/ Assist Available,Home Health,SNF Rehab,Home vs SNF Transportation Needs at Discharge Private Vehicle,Wheelchair/ Cabulance
--- NOTE | 2023-07-03 11:44 | CM.DANOTE ---
Addendum entered by PHOENIX Cordero 07/05/23 13:56: ADD: Late Entry. Before patient's discharge yesterday, discussed HH services and patient felt this would be a good idea. Referral given to [facility] based on availability and patient, daughter and spouse provided with [facility] brochure NATALY Original Note: Initial DCP Assessment Note Pt is an 83yo male, resident of [place], now POD#[address] Hare PCP: Dusty Cui Payer: [facility] Reviewed chart, Therapy evals pending. Patient has planned for return home w/family to assist and is hopeful to discharge over the next 24-48 hrs Awaiting therapy eval which will assist with dispo recommendation. CM team will plan to follow closely in case any DC needs or concerns arise Plan: Likely home w/family and outpatient vs HH PT PHOENIX Mccormick Discharge Planning/Care Management CM Discharge Assessment Start: 07/03/23 11:36 Freq: Status: Active Protocol: Document 07/03/23 11:36 NATALY (Rec: 07/03/23 11:44 [id number]) Discharge Planning Assessment Assigned Hand Silvering Supervisor PHOENIX Farrar DPOA/Assigned Designee Name Marvin Jackson, daughter Abby () Contact Information [phone] spouse [phone] Advance Directives? Yes: POLST Advance Directives on File No History Provided By Patient,Medical Record Prior Living Arrangements House Household Members spouse Type of transporation used prior to Drives own vehicle admit Independent with ADL's Yes Is patient alert and oriented? Yes Patient/Family Preference Home with Home Health Comment Pending therapies to eval and make recs on dispo, patient is POD 1
--- NOTE | 2023-07-03 12:29 | PC.NURSE ---
Addendum entered by Therese Muñoz R.N. 07/03/23 17:43: Pt remains in chair, SpO2 ranges from 92-95 w/ O2 1L; from 87-88 on RA. Called for MD or PA , pt wanted discharge; no return from MD/PA Pt chose to stay one more night. Call light w/in reach, Pt calls appropriately for needs. Continue w/plan of care. Original Note: Pt A/O Worked w/PT up in chair. Sats on 2L 94% Med for discomfort at 0950w/ good relief. IVF infusing via pump w/o incidence. Call light w/in reach, Pt calls appropriately for needs. Continue w/plan of care.
--- NOTE | 2023-07-03 14:10 | PT.IPTN ---
Current Diagnoses Other spondylosis with radiculopathy, lumbar region (07/02/23) Spinal stenosis, lumbar region without neurogenic claudication (07/02/23) Surgery Performed Operation Date: 07/02/23 14:45 Actual Procedures p L3-4 TLIF - Channing Hare MD Physical Therapy Treatment Note M2 PT-IP Current Condition Start: 07/03/23 13:05 Freq: NEEDED Status: Active Protocol: Document 07/03/23 13:45 SP (Rec: 07/03/23 14:58 SP [id number]) Physical Therapy Current Condition Current Condition Evaluation Date 07/03/23 Treatment Diagnosis s/p L3-4 TLIF; difficulty in walking Onset Date 07/02/23 M3 PT-IP Subjective Start: 07/03/23 13:05 Freq: NEEDED Status: Active Protocol: Document 07/03/23 13:45 SP (Rec: 07/03/23 14:58 SP [id number]) Subjective Physical Therapy Visit Type Type Treatment Note Visit Start Time 13:45 Visit Stop Time 14:10 Total Visit Minutes 25 Notes and daughter attended, daughter completed caregiver training including donning gait belt high on chest. Vitals taken during tx: seated in chair: SaO2 3L 96% on 2L NC at rest, reduced to 1L 91% NC gait and stairs, reduced to 0L mobility around room and back chair 83-86%, cued breath increase 87% provided 1L and breath cues improved 93-96%. Notified nursing. Number of MIXER MACHINE FEEDER Visits 1 Physical Therapy Visit Comments Patient Comments Pt agreeable to working with PT. Patient Goals To return home with family today if stable. Therapy Pain Assessment Pain When Pain Assessed During Mobility Pain Present Pain Present Pain Reported Location back Intensity 3 Scale Used Numeric (0 - 10) Pain Management Techniques Modification of Treatment,Re- positioning,Timing of Activity with Medications M4 PT-IP Mobility and Gait Start: 07/03/23 13:05 Freq: NEEDED Status: Active Protocol: Document 07/03/23 13:45 SP (Rec: 07/03/23 14:58 SP [id number]) PT-Bed Mobility Assessment Rolling Type of Rolling Log Rolling Level of Assist Contact Guard Assistance, Minimal Assistance,1 Person Assistance Supine to Sit Supine to Sit Moderate Assistance,1 Person Assistance,Bedrails Sit to Supine Sit to Supine Moderate Assistance,1 Person Assistance,Bedrails Scooting Scooting to Edge of Bed Standby Assistance PT-Transfer Assessment Sit to and From Stand Sit to and from Stand Contact Guard Assistance, Minimal Assistance,Use of Upper Extremities Equipment Transfer Assistive Device Gait Belt,Front Wheeled Walker Orthotic/Prosthetic Devices or Brace: No Transfers Transfer Destination Bed,Chair Transfer Technique pt ambulated with FWW Transfer Ability Level of Assist Standby Assistance,Use of Upper Extremities Comments Mobility Comments SaO2 taken throughout tx, see above. Daughter donned gait belt high over chest, pt scoot to EOchair, STS heavy through BUe on chair arms CG/ MIn A via daughter to FWW. Pt ambulated w/ FWW to portable platform step, completed ascend/descend w/ FWW x2 reps (has to enter home) CGA then across room to R side bed, side step/reach back sit EOB. Sit>R sidelying Mod A forBLE onto bed then CGA to LR supine w/ knees bent, SaO2 1L 91% NC. Pt able LE L good form, discussed and propped pt sidelying w/pillows behind back/ between BLEs and BUEs for spinal support, good feedback comfort. R SL>sit self LEs to EOB/ Mod A for trunk righting and use bed rail (has side table home), scoot to EOB SBA. STS SBA w/ FWW, steady in standing, gait back to chair CGA/close SBA cued slow pivot and safety reach back chair arms/slow descent sit chair (MIXER MACHINE FEEDER managed O2 tubing). Brief rest, MIXER MACHINE FEEDER removed NC and trialed pt mobility on RA gait across room and back w/ FWW, cued slow pacing and mindful breath . Pt returned to chair safely recall SBA. SaO2 83-86%, with breath improved to 87%, MIXER MACHINE FEEDER provided SaO2 1 L, improved 91 -93%. Notified nursing decrease O2 sats on RA (doesn' t use O2 home), recommending 1L at this time. Pt good understanding importance of breath for normalizing SaO2, ed family purchasing pulse oximeter for home safety checks. MIXER MACHINE FEEDER ok with pt return home 24/7 HHPT when mediclly clearaed SaO2 stable. Will continue to assess progress. Pt no need further CGT. Gait Assessment Gait Gait Assistance Required: Standby Assistance,Contact Guard Assist Distance (Feet) 60 Able to Maintain Weight Bearing Status Yes During Gait Assistive Devices Assistive Device Gait Belt,Front Wheeled Walker Orthotic/Prosthetic Devices or Brace: No Gait Deviations General Gait Pattern Antalgic,Decreased Stride Length,Decreased Feet Clearance Factors Limiting Gait Function Factors Limiting Gait Function Decreased Activity Tolerance, Decreased Strength,Limited Range of Motion,Pain,Poor Balance,Poor Safety Awareness Comments Gait Comments see mobility comments Stair Climbing Assessment Evaluation Level of Assist On Stairs Contact Guard Assistance,1 Person Assistance Devices Stair Climbing Assistive Devices Front Wheel Walker Technique/Endurance Stair Climbing Direction Ascend and Descend Stair Climbing Technique Step to Step Number of Steps Climbed 1 Stair Climbing Set # Repetitions (reps) 1 Comments Stair Climbing Comments see mobility comments PT-Balance Assessment Sitting Balance and Reactions Static Sitting Balance Ability Normal Dynamic Sitting Balance Ability Good Standing Balance and Reactions Static Standing Balance Ability Good Dynamic Standing Balance Ability Fair Device Used FWW M5 PT-IP Objective Assessments Start: 07/03/23 13:05 Freq: NEEDED Status: Active Protocol: Document 07/03/23 10:26 AB (Rec: 07/03/23 13:22 AB [id number]) Orientation Orientation/Cognition Level of Alertness Alert Orientation Name,Place,Situation Language Function Ability No Deficits Noted Safety Awareness Understands Safety Issues Memory Description No Deficits Noted Strength Lower Extremity Strength Assessment Right Impaired Hip 4-/5 Knee 4-/5 Sensation Assessment Sensation Gross Sensation WNL Muscle Tone Muscle Tone WNL Yes M6 PT-IP Treatment Start: 07/03/23 13:05 Freq: NEEDED Status: Active Protocol: Document 07/03/23 13:45 SP (Rec: 07/03/23 14:58 SP [id number]) Physical Therapy Treatment Education Education Provided Precautions,Safety M7 PT-IP Assessment and Plan Start: 07/03/23 13:05 Freq: NEEDED Status: Active Protocol: Document 07/03/23 13:45 SP (Rec: 07/03/23 14:58 SP [id number]) PT Summary Assessment and Plan Potential Rehabilitation Potential Good Status of Condition at Evaluation Evolving Summary Impairments Pain,ROM,Strength,Balance, Coordination,Sensation,Tone, Cognition,Bed Mobility, Transfers,Gait,Activity Tolerance Progress Towards Goals Progressing Toward Goals,Slow Progress due to Pain,Slow Progress due to Medical Issues Assessment Summary CGA/SBA for STS, transfers and gait w/ FWW. Mod A for LEs into bed and trunk righting SL >sit which daughter was able to support pt and in room stated can help pt as well with that minimal support. Pt demonstrated 83-86 % SaO1 on RA during short distance gait, improved 91-93% on 1L, pt doesn't use O2 previously at home. Pt is ok return home when medically cleared O2 stable, recommending 24/7 w/ family to assist HHPT. Goals Bed Mobility Goal Standby Assistance Transfer Goal Standby Assistance,Front Wheeled Walker Gait Goal Standby Assistance,Front Wheel Walker Gait Distance 150 Other Goals improve bed mobility, transfers, ambulation using FWW 300 ft up/down 2 steps using FWW SBA Days to Meet Goals 5 Frequency of Treatment Frequency Of Treatment Twice a Day Treatment Plan Physical Therapy Treatment Plan Bed Mobility Training,Transfer Training,Gait Training, Therapeutic Exercise,Balance Retraining,Post Op Education, Discharge Planning,Hot or Cold Pack,Neuromuscular Re-ed, Coordination Retraining,Manual Therapy Other Recommendations and Next Treatment bed mob, distance gait w/ FWW, Focus assess safety mobility SaO2 room air. Precautions Lumbar Precautions Log Roll,No Twisting,Limit Bending,Lifting Restriction of 10 lbs,Gait Belt above Incisional Area Other Precautions Due to back pain- multiple spinal metastates to do lumbar precautions. Good recall 3/3 precautions Recommendations To Nursing Amount of Assist Needed Standby Assistance,1 Person Assist Discharge Recommendations PT Discharge Recommendations Home with 24/7 Assist Available,Home Health Transportation Needs at Discharge Private Vehicle
[2023-07-03] MEDS: ATORVASTATIN 20 MG TABLET 40 MG PO (21:53)
[2023-07-03] MEDS: SENNOSIDES 8.6 MG TABLET 17.2 MG PO (21:53)
[2023-07-03] MEDS: DOXAZOSIN 2 MG TABLET 8 MG PO (23:02)
[2023-07-04] MEDS: OXYCODONE IR 5 MG TABLET PO ×3 (05:34→13:24)
[2023-07-04 06:16] VITALS: PULSE 96; RESP 16; O2SAT 96
[2023-07-04 07:25] VITALS: PULSE 79; O2SAT 93
[2023-07-04 08:00] VITALS: BP 136/67; PULSE 72; RESP 17; TEMP 36.9; O2SAT 91
--- NOTE | 2023-07-04 09:22 | PT.IPTN ---
Current Diagnoses Other spondylosis with radiculopathy, lumbar region (07/02/23) Spinal stenosis, lumbar region without neurogenic claudication (07/02/23) Surgery Performed Operation Date: 07/02/23 14:45 Actual Procedures p L3-4 TLIF - Channing Hare MD Physical Therapy Treatment Note M2 PT-IP Current Condition Start: 07/03/23 13:05 Freq: NEEDED Status: Active Protocol: Document 07/03/23 13:45 SP (Rec: 07/03/23 14:58 SP [id number]) Physical Therapy Current Condition Current Condition Evaluation Date 07/03/23 Treatment Diagnosis s/p L3-4 TLIF; difficulty in walking Onset Date 07/02/23 M3 PT-IP Subjective Start: 07/03/23 13:05 Freq: NEEDED Status: Active Protocol: Document 07/04/23 09:49 TS (Rec: 07/04/23 10:06 TS [id number]) Subjective Physical Therapy Visit Type Type Treatment Note Visit Start Time 09:22 Visit Stop Time 09:48 Total Visit Minutes 26 Notes Vitals:Spo2 on RA prior to mobility mid to high 80's on R hand. After mobility with oximeter on L hand 92-93% Physical Therapy Visit Comments Patient Comments Pt agreeable to working with PT. Patient Goals To return home with family today if stable. Therapy Pain Assessment Pain When Pain Assessed During Mobility Pain Present Pain Present Pain Reported M4 PT-IP Mobility and Gait Start: 07/03/23 13:05 Freq: NEEDED Status: Active Protocol: Document 07/04/23 09:49 TS (Rec: 07/04/23 10:06 TS [id number]) PT-Bed Mobility Assessment Rolling Type of Rolling Log Rolling Level of Assist Moderate Assistance,1 Person Assistance Supine to Sit Supine to Sit Maximum Assistance,1 Person Assistance,Head of Bed Elevated Scooting Scooting to Edge of Bed Contact Guard Assistance, Moderate Assistance PT-Transfer Assessment Sit to and From Stand Sit to and from Stand Minimal Assistance,Use of Upper Extremities Equipment Transfer Assistive Device Gait Belt,Front Wheeled Walker Orthotic/Prosthetic Devices or Brace: No Comments Mobility Comments Logroll to L side ModA, provided cues all the way on side and LEs close to EOB. Supine to sit MaxA for uprighting trunk, provided cues for LEs over EOB and handplacement, pt struggled getting up on hands initially. Pt scooted to EOB ModA with use of transfer pad, pt reports feeling stuck to bed, once pulled sloser to EOB pt finished scooting CGA in preparation for sit to stand. Sit to stand [place] with FWW, has good posture with no retroleaning. Pt ambulated to toilet SBA ~8' with FWW. Sit to stand from toilet CGA with use of grab bars and FWW. Pt ambulated agains in room ~30' SBA with FWW, has no buckling or LOB. Pt performed stairs x2 [place] with use of B rails, pt with increasing wheezing and labored breathing, denied SOB, SPo2 in mid-high 80's on RA. Pt sat in chair, Spo2 taken again 92-93% on RA. Pt was left in chair with call light nearby, RN notified. Gait Assessment Gait Gait Assistance Required: Standby Assistance Distance (Feet) 38 Able to Maintain Weight Bearing Status Yes During Gait Assistive Devices Assistive Device Gait Belt,Front Wheeled Walker Orthotic/Prosthetic Devices or Brace: No Gait Deviations General Gait Pattern Antalgic,Decreased Stride Length,Decreased Feet Clearance Factors Limiting Gait Function Factors Limiting Gait Function Decreased Activity Tolerance, Decreased Strength,Limited Range of Motion,Pain,Poor Balance,Poor Safety Awareness Comments Gait Comments see mobility comments Stair Climbing Assessment Evaluation Level of Assist On Stairs Contact Guard Assistance,1 Person Assistance Technique/Endurance Stair Climbing Direction Ascend and Descend Stair Climbing Technique Step to Step Number of Steps Climbed 2 Stair Climbing Set # Repetitions (reps) 1 Comments Stair Climbing Comments see mobility comments PT-Balance Assessment Sitting Balance and Reactions Static Sitting Balance Ability Good Dynamic Sitting Balance Ability Good Standing Balance and Reactions Static Standing Balance Ability Good Dynamic Standing Balance Ability Fair Device Used FWW M5 PT-IP Objective Assessments Start: 07/03/23 13:05 Freq: NEEDED Status: Active Protocol: Document 07/03/23 10:26 AB (Rec: 07/03/23 13:22 AB [id number]) Orientation Orientation/Cognition Level of Alertness Alert Orientation Name,Place,Situation Language Function Ability No Deficits Noted Safety Awareness Understands Safety Issues Memory Description No Deficits Noted Strength Lower Extremity Strength Assessment Right Impaired Hip 4-/5 Knee 4-/5 Sensation Assessment Sensation Gross Sensation WNL Muscle Tone Muscle Tone WNL Yes M6 PT-IP Treatment Start: 07/03/23 13:05 Freq: NEEDED Status: Active Protocol: Document 07/04/23 09:49 TS (Rec: 07/04/23 10:06 TS [id number]) Physical Therapy Treatment Education Education Provided Precautions,Safety M7 PT-IP Assessment and Plan Start: 07/03/23 13:05 Freq: NEEDED Status: Active Protocol: Document 07/04/23 09:49 TS (Rec: 07/04/23 10:06 TS [id number]) PT Summary Assessment and Plan Potential Rehabilitation Potential Good Summary Impairments Pain,ROM,Strength,Balance, Coordination,Sensation,Tone, Cognition,Bed Mobility, Transfers,Gait,Activity Tolerance Progress Towards Goals Progressing Toward Goals,Slow Progress due to Pain,Slow Progress due to Medical Issues Assessment Summary Pt was found resting on 1L of o2, attmepted mobility without o2 per nursing. Spo2 mid-high 80's prior to and during mobility. After mobility pt's o2 increased to 92%-93% on RA. Pt required increased assist this session with bed mobility and required max cueing for logroll and supine to sit. He was [place] for sit to stand from bed and toilet with use of FWW and grab bars. He performed stairs x2 CGA with B rails in room on step stool, had no buckling or LOB. After stairs pt had some wheezing and labored breathing, pt denied any SOB. PT is recommending return home with 24/ assist from family and HHPT. Goals Bed Mobility Goal Standby Assistance Transfer Goal Standby Assistance,Front Wheeled Walker Gait Goal Standby Assistance,Front Wheel Walker Gait Distance 150 Other Goals improve bed mobility, transfers, ambulation using FWW 300 ft up/down 2 steps using FWW SBA Days to Meet Goals 5 Frequency of Treatment Frequency Of Treatment Twice a Day Treatment Plan Physical Therapy Treatment Plan Bed Mobility Training,Transfer Training,Gait Training, Therapeutic Exercise,Balance Retraining,Post Op Education, Discharge Planning,Hot or Cold Pack,Neuromuscular Re-ed, Coordination Retraining,Manual Therapy Other Recommendations and Next Treatment bed mob, distance gait w/ FWW, Focus assess safety mobility SaO2 room air. Precautions Lumbar Precautions Log Roll,No Twisting,Limit Bending,Lifting Restriction of 10 lbs,Gait Belt above Incisional Area Other Precautions Due to back pain- multiple spinal metastates to do lumbar precautions. Good recall / precautions Recommendations To Nursing Amount of Assist Needed 1 Person Assist Discharge Recommendations PT Discharge Recommendations Home with 23/06 Assist Available,Home Health Transportation Needs at Discharge Private Vehicle
[2023-07-04] MEDS: APIXABAN 5 MG TABLET 2.5 MG PO (09:37)
[2023-07-04] MEDS: CHOLECALCIFEROL (VITAMIN D3) 1,000 UNIT TABLET 2000 UNIT PO (09:38)
[2023-07-04] MEDS: MULTIVITAMIN 1 TABLET 1 TAB PO (09:38)
[2023-07-04] MEDS: METOPROLOL ER 25 MG TABLET PO (09:38)
[2023-07-04] MEDS: OXYBUTYNIN 5 MG ER TAB 10 MG PO (09:38)
[2023-07-04] MEDS: DOCUSATE 100 MG CAPSULE PO (09:38)
[2023-07-04] MEDS: AMLODIPINE 5 MG TABLET PO (09:39)
[2023-07-04] MEDS: ASPIRIN EC 81 MG TABLET PO (09:39)
[2023-07-04] MEDS: FINASTERIDE 5 MG TABLET PO (09:40)
--- NOTE | 2023-07-04 11:11 | PC.NURSE ---
RA sats are 92-93% on room air. He worked with physical therapy and tolerated well. Patients dressing to lower back will be changed before he is discharged home at 1300, CMS wnl and given oxycodone for discomfort of 5 and helpful.
--- NOTE | 2023-07-04 13:13 | PM.DS.1 ---
History of Present Illness History of Present Illness Chief complaint: INPT Narrative: patient's pain is moderate. Denies fever or chills. No nausea or vomiting. Discharge Providers Provider Date of admission: 07/02/23 12:35 Discharge Date: 07/04/23 Primary care physician: Dusty Cui MD Consults: 07/02/23 17:30 Consult to Occupational Therapy Evaluate & Treat Comment: Physician Instructions: Evaluate and treat Consult to Physical Therapy Evaluate & Treat Comment: Physician Instructions: Evaluate and Treat 07/04/23 12:58 Consult to Home Health Routine Comment: Reason For Exam: Home health services- education, safety assessment Discharge provider: Jerry Albrecht PA-C Summary Hospital Course Discharge Diagnosis: 1. L3-4 spondylolisthesis 2. L3-4 spinal stenosis with neurogenic claudication Post-op diagnosis: same Hospital Course: Procedure: 1. L3-4 Postero-lateral and posterior interbody fusion 2. L3-4 interbody cage placement. 3. L3-4 decompressive laminectomy with bilateral facetecomies 4. L3-4 Posterior non-segmental instrumentation 5. [place] of bone marrow from iliac crest 6. Utilization of microsurgical technique and operating microscope Same procedure as scheduled: Yes Indications: Patient has been having chronic back pain and worsening lumbar radiculopathy and symptoms of neurogenic claudication. Patient failed multiple conservative management with worsening pain weakness and numbness in his lower extremity.? Patient has been having difficulty performing activity of daily living.? After discussing risks benefits of treatment options, patient elected proceed with surgery. Surgeon: Channing Hare Aircraft Avionics Technician: Leonora Buchanan Click Yes if Unassisted: No Anesthesia Type: General Operative Notes Closure Type: primary Specimen(s): none sent Prosthetic devices, grafts, tissues, transplants, or devices: GLobus revolve screws, Rise cage Blood products transfused: none Patient admitted to the hospital for the above-mentioned procedure. Patient consented to the same. Patient underwent lumbar fusion on July 02, 2023. Patient has progressed as expected. Patient to be discharged home today in stable condition. Exam Vital Signs (past 8 hours): - 07/04/23 06:16 07/04/23 08:00 07/04/23 07:25 Temperature 98.4 F Pulse Rate 96 H 72 79 Respiratory Rate 16 17 Blood Pressure 136/67 Pulse Oximetry 96 91 93 Oxygen Delivery Method Nasal Cannula Nasal Cannula Oxygen Flow Rate 1 0 1 Fraction of Inspired Oxygen 24 24 07/04/23 07:00 Temperature Pulse Rate Respiratory Rate Blood Pressure Pulse Oximetry Oxygen Delivery Method Room Air Oxygen Flow Rate Fraction of Inspired Oxygen Fraction of Inspired Oxygen 24 SaO2/FiO2 Ratio 387 Oxygen Delivery Method Nasal Cannula Oxygen Flow Rate 0 Narrative Exam Narrative: 83-year-old male resting comfortably in bed in no apparent distress. Motor functions intact bilateral lower extremities. Sensation grossly intact to light touch bilateral lower extremities. Const General: cooperative and comfortable Orientation: alert Resp Effort & Inspection: normal respiratory effort and able to speak in complete sentences [facility] Medical History Arthritis Bradycardia (2022) CAD (coronary artery disease) CKD (chronic kidney disease), stage III Diverticulosis Easy bruisability Former smoker GI bleed (~03/2015) H. pylori infection (~03/2015) Hematemesis (~03/2015) History of back problems History of COVID-19 (~2021) HLD (hyperlipidemia) Hypertension Internal hemorrhoid Kidney stones (07/10/15) Non-Hodgkin lymphoma Ulcer Surgical History H/O wrist surgery (~1972) Hx of bilateral cataract extraction Hx of heart artery stent (~2010) Hx of laminectomy (09/07/15) Hx of lymph node excision (~1988) S/P hemorrhoidectomy Family History Father Hypertension Heart disease Sister Cancer Mother Hypertension Social History marital status: household members: spouse occupational status: previously employed Smoking Status: Former smoker alcohol intake: current substance use type: does not use Discharge Assessment & Plan Assessment and Plan Assessment: Patient progressing as expected status post L3-L4 fusion Plan of Treatment: multimodal pain management limit bending, twisting, lifting discharged home today in stable condition Discharge Plan Discharge Plan Patient Disposition: Home Discharge orders & Medications Prescriptions: New oxycodone 5 mg Tablet 5 mg PO Q3H PRN (Reason: Pain, Moderate (4-6)) Qty: 60 0RF Continued amlodipine 5 mg tablet 5 mg PO BID atorvastatin 40 mg tablet 40 mg PO BEDTIME acetaminophen [Tylenol] 325 mg Tablet 650 mg PO Q6H PRN (Reason: pain) finasteride 5 mg tablet 5 mg PO DAILY coenzyme Q10 [CoQ-10] 100 mg Capsule 100 mg PO DAILY cholecalciferol (vitamin D3) [Vitamin D3] 50 mcg (2,000 unit) Capsule 2,000 unit PO DAILY aspirin 81 mg tablet,delayed release (DR/EC) 81 mg PO DAILY Qty: 30 0RF multivitamin with minerals Tablet 1 tab PO DAILY oxybutynin chloride 10 mg Tablet Extended Release 24hr 10 mg PO DAILY furosemide 20 mg Tablet 20 mg PO Q OTHER DAY Rx Instructions: Alternates with 40mg daily metoprolol succinate 25 mg tablet extended release 24 hr 25 mg PO BID Rx Instructions: hold for SBP<110 or HR<60 apixaban 5 mg tablet 2.5 mg PO BID Rx Instructions: Restart 04/27/19. If you develop rectal bleeding again stop. 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 No lifting more than 10 pounds. Cold/Heat Therapy: Heating pad to low back as needed for pain. Skin/Wound/Dressing Care Report to your healthcare provider any signs of infection, such as:: chills, fever, night sweats, unusual drainage and unusual redness Dressing: May shower; keep dressing as dry as possible. If gauze becomes wet or dirty, may remove and replace with clean, dry gauze. No bathing or otherwise soaking incisions. Do not apply any creams, lotions, or ointments to incisions. Visit Report/Discharge Packet Instructions: DI for Prescription Opioid Use, Oxycodone, DI for Transforaminal Lumbar Interbody Fusion Stand Alone Forms: Patient Portal/API, Stroke Signs & Symptoms, Surgery Discharge Discharge Data Primary Care Provider: Dusty Cui VTE Deep Vein Thrombosis/Pulmonary Embolism Present on Admission: No
== END 2023-07-04 13:30 | disposition home health service (06) | DRG 455 ==
PROVIDERS: Admitting Provider Orthopaedic Surgery Orthopaedic Surgery of the Spine; Family Provider Family Medicine; PCP Family Medicine; Referring Provider Orthopaedic Surgery Orthopaedic Surgery of the Spine; Visit Provider Orthopaedic Surgery Orthopaedic Surgery of the Spine
PROC: 0SG00AJ Fusion of Lumbar Vertebral Joint with Interbody Fusion Device, Posterior Approach, Anterior Column, Open Approach (ICD-10-PCS; principal; 2023-07-02 14:45)
DX: M43.16 Spondylolisthesis, lumbar region (principal); M48.062 Spinal stenosis, lumbar region with neurogenic claudication; M51.26 Other intervertebral disc displacement, lumbar region; M54.16 Radiculopathy, lumbar region; I10 Essential (primary) hypertension; E78.5 Hyperlipidemia, unspecified; I25.10 Atherosclerotic heart disease of native coronary artery without angina pectoris; Z79.01 Long term (current) use of anticoagulants; Z87.891 Personal history of nicotine dependence
CPT/HCPCS: 94760; 94762; 97116; 97162; 97165; 97530; 97535; C1713; C9290; J0330; J0690; J1100; J1170; J2405; J2704

== ENCOUNTER → 2024-01-20 14:09 | Outpatient (CLI) | payer MEDICARE, OTHER, SELFPAY ==
[2023-07-02 17:46] VITALS: BMI 33.7
--- NOTE | 2024-01-20 | DI.CT.S_ITS ---
PROCEDURE: CT LUMBAR SPINE WO CON INDICATIONS: SPINAL STENOSIS TECHNIQUE: Noncontrast 3 mm thick sections acquired from the T12 level to the sacrum. Sagittal and coronal reformats were constructed. For radiation dose reduction, the following was used: automated exposure control. COMPARISON: [facility], MR, MR LUMBAR SPINE WITH/WITHOUT CONTRAST, 01/31/2021, 9:06. [facility] [place], CR, XR LUMBAR SPINE 2 OR 3 VIEWS, 01/13/2024, 14:28. FINDINGS: Image quality: Excellent. Bones: There is leftward curvature with apex at L3. Posterior fusion is present from L3-L4 with intervertebral spacer. Hardware is intact. There is an appearance lucency surrounding the L3 pedicular screws. Multilevel degenerative disc space narrowing most severe at L5-S1. Multilevel bridging anterior osteophytes are present. Chronic compression deformities are present at L2 and L4. Mild disc bulges at L1-2, L2-3, L3-4, L4-5 and L5-S1. Minimal to mild spinal stenosis at L2-3, [id number] L4-5. Left hemilaminectomy changes are present at L3-4. Minimal right foraminal narrowing L1-2 moderate to severe bilateral L2-3, severe bilateral L3-4, L4-5 and L5-S1. Multilevel facet and ligamentum flavum hypertrophy are present. Soft tissues: No retroperitoneal masses or hematomas. Visualized aorta is normal in caliber. IMPRESSION: Postsurgical changes as above. Minimal to mild spinal stenosis L2-3, [id number] L4-5 relatively stable compared to prior exam. Prominent multilevel foraminal narrowing as described above also relatively stable. Improved appearance of previous spinal stenosis at L3-4. Dictated by: Milagro Palmer M.D. on 01/20/2024 at 18:12 Approved by: Milagro Palmer M.D. on 01/20/2024 at 18:16
== END ==
PROVIDERS: Family Provider Family Medicine; PCP Family Medicine; Referring Provider Orthopaedic Surgery Orthopaedic Surgery of the Spine; Visit Provider Orthopaedic Surgery Orthopaedic Surgery of the Spine
DX: M48.061 Spinal stenosis, lumbar region without neurogenic claudication (principal); M51.36 Other intervertebral disc degeneration, lumbar region; M51.37 Other intervertebral disc degeneration, lumbosacral region; M47.816 Spondylosis without myelopathy or radiculopathy, lumbar region; M43.8X6 Other specified deforming dorsopathies, lumbar region; Z98.1 Arthrodesis status
CPT/HCPCS: 72131

== ENCOUNTER → 2024-05-14 12:22 | Outpatient (CLI) | payer MEDICARE, OTHER, SELFPAY ==
[2023-07-02 17:46] VITALS: BMI 33.7
--- NOTE | 2024-05-14 12:25 | DI.RAD.S_ITS ---
PROCEDURE: XR KNEE LT 3V INDICATIONS: PAIN IN LT KNEE TECHNIQUE: 3 views of the knee were acquired. COMPARISON: None. FINDINGS: Bones: No fractures or dislocations. No suspicious bony lesions. Tiny patellar osteophytes. Soft tissues: Small joint effusion. No suspicious soft tissue calcifications. Arterial vascular calcifications. Chondrocalcinosis. IMPRESSION: Mild degenerative changes. Chondrocalcinosis. Dictated by: Marco Gaffney M.D. on 05/14/2024 at 21:46 Approved by: Marco Gaffney M.D. on 05/14/2024 at 21:47
== END ==
PROVIDERS: Family Provider Family Medicine; PCP Family Medicine; Referring Provider Family Medicine; Visit Provider Family Medicine
DX: M11.262 Other chondrocalcinosis, left knee (principal); M25.562 Pain in left knee
CPT/HCPCS: 73562